=== PATIENT | female | born 1985 | race Two or more races ===

== ENCOUNTER 2021-02-24 15:01 | Outpatient (REF) | payer OTHER, SELFPAY ==
[2021-02-24 16:00] LABS: COVID-19 Test Negative (Negative)
== END 2021-02-24 15:02 | disposition home or self-care (01) ==
LOC: HO.LAB 15:01
PROVIDERS: Visit Provider Internal Medicine
DX: Z20.822 Contact with and (suspected) exposure to COVID-19 (principal)
CPT/HCPCS: 36415; 87635; C9803

== ENCOUNTER → 2022-02-28 11:14 | Outpatient (REF) | payer OTHER, SELFPAY ==
--- NOTE | 2022-02-28 11:20 | ECG_ITS ---
Test Reason : PREOP Blood Pressure : / mmHG Vent. Rate : 059 BPM Atrial Rate : 059 BPM P-R Int : 128 ms QRS Dur : 080 ms QT Int : 396 ms P-R-T Axes : 062 067 025 degrees QTc Int : 392 ms Sinus bradycardia Otherwise normal ECG No previous ECGs available Referred By: Meagan Obrien Electronically Signed By:ASMITA BLISS MD
[2022-02-28 11:43] LABS: MANUAL DIFF FLAG NO
[2022-02-28 12:27] LABS: Basophils Absolute Auto 0.1 X10*3/uL (0.0-0.2); Basophils Percent Auto 1.7 % (0-2); Eosinophils Absolute Auto 0.3 X10*3/uL (0.0-0.4); Hematocrit 39.9 % (37.0-47.0); Hemoglobin 12.8 g/dl (12.0-16.0); Imm Gran Abs Auto 0.01 X10*3/uL (0.00-0.03); Imm Gran Pct Auto 0.2 % (0.0-0.4); Lymphocytes Absolute Auto 1.9 X10*3/uL (1.2-4.9); Lymphocytes Percent Auto 38.8 % (20-40); Mean Corpuscular HGB Conc 32.1 g/dl (31.0-35.0); Mean Corpuscular Hemoglobin 26.4 pg (27.0-33.0); Mean Corpuscular Volume 82.3 fL (80.0-98.0); Mean Platelet Volume 10.7 fL (9.4-12.3); Monocytes Absolute Auto 0.4 X10*3/uL (0.1-1.2); Monocytes Percent Auto 7.9 % (2-11); Neutrophils Absolute Auto 2.2 x10*3/uL (2.0-8.3); Neutrophils Percent Auto 45.4 % (45-73); Platelet Count 260 X10*3/uL (160-400); Red Blood Count 4.85 X10*6/uL (4.20-5.50); White Blood Count 4.8 X10*3/uL (4.8-10.8)
[2022-02-28 12:45] LABS: INTERNATIONAL NORM RATIO 1.1 (0.9-1.1)
[2022-02-28 12:48] LABS: Partial Thromboplastin Time 37.7 SEC (24.1-38.0)
[2022-02-28 12:57] LABS: Alanine Aminotransferase 14 U/L (0-31); Albumin Level 4.5 g/dL (3.5-5.0); Alkaline Phosphatase 78 U/L (39-117); Anion Gap 11 (12-20); Aspartate Amino Transferase 12 U/L (5-31); Bilirubin Total 2.3 mg/dL (0.0-1.0); Blood Urea Nitrogen 8 mg/dL (9-16); Calcium 9.3 mg/dL (8.4-10.2); Carbon Dioxide 25 mmol/L (22-29); Chloride 107 mmol/L (96-108); Cholesterol 122 mg/dL; Estimated Glomerular Filt Rate > 60; Glucose Fasting 85 mg/dL (60-99); HDL Cholesterol 45 mg/dL; LDL Cholesterol Calculated 66 mg/dl; Potassium 4.2 mmol/L (3.3-5.1); Sodium 139 mmol/L (135-145); Total Protein 7.1 g/dL (6.5-8.0); Triglycerides 58 mg/dL
[2022-02-28 13:17] LABS: Appearance Urine CLEAR; Color Urine YELLOW; Glucose Urine UA NEG (NEG); Leukocyte Esterase Urine NEG (NEG); Nitrite Urine POS (NEG); UACC Culture Trigger YES; Urine Blood 3+ (NEG); Urine Ketones NEG (NEG); Urine Protein NEG (NEG-TRACE)
[2022-02-28 13:19] LABS: HCG Quantitative < 2 mIU/mL; Thyroid Stimulating Hormone 1.35 uIU/mL (0.32-4.0)
[2022-02-28 13:21] LABS: Free T4 (Free Thyroxine) 1.01 ng/dL (0.71-1.85); Vitamin D 25-OH Total 20.5 ng/mL (>30)
[2022-02-28 13:24] LABS: Vitamin B12 511 pg/mL (200-900)
[2022-02-28 13:58] LABS: Bacteria Urine 4+ /LPF; Squamous Epithelial Cell Urine 3+ /LPF; WBC Urine 0-2 /HPF (0-4)
== END ==
LOC: HO.CARD 11:14
PROVIDERS: PCP Internal Medicine; Visit Provider Nurse Practitioner Family
DX: Z01.818 Encounter for other preprocedural examination (principal); I10 Essential (primary) hypertension; E78.00 Pure hypercholesterolemia, unspecified; R30.0 Dysuria
CPT/HCPCS: 36415; 80053; 80061; 81001; 82306; 82607; 82746; 84439; 84443; 84702; 85025; 85610; 85730; 87086; 87088; 87186; 93005

== ENCOUNTER 2022-03-01 12:15 | Outpatient (REF) | payer OTHER, SELFPAY ==
[2022-03-01 12:40] LABS: MANUAL DIFF FLAG NO
[2022-03-01 13:12] LABS: Basophils Absolute Auto 0.1 X10*3/uL (0.0-0.2); Basophils Percent Auto 1.7 % (0-2); Eosinophils Absolute Auto 0.3 X10*3/uL (0.0-0.4); Eosinophils Percent Auto 6.4 % (0-4); Imm Gran Abs Auto 0.01 X10*3/uL (0.00-0.03); Imm Gran Pct Auto 0.2 % (0.0-0.4); Lymphocytes Absolute Auto 1.8 X10*3/uL (1.2-4.9); Lymphocytes Percent Auto 33.9 % (20-40); Mean Corpuscular HGB Conc 32.5 g/dl (31.0-35.0); Mean Corpuscular Hemoglobin 26.7 pg (27.0-33.0); Mean Corpuscular Volume 82.1 fL (80.0-98.0); Mean Platelet Volume 10.9 fL (9.4-12.3); Monocytes Absolute Auto 0.4 X10*3/uL (0.1-1.2); Neutrophils Absolute Auto 2.7 x10*3/uL (2.0-8.3); Neutrophils Percent Auto 50.8 % (45-73); Platelet Count 260 X10*3/uL (160-400); Red Blood Count 4.87 X10*6/uL (4.20-5.50); White Blood Count 5.3 X10*3/uL (4.8-10.8)
[2022-03-01 13:41] LABS: Alanine Aminotransferase 11 U/L (0-31); Albumin Level 4.5 g/dL (3.5-5.0); Alkaline Phosphatase 78 U/L (39-117); Anion Gap 11 (12-20); Aspartate Amino Transferase 10 U/L (5-31); Bilirubin Total 1.5 mg/dL (0.0-1.0); Blood Urea Nitrogen 11 mg/dL (9-16); Calcium 9.3 mg/dL (8.4-10.2); Carbon Dioxide 23 mmol/L (22-29); Chloride 107 mmol/L (96-108); Estimated Glomerular Filt Rate > 60; Glucose Random 88 mg/dL (60-115); Potassium 4.2 mmol/L (3.3-5.1); Sodium 137 mmol/L (135-145); Total Protein 7.1 g/dL (6.5-8.0)
[2022-03-01 14:12] LABS: Appearance Urine CLOUDY; Color Urine YELLOW; Glucose Urine UA NEG (NEG); Leukocyte Esterase Urine NEG (NEG); Nitrite Urine POS (NEG); Specific Gravity - Urine >= 1.030 (1.005-1.025); UACC Culture Trigger YES; Urine Blood TRACE (NEG); Urine Ketones NEG (NEG); Urine Protein NEG (NEG-TRACE)
[2022-03-01 14:29] LABS: Bacteria Urine 3+ /LPF; Squamous Epithelial Cell Urine 1+ /LPF
[2022-03-02 08:36] LABS: HIV AB/AG Nonreactive (Nonreactive); HIV Num 1 0.09 S/CO (0.00-0.99)
== END 2022-03-01 12:16 | disposition home or self-care (01) ==
LOC: HO.LAB 12:15
PROVIDERS: Nurse Practitioner Family; PCP Internal Medicine; Visit Provider Internal Medicine
DX: Z11.4 Encounter for screening for human immunodeficiency virus [HIV] (principal); R30.0 Dysuria; N87.1 Moderate cervical dysplasia
CPT/HCPCS: 36415; 80053; 81001; 85025; 87389

== ENCOUNTER 2022-03-19 17:57 | Emergency (ER) | payer OTHER, SELFPAY ==
[2022-03-19] VITALS (8 sets, daily range): BP systolic 113–141; BP diastolic 71–85; PULSE 108–142; RESP 14–18; TEMP 36.8–37.7; O2SAT 98–100; BMI 28.3
--- NOTE | ~2022-03-19 | XR_ITS ---
EXAMINATION: XR chest 1V CLINICAL INFORMATION: Reason for Exam Tachycardia COMPARISON: None TECHNIQUE: XR chest 1V Tubes and lines: None Lungs and pleura: Both lungs are clear. Heart and mediastinum: The mediastinum is within normal limits.. Bones/soft tissue: Skeletal structures included are normal for patient's age. XR/XR chest 1V IMPRESSION: Normal portable chest x-ray.
--- NOTE | ~2022-03-19 | CT_ITS ---
EXAMINATION: CT abdomen pelvis w con CLINICAL INFORMATION: Reason for Exam Postsurgical bleeding COMPARISON: No prior CT available for comparison. TECHNIQUE: Multidetector volumetric imaging was performed from the superior aspect of the liver through the pubic symphysis 85 mL Omnipaque 350 injected Sagittal and coronal reformatted images were obtained on the technologist's workstation. This CT examination was performed using dose optimization techniques as appropriate, variously including the following: *Automated exposure control *Adjustment of mA and/or kV according to patient size (this includes techniques or standardized protocols for targeted exams where dose is matched to indication/reason for exam; i.e. extremities or head) *Use of iterative reconstruction technique DLP: 350 mGy-cm FINDINGS: LOWER THORAX: Included lung bases are clear. HEPATOBILIARY: No focal hepatic lesions. No biliary ductal dilatation. GALLBLADDER: Gallbladder unremarkable. SPLEEN: Spleen is normal in size. PANCREAS: No focal mass or ductal dilatation. STOMACH AND GASTROINTESTINAL TRACT: Stomach is grossly unremarkable. There is no bowel distention or thickening. No CT evidence of appendicitis. ADRENALS: No adrenal nodules. KIDNEYS/URETERS: No hydronephrosis, stones or solid mass lesions. URINARY BLADDER: Partially decompressed. PELVIC VISCERA: There is IUD in the uterus. PERITONEUM: No free air or fluid. LYMPH NODES: No lymphadenopathy. VASCULAR:Abdominal aorta normal in size, no aneurysm found. BONES, ABDOMINAL WALL AND SOFT TISSUES: There is diffuse soft tissue edema, and subcutaneous emphysema, cannot rule out cellulitis and/or gas-forming bacteria. Versus postsurgical. CT/CT abdomen pelvis w con IMPRESSION: Diffuse anterior abdominal wall subcutaneous edema and emphysema, although could be postsurgical, cannot rule out the possibility of cellulitis, gas-forming bacteria. Please correlate with patient's surgical history. No localized fluid collection abscess. No intra-abdominal acute process. No obstruction. No free air or fluid in the abdomen or pelvis. IUD in the uterus.
--- NOTE | 2022-03-19 18:17 | ECG_ITS ---
Test Reason : TACHYCARDIA Blood Pressure : / mmHG Vent. Rate : 140 BPM Atrial Rate : 140 BPM P-R Int : 116 ms QRS Dur : 066 ms QT Int : 298 ms P-R-T Axes : 067 063 022 degrees QTc Int : 454 ms Sinus tachycardia Cannot rule out Anterior infarct , age undetermined Abnormal ECG When compared with ECG of 28-FEB-2022 11:23, Vent. rate has increased BY 81 BPM Referred By: Generic ED Physician Electronically Signed By:ASMITA BLISS MD
--- NOTE | 2022-03-19 18:38 | ED_ITS ---
HPI - General Adult General Chief complaint: Arrhythmia/Palpitations Stated complaint: high BP Time Seen by Provider: 03/19/22 18:30 Source: patient Mode of arrival: ambulatory Limitations: no limitations History of Present Illness HPI narrative: 36-year-old female presents with 4 days of chills, palpitations, tachycardia, hypertension, and weakness. Had a liposuction with Mongolian butt lift in [place] on 03/15/2022. Onset (ago): day(s) (4) Location: abdomen, buttocks, left, right and lower extremity Severity: moderate Quality: aching Pain Consistency: constant Relieving factors: none Exacerbating factors: movement Associated symptoms: fever/chills, headaches, loss of appetite and weakness Treatments prior to arrival: NSAID Related Data Previous Rx's Medication Instructions Recorded citalopram 10 mg tablet (Celexa) 10 mg PO DAILY #30 tab 01/24/22 quetiapine 50 mg tablet (Seroquel) 50 mg PO BEDTIME #30 tab 01/24/22 nitrofurantoin 100 mg PO BID 7 Days #14 cap 03/03/22 monohydrate/macrocrystals 100 mg capsule (Macrobid) Allergies Allergy/AdvReac Type Severity Reaction Status Date / Time nifedipine [Procardia] Allergy Unknown Abdominal Verified 03/19/22 18:13 Pain terbutaline Allergy Unknown Abdominal Verified 03/19/22 18:13 Pain Review of Systems Review of Systems: Constitutional: No Fever, positive Chills ENT/Mouth: No Ear Pain, No Hoarseness, No sore throat Eyes: No Eye Pain, No Swelling, No Redness, No Foreign Body Cardiovascular: Positive palpitations, No Chest Pain, No SOB Respiratory: No Cough, No Dyspnea Gastrointestinal: No Nausea, No Vomiting, No Diarrhea, positive postsurgical abdominal Pain Genitourinary: No Dysuria, No Hematuria Musculoskeletal: No joint pain, No Myalgias, No Joint Swelling Skin: No Skin lacerations, No rash Neuro: Positive Weakness, No Numbness, No Paresthesias, No Loss of Consciousness, No Dizziness, No Headache Psych: No Anxiety/Panic, No Depression Heme/Lymph: no easy bruising, no Lymphadenopathy Endocrine: No Polyuria, No Polydipsia Yes all other systems are reviewed and are negative PMFSH Past Medical History Attestation statement: The following information was validated with the patient. Source: old records reviewed Medical History Allergic rhinitis Cervical high risk HPV (human papillomavirus) test positive FLORENCIO II (cervical intraepithelial neoplasia II) Complex ovarian cyst Constipation Ectopic of left ovary Generalized anxiety disorder GERD (gastroesophageal reflux disease) Hematuria History of hydronephrosis Hyperbilirubinemia Hypertension Obesity (BMI 30-39.9) Vitamin D deficiency Surgical History H/O section History of appendectomy Skin tag, acquired Family History Family History Maternal Grandmother Colon cancer Maternal Grandfather Colon cancer Other Mental health disorder Social History Social History Housing: Apartment Alcohol intake: never Patient Tobacco Use Status: Former Tobacco user Tobacco use type: Cigarette Years Smoked: quit 17 years old e-Cigarette/Vaping Use: Never Used Second Hand Smoke Exposure: No Advance Directives: No Advance Directives Information Provided: No service: No Current occupational status: employed Cognitive needs: No Hearing needs: No Vision needs: No Physical Exam ED Vital Signs: Vital Signs - 24 hr 03/19/22 18:13 03/19/22 21:20 03/19/22 21:56 Temperature 98.3 F 98.6 F 98.7 F Pulse Rate 142 H 110 H 113 H Respiratory Rate 18 14 16 Blood Pressure 141/85 H 123/77 117/76 Pulse Oximetry 98 100 03/19/22 22:11 03/19/22 22:42 03/19/22 23:27 Temperature 99.8 F 99.4 F 99.5 F Pulse Rate 108 H 114 H 134 H Respiratory Rate 14 14 18 Blood Pressure 115/77 113/72 125/71 Pulse Oximetry 100 03/19/22 23:54 03/19/22 23:58 03/20/22 00:03 Temperature 99.7 F 99.6 F 99.6 F Pulse Rate 118 H 118 H 118 H Respiratory Rate 14 14 14 Blood Pressure 124/77 118/77 118/77 Pulse Oximetry 03/20/22 00:18 Temperature 99.5 F Pulse Rate 126 H Respiratory Rate 17 Blood Pressure 124/68 Pulse Oximetry BMI result Body Mass Index 28.3 Appearance: Alert. Oriented X3. Moderate distress. Appears fatigued. Eyes: Pupils equal, round and reactive to light. EOMI. Sclera nonicteric. ENT: Pharynx normal. Dry mucous membranes Neck: Normal inspection. Neck supple. CVS: Tachycardic heart rate and rhythm. Apical pulse good pulses to extremities. Respiratory: No respiratory distress. Breath sounds normal. Abdomen: Soft and diffusely tender. Skin: Significant bluish purple almost black bruising from above the umbilicus to bilateral inner thighs out to the bilateral buttocks. Normal skin turgor. Extremities: No lower extremity edema. awkward but steady gait. Moves all extremities against resistance. Neuro: No motor deficit. No sensory deficit. Cranial nerves 2-12 intact. Course Course Course Narrative: 36-year-old female presents with tachycardia, palpitations, hypertension, weakness, fatigue and intermittent chills over the past 4 days. Had a Mongolian butt lift and liposuction 360 at a clinic in [place] on 03/15/2022. Patient stated that the symptoms started shortly after, she was prescribed Bactrim. Did not take the Bactrim because she felt like it was contributing to her elevated blood pressure. Patient looks fatigued, has significant bruising from mid torso down to thighs circumferential to both legs and buttocks. High suspicion for sepsis at this time. Will order lactic acid, cultures, labs, CT scan of abdomen and pelvis with contrast. Order for Zosyn, saline, morphine and Zofran. 19:46 critical value of hemoglobin of 7. Type and screen ordered at this time. 22:50 CT scan of abdomen and pelvis indicates subcutaneous emphysema and cellulitis which could possibly be postsurgical verses gas-forming bacteria. 2300 p.m. hospitalist not feel comfortable accepting this patient. Discussion with on-call surgery, Dr. Silva does not feel that this patient would receive the services needed for her condition as we do not have [facility]. With the high possibility of necrotizing soft tissue, patient needs a high level of care and this hospital can provide. Call out to [facility]. 23:05 [facility] is not accepting patients at this time. Call out to [facility]. [facility] is not accepting patients. 23:26 discussion with [facility]. 23:47 2nd unit of blood infusing. 00:03 discussion with on-call plastics Dr. Balderas, [facility] affiliation [facility]. Patient will be accepted by Dr. Balbuena as an ED to ED transfer. Consultations Consultation #1: shelli Time: 23:00 Consultation #2: Ricardo Time: 23:00 Medical Decision Making Differential Diagnosis Differential Diagnosis: Sepsis, cellulitis, abscess Medical Records Medical records reviewed: Yes I reviewed the patient's medical records. Lab Data Lab results reviewed: Yes I reviewed the patient's lab results. Result diagrams: 03/19/22 18:50 03/19/22 18:50 Labs: Lab Results 03/19/22 03/19/22 03/19/22 Range/Units 18:50 18:50 18:50 WBC 14.5 H (4.8-10.8) X10*3/uL RBC 2.51 L D (4.20-5.50) X10*6/uL Hgb 7.0 L* D (12.0-16.0) g/dl Hct 21.1 L D (37.0-47.0) % MCV 84.1 (80.0-98.0) fL MCH 27.9 (27.0-33.0) pg MCHC 33.2 (31.0-35.0) g/dl RDW 14.1 (11.0-16.0) % Plt Count 313 (160-400) X10*3/uL MPV 10.2 (9.4-12.3) fL Immature Gran % (Auto) 1.4 H (0.0-0.4) % Neut % (Auto) 69.4 (45-73) % Lymph % (Auto) 19.5 L (20-40) % [place] % (Auto) 7.1 (2-11) % Eos % (Auto) 2.1 (0-4) % Baso % (Auto) 0.5 (0-2) % Lymph # (Auto) 2.8 (1.2-4.9) X10*3/uL [place] # (Auto) 1.0 (0.1-1.2) X10*3/uL Eos # (Auto) 0.3 (0.0-0.4) X10*3/uL Baso # (Auto) 0.1 (0.0-0.2) X10*3/uL Abs Immat Gran (auto) 0.20 H (0.00-0.03) X10*3/uL Absolute Neuts (auto) 10.1 H (2.0-8.3) x10*3/uL Absolute Nucleated RBC 0.060 H (0.0-0.012) X10*3/uL Nucleated RBC % (auto) 0.4 H (0.0-0.2) /100WBC PT (9.9-13.0) SEC INR (0.9-1.1) APTT 33.3 (24.1-38.0) SEC D-Dimer High Sensitivty NG/ML Sodium 138 (135-145) mmol/L Potassium 3.9 (3.3-5.1) mmol/L Chloride 105 (96-108) mmol/L Carbon Dioxide 25 (22-29) mmol/L Anion Gap 12 (12-20) BUN 13 (9-16) mg/dL Creatinine 0.78 (0.5-1.4) mg/dL Estim Creat Clear Calc 98.8 Estimated GFR > 60 Random Glucose 114 (60-115) mg/dL Lactic Acid (0.5-2.0) mmol/L Calcium 9.2 (8.4-10.2) mg/dL Magnesium 2.0 (1.6-2.6) mg/dL Total Bilirubin 1.8 H (0.0-1.0) mg/dL Direct Bilirubin 0.6 H (0.0-0.5) mg/dL AST 27 D (5-31) U/L ALT 30 (0-31) U/L Alkaline Phosphatase 74 (39-117) U/L Troponin I High Sens (<3.5-17.0) ng/L Total Protein 6.2 L (6.5-8.0) g/dL Albumin 3.8 (3.5-5.0) g/dL Lipase 55 (8-78) U/L Urine Color Urine Appearance Urine pH (5.0-8.0) Ur Specific [place] (1.005-1.025) Urine Protein (NEG-TRACE) MG/DL Urine Glucose (UA) (NEG) MG/DL Urine Ketones (NEG) MG/DL Urine Blood (NEG) Urine Nitrite (NEG) Ur Leukocyte Esterase (NEG) Urine Test (NEGATIVE) Influenza Type A (PCR) (Negative) Influenza Type B (PCR) (Negative) RSV RNA Qual (PCR) (Negative) SARS-CoV-2 RNA (RT-PCR) (Negative) Blood Type Antibody Screen Crossmatch 03/19/22 03/19/22 03/19/22 Range/Units 18:50 18:50 18:50 WBC (4.8-10.8) X10*3/uL RBC (4.20-5.50) X10*6/uL Hgb (12.0-16.0) g/dl Hct (37.0-47.0) % MCV (80.0-98.0) fL MCH (27.0-33.0) pg MCHC (31.0-35.0) g/dl RDW (11.0-16.0) % Plt Count (160-400) X10*3/uL MPV (9.4-12.3) fL Immature Gran % (Auto) (0.0-0.4) % Neut % (Auto) (45-73) % Lymph % (Auto) (20-40) % [place] % (Auto) (2-11) % Eos % (Auto) (0-4) % Baso % (Auto) (0-2) % Lymph # (Auto) (1.2-4.9) X10*3/uL [place] # (Auto) (0.1-1.2) X10*3/uL Eos # (Auto) (0.0-0.4) X10*3/uL Baso # (Auto) (0.0-0.2) X10*3/uL Abs Immat Gran (auto) (0.00-0.03) X10*3/uL Absolute Neuts (auto) (2.0-8.3) x10*3/uL Absolute Nucleated RBC (0.0-0.012) X10*3/uL Nucleated RBC % (auto) (0.0-0.2) /100WBC PT 11.1 (9.9-13.0) SEC INR 1.0 (0.9-1.1) APTT (24.1-38.0) SEC D-Dimer High Sensitivty 821 NG/ML Sodium (135-145) mmol/L Potassium (3.3-5.1) mmol/L Chloride (96-108) mmol/L Carbon Dioxide (22-29) mmol/L Anion Gap (12-20) BUN (9-16) mg/dL Creatinine (0.5-1.4) mg/dL Estim Creat Clear Calc Estimated GFR Random Glucose (60-115) mg/dL Lactic Acid 1.8 (0.5-2.0) mmol/L Calcium (8.4-10.2) mg/dL Magnesium (1.6-2.6) mg/dL Total Bilirubin (0.0-1.0) mg/dL Direct Bilirubin (0.0-0.5) mg/dL AST (5-31) U/L ALT (0-31) U/L Alkaline Phosphatase (39-117) U/L Troponin I High Sens 39.5 H (<3.5-17.0) ng/L Total Protein (6.5-8.0) g/dL Albumin (3.5-5.0) g/dL Lipase (8-78) U/L Urine Color Urine Appearance Urine pH (5.0-8.0) Ur Specific [place] (1.005-1.025) Urine Protein (NEG-TRACE) MG/DL Urine Glucose (UA) (NEG) MG/DL Urine Ketones (NEG) MG/DL Urine Blood (NEG) Urine Nitrite (NEG) Ur Leukocyte Esterase (NEG) Urine Test (NEGATIVE) Influenza Type A (PCR) (Negative) Influenza Type B (PCR) (Negative) RSV RNA Qual (PCR) (Negative) SARS-CoV-2 RNA (RT-PCR) (Negative) Blood Type Antibody Screen Crossmatch 03/19/22 03/19/22 03/19/22 Range/Units 18:50 20:06 20:06 WBC (4.8-10.8) X10*3/uL RBC (4.20-5.50) X10*6/uL Hgb (12.0-16.0) g/dl Hct (37.0-47.0) % MCV (80.0-98.0) fL MCH (27.0-33.0) pg MCHC (31.0-35.0) g/dl RDW (11.0-16.0) % Plt Count (160-400) X10*3/uL MPV (9.4-12.3) fL Immature Gran % (Auto) (0.0-0.4) % Neut % (Auto) (45-73) % Lymph % (Auto) (20-40) % [place] % (Auto) (2-11) % Eos % (Auto) (0-4) % Baso % (Auto) (0-2) % Lymph # (Auto) (1.2-4.9) X10*3/uL [place] # (Auto) (0.1-1.2) X10*3/uL Eos # (Auto) (0.0-0.4) X10*3/uL Baso # (Auto) (0.0-0.2) X10*3/uL Abs Immat Gran (auto) (0.00-0.03) X10*3/uL Absolute Neuts (auto) (2.0-8.3) x10*3/uL Absolute Nucleated RBC (0.0-0.012) X10*3/uL Nucleated RBC % (auto) (0.0-0.2) /100WBC PT (9.9-13.0) SEC INR (0.9-1.1) APTT (24.1-38.0) SEC D-Dimer High Sensitivty NG/ML Sodium (135-145) mmol/L Potassium (3.3-5.1) mmol/L Chloride (96-108) mmol/L Carbon Dioxide (22-29) mmol/L Anion Gap (12-20) BUN (9-16) mg/dL Creatinine (0.5-1.4) mg/dL Estim Creat Clear Calc Estimated GFR Random Glucose (60-115) mg/dL Lactic Acid (0.5-2.0) mmol/L Calcium (8.4-10.2) mg/dL Magnesium (1.6-2.6) mg/dL Total Bilirubin (0.0-1.0) mg/dL Direct Bilirubin (0.0-0.5) mg/dL AST (5-31) U/L ALT (0-31) U/L Alkaline Phosphatase (39-117) U/L Troponin I High Sens (<3.5-17.0) ng/L Total Protein (6.5-8.0) g/dL Albumin (3.5-5.0) g/dL Lipase (8-78) U/L Urine Color YELLOW Urine Appearance CLEAR Urine pH 5.5 (5.0-8.0) Ur Specific [place] 1.010 (1.005-1.025) Urine Protein NEG (NEG-TRACE) MG/DL Urine Glucose (UA) NEG (NEG) MG/DL Urine Ketones NEG (NEG) MG/DL Urine Blood NEG (NEG) Urine Nitrite NEG (NEG) Ur Leukocyte Esterase NEG (NEG) Urine Test NEGATIVE (NEGATIVE) Influenza Type A (PCR) NEGATIVE (Negative) Influenza Type B (PCR) NEGATIVE (Negative) RSV RNA Qual (PCR) NEGATIVE (Negative) SARS-CoV-2 RNA (RT-PCR) NEGATIVE (Negative) Blood Type Antibody Screen Crossmatch 03/19/22 Range/Units 20:29 WBC (4.8-10.8) X10*3/uL RBC (4.20-5.50) X10*6/uL Hgb (12.0-16.0) g/dl Hct (37.0-47.0) % MCV (80.0-98.0) fL MCH (27.0-33.0) pg MCHC (31.0-35.0) g/dl RDW (11.0-16.0) % Plt Count (160-400) X10*3/uL MPV (9.4-12.3) fL Immature Gran % (Auto) (0.0-0.4) % Neut % (Auto) (45-73) % Lymph % (Auto) (20-40) % [place] % (Auto) (2-11) % Eos % (Auto) (0-4) % Baso % (Auto) (0-2) % Lymph # (Auto) (1.2-4.9) X10*3/uL [place] # (Auto) (0.1-1.2) X10*3/uL Eos # (Auto) (0.0-0.4) X10*3/uL Baso # (Auto) (0.0-0.2) X10*3/uL Abs Immat Gran (auto) (0.00-0.03) X10*3/uL Absolute Neuts (auto) (2.0-8.3) x10*3/uL Absolute Nucleated RBC (0.0-0.012) X10*3/uL Nucleated RBC % (auto) (0.0-0.2) /100WBC PT (9.9-13.0) SEC INR (0.9-1.1) APTT (24.1-38.0) SEC D-Dimer High Sensitivty NG/ML Sodium (135-145) mmol/L Potassium (3.3-5.1) mmol/L Chloride (96-108) mmol/L Carbon Dioxide (22-29) mmol/L Anion Gap (12-20) BUN (9-16) mg/dL Creatinine (0.5-1.4) mg/dL Estim Creat Clear Calc Estimated GFR Random Glucose (60-115) mg/dL Lactic Acid (0.5-2.0) mmol/L Calcium (8.4-10.2) mg/dL Magnesium (1.6-2.6) mg/dL Total Bilirubin (0.0-1.0) mg/dL Direct Bilirubin (0.0-0.5) mg/dL AST (5-31) U/L ALT (0-31) U/L Alkaline Phosphatase (39-117) U/L Troponin I High Sens (<3.5-17.0) ng/L Total Protein (6.5-8.0) g/dL Albumin (3.5-5.0) g/dL Lipase (8-78) U/L Urine Color Urine Appearance Urine pH (5.0-8.0) Ur Specific [place] (1.005-1.025) Urine Protein (NEG-TRACE) MG/DL Urine Glucose (UA) (NEG) MG/DL Urine Ketones (NEG) MG/DL Urine Blood (NEG) Urine Nitrite (NEG) Ur Leukocyte Esterase (NEG) Urine Test (NEGATIVE) Influenza Type A (PCR) (Negative) Influenza Type B (PCR) (Negative) RSV RNA Qual (PCR) (Negative) SARS-CoV-2 RNA (RT-PCR) (Negative) Blood Type B Positive Antibody Screen NEGATIVE Crossmatch See Detail Imaging Data Chest x-ray: Attestation: I personally reviewed and interpreted this imaging study as follows: Radiologist's impression: EXAMINATION: XR chest 1V CLINICAL INFORMATION: Reason for Exam Tachycardia COMPARISON: None? TECHNIQUE: XR chest 1V Tubes and lines: None Lungs and pleura: Both lungs are clear. Heart and mediastinum: The mediastinum is within normal limits.. Bones/soft tissue: Skeletal structures included are normal for patient's age. XR/XR chest 1V IMPRESSION: Normal portable chest x-ray. CT abdomen pelvis with contrast: Attestation: I personally reviewed and interpreted this imaging study as follows: Radiologist's impression: EXAMINATION: CT abdomen pelvis w con CLINICAL INFORMATION: Reason for Exam Postsurgical bleeding COMPARISON: No prior CT available for comparison. TECHNIQUE: Multidetector volumetric imaging was performed from the superior aspect of the liver through the pubic symphysis 85 mL Omnipaque 350 injected Sagittal and coronal reformatted images were obtained on the technologist's workstation. ? This CT examination was performed using dose optimization techniques as appropriate, variously including the following: *Automated exposure control *Adjustment of mA and/or kV according to patient size (this includes techniques or standardized protocols for targeted exams where dose is matched to indication/reason for exam; i.e. extremities or head) *Use of iterative reconstruction technique DLP: 350 mGy-cm FINDINGS: LOWER THORAX: Included lung bases are clear. HEPATOBILIARY: No focal hepatic lesions. No biliary ductal dilatation. GALLBLADDER: Gallbladder unremarkable. SPLEEN: Spleen is normal in size. PANCREAS: No focal mass or ductal dilatation. STOMACH AND GASTROINTESTINAL TRACT: Stomach is grossly unremarkable. There is no bowel distention or thickening. No CT evidence of appendicitis. ADRENALS: No adrenal nodules. KIDNEYS/URETERS: No hydronephrosis, stones or solid mass lesions. URINARY BLADDER: Partially decompressed. PELVIC VISCERA: There is IUD in the uterus. PERITONEUM: No free air or fluid. LYMPH NODES: No lymphadenopathy. VASCULAR:Abdominal aorta normal in size, no aneurysm found. BONES, ABDOMINAL WALL AND SOFT TISSUES: There is diffuse soft tissue edema, and subcutaneous emphysema, cannot rule out cellulitis and/or gas-forming bacteria. Versus postsurgical. CT/CT abdomen pelvis w con IMPRESSION: Diffuse anterior abdominal wall subcutaneous edema and emphysema, although could be postsurgical, cannot rule out the possibility of cellulitis, gas-forming bacteria. Please correlate with patient's surgical history. No localized fluid collection abscess. ? No intra-abdominal acute process. No obstruction. No free air or fluid in the abdomen or pelvis. ? IUD in the uterus. ECG Data Attestation: I personally reviewed and interpreted this ECG as follows: Prior ECG tracings: available for review Interpretation: Vent. rate 140 BPM WI interval 116 ms QRS duration 66 ms QT/QTc 298/454 ms P-R-T axes 67 63 22 Sinus tachycardia Cannot rule out Anterior infarct , age undetermined Abnormal ECG When compared with ECG of 28-FEB-2022 11:23, Vent. rate has increased BY 81 BPM 19-MAR-2022 18:17:24 Critical Care Time Critical Care Time Critical Care Time: Yes Total Critical Care Time: 45 Attestation: I have personally provided critical care time exclusive of time spent on separately billable procedures. Time includes review of laboratory data, radiology results, discussion with consultants, and monitoring for potential decompensation. Interventions were performed as documented. Discharge Plan Discharge Clinical Impression: Cellulitis, Subcutaneous emphysema, Sepsis Patient Disposition: [facility] Transfer Details: [facility] affiliated [facility] in [facility]. Dr Balbuena Prescriptions: No Action nitrofurantoin monohyd/m-cryst [Macrobid] 100 mg capsule 100 mg PO BID 7 Days Qty: 14 0RF Rx Instructions: must administer with a meal/food citalopram [Celexa] 10 mg tablet 10 mg PO DAILY Qty: 30 3RF quetiapine [Seroquel] 50 mg tablet 50 mg PO BEDTIME Qty: 30 4RF
[2022-03-19] MEDS: 0.9 % Sodium Chloride 1,000 ML 999 ML IVCONT (18:53)
[2022-03-19 19:00] LABS: Basophils Absolute Auto 0.1 X10*3/uL (0.0-0.2); Basophils Percent Auto 0.5 % (0-2); Eosinophils Absolute Auto 0.3 X10*3/uL (0.0-0.4); Eosinophils Percent Auto 2.1 % (0-4); Hematocrit 21.1 % (37.0-47.0); Imm Gran Pct Auto 1.4 % (0.0-0.4); Lymphocytes Absolute Auto 2.8 X10*3/uL (1.2-4.9); Lymphocytes Percent Auto 19.5 % (20-40); MANUAL DIFF FLAG NO; Mean Corpuscular HGB Conc 33.2 g/dl (31.0-35.0); Mean Corpuscular Hemoglobin 27.9 pg (27.0-33.0); Mean Corpuscular Volume 84.1 fL (80.0-98.0); Mean Platelet Volume 10.2 fL (9.4-12.3); Monocytes Percent Auto 7.1 % (2-11); NRBC Pct Auto 0.4 /100WBC (0.0-0.2); Neutrophils Absolute Auto 10.1 x10*3/uL (2.0-8.3); Neutrophils Percent Auto 69.4 % (45-73); Platelet Count 313 X10*3/uL (160-400); Red Blood Count 2.51 X10*6/uL (4.20-5.50); Red Cell Distribution Width 14.1 % (11.0-16.0); White Blood Count 14.5 X10*3/uL (4.8-10.8)
[2022-03-19 19:06] LABS: Prothrombin Time 11.1 SEC (9.9-13.0)
[2022-03-19 19:08] LABS: D Dimer High Sensitivity 821 NG/ML
[2022-03-19 19:09] LABS: Partial Thromboplastin Time 33.3 SEC (24.1-38.0)
[2022-03-19 19:13] LABS: Lactic Acid 1.8 mmol/L (0.5-2.0)
[2022-03-19 19:18] LABS: Alanine Aminotransferase 30 U/L (0-31); Albumin Level 3.8 g/dL (3.5-5.0); Alkaline Phosphatase 74 U/L (39-117); Anion Gap 12 (12-20); Aspartate Amino Transferase 27 U/L (5-31); Bilirubin Direct 0.6 mg/dL (0.0-0.5); Bilirubin Total 1.8 mg/dL (0.0-1.0); Blood Urea Nitrogen 13 mg/dL (9-16); Calcium 9.2 mg/dL (8.4-10.2); Carbon Dioxide 25 mmol/L (22-29); Chloride 105 mmol/L (96-108); Creatinine Clr Calc Pharmacy 98.8; Estimated Glomerular Filt Rate > 60; Glucose Random 114 mg/dL (60-115); Lipase 55 U/L (8-78); Potassium 3.9 mmol/L (3.3-5.1); Sodium 138 mmol/L (135-145); Total Protein 6.2 g/dL (6.5-8.0)
[2022-03-19 19:20] LABS: Troponin-I High Sensitivity 39.5 ng/L (<3.5-17.0)
[2022-03-19] MEDS: ondansetron HCL 4 MG/2 ML VIAL IVPUSH (19:36)
[2022-03-19 19:37] LABS: Influenza A PCR NEGATIVE (Negative); Influenza B PCR NEGATIVE (Negative); Resp Syncy Virus RNA Qual PCR NEGATIVE (Negative); SARS COV2 PCR INHOUSE NEGATIVE (Negative)
[2022-03-19] MEDS: Morphine Sulfate 4 MG/ML CARTRIDGE IVPUSH (19:37)
[2022-03-19] MEDS: Piperacillin Sodium/Tazobactam 3.375 GM in 0.9 % Sodium Chloride 50 ML IV (19:39)
[2022-03-19 20:15] LABS: Appearance Urine CLEAR; Color Urine YELLOW; Glucose Urine UA NEG (NEG); Leukocyte Esterase Urine NEG (NEG); Nitrite Urine NEG (NEG); PH 5.5 (5.0-8.0); Urine Blood NEG (NEG); Urine Ketones NEG (NEG); Urine Protein NEG (NEG-TRACE)
[2022-03-19 20:17] LABS: UPreg QC Valid YES; Urine Pregnancy NEGATIVE (NEGATIVE)
[2022-03-19] MEDS: iohexoL 350 MG/ML 100 ML INFUS..BTL IV (20:54)
[2022-03-19] MEDS: 0.9 % Sodium Chloride 1,000 ML 999 ML IV (21:16)
--- NOTE | 2022-03-19 21:34 | PC.NURSE ---
Chance Sigala returned from [facility] without pt's ordered blood because blood bank said they were having trouble with their computer system. Logan MOJICA will call [facility] to get more information.
--- NOTE | 2022-03-19 21:38 | PC.NURSE ---
Logan MOJICA spoke with blood bank staff and there will be a delay issuing blood until their computer system is back up and operating. [facility] said that they would alert Logan MOJICA when blood is ready to be issued again.
--- NOTE | 2022-03-19 22:17 | PC.NURSE ---
Blood transfusion in process, 15 minute check complete, VSS, no signs of transfusion reaction. Will continue to monitor.
--- NOTE | 2022-03-19 23:28 | PC.NURSE ---
GALINA DAVIS IS AWARE OF PATIENT HIGH HEART RATE ,PATIENT WAS ASSISTED ONTO BED SIDE COMMODE .
--- NOTE | 2022-03-19 23:51 | PC.NURSE ---
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 Called [place] line @[phone] call back. Received call back at [phone] ,accepted pt at [facility] in [place] ED to ED. Called [facility] for an ALS at [phone] to book transfer, awaiting call back from [facility] for available truck for transfer.Provider aware
[2022-03-20 00:03] VITALS: BP 118/77; PULSE 118; RESP 14; TEMP 37.6
[2022-03-20] MEDS: Morphine Sulfate 4 MG/ML CARTRIDGE IVPUSH ×2 (00:14→00:50)
--- NOTE | 2022-03-20 00:17 | PC.NURSE ---
Ursula for [facility] called at [phone] ,ALS truck en route. and rn aware
[2022-03-20 00:18] VITALS: BP 124/68; PULSE 126; RESP 17; TEMP 37.5
[2022-03-20 00:37] VITALS: BP 128/83; PULSE 111; RESP 18; TEMP 37.2
--- NOTE | 2022-03-20 01:00 | PC.NURSE ---
Pt transferred to [facility], ambulance arrived, pt left mid-transfusion with 1 unit RBCs infusing, VSS, paperwork complete. Report was called to [facility] by Logan MOJICA.
== END 2022-03-20 01:25 | disposition short-term general hospital (02) ==
PROVIDERS: Nurse Practitioner Family; Emergency Provider Emergency Medicine; PCP Internal Medicine
DX: L03.311 Cellulitis of abdominal wall (principal); R00.0 Tachycardia, unspecified; R00.2 Palpitations; A41.9 Sepsis, unspecified organism; R51.9 Headache, unspecified; J98.2 Interstitial emphysema; R50.9 Fever, unspecified; Z20.822 Contact with and (suspected) exposure to COVID-19; Z79.899 Other long term (current) drug therapy; Z87.891 Personal history of nicotine dependence
CPT/HCPCS: 0241U; 36415; 36430; 71045; 74177; 80048; 80076; 81003; 81025; 83605; 83690; 83735; 84484; 85025; 85379; 85610; 85730; 86850; 86900; 86901; 86920; 86923; 87040; 93005; 96361; 96374; 96376; 99285; 99291; J2270; J2405; J2543; P9016; Q9967

== ENCOUNTER 2022-05-04 11:25 | Outpatient (REF) | payer OTHER, SELFPAY ==
[2022-05-04 11:44] LABS: MANUAL DIFF FLAG NO
[2022-05-04 12:03] LABS: Basophils Absolute Auto 0.1 X10*3/uL (0.0-0.2); Basophils Percent Auto 0.7 % (0-2); Eosinophils Absolute Auto 0.3 X10*3/uL (0.0-0.4); Eosinophils Percent Auto 3.1 % (0-4); Hematocrit 40.1 % (37.0-47.0); Hemoglobin 12.8 g/dl (12.0-16.0); Imm Gran Abs Auto 0.03 X10*3/uL (0.00-0.03); Imm Gran Pct Auto 0.3 % (0.0-0.4); Lymphocytes Absolute Auto 1.5 X10*3/uL (1.2-4.9); Lymphocytes Percent Auto 16.1 % (20-40); Mean Corpuscular HGB Conc 31.9 g/dl (31.0-35.0); Mean Corpuscular Hemoglobin 27.7 pg (27.0-33.0); Mean Corpuscular Volume 86.8 fL (80.0-98.0); Mean Platelet Volume 10.3 fL (9.4-12.3); Monocytes Absolute Auto 0.6 X10*3/uL (0.1-1.2); Monocytes Percent Auto 5.8 % (2-11); Platelet Count 235 X10*3/uL (160-400); Red Blood Count 4.62 X10*6/uL (4.20-5.50); White Blood Count 9.4 X10*3/uL (4.8-10.8)
[2022-05-04 12:13] LABS: Appearance Urine CLEAR; Color Urine YELLOW; Glucose Urine UA NEG (NEG); Leukocyte Esterase Urine NEG (NEG); Nitrite Urine NEG (NEG); Urine Blood NEG (NEG); Urine Ketones NEG (NEG); Urine Protein TRACE MG/DL (NEG-TRACE)
[2022-05-04 12:26] LABS: Alanine Aminotransferase 11 U/L (0-31); Albumin Level 4.2 g/dL (3.5-5.0); Alkaline Phosphatase 75 U/L (39-117); Anion Gap 10 (12-20); Aspartate Amino Transferase 15 U/L (5-31); Bilirubin Total 1.1 mg/dL (0.0-1.0); Blood Urea Nitrogen 10 mg/dL (9-16); Calcium 8.7 mg/dL (8.4-10.2); Carbon Dioxide 25 mmol/L (22-29); Chloride 107 mmol/L (96-108); Cholesterol 127 mg/dL; Estimated Glomerular Filt Rate > 60; Glucose Random 85 mg/dL (60-115); HDL Cholesterol 54 mg/dL; LDL Cholesterol Calculated 60 mg/dl; Potassium 4.2 mmol/L (3.3-5.1); Sodium 138 mmol/L (135-145); Total Protein 6.7 g/dL (6.5-8.0); Triglycerides 67 mg/dL
[2022-05-04 12:47] LABS: Ferritin 24 ng/mL (10-122)
[2022-05-04 13:22] LABS: Folate 10.7 ng/mL (> or = 4.0); Vitamin B12 661 pg/mL (200-900)
== END 2022-05-04 11:26 | disposition home or self-care (01) ==
LOC: HO.LAB 11:25
PROVIDERS: Nurse Practitioner Family; PCP Internal Medicine; Visit Provider Internal Medicine
DX: Z01.818 Encounter for other preprocedural examination (principal); I10 Essential (primary) hypertension; D64.9 Anemia, unspecified; E78.00 Pure hypercholesterolemia, unspecified
CPT/HCPCS: 36415; 80053; 80061; 81003; 82607; 82728; 82746; 85025

== ENCOUNTER 2022-11-08 15:28 | Outpatient (REF) | payer OTHER, SELFPAY ==
[2022-11-08 15:37] LABS: MANUAL DIFF FLAG NO
[2022-11-08 17:03] LABS: Basophils Absolute Auto 0.1 X10*3/uL (0.0-0.2); Basophils Percent Auto 1.3 % (0-2); Eosinophils Absolute Auto 0.2 X10*3/uL (0.0-0.4); Eosinophils Percent Auto 3.6 % (0-4); Hematocrit 42.4 % (37.0-47.0); Hemoglobin 13.9 g/dl (12.0-16.0); Imm Gran Abs Auto 0.01 X10*3/uL (0.00-0.03); Imm Gran Pct Auto 0.2 % (0.0-0.4); Lymphocytes Absolute Auto 2.6 X10*3/uL (1.2-4.9); Lymphocytes Percent Auto 47.5 % (20-40); Mean Corpuscular HGB Conc 32.8 g/dl (31.0-35.0); Mean Corpuscular Hemoglobin 27.7 pg (27.0-33.0); Mean Corpuscular Volume 84.5 fL (80.0-98.0); Mean Platelet Volume 10.8 fL (9.4-12.3); Monocytes Absolute Auto 0.4 X10*3/uL (0.1-1.2); Monocytes Percent Auto 7.6 % (2-11); Neutrophils Absolute Auto 2.2 x10*3/uL (2.0-8.3); Neutrophils Percent Auto 39.8 % (45-73); Platelet Count 241 X10*3/uL (160-400); Red Blood Count 5.02 X10*6/uL (4.20-5.50); Red Cell Distribution Width 12.2 % (11.0-16.0); White Blood Count 5.5 X10*3/uL (4.8-10.8)
[2022-11-08 17:57] LABS: Alanine Aminotransferase 12 U/L (0-31); Albumin Level 4.5 g/dL (3.5-5.0); Alkaline Phosphatase 78 U/L (39-117); Anion Gap 11 (12-20); Aspartate Amino Transferase 11 U/L (5-31); Bilirubin Total 1.3 mg/dL (0.0-1.0); Blood Urea Nitrogen 11 mg/dL (9-16); Calcium 8.9 mg/dL (8.4-10.2); Carbon Dioxide 28 mmol/L (22-29); Chloride 105 mmol/L (96-108); Estimated Glomerular Filt Rate > 60; Glucose Random 84 mg/dL (60-115); Potassium 4.1 mmol/L (3.3-5.1); Sodium 140 mmol/L (135-145); TSH reflex Free T4 2.45 uIU/mL (0.32-4.0); Total Protein 6.9 g/dL (6.5-8.0)
== END 2022-11-08 15:29 | disposition home or self-care (01) ==
LOC: HO.LAB 15:28
PROVIDERS: PCP Internal Medicine; Visit Provider Nurse Practitioner Family
DX: I10 Essential (primary) hypertension (principal)
CPT/HCPCS: 36415; 80053; 84443; 85025

== ENCOUNTER → 2023-01-05 08:16 | Outpatient (REF) | payer OTHER, SELFPAY ==
--- NOTE | 2023-01-05 08:20 | ECG_ITS ---
Test Reason : PREOP Blood Pressure : / mmHG Vent. Rate : 065 BPM Atrial Rate : 065 BPM P-R Int : 136 ms QRS Dur : 082 ms QT Int : 386 ms P-R-T Axes : 065 059 020 degrees QTc Int : 401 ms Normal sinus rhythm Normal ECG When compared with ECG of 19-MAR-2022 18:17, Vent. rate has decreased BY 75 BPM Referred By: Samantha Toney Electronically Signed By:STEPHEN MOREIRA
[2023-01-05 08:32] LABS: MANUAL DIFF FLAG NO
[2023-01-05 09:21] LABS: Basophils Absolute Auto 0.1 X10*3/uL (0.0-0.2); Eosinophils Absolute Auto 0.3 X10*3/uL (0.0-0.4); Hematocrit 39.5 % (37.0-47.0); Hemoglobin 12.7 g/dl (12.0-16.0); Imm Gran Abs Auto 0.02 X10*3/uL (0.00-0.03); Imm Gran Pct Auto 0.3 % (0.0-0.4); Lymphocytes Absolute Auto 1.9 X10*3/uL (1.2-4.9); Lymphocytes Percent Auto 30.7 % (20-40); Mean Corpuscular HGB Conc 32.2 g/dl (31.0-35.0); Mean Corpuscular Hemoglobin 27.7 pg (27.0-33.0); Mean Corpuscular Volume 86.2 fL (80.0-98.0); Mean Platelet Volume 10.4 fL (9.4-12.3); Monocytes Absolute Auto 0.5 X10*3/uL (0.1-1.2); Monocytes Percent Auto 7.4 % (2-11); Neutrophils Absolute Auto 3.6 x10*3/uL (2.0-8.3); Neutrophils Percent Auto 56.6 % (45-73); Platelet Count 244 X10*3/uL (160-400); Red Blood Count 4.58 X10*6/uL (4.20-5.50); Red Cell Distribution Width 13.1 % (11.0-16.0); White Blood Count 6.3 X10*3/uL (4.8-10.8)
[2023-01-05 09:23] LABS: Prothrombin Time 11.9 SEC (10.0-13.1)
[2023-01-05 09:26] LABS: Partial Thromboplastin Time 34.5 SEC (26.0-36.4)
[2023-01-05 09:55] LABS: Alanine Aminotransferase 11 U/L (0-31); Albumin Level 4.3 g/dL (3.5-5.0); Alkaline Phosphatase 62 U/L (39-117); Anion Gap 12 (12-20); Aspartate Amino Transferase 11 U/L (5-31); Bilirubin Total 1.8 mg/dL (0.0-1.0); Blood Urea Nitrogen 12 mg/dL (9-16); Calcium 8.9 mg/dL (8.4-10.2); Carbon Dioxide 25 mmol/L (22-29); Chloride 107 mmol/L (96-108); Estimated Glomerular Filt Rate > 60; Glucose Random 87 mg/dL (60-115); Potassium 4.1 mmol/L (3.3-5.1); Sodium 140 mmol/L (135-145); Total Protein 6.4 g/dL (6.5-8.0)
== END ==
LOC: HO.CARD 08:16
PROVIDERS: PCP Internal Medicine; Visit Provider Internal Medicine
DX: Z01.818 Encounter for other preprocedural examination (principal); Z98.890 Other specified postprocedural states
CPT/HCPCS: 36415; 80053; 85025; 85610; 85730; 93005

== ENCOUNTER 2023-02-16 18:01 | Emergency (ER) | payer OTHER, SELFPAY ==
--- NOTE | 2023-02-16 18:03 | ED.GENADULT ---
HPI - General Adult General Chief complaint: Headache <RAUDEL Guevara - Last Filed: 02/16/23 18:04> Stated complaint: High BP for 3 days 155/113 around 15 mins ago <RAUDEL Guevara - Last Filed: 02/16/23 18:04> Time Seen by Provider: 02/16/23 19:59 <RAUDEL Guevara - Last Filed: 02/16/23 18:04> Source: patient, RN notes reviewed and old records reviewed <Neville Edouard - Last Filed: 02/16/23 20:54> Mode of arrival: ambulatory <Neville Edouard - Last Filed: 02/16/23 20:54> Limitations: no limitations <Neville Edouard - Last Filed: 02/16/23 20:54> History of Present Illness HPI narrative: 37-year-old female past medical history significant for hypertension, anxiety and depression presents for evaluation of high blood pressure and headache. Patient reports that she has had a headache for the last 3 days. She attributes this headache to having high blood pressure portal of the last 3 days as well. Denies any head trauma, fevers, chills or neck pain. Patient states that 2 weeks ago her primary doctor changed her antihypertensive medication from lisinopril to metoprolol 25 mg daily. Patient states ?he said he changed it in case I get again because I am young. I have 5 kids and I do not walk anymore. ? She states that her headache is posterior, constant. Denies any visual changes, nausea vomiting or lightheadedness Her blood pressure in the ER l was high as 171/92 <Neville Edouard - Last Filed: 02/16/23 20:54> Related Data Home medications: Previous Rx's Medication Instructions Recorded ferrous sulfate 325 mg (65 mg 325 mg PO BID #60 tabs 03/24/22 iron) tablet blood pressure monitor (Blood #1 ea 11/23/22 Pressure Kit) citalopram 10 mg tablet (Celexa) 10 mg PO DAILY #90 tabs 02/01/23 metoprolol succinate 25 mg 25 mg PO DAILY #30 tabs 02/01/23 tablet,extended release 24 hr quetiapine 50 mg tablet (Seroquel) 50 mg PO BEDTIME #90 tabs 02/01/23 metoprolol succinate 50 mg 50 mg PO DAILY #30 tabs 02/16/23 tablet,extended release 24 hr ondansetron 4 mg disintegrating 4 mg PO Q8H PRN nausea and 02/16/23 tablet vomiting #20 tabs <RAUDEL Guevara - Last Filed: 02/16/23 18:04> Allergies/adverse reactions: Allergies Allergy/AdvReac Type Severity Reaction Status Date / Time nifedipine [Procardia] Allergy Unknown Abdominal Verified 02/01/23 11:16 Pain terbutaline Allergy Unknown Abdominal Verified 02/01/23 11:16 Pain <RAUDEL Guevara - Last Filed: 02/16/23 18:04> Review of Systems Constitutional: Constitutional: Reports as per HPI, Denies chills, Denies fatigue, Denies fever(s) and Reports headache(s) <Neville Edouard - Last Filed: 02/16/23 20:54> ENT: Reports headache(s) <Neville Edouard - Last Filed: 02/16/23 20:54> Cardiovascular: Cardiovascular: Denies chest pain and Denies dyspnea <Neville Edouard - Last Filed: 02/16/23 20:54> Respiratory: Respiratory: Denies cough and Denies dyspnea <Neville Edouard - Last Filed: 02/16/23 20:54> Gastrointestinal: Gastrointestinal: Denies abdominal pain, Denies constipation and Denies vomiting <Neville Edouard - Last Filed: 02/16/23 20:54> Genitourinary: Genitourinary: Denies dysuria <Neville Edouard - Last Filed: 02/16/23 20:54> Neurologic: Reports headache(s) and Denies focal weakness <Neville Edouard - Last Filed: 02/16/23 20:54> Endocrine: Endocrine: Denies fatigue <Neville Edouard - Last Filed: 02/16/23 20:54> [facility] Past Medical History Medical History: Medical History (Updated 02/16/23 @ 20:31 by Neville Edouard) Allergic rhinitis Anemia Annual physical exam Cervical high risk HPV (human papillomavirus) test positive FLORENCIO II (cervical intraepithelial neoplasia II) Complex ovarian cyst Constipation COVID-19 virus infection Dysuria Ectopic of left ovary Generalized anxiety disorder GERD (gastroesophageal reflux disease) Hematuria History of hydronephrosis Hyperbilirubinemia Hypertension Insomnia Obesity (BMI 30-39.9) Pre-operative clearance Pre-operative clearance Pre-operative clearance Sepsis Vitamin D deficiency <RAUDEL Guevara - Last Filed: 02/16/23 18:04> Surgical History: Surgical History H/O section History of appendectomy Skin tag, acquired <RAUDEL Guevara - Last Filed: 02/16/23 18:04> Family History Family History: Family History Maternal Grandmother Colon cancer Maternal Grandfather Colon cancer Other Mental health disorder <RAUDEL Guevara - Last Filed: 02/16/23 18:04> Social History Social History: Social History (Updated 02/01/23 @ 11:59 by Samantha Toney MD) Housing: Apartment Alcohol intake: never Patient Tobacco Use Status: Former Tobacco user Tobacco use type: Cigarette Years Smoked: quit 17 years old Smoked in Last 30 Days: No e-Cigarette/Vaping Use: Never Used Second Hand Smoke Exposure: No Use of substances other than those prescribed or required for medical reasons: No Advance Directives: No Advance Directives Information Provided: No service: No Current occupational status: employed Cognitive needs: No Hearing needs: No Vision needs: No <RAUDEL Guevara - Last Filed: 02/16/23 18:04> Physical Exam ED Vital Signs: Vital Signs - 24 hr 02/16/23 18:05 02/16/23 18:08 02/16/23 19:58 Temperature 98.7 F 98.3 F Pulse Rate 81 71 Respiratory Rate 16 20 Blood Pressure 157/108 H 171/91 H 149/112 H Pulse Oximetry 100 99 Oxygen Delivery Method Room Air Room Air BMI result Body Mass Index 27.0 <RAUDEL Guevara - Last Filed: 02/16/23 18:04> Vital Signs - 24 hr 02/16/23 18:05 02/16/23 18:08 02/16/23 19:58 Temperature 98.7 F 98.3 F Pulse Rate 81 71 Respiratory Rate 16 20 Blood Pressure 157/108 H 171/91 H 149/112 H Pulse Oximetry 100 99 Oxygen Delivery Method Room Air Room Air BMI result Body Mass Index 27.0 < Filed: 02/16/23 20:54> Const General: healthy appearing, comfortable, no acute distress, alert and awake <Neville Last Filed: 02/16/23 20:54> Nutritional Appearance: well nourished < Last Filed: 02/16/23 20:54> Orientation/consciousness: patient oriented x3 < Filed: 02/16/23 20:54> HENMT Head: Yes normocephalic and Yes atraumatic < Filed: 02/16/23 20:54> Throat: Yes posterior oropharynx normal < Filed: 02/16/23 20:54> Eyes Eyelids: Yes eyelids normal < Filed: 02/16/23 20:54> Conjunctivae: conjunctivae normal < Filed: 02/16/23 20:54> Sclerae: sclerae normal < Filed: 02/16/23 20:54> Corneas: corneas normal < Filed: 02/16/23 20:54> Pupils: Equal, round and reactive pupils present < Last Filed: 02/16/23 20:54> EOM: EOMs intact bilaterally < Last Filed: 02/16/23 20:54> Neck Neck: Yes full ROM < Filed: 02/16/23 20:54> Resp Effort & Inspection: normal respiratory effort, able to speak in complete sentences, no audible wheezes and not labored < Last Filed: 02/16/23 20:54> Auscultation: clear to auscultation bilaterally < Last Filed: 02/16/23 20:54> Cardio Rate: regular rate < Last Filed: 02/16/23 20:54> Rhythm: regular rhythm <Nevillefazal Nevarez Last Filed: 02/16/23 20:54> GI Inspection: No distended <Nevillefazal Nevarez Last Filed: 02/16/23 20:54> Palpation (GI): Soft to palpation, not firm, nontender, no guarding and not rigid <Neville O' Last Filed: 02/16/23 20:54> Auscultation: normoactive bowel sounds <Nevillefazal Nevarez Last Filed: 02/16/23 20:54> Skin General skin exam: no rashes or lesions noted and elasticity normal <Neville Last Filed: 02/16/23 20:54> Neuro General: patient oriented x3 <Nevillefazal Nevarez Last Filed: 02/16/23 20:54> Cranial nerves: Yes CN's II-XII intact bilaterally, Yes Equal, round and reactive pupils present and Yes Bilaterally intact EOM present <Nevillefazal Nevarez Last Filed: 02/16/23 20:54> Cognition (Neuro): normal cognition <Nevillefazal Nevarez Last Filed: 02/16/23 20:54> Extrem Other: Moving all extremities well without any obvious deformities <Neville OAgnesGriffin Last Filed: 02/16/23 20:54> Course Course Course Narrative: RME performed by Shayy Guillaume PA-C. Patient is a 37 year old assigned female at presenting to the emergency department with concerns of high blood pressure. Labs ordered. Patient placed back in the waiting room pending room availability and results. <RAUDEL Guevara Last Filed: 02/16/23 18:04> Reevaluation(s) Reevaluation #1: Patient did reports nursing staff that she was nauseous prior to her discharge. Given her elevated tibial I did go back and re-evaluate the patient, she has no right upper quadrant tenderness. I did let her know of her elevated T bili, but I do not feel that she is any imaging at this time such as a gallbladder ultrasound given that she has no abdominal pain or tenderness on exam <Neville Edouard Last Filed: 02/16/23 20:54> Time: 20:53 <Neville Edouard - Last Filed: 02/16/23 20:54> Medications Administered Discontinued Medications Generic Name Dose Route Start Last Admin Trade Name Freq PRN Reason Stop Dose Admin Acetaminophen/Butalbital/Caffeine 1 tab 02/16/23 20:10 02/16/23 20:21 Butalb/Acetamin/Caff 50/325/40 Tablet PO 02/16/23 20:11 1 tab ONCE ONE Administration Metoprolol Tartrate 25 mg 02/16/23 20:10 02/16/23 20:21 Metoprolol Tartrate 25 Mg Tablet PO 02/16/23 20:11 25 mg ONCE ONE Administration Protocol <RAUDEL Guevara - Last Filed: 02/16/23 18:04> Medications Administered Discontinued Medications Generic Name Dose Route Start Last Admin Trade Name Freq PRN Reason Stop Dose Admin Acetaminophen/Butalbital/Caffeine 1 tab 02/16/23 20:10 02/16/23 20:21 Butalb/Acetamin/Caff 50/325/40 Tablet PO 02/16/23 20:11 1 tab ONCE ONE Administration Metoprolol Tartrate 25 mg 02/16/23 20:10 02/16/23 20:21 Metoprolol Tartrate 25 Mg Tablet PO 02/16/23 20:11 25 mg ONCE ONE Administration Protocol <Neville Edouard - Last Filed: 02/16/23 20:54> Medical Decision Making Medical Decision Making MDM Narrative: 37-year-old female presents for evaluation headache and high blood pressure. She attributes her headache to her altered blood pressure. Her blood pressure was as high as 179/91. Patient's lisinopril was discontinued a few weeks ago and she was switched to metoprolol. This is likely the cause of her elevated blood pressure. She has no neuro deficits. Labs are without significant findings, her T bili is slightly elevated 1.5, though this is baseline for her and she has no abdominal pain, nausea or vomiting to suggest biliary issues. The patient be given metoprolol tartrate 25 mg and a Fioricet for her headache. We will discharge the patient with increasing her metoprolol to 50 mg daily and she will follow-up with her primary doctor. She reports that she has an appointment next Sunday <Neville Edouard - Last Filed: 02/16/23 20:54> Differential Diagnosis High blood pressure Essential hypertension Medication noncompliance Acute headache Tension headache Cluster headache <Neville Edouard - Last Filed: 02/16/23 20:54> Lab Data MDM Lab Attestation statement: I reviewed the patient's lab results. <Neville Edouard - Last Filed: 02/16/23 20:54> T bili to 1.5 minutes no significant lab abnormalities <Neville Edouard - Last Filed: 02/16/23 20:54> Result Diagrams: 02/16/23 19:23 02/16/23 19:23 <RAUDEL Guevara - Last Filed: 02/16/23 18:04> Labs: Lab Results 02/16/23 02/16/23 02/16/23 Range/Units 19:18 19:23 19:23 WBC 6.0 (4.8-10.8) X10*3/uL RBC 4.75 (4.20-5.50) X10*6/uL Hgb 13.3 (12.0-16.0) g/dl Hct 39.5 (37.0-47.0) % MCV 83.2 (80.0-98.0) fL MCH 28.0 (27.0-33.0) pg MCHC 33.7 (31.0-35.0) g/dl RDW 12.0 (11.0-16.0) % Plt Count 251 (160-400) X10*3/uL MPV 10.0 (9.4-12.3) fL Immature Gran % (Auto) 0.2 (0.0-0.4) % Neut % (Auto) 51.4 (45-73) % Lymph % (Auto) 38.3 (20-40) % Twiggs % (Auto) 6.4 (2-11) % Eos % (Auto) 2.5 (0-4) % Baso % (Auto) 1.2 (0-2) % Lymph # (Auto) 2.3 (1.2-4.9) X10*3/uL Twiggs # (Auto) 0.4 (0.1-1.2) X10*3/uL Eos # (Auto) 0.2 (0.0-0.4) X10*3/uL Baso # (Auto) 0.1 (0.0-0.2) X10*3/uL Abs Immat Gran (auto) 0.01 (0.00-0.03) X10*3/uL Absolute Neuts (auto) 3.1 (2.0-8.3) x10*3/uL Absolute Nucleated RBC 0.000 (0.0-0.012) X10*3/uL Nucleated RBC % (auto) 0.0 (0.0-0.2) /100WBC Sodium 144 (135-145) mmol/L Potassium 4.0 (3.3-5.1) mmol/L Chloride 110 H (96-108) mmol/L Carbon Dioxide 25 (22-29) mmol/L Anion Gap 13 (12-20) BUN 15 (9-16) mg/dL Creatinine 0.77 (0.5-1.4) mg/dL Estim Creat Clear Calc 86.2 Estimated GFR > 60 Random Glucose 90 (60-115) mg/dL Calcium 9.2 (8.4-10.2) mg/dL Magnesium 2.1 (1.6-2.6) mg/dL Total Bilirubin 1.5 H (0.0-1.0) mg/dL AST 11 (5-31) U/L ALT 13 (0-31) U/L Alkaline Phosphatase 63 (39-117) U/L Troponin I High Sens (<3.5-17.0) ng/L B-Natriuretic Peptide (<100) pg/mL Total Protein 6.8 (6.5-8.0) g/dL Albumin 4.4 (3.5-5.0) g/dL COVID-19 ([facility]) Negative (Negative) COVID-19 Clin Com See Note 02/16/23 02/16/23 Range/Units 19:23 19:23 WBC (4.8-10.8) X10*3/uL RBC (4.20-5.50) X10*6/uL Hgb (12.0-16.0) g/dl Hct (37.0-47.0) % MCV (80.0-98.0) fL MCH (27.0-33.0) pg MCHC (31.0-35.0) g/dl RDW (11.0-16.0) % Plt Count (160-400) X10*3/uL MPV (9.4-12.3) fL Immature Gran % (Auto) (0.0-0.4) % Neut % (Auto) (45-73) % Lymph % (Auto) (20-40) % Twiggs % (Auto) (2-11) % Eos % (Auto) (0-4) % Baso % (Auto) (0-2) % Lymph # (Auto) (1.2-4.9) X10*3/uL Twiggs # (Auto) (0.1-1.2) X10*3/uL Eos # (Auto) (0.0-0.4) X10*3/uL Baso # (Auto) (0.0-0.2) X10*3/uL Abs Immat Gran (auto) (0.00-0.03) X10*3/uL Absolute Neuts (auto) (2.0-8.3) x10*3/uL Absolute Nucleated RBC (0.0-0.012) X10*3/uL Nucleated RBC % (auto) (0.0-0.2) /100WBC Sodium (135-145) mmol/L Potassium (3.3-5.1) mmol/L Chloride (96-108) mmol/L Carbon Dioxide (22-29) mmol/L Anion Gap (12-20) BUN (9-16) mg/dL Creatinine (0.5-1.4) mg/dL Estim Creat Clear Calc Estimated GFR Random Glucose (60-115) mg/dL Calcium (8.4-10.2) mg/dL Magnesium (1.6-2.6) mg/dL Total Bilirubin (0.0-1.0) mg/dL AST (5-31) U/L ALT (0-31) U/L Alkaline Phosphatase (39-117) U/L Troponin I High Sens < 2.7 (<3.5-17.0) ng/L B-Natriuretic Peptide < 10 (<100) pg/mL Total Protein (6.5-8.0) g/dL Albumin (3.5-5.0) g/dL COVID-19 ([facility]) (Negative) COVID-19 Clin Com <RAUDEL Guevara - Last Filed: 02/16/23 18:04> Lab Results 02/16/23 02/16/23 02/16/23 Range/Units 19:18 19:23 19:23 WBC 6.0 (4.8-10.8) X10*3/uL RBC 4.75 (4.20-5.50) X10*6/uL Hgb 13.3 (12.0-16.0) g/dl Hct 39.5 (37.0-47.0) % MCV 83.2 (80.0-98.0) fL MCH 28.0 (27.0-33.0) pg MCHC 33.7 (31.0-35.0) g/dl RDW 12.0 (11.0-16.0) % Plt Count 251 (160-400) X10*3/uL MPV 10.0 (9.4-12.3) fL Immature Gran % (Auto) 0.2 (0.0-0.4) % Neut % (Auto) 51.4 (45-73) % Lymph % (Auto) 38.3 (20-40) % Twiggs % (Auto) 6.4 (2-11) % Eos % (Auto) 2.5 (0-4) % Baso % (Auto) 1.2 (0-2) % Lymph # (Auto) 2.3 (1.2-4.9) X10*3/uL Twiggs # (Auto) 0.4 (0.1-1.2) X10*3/uL Eos # (Auto) 0.2 (0.0-0.4) X10*3/uL Baso # (Auto) 0.1 (0.0-0.2) X10*3/uL Abs Immat Gran (auto) 0.01 (0.00-0.03) X10*3/uL Absolute Neuts (auto) 3.1 (2.0-8.3) x10*3/uL Absolute Nucleated RBC 0.000 (0.0-0.012) X10*3/uL Nucleated RBC % (auto) 0.0 (0.0-0.2) /100WBC Sodium 144 (135-145) mmol/L Potassium 4.0 (3.3-5.1) mmol/L Chloride 110 H (96-108) mmol/L Carbon Dioxide 25 (22-29) mmol/L Anion Gap 13 (12-20) BUN 15 (9-16) mg/dL Creatinine 0.77 (0.5-1.4) mg/dL Estim Creat Clear Calc 86.2 Estimated GFR > 60 Random Glucose 90 (60-115) mg/dL Calcium 9.2 (8.4-10.2) mg/dL Magnesium 2.1 (1.6-2.6) mg/dL Total Bilirubin 1.5 H (0.0-1.0) mg/dL AST 11 (5-31) U/L ALT 13 (0-31) U/L Alkaline Phosphatase 63 (39-117) U/L Troponin I High Sens (<3.5-17.0) ng/L B-Natriuretic Peptide (<100) pg/mL Total Protein 6.8 (6.5-8.0) g/dL Albumin 4.4 (3.5-5.0) g/dL COVID-19 ([facility]) Negative (Negative) COVID-19 Clin Com See Note 02/16/23 02/16/23 Range/Units 19:23 19:23 WBC (4.8-10.8) X10*3/uL RBC (4.20-5.50) X10*6/uL Hgb (12.0-16.0) g/dl Hct (37.0-47.0) % MCV (80.0-98.0) fL MCH (27.0-33.0) pg MCHC (31.0-35.0) g/dl RDW (11.0-16.0) % Plt Count (160-400) X10*3/uL MPV (9.4-12.3) fL Immature Gran % (Auto) (0.0-0.4) % Neut % (Auto) (45-73) % Lymph % (Auto) (20-40) % Twiggs % (Auto) (2-11) % Eos % (Auto) (0-4) % Baso % (Auto) (0-2) % Lymph # (Auto) (1.2-4.9) X10*3/uL Twiggs # (Auto) (0.1-1.2) X10*3/uL Eos # (Auto) (0.0-0.4) X10*3/uL Baso # (Auto) (0.0-0.2) X10*3/uL Abs Immat Gran (auto) (0.00-0.03) X10*3/uL Absolute Neuts (auto) (2.0-8.3) x10*3/uL Absolute Nucleated RBC (0.0-0.012) X10*3/uL Nucleated RBC % (auto) (0.0-0.2) /100WBC Sodium (135-145) mmol/L Potassium (3.3-5.1) mmol/L Chloride (96-108) mmol/L Carbon Dioxide (22-29) mmol/L Anion Gap (12-20) BUN (9-16) mg/dL Creatinine (0.5-1.4) mg/dL Estim Creat Clear Calc Estimated GFR Random Glucose (60-115) mg/dL Calcium (8.4-10.2) mg/dL Magnesium (1.6-2.6) mg/dL Total Bilirubin (0.0-1.0) mg/dL AST (5-31) U/L ALT (0-31) U/L Alkaline Phosphatase (39-117) U/L Troponin I High Sens < 2.7 (<3.5-17.0) ng/L B-Natriuretic Peptide < 10 (<100) pg/mL Total Protein (6.5-8.0) g/dL Albumin (3.5-5.0) g/dL COVID-19 ([facility]) (Negative) COVID-19 Clin Com <Neville Edouard - Last Filed: 02/16/23 20:54> Independent Interpretation I performed an independent interpretation of an: EKG (Sinus rhythm without acute changes) <Neville Edouard - Last Filed: 02/16/23 20:54> Discharge Plan Discharge Clinical Impression: Hypertension, Headache <RAUDEL Guevara - Last Filed: 02/16/23 18:04> Patient Disposition: Home, Self-Care <RAUDEL Guevara - Last Filed: 02/16/23 18:04> Instructions: Chronic Hypertension (ED) <RAUDEL Guevara - Last Filed: 02/16/23 18:04> Additional Instructions: You may want to discuss with your primary doctor about switching back to lisinopril if that was controlling your blood pressure better For now, you should take metoprolol 50 mg daily You may use ibuprofen or Tylenol for your discomfort <RAUDEL Guevara - Last Filed: 02/16/23 18:04> Prescriptions: New metoprolol succinate 50 mg tablet extended release 24 hr 50 mg PO DAILY Qty: 30 0RF ondansetron 4 mg tablet,disintegrating 4 mg PO Q8H PRN (Reason: nausea and vomiting) Qty: 20 0RF No Action citalopram [Celexa] 10 mg tablet 10 mg PO DAILY Qty: 90 1RF quetiapine [Seroquel] 50 mg tablet 50 mg PO BEDTIME Qty: 90 1RF metoprolol succinate 25 mg tablet extended release 24 hr 25 mg PO DAILY Qty: 30 3RF ferrous sulfate 325 mg (65 mg iron) tablet 325 mg PO BID Qty: 60 0RF (DME) blood pressure monitor [Blood Pressure Kit] Kit See Rx Instructions .Route Qty: 1 0RF Rx Instructions: As directed <RAUDEL Guevara - Last Filed: 02/16/23 18:04>
--- NOTE | 2023-02-16 18:04 | ECG_ITS ---
Test Reason : HEADACHE Blood Pressure : / mmHG Vent. Rate : 072 BPM Atrial Rate : 072 BPM P-R Int : 120 ms QRS Dur : 068 ms QT Int : 374 ms P-R-T Axes : 049 050 013 degrees QTc Int : 409 ms Normal sinus rhythm Normal ECG When compared with ECG of 05-JAN-2023 09:20, No significant change was found Referred By: Shayy Guillaume Electronically Signed By:Tico Robbins
[2023-02-16 18:05] VITALS: BP 157/108; PULSE 81; RESP 16; TEMP 37.1; O2SAT 100; BMI 27.0
[2023-02-16 18:08] VITALS: BP 171/91
[2023-02-16 19:28] LABS: MANUAL DIFF FLAG NO
[2023-02-16 19:30] LABS: Basophils Absolute Auto 0.1 X10*3/uL (0.0-0.2); Basophils Percent Auto 1.2 % (0-2); Eosinophils Absolute Auto 0.2 X10*3/uL (0.0-0.4); Eosinophils Percent Auto 2.5 % (0-4); Hematocrit 39.5 % (37.0-47.0); Hemoglobin 13.3 g/dl (12.0-16.0); Imm Gran Abs Auto 0.01 X10*3/uL (0.00-0.03); Imm Gran Pct Auto 0.2 % (0.0-0.4); Lymphocytes Absolute Auto 2.3 X10*3/uL (1.2-4.9); Lymphocytes Percent Auto 38.3 % (20-40); Mean Corpuscular HGB Conc 33.7 g/dl (31.0-35.0); Mean Corpuscular Volume 83.2 fL (80.0-98.0); Monocytes Absolute Auto 0.4 X10*3/uL (0.1-1.2); Monocytes Percent Auto 6.4 % (2-11); Neutrophils Absolute Auto 3.1 x10*3/uL (2.0-8.3); Neutrophils Percent Auto 51.4 % (45-73); Platelet Count 251 X10*3/uL (160-400); Red Blood Count 4.75 X10*6/uL (4.20-5.50)
[2023-02-16 19:48] LABS: Alanine Aminotransferase 13 U/L (0-31); Albumin Level 4.4 g/dL (3.5-5.0); Alkaline Phosphatase 63 U/L (39-117); Anion Gap 13 (12-20); Aspartate Amino Transferase 11 U/L (5-31); Bilirubin Total 1.5 mg/dL (0.0-1.0); Blood Urea Nitrogen 15 mg/dL (9-16); Calcium 9.2 mg/dL (8.4-10.2); Carbon Dioxide 25 mmol/L (22-29); Chloride 110 mmol/L (96-108); Creatinine Clr Calc Pharmacy 86.2; Estimated Glomerular Filt Rate > 60; Glucose Random 90 mg/dL (60-115); Magnesium 2.1 mg/dL (1.6-2.6); Sodium 144 mmol/L (135-145); Total Protein 6.8 g/dL (6.5-8.0)
[2023-02-16 19:51] LABS: COVID-19 Test Negative (Negative); IDNOW Serial# BCCEAD1C
[2023-02-16 19:57] LABS: Troponin-I High Sensitivity < 2.7 ng/L (<3.5-17.0)
[2023-02-16 19:58] VITALS: BP 149/112; PULSE 71; RESP 20; TEMP 36.8; O2SAT 99
--- NOTE | 2023-02-16 20:02 | PC.NURSE ---
Patent is alert and orientedx4. She is able to make her needs known. Patient c/o throbbing occipital headache and high BP 149/112. Patient currently taking Metoprolol for BP management. Patient denies chest pain, neuro's intact. Labs drawn at triage. Patient placed on air sampling and monitoring-NSR, pulse 71. Patient oriented to ED room, instructed in use of call stone. Call stone within patient's reach.
[2023-02-16 20:06] LABS: B Type Natriuretic Peptide < 10 pg/mL (<100)
[2023-02-16] MEDS: Metoprolol Tartrate 25 MG TABLET PO (20:21)
[2023-02-16] MEDS: Butalb/Acetamin/Caff 50/325/40 TABLET 1 TAB PO (20:21)
--- NOTE | 2023-02-16 20:21 | PC.NURSE ---
Patient medicated per MAR.
[2023-02-16] MEDS: Ondansetron ODT 4 MG TAB.RAPDIS TRANSLINGU (20:56)
[2023-02-16 20:58] VITALS: BP 130/101; PULSE 72; RESP 16; TEMP 36.8; O2SAT 99
== END 2023-02-16 21:00 | disposition home or self-care (01) ==
PROVIDERS: Physician Assistant Medical; Emergency Provider Emergency Medicine; PCP Internal Medicine
DX: R51.9 Headache, unspecified (principal); R06.02 Shortness of breath; I10 Essential (primary) hypertension; F41.9 Anxiety disorder, unspecified; F33.1 Major depressive disorder, recurrent, moderate; Z20.822 Contact with and (suspected) exposure to COVID-19; Z20.828 Contact with and (suspected) exposure to other viral communicable diseases; Z79.899 Other long term (current) drug therapy; Z87.891 Personal history of nicotine dependence
CPT/HCPCS: 80053; 83735; 83880; 84484; 85025; 87635; 93005; 99283; 99285

== ENCOUNTER 2023-05-28 14:20 | Outpatient (AMB) | payer OTHER, SELFPAY ==
[2023-05-28 14:22] VITALS: BP 122/90; PULSE 81; O2SAT 98; BMI 29.3
--- NOTE | 2023-05-28 14:23 | A.OFFPC_ITS ---
Vital Signs 05/28/23 14:22 05/28/23 14:53 Height 5 ft 1 in Weight 155 lb BMI 29.3 BP 122/90 H 120/80 Blood Pressure Location Lt brachial Lt brachial Position Sitting Sitting Pulse 81 Pulse Source Pulse Oximeter Temp Source Skin Pulse Oximetry (%) 98 Oxygen Delivery Method Room Air Intake Visit Reasons: Hypertension Human Services Manager Required: No Allergies nifedipine [Procardia] Allergy (Unknown, Verified 05/28/23 14:23) Abdominal Pain terbutaline Allergy (Unknown, Verified 05/28/23 14:23) Abdominal Pain Tobacco use date assessed: 05/28/23 HPI Hypertension HPI Details 37-year-old overweight female with hypertension GERD recurrent major depression last seen in March 2023. Hydrochlorothiazide prescription adjusted and is here for follow-up. shinjuan pablo maile March 29, 2023- [facility] Medical History (Updated 03/23/23 @ 16:10 by Samantha Toney MD) Allergic rhinitis Anemia Annual physical exam Cervical high risk HPV (human papillomavirus) test positive FLORENCIO II (cervical intraepithelial neoplasia II) Complex ovarian cyst Constipation COVID-19 virus infection Dysuria Ectopic of left ovary Foul smelling urine Generalized anxiety disorder GERD (gastroesophageal reflux disease) Hematuria History of hydronephrosis Hyperbilirubinemia Hypertension Insomnia Obesity (BMI 30-39.9) Pre-operative clearance Pre-operative clearance Pre-operative clearance Sepsis Vitamin D deficiency Surgical History H/O section History of appendectomy Skin tag, acquired Family History Maternal Grandmother Colon cancer Maternal Grandfather Colon cancer Other Mental health disorder Social History (Updated 02/01/23 @ 11:59 by Samantha Toney MD) Housing: Apartment Alcohol intake: never Patient Tobacco Use Status: Former Tobacco user Tobacco use type: Cigarette Years Smoked: quit 17 years old e-Cigarette/Vaping Use: Never Used Second Hand Smoke Exposure: No service: No Current occupational status: employed Cognitive needs: No Hearing needs: No Vision needs: No Questionnaire Thrive Questionnaire Date Thrive assessed: 02/21/23 AUDIT C Alcohol Use Questionnaire (AUDIT-C) 1. How often do you have a drink containing alcohol?: Monthly or less 2. How many drinks containing alcohol do you have on a typical day when you are drinking?: 1 or 2 3. How often do you have six or more drinks on one occasion?: Never Total Score: 1 Score Reviewed/Action Taken: No MEAGAN-7 AMB Questionnaire MEAGAN-7 Date MEAGAN - 7 assessed: 03/23/23 Source: Developed by Drs. Thierry Murillo, Rocio Diallo, Masood Cooper and colleagues, with an educational deni from [employer]. Physical exam (Primary Care) Vital Signs: Last Vital Signs Pulse 81 05/28/23 14:22 BP 122/90 H 05/28/23 14:22 Pulse Ox 98 05/28/23 14:22 Oxygen Delivery Method Room Air 05/28/23 14:22 Care Plan Goal for BP management: Is wearing a abdominal binder post tummy tuck BMI result Body Mass Index 29.3 Tobacco/Smoking Status: Tobacco use Status Tobacco use date assessed 05/28/23 05/28/23 14:28 Patient Tobacco Use Status Former Tobacco user 05/28/23 14:28 Tobacco use type Cigarette 05/28/23 14:28 e-Cigarette/Vaping Use Never Used 05/28/23 14:28 Thrive Assessment: Date of Thrive Assessment Date Thrive assessed 02/21/23 05/28/23 14:28 Const General: alert; No acute distress Eyes Conjunctivae: conjunctivae normal Resp Auscultation: clear to auscultation bilaterally Cardio Rate: regular rate Rhythm: regular rhythm GI Inspection: Yes normal to inspection Extrem General: Yes normal to inspection and No edema Assessment and Plan Assessment & Plan (1) Overweight (BMI 25.0-29.9): Code(s): E66.3 - Overweight Plan: Diet and exercise (2) Hypertension: Code(s): I10 - Essential (primary) hypertension Plan: Continue with blood pressure medication. Decrease salt intake and exercise patient has been placed on hydrochlorothiazide 25 mg once a day and metoprolol 50 mg once a day (3) Recurrent major depression: Comment: School street Q 3 week (04/2022) Code(s): F33.9 - Major depressive disorder, recurrent, unspecified Plan: Continue with present medication (4) GERD (gastroesophageal reflux disease): Code(s): K21.9 - Gastro-esophageal reflux disease without esophagitis Plan: Avoid the foods that causes that usually spicy foods, tomato products, juices, coffee, soda and foods that your sensitive to. After eating do not lie down, allow 3-4 hours before in lie down. And keep the head of bed above 30 degrees to avoid the acid from going up. Coding Level of Care Code Est Pt Level 4 (02429) Diagnoses Overweight (BMI 25.0-29.9) E66.3 Hypertension I10 Recurrent major depression F33.9 GERD (gastroesophageal reflux disease) K21.9
[2023-05-28 14:53] VITALS: BP 120/80
== END 2023-05-28 14:59 | disposition home or self-care (01) ==
PROVIDERS: Visit Provider Internal Medicine
DX: E66.3 Overweight (principal); I10 Essential (primary) hypertension; F33.9 Major depressive disorder, recurrent, unspecified; K21.9 Gastro-esophageal reflux disease without esophagitis
CPT/HCPCS: 99214

== ENCOUNTER 2023-08-30 15:43 | Outpatient (AMB) | payer OTHER, SELFPAY ==
[2023-08-30 15:45] VITALS: BP 136/82; PULSE 77; O2SAT 99; BMI 30.2
--- NOTE | 2023-08-30 15:48 | A.OFFPC_ITS ---
Vital Signs 3 08/30/23 15:45 Height 5 ft 1 in Weight 160 lb BMI 30.2 BP 136/82 Blood Pressure Location Lt brachial Position Sitting Pulse 77 Pulse Source Pulse Oximeter Pulse Oximetry (%) 99 Oxygen Delivery Method Room Air Intake Visit Reasons: Hypertension Allergies nifedipine [Procardia] Allergy (Unknown, Verified 08/30/23 15:47) Abdominal Pain terbutaline Allergy (Unknown, Verified 08/30/23 15:47) Abdominal Pain Tobacco use date assessed: 05/28/23 HPI Hypertension 2 HPI0 Details 37-year-old obese female with hypertensi on GERD and recurrent major depression last seen in May 2023. Last complete blood work was in February 2020 [facility] Medical History (Updated 08/30/23 @ 16:00 by Samantha Toney MD) Foul smelling urine Anemia Sepsis Pre-operative clearance Pre-operative clearance Pre-operative clearance Dysuria Insomnia Annual physical exam Hematuria Complex ovarian cyst History of hydronephrosis Cervical high risk HPV (human papillomavirus) test positive Ectopic of left ovary GERD (gastroesophageal reflux disease) Obesity (BMI 30-39.9) Generalized anxiety disorder Constipation Hyperbilirubinemia Allergic rhinitis Vitamin D deficiency Hypertension FLORENCIO II (cervical intraepithelial neoplasia II) COVID-19 virus infection Surgical History H/O section Skin tag, acquired History of appendectomy Family History Maternal Grandmother Colon cancer Maternal Grandfather Colon cancer Other Mental health disorder Social History Housing: Apartment Alcohol intake: never Patient Tobacco Use Status: Former Tobacco user Tobacco use type: Cigarette Years Smoked: quit 17 years old e-Cigarette/Vaping Use: Never Used Second Hand Smoke Exposure: No service: No Current occupational status: employed Cognitive needs: No Hearing needs: No Vision needs: No Questionnaire Thrive Questionnaire Date Thrive assessed: 02/21/23 MEAGAN-7 AMB Questionnaire MEAGAN-7 Date MEAGAN - 7 assessed: 03/23/23 Source: Developed by Drs. Thierry Murillo, Rocio Diallo, Masood Cooper and colleagues, with an educational deni from [employer]. Physical exam (Primary Care) Vital Signs: Last Vital Signs Pulse 77 08/30/23 15:45 BP 136/82 08/30/23 15:45 Pulse Ox 99 08/30/23 15:45 Oxygen Delivery Method Room Air 08/30/23 15:45 BMI result Body Mass Index 30.2 Tobacco/Smoking Status: Tobacco use Status Tobacco use date assessed 05/28/23 08/30/23 15:50 Patient Tobacco Use Status Former Tobacco user 08/30/23 15:50 Tobacco use type Cigarette 08/30/23 15:50 e-Cigarette/Vaping Use Never Used 08/30/23 15:50 Thrive Assessment: Date of Thrive Assessment Date Thrive assessed 02/21/23 08/30/23 15:50 Const General: alert; No acute distress Eyes Conjunctivae: conjunctivae normal Resp Auscultation: clear to auscultation bilaterally Cardio Rate: regular rate Rhythm: regular rhythm GI Other: No guard mildly tender on the mid epigastrium but no guarding no rebound Inspection: Yes normal to inspection Abdomen image: 2 1. Palpable mass on mid epi gastrium no guarding no rebound Extrem General: Yes normal to inspection and No edema Office Procedures Flu Questionnaire Does the patient have a severe egg allergy?: No Immunizations flu vacc [id number] 6mos up(PF) 60 mcg(15 mcgx4)/0.5 mL IM syringe Performing Provider: Samantha Toney MD [facility] Documented (not given) by: RENETTA yWnn on 08/30/23 15:52 Reason Not Given: Patient Refused Assessment and Plan Assessment & Plan (1) Obesity (BMI 30.0-34.9): Code(s): E66.9 - Obesity, unspecified Plan: Diet and exercise (2) Hypertension: Code(s): I10 - Essential (primary) hypertension Plan: Continue with blood pressure medication. Decrease salt intake and exercise patient presently on metoprolol 50 mg once a day hydrochlorothiazide 25 mg once a day (3) Recurrent major depression: Comment: School street Q 3 week (04/2022) Code(s): F33.9 - Major depressive disorder, recurrent, unspecified Plan: Continue with counseling and therapy patient on citalopram and quetiapine (4) GERD (gastroesophageal reflux disease): Code(s): K21.9 - Gastro-esophageal reflux disease without esophagitis Plan: Avoid the foods that causes that usually spicy foods, tomato products, juices, coffee, soda and foods that your sensitive to. After eating do not lie down, allow 3-4 hours before in lie down. And keep the head of bed above 30 degrees to avoid the acid from going up. (5) Abdominal bloating: Code(s): R14.0 - Abdominal distension (gaseous) Plan: Ultrasound of the abdomen requested Orders: Orders 2 Influenza [id number] Immunization Today Z23 - Encounter for immunization US abdomen complete Today R14.0 - Abdominal distension (gaseous), R79.89 - Other specified abnormal findings of blood chemistry Coding Level of Care Code Est Pt Level 4 (06078) Diagnoses Obesity (BMI 30.0-34.9) E66.9 Hypertension I10 Recurrent major depression F33.9 GERD (gastroesophageal reflux disease) K21.9 Abdominal bloating R14.0
== END 2023-08-30 16:04 | disposition home or self-care (01) ==
PROVIDERS: PCP Internal Medicine; Visit Provider Internal Medicine
DX: I10 Essential (primary) hypertension (principal); F33.9 Major depressive disorder, recurrent, unspecified; E66.9 Obesity, unspecified; Z68.30 Body mass index [BMI] 30.0-30.9, adult; K21.9 Gastro-esophageal reflux disease without esophagitis; R14.0 Abdominal distension (gaseous)
CPT/HCPCS: 99214

== ENCOUNTER 2023-09-28 08:02 | Outpatient (REF) | payer OTHER, SELFPAY ==
--- NOTE | ~2023-09-28 | US_ITS ---
EXAMINATION: US ABDOMEN COMPLETE CLINICAL INFORMATION: Other specified abnormal findings of blood chemistry. COMPARISON: CT abdomen and pelvis 03/19/2022. Renal ultrasound 03/22/2020. X-ray abdomen KUB 01/05/2014. Ultrasound abdomen 01/21/2013. TECHNIQUE: Real-time imaging of the abdominal viscera. Limited visualization due to bowel gas. FINDINGS: PANCREAS: Limited visualization of pancreatic tail and head. Imaged portion of pancreatic body is unremarkable. ABDOMINAL AORTA: Nonaneurysmal. INFERIOR VENA CAVA: Visualized portions are normal. LIVER: Mildly heterogeneous hepatic echotexture may possibly represent hepatocellular disease. Limited visualization. GALLBLADDER: No gallbladder wall thickening. Cholelithiasis. COMMON BILE DUCT: Normal in caliber measuring 0.3 cm in diameter. RIGHT KIDNEY: No hydronephrosis. No renal calculi. Renal cortical thickness is normal. Limited visualization. The kidney measures 10.8 cm in maximum dimension. LEFT KIDNEY: No hydronephrosis. No renal calculi. Renal cortical thickness is normal. Limited visualization. The kidney measures 10.1 cm in maximum dimension. SPLEEN: Normal. The spleen measures 8.9 cm in maximum dimension. FREE FLUID: None. US/US abdomen complete IMPRESSION: 1. Mildly heterogeneous hepatic echotexture may possibly represent hepatocellular disease. Limited visualization. 2. Cholelithiasis.
== END 2023-09-28 08:03 | disposition home or self-care (01) ==
LOC: HO.US 08:02
PROVIDERS: PCP Internal Medicine; Visit Provider Internal Medicine
DX: R79.89 Other specified abnormal findings of blood chemistry (principal); R14.0 Abdominal distension (gaseous)
CPT/HCPCS: 76700

== ENCOUNTER 2023-10-09 10:33 | Outpatient (AMB) | payer OTHER, SELFPAY ==
--- NOTE | 2023-10-09 10:37 | A.OFFVIS_ITS ---
Intake Vital Signs 10/09/23 10:46 Height 5 ft 1 in Weight 162 lb BMI 30.6 BP 149/106 H Blood Pressure Location Rt brachial Position Sitting Pulse 77 Intake Visit Reasons: Calculus of gallbladder Intake Note: Patient referred by Dr. Toney for calculus of gallbladder. Abd US on 09-28-23. Patient c/o: Pain and swelling on abd. Noticed after tummy tuck 6m ago. Swelling started for 3m. C/o nausea, diarrhea for the past 3d. 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 She had a workup for this which included sonogram demonstrated cholelithiasis. Patient does have fatty food intolerance. She has never been jaundiced before. She otherwise has regular bowel habits. Patient has a past surgical history for abdominoplasty in the past. Chart was reviewed and patient evaluated. Multiple pregnancies in past. [facility] Medical History Foul smelling urine Anemia Sepsis Pre-operative clearance Pre-operative clearance Pre-operative clearance Dysuria Insomnia Annual physical exam Hematuria Complex ovarian cyst History of hydronephrosis Cervical high risk HPV (human papillomavirus) test positive Ectopic of left ovary GERD (gastroesophageal reflux disease) Obesity (BMI 30-39.9) Generalized anxiety disorder Constipation Hyperbilirubinemia Allergic rhinitis Vitamin D deficiency Hypertension FLORENCIO II (cervical intraepithelial neoplasia II) COVID-19 virus infection Surgical History H/O section Skin tag, acquired History of appendectomy Family History Maternal Grandmother Colon cancer Maternal Grandfather Colon cancer Other Mental health disorder Social History (Updated 10/09/23 @ 10:45 by RENETTA Hernández) Housing: Apartment Alcohol intake: current Alcohol intake frequency: holidays/special occasions only Alcohol type: wine Patient Tobacco Use Status: Former Tobacco user Tobacco use type: Cigarette Years Smoked: quit 17 years old e-Cigarette/Vaping Use: Never Used Second Hand Smoke Exposure: No service: No Current occupational status: employed Cognitive needs: No Hearing needs: No Vision needs: No Physical Exam Vital Signs: Last Vital Signs Pulse 77 10/09/23 10:46 BP 149/106 H 10/09/23 10:46 BMI result Body Mass Index 30.6 Chest Other: Chest breath sounds bilaterally, HS 1 in 2 GI Other: Status post abdominal plasty scars well healed. Abdomen soft. Mild right upper quadrant tenderness. No evidence of any guarding, rebound, or rigidity. Assessment & Plan Assessment & Plan (1) Cholelithiasis: Comment: September 2023 Code(s): K80.20 - Calculus of gallbladder without cholecystitis without obstruction (2) Recurrent biliary colic: Code(s): K80.50 - Calculus of bile duct without cholangitis or cholecystitis without obstruction Plan Risks, benefits, alternatives laparoscopic possible open cholecystectomy reviewed the patient and included but not limited to bleeding, infection, recurrence of symptoms, numbness, pain, scarring, bowel or bile duct injury or leak, the patient wishes to proceed. All questions were answered. Arrangements will be made for this. Coding Level of Care Code New Pt Level 5 (13464) Diagnoses Cholelithiasis K80.20 Recurrent biliary colic K80.50
[2023-10-09 10:46] VITALS: BP 149/106; PULSE 77; BMI 30.6
== END 2023-10-09 10:56 | disposition home or self-care (01) ==
PROVIDERS: PCP Internal Medicine; Referring Provider Internal Medicine; Visit Provider Surgery
DX: K80.20 Calculus of gallbladder without cholecystitis without obstruction (principal); K80.50 Calculus of bile duct without cholangitis or cholecystitis without obstruction
CPT/HCPCS: 99204

== ENCOUNTER → 2023-10-09 10:33 | Outpatient (BNVA) | payer OTHER, SELFPAY | PROVIDERS: PCP Internal Medicine; Referring Provider Internal Medicine; Visit Provider Surgery | DX: K80.20 Calculus of gallbladder without cholecystitis without obstruction (principal); K80.50 Calculus of bile duct without cholangitis or cholecystitis without obstruction | CPT/HCPCS: 99202 ==

== ENCOUNTER 2023-10-25 06:59 | Day surgery (SDC) | payer OTHER, SELFPAY ==
[2023-10-23 08:15] VITALS: BMI 30.6
--- NOTE | 2023-10-24 10:04 | P.CONAN_ITS ---
Documented by User: Gaby Toro NP 10/24/23 10:06 HPI - Anesthesia Eval Consult details Narrative: 38yo F for Cholecystectomy Laparoscopic PMFSH Active Problems Active Problems: All Active Problems (Updated 10/01/23 @ 09:17 by Samantha Toney MD) Recurrent biliary colic (Acute) Cholelithiasis (Acute) Fatty liver (Acute) Abdominal bloating (Acute) Obesity (BMI 30.0-34.9) (Acute) Overweight (BMI 25.0-29.9) (Acute) Annual physical exam (Acute) Preop exam for internal medicine (Acute) Hypertension (Acute) History of abdominoplasty (Acute) Recurrent UTI (Acute) Insomnia (Acute) FLORENCIO II (cervical intraepithelial neoplasia II) (Acute) GERD (gastroesophageal reflux disease) (Acute) Breast mass, right (Acute) Recurrent major depression (Acute) Skin tag (Acute) UTI (urinary tract infection) (Acute) Past Medical History Medical History Surgery, elective Foul smelling urine Anemia Sepsis Pre-operative clearance Pre-operative clearance Pre-operative clearance Dysuria Insomnia Annual physical exam Hematuria Complex ovarian cyst History of hydronephrosis Cervical high risk HPV (human papillomavirus) test positive Ectopic of left ovary GERD (gastroesophageal reflux disease) Obesity (BMI 30-39.9) Generalized anxiety disorder Constipation Hyperbilirubinemia Allergic rhinitis Vitamin D deficiency Hypertension FLORENCIO II (cervical intraepithelial neoplasia II) COVID-19 virus infection Family History Family History Maternal Grandmother Colon cancer Maternal Grandfather Colon cancer Other Mental health disorder Surgical History Surgical History H/O section Skin tag, acquired History of appendectomy Social History Social History Housing: Apartment Alcohol intake: current Alcohol intake frequency: holidays/special occasions only Alcohol type: wine Patient Tobacco Use Status: Former Tobacco user Tobacco use type: Cigarette Years Smoked: 2 Smoked in Last 30 Days: No e-Cigarette/Vaping Use: Never Used Second Hand Smoke Exposure: No Use of substances other than those prescribed or required for medical reasons: Yes Substance Use Frequency: Daily Are you DNR?: No Advance Directives: No Advance Directives Information Provided: Yes service: No Current occupational status: employed Cognitive needs: No Hearing needs: No Vision needs: No Meds Allergies Allergy/AdvReac Type Severity Reaction Status Date / Time nifedipine [Procardia] Allergy Severe Abdominal Verified 10/25/23 07:34 Pain terbutaline Allergy Severe Abdominal Verified 10/25/23 07:34 Pain Exam Height,Weight and Vital Signs: Height 5 ft 1 in Weight 73.482 kg Pertinent Lab Results Pertinent Lab Results: Laboratory Tests 02/16/23 19:23 WBC 6.0 Hgb 13.3 Hct 39.5 Plt Count 251 Sodium 144 Potassium 4.0 Chloride 110 H Carbon Dioxide 25 BUN 15 Creatinine 0.77 Narrative Narrative: EKG 02/2023 Vent. Rate : 072 BPM Atrial Rate : 072 BPM P-R Int : 120 ms QRS Dur : 068 ms QT Int : 374 ms P-R-T Axes : 049 050 013 degrees QTc Int : 409 ms Normal sinus rhythm Normal ECG When compared with ECG of 05-JAN-2023 09:20, No significant change was found Assessment and Plan Assessment Anesthesia Assessment: Chart Reviewed Documented by User: Meg Quintero MD 10/25/23 07:52 [facility] Past Medical History Medical History Surgery, elective Foul smelling urine Anemia Sepsis Pre-operative clearance Pre-operative clearance Pre-operative clearance Dysuria Insomnia Annual physical exam Hematuria Complex ovarian cyst History of hydronephrosis Cervical high risk HPV (human papillomavirus) test positive Ectopic of left ovary GERD (gastroesophageal reflux disease) Obesity (BMI 30-39.9) Generalized anxiety disorder Constipation Hyperbilirubinemia Allergic rhinitis Vitamin D deficiency Hypertension FLORENCIO II (cervical intraepithelial neoplasia II) COVID-19 virus infection Family History Family History Maternal Grandmother Colon cancer Maternal Grandfather Colon cancer Other Mental health disorder Family history of problems with anesthesia: No Surgical History Surgical History H/O section Skin tag, acquired History of appendectomy History of Problems with Anesthesia: No Social History Social History Housing: Apartment Alcohol intake: current Alcohol intake frequency: holidays/special occasions only Alcohol type: wine Patient Tobacco Use Status: Former Tobacco user Tobacco use type: Cigarette Years Smoked: 2 Smoked in Last 30 Days: No e-Cigarette/Vaping Use: Never Used Second Hand Smoke Exposure: No Use of substances other than those prescribed or required for medical reasons: Yes Substance Use Frequency: Daily Are you DNR?: No Advance Directives: No Advance Directives Information Provided: Yes service: No Current occupational status: employed Cognitive needs: No Hearing needs: No Vision needs: No Meds Allergies Allergy/AdvReac Type Severity Reaction Status Date / Time nifedipine [Procardia] Allergy Severe Abdominal Verified 10/25/23 07:34 Pain terbutaline Allergy Severe Abdominal Verified 10/25/23 07:34 Pain Exam Airway Mallampati Class: II TM Dist: >3cm Neck ROM: Full Heart: cta/ rrr Lungs: rrr/ cta Assessment and Plan Assessment Anesthesia Assessment: Anesthesia Plan Discussed and Smoking Cess. Discussed (marihuana smoker last 2 days ago) Final Anesthetic Review Family History of Problems with Anesthesia: No History of Problems with Anesthesia: No NPO: Yes ASA Class: III (htn, heavy marihuana smoker, mental health issues) Final Preanesthetic Review: No Changes in Pt Med Stat, Meds/Allgs Chart Reviewed, Consent Obtained/Reviewed and Anes Risks/Benef Reviewed Patient Risk: Intermediate Procedure Risk: Intermediate Anesthetic Plan Anesthetic Plan: GA Disposition: Standard PACU
--- NOTE | 2023-10-24 11:43 | MHC.SHP ---
Pre-Procedural Eval Section A Date of Service: 10/24/23 The patient is an INPATIENT: No Changes since office visit: No Cold of Flu in the past 2 weeks, No New Medical Problems, No Changes in Medication and No Patient answered all questions The History & Physical has been completed within 30 days and I have reviewed it.: Yes Section B Chief Complaint: Calculus of bile duct without cholangitis or mary Allergies: Allergies Allergy/AdvReac Type Severity Reaction Status Date / Time nifedipine [Procardia] Allergy Unknown Abdominal Verified 10/09/23 10:43 Pain terbutaline Allergy Unknown Abdominal Verified 10/09/23 10:43 Pain Plan I have reviewed the history and physical and performed a pertinent physical examination on my patient. No changes have occurred unless specified. Time Spent With Patient Time: Total time managing care of this patient today ____ minutes.
[2023-10-25] VITALS (20 sets, daily range): BP systolic 132–180; BP diastolic 88–115; PULSE 50–79; RESP 14–20; TEMP 36.1–37.3; O2SAT 96–100; BMI 30.2
[2023-10-25 07:32] LABS: UPreg QC Valid YES; Urine Pregnancy NEGATIVE (NEGATIVE)
[2023-10-25] MEDS: Lactated Ringers 1,000 ML 100 ML IVCONT (08:53)
--- NOTE | 2023-10-25 10:47 | W.PM.OPN ---
Operative Note Operative Note Date of Service: 10/25/23 Narrative: Preoperative diagnosis: [] recurrent biliary colic Postop diagnosis: [] same Procedure [] laparoscopic cholecystectomy Surgeon: [] [employer] Transit Coach Operator: [] Lazaro Type of Anesthesia: general [] Indication for surgery: [] recurrent biliary colic. Intraoperative findings demonstrated gallbladder with dense omental adhesions to it. Patient is status post abdominoplasty Findings: [] patient brought to the operating room, placed on operative table supine position, after adequate level of general anesthesia was induced, the patient's abdomen was prepped and draped in usual sterile fashion. Using a supraumbilical incision over the patient's new umbilicus, this carried down through skin, subcutaneous tissue, worse on technique was used to insufflate the abdominal cavity to 15 mm of CO2. Upper midline and right subcostal ports were placed under direct laparoscopic view, and the patient was placed in reverse Trendelenburg and tilted to the left. Gallbladder was grasped using laparoscopic graspers and retracted superiorly and laterally. A dense omental adhesions were swept off the gallbladder were its hilum was approached. Common bile duct was identified and preserved throughout procedure. Cystic artery and cystic duct were each identified, circumferentially skeletonized, each traced directly into the gallbladder, and critical view obtained. Each was clipped proximally x2, distally x1, and transected gallbladder was then cauterized from the gallbladder fossa using Bovie. Specimen was placed in an Endo-Catch bag, a retrieved through the umbilical port. Abdominal cavity was copiously irrigated, and secured hemostasis. All ports were removed under direct laparoscopic view. Wounds were closed in the following manner; umbilical wound had a has fascia reapproximated using interrupted 0 Vicryl sutures. Skin wounds were closed using subcuticular 4-0 Vicryl suture followed by Steri-Strips and sterile dressings. Wounds retreated 0.5% Marcaine at completion. Sponge, needle, and instrument counts reported correct. Patient tolerated the procedure well and emerged anesthesia stable condition. EBL minimal
[2023-10-25] MEDS: fentaNYL citrate/PF 100 MCG/2 ML VIAL 25 MCG IVPUSH ×4 (10:50→13:36)
[2023-10-25] MEDS: oxyCODONE HCl Immed Release 5 MG TABLET PO ×2 (10:51→22:10)
[2023-10-25] MEDS: ondansetron HCL 4 MG/2 ML VIAL IVPUSH ×2 (11:02→17:01)
[2023-10-25] MEDS: HYDROmorphone HCl 0.5 MG/0.5 ML SYRINGE IVPUSH (15:16)
[2023-10-25] MEDS: Morphine Sulfate 4 MG/ML CARTRIDGE 3 MG IVPUSH (16:58)
[2023-10-25] MEDS: 0.9 % Sodium Chloride Flush 3 ML SYRINGE IVFLUSH ×2 (17:03→20:38)
[2023-10-25] MEDS: Acetaminophen 325 MG TABLET 650 MG PO (20:37)
[2023-10-25] MEDS: Docusate Sodium 100 MG CAPSULE PO (20:38)
[2023-10-25] MEDS: QUEtiapine Fumarate 50 MG TABLET PO (20:38)
[2023-10-25] MEDS: Ketorolac Tromethamine 30 MG/ML VIAL IVPUSH (20:41)
[2023-10-26] MEDS: Acetaminophen 325 MG TABLET 650 MG PO ×2 (02:46→08:09)
[2023-10-26] MEDS: oxyCODONE HCl Immed Release 5 MG TABLET PO ×3 (02:47→13:07)
[2023-10-26 02:58] VITALS: BP 134/96; PULSE 77; RESP 16; TEMP 36.4; O2SAT 98
[2023-10-26] MEDS: ondansetron HCL 4 MG/2 ML VIAL IVPUSH (07:11)
[2023-10-26 08:00] VITALS: BP 167/98; PULSE 74; RESP 16; TEMP 36.5; O2SAT 97
[2023-10-26] MEDS: Metoprolol Succinate ER 50 MG TAB.ER.24H PO (08:09)
[2023-10-26] MEDS: Escitalopram Oxalate 5 MG TABLET PO (08:09)
[2023-10-26] MEDS: Docusate Sodium 100 MG CAPSULE PO (08:09)
[2023-10-26] MEDS: hydroCHLOROthiazide 25 MG TABLET PO (08:09)
[2023-10-26] MEDS: 0.9 % Sodium Chloride Flush 3 ML SYRINGE IVFLUSH (08:11)
--- NOTE | 2023-10-26 09:06 | MHC.CM.PN ---
Addendum entered by [place] Venegas RN 10/26/23 13:03: Medically cleared for dc home self care. Original Note: Patient from home with 4 young children and boyfriend. Independent, no services or equipment. PCP: Dr. Toney HCP: CM provided education and offered assistance. Patient declined. DCP: home self care, boyfriend to transport. CM will continue to follow.
--- NOTE | 2023-10-26 09:58 | P.PNGS_ITS ---
Subjective Subjective Date of Service: 10/26/23 Interval history: C/o sharp RUQ incisional pain that is not relieved by PO or IV analgesics. Does not feel like she can go home with this. Also had some nausea with eating this morning. Physical Exam Vital Signs: Vital Signs: Last Vital Signs Temp 97.7 F 10/26/23 08:00 Pulse 74 10/26/23 08:00 Resp 16 10/26/23 08:00 BP 167/98 H 10/26/23 08:00 Pulse Ox 97 10/26/23 08:00 O2 Del Method Room Air 10/26/23 08:00 O2 Flow Rate 2 10/25/23 13:35 BMI result Body Mass Index 30.2 Const: General: comfortable, no acute distress and alert Orientation/consciousness: patient oriented x3 Resp: Effort & Inspection: normal respiratory effort GI: Inspection: No distended and Yes incision (dressings c/d/i) Palpation (GI): Soft to palpation, Tenderness to palpation present (GI) (incision), no guarding and not rigid Skin: General skin exam: no rashes or lesions noted Neuro: General: patient oriented x3 and moves all extremities Objective Data Active Medications Acetaminophen (Acetaminophen 325 Mg Tablet) 650 mg PO Q6H [facility] Last Admin: 10/26/23 08:09 Dose: 650 mg Documented By: BRIELLE Docusate Sodium (Docusate Sodium 100 Mg Capsule) 100 mg PO BID [facility] Last Admin: 10/26/23 08:09 Dose: 100 mg Documented By: BRIELLE Escitalopram Oxalate (Escitalopram Oxalate 5 Mg Tablet) 5 mg PO DAILY [facility] Last Admin: 10/26/23 08:09 Dose: 5 mg Documented By: BRIELLE Hydrochlorothiazide (Hydrochlorothiazide 25 Mg Tablet) 25 mg PO DAILY [facility]; Protocol Last Admin: 10/26/23 08:09 Dose: 25 mg Documented By: BRIELLE Hydromorphone HCl (Hydromorphone Hcl 0.5 Mg/0.5 Ml Syringe) 0.5 mg IVPUSH Q5M PRN; Protocol PRN Reason: Pain, Severe (Pain Scale 7-10) Last Admin: 10/25/23 15:16 Dose: 0.5 mg Documented By: ANDREI Ketorolac Tromethamine (Ketorolac Tromethamine 30 Mg/Ml Vial) 30 mg IVPUSH Q6H PRN PRN Reason: Pain, Mild (Pain Scale 1-3) Stop: 10/30/23 14:38 Last Admin: 10/25/23 20:41 Dose: 30 mg Documented By: CHESTER Metoprolol Succinate (Metoprolol Succinate Er 50 Mg Tab.Er.24h) 50 mg PO DAILY [facility]; Protocol Last Admin: 10/26/23 08:09 Dose: 50 mg Documented By: BRIELLE Morphine Sulfate (Morphine Sulfate 4 Mg/Ml Cartridge) 3 mg IVPUSH Q4H PRN; Protocol PRN Reason: Pain, Severe (Pain Scale 7-10) Last Admin: 10/25/23 16:58 Dose: 3 mg Documented By: BRIELLE Ondansetron HCl (Ondansetron Hcl 4 Mg/2 Ml Vial) 4 mg IVPUSH Q8H PRN PRN Reason: Nausea and Vomiting Last Admin: 10/26/23 07:11 Dose: 4 mg Documented By: BRIELLE Oxycodone HCl (Oxycodone Hcl Immed Release 5 Mg Tablet) 5 mg PO Q4H PRN PRN Reason: Pain, Moderate(Pain Scale 4-6) Last Admin: 10/26/23 07:07 Dose: 5 mg Documented By: BRIELLE Quetiapine Fumarate (Quetiapine Fumarate 50 Mg Tablet) 50 mg PO BEDTIME [facility] Last Admin: 10/25/23 20:38 Dose: 50 mg Documented By: CHESTER Sodium Chloride (0.9 % Sodium Chloride Flush 3 Ml Syringe) 3 ml IVFLUSH QSHIFT [facility] Last Admin: 10/26/23 08:11 Dose: 3 ml Documented By: BRIELLE Procedures Date of Service Date of Service: 10/26/23 Progress Note: A&P Assessment and plan (1) Recurrent biliary colic: Status: Acute (2) S/P laparoscopic cholecystectomy: Status: Acute Plan Admitted following elective lap mary yesterday for post operative pain. Continues to c/o incisional pain. Abdomen is benign with appropriate post op tenderness, clean incisions. Will make motrin and tylenol ATC in addition to PRN analgesics. Will reassess later today for dc to home if pain better controlled, tolerating solid diet. Patient comfortable with plan. Time Spent With Patient Time: Total time managing care of this patient today ____ minutes. Quality Stroke Does the patient have a stroke diagnosis?: No VTE Prior VTE?: No VTE Risk Level:: Surgical - low VTE Device Contraindication: N/A - Device Ordered VTE Drug Contraindication: Treatment Not Indicated
[2023-10-26] MEDS: Ibuprofen 600 MG TABLET PO (10:11)
--- NOTE | 2023-10-26 11:32 | HO.POSTANES ---
Post Anesthesia Evaluation Post Anesthesia Evaluation Date of Service: 10/26/23 Vital Signs: Vital Signs Temp Pulse Resp BP Pulse Ox O2 Del Method 10/26/23 08:00 97.7 F 74 16 167/98 H 97 Room Air 10/26/23 02:58 97.6 F 77 16 134/96 H 98 Room Air Anesthesia: General Endotracheal-GETA Mental Status: Awake Pain Control: Satisfactory Nausea/Vomiting: None Hydration: Adequate Anesthesia-Related Issues: No Anes. Related Issues
--- NOTE | 2023-10-26 13:36 | PC.NURSE ---
Patient with discharge orders home. Continuous pulse oximetry and peripheral IV removed. Pain level is controlled. Discharge orders reviewed with patient, who verbalized understanding. Pharmacy brought up script for vicodin. Pt discharged via wheelchair with staff. accompanying patient and driving her home.
== END 2023-10-26 13:54 | disposition home or self-care (01) ==
LOC: HO.SSS 10:45 → HO.S3 15:46
PROVIDERS: Nurse Practitioner; PCP Internal Medicine; Visit Provider Surgery
PROC: 0FT44ZZ Resection of Gallbladder, Percutaneous Endoscopic Approach (ICD-10-PCS; CPT 47562; principal; 2023-10-25 08:40)
DX: K80.10 Calculus of gallbladder with chronic cholecystitis without obstruction (principal); K82.8 Other specified diseases of gallbladder; K21.9 Gastro-esophageal reflux disease without esophagitis; F41.1 Generalized anxiety disorder; K59.00 Constipation, unspecified; D64.9 Anemia, unspecified; I10 Essential (primary) hypertension; J30.9 Allergic rhinitis, unspecified; E55.9 Vitamin D deficiency, unspecified; E66.9 Obesity, unspecified; Z68.30 Body mass index [BMI] 30.0-30.9, adult; Z88.8 Allergy status to other drugs, medicaments and biological substances; Z98.890 Other specified postprocedural states; Z90.49 Acquired absence of other specified parts of digestive tract; Z87.891 Personal history of nicotine dependence
CPT/HCPCS: 47562; 81025; 88304; 99024; J0131; J0690; J1100; J1170; J1885; J2250; J2270; J2371; J2405; J2550; J2704; J2795; J3010

== ENCOUNTER → 2023-10-25 06:59 | Outpatient (BNV) | payer OTHER, SELFPAY | PROVIDERS: PCP Internal Medicine; Visit Provider Surgery | DX: K80.20 Calculus of gallbladder without cholecystitis without obstruction (principal); K80.50 Calculus of bile duct without cholangitis or cholecystitis without obstruction | CPT/HCPCS: 47562 ==

== ENCOUNTER 2023-10-29 12:20 | Emergency (ER) | payer OTHER, SELFPAY ==
[2023-10-29 12:52] VITALS: BP 166/103; PULSE 97; RESP 20; TEMP 36.6; O2SAT 97; BMI 26.5
--- NOTE | 2023-10-29 12:54 | ED.ABDPAIN ---
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 Related Data Previous Rx's Medication Instructions Recorded blood pressure monitor (Blood #1 ea 11/23/22 Pressure Kit) hydrochlorothiazide 25 mg tablet 25 mg PO DAILY #90 tabs 06/23/23 metoprolol succinate 50 mg 50 mg PO DAILY #90 tabs 09/08/23 tablet,extended release 24 hr quetiapine 50 mg tablet (Seroquel) 50 mg PO BEDTIME #90 tabs 09/10/23 citalopram 10 mg tablet (Celexa) 10 mg PO DAILY #90 tabs 09/14/23 ketorolac 10 mg tablet 10 mg PO TID PRN pain 5 days #15 10/30/23 tabs Allergies Allergy/AdvReac Type Severity Reaction Status Date / Time nifedipine [Procardia] Allergy Severe Abdominal Verified 11/06/23 10:09 Pain terbutaline Allergy Severe Abdominal Verified 11/06/23 10:09 Pain PMFSH Past Medical History Medical History Surgery, elective Foul smelling urine Anemia Sepsis Pre-operative clearance Pre-operative clearance Pre-operative clearance Dysuria Insomnia Annual physical exam Hematuria Complex ovarian cyst History of hydronephrosis Cervical high risk HPV (human papillomavirus) test positive Ectopic of left ovary GERD (gastroesophageal reflux disease) Obesity (BMI 30-39.9) Generalized anxiety disorder Constipation Hyperbilirubinemia Allergic rhinitis Vitamin D deficiency Hypertension FLORENCIO II (cervical intraepithelial neoplasia II) COVID-19 virus infection Surgical History H/O section Skin tag, acquired History of appendectomy Family History Family History Maternal Grandmother Colon cancer Maternal Grandfather Colon cancer Other Mental health disorder Social History Social History Household Members: Children Housing: House Do you presently have visiting nurse or other home services: No Alcohol intake: current Alcohol intake frequency: holidays/special occasions only Alcohol type: wine Patient Tobacco Use Status: Never used Tobacco Tobacco use type: Cigarette Years Smoked: 2 e-Cigarette/Vaping Use: Never Used Second Hand Smoke Exposure: No Substance Use Type: Marijuana service: No Current occupational status: employed Cognitive needs: No Hearing needs: No Vision needs: No Physical Exam ED Vital Signs: Vital Signs - 24 hr 10/29/23 12:52 Temperature 97.9 F Pulse Rate 97 Respiratory Rate 20 Blood Pressure 166/103 H Pulse Oximetry 97 Oxygen Delivery Method Room Air BMI result Body Mass Index 26.5 Course Course Course Narrative: This is an RME: Additional HPI, ROS, PE not included below will be deferred to primary provider. This is a 70-by[age]-female presenting to the ER with a complaint of severe abdominal pain. Patient had a cholecystectomy [address] Malloy and has had severe pain since. plan: labs, UA, CT abdomen with IV contrast Reevaluation(s) Reevaluation #1: pt eloped prior to completing treatment. Medical Decision Making Lab Data 10/29/23 13:01 10/29/23 13:01 Labs: Lab Results 10/29/23 Range/Units 13:01 WBC 6.7 (4.8-10.8) X10*3/uL RBC 5.38 (4.20-5.50) X10*6/uL Hgb 14.3 (12.0-16.0) g/dl Hct 43.1 (37.0-47.0) % MCV 80.1 (80.0-98.0) fL MCH 26.6 L (27.0-33.0) pg MCHC 33.2 (31.0-35.0) g/dl RDW 13.0 (11.0-16.0) % Plt Count 258 (160-400) X10*3/uL MPV 10.3 (9.4-12.3) fL Immature Gran % (Auto) 0.2 (0.0-0.4) % Neut % (Auto) 62.4 (45-73) % Lymph % (Auto) 24.8 (20-40) % [place] % (Auto) 7.2 (2-11) % Eos % (Auto) 4.2 H (0-4) % Baso % (Auto) 1.2 (0-2) % Lymph # (Auto) 1.7 (1.2-4.9) X10*3/uL [place] # (Auto) 0.5 (0.1-1.2) X10*3/uL Eos # (Auto) 0.3 (0.0-0.4) X10*3/uL Baso # (Auto) 0.1 (0.0-0.2) X10*3/uL Abs Immat Gran (auto) 0.01 (0.00-0.03) X10*3/uL Absolute Neuts (auto) 4.2 (2.0-8.3) x10*3/uL Absolute Nucleated RBC 0.000 (0.0-0.012) X10*3/uL Nucleated RBC % (auto) 0.0 (0.0-0.2) /100WBC Sodium 139 (135-145) mmol/L Potassium 3.8 (3.3-5.1) mmol/L Chloride 105 (96-108) mmol/L Carbon Dioxide 23 (22-29) mmol/L Anion Gap 15 (12-20) BUN 15 (9-16) mg/dL Creatinine 0.94 (0.5-1.4) mg/dL Estim Creat Clear Calc 80.8 Estimated GFR > 60 Random Glucose 117 H (60-115) mg/dL Calcium 9.5 (8.4-10.2) mg/dL Magnesium 2.1 (1.6-2.6) mg/dL Total Bilirubin 0.9 (0.0-1.0) mg/dL Direct Bilirubin 0.3 (0.0-0.5) mg/dL AST 28 (5-31) U/L ALT 66 H (0-31) U/L Alkaline Phosphatase 96 (39-117) U/L Total Protein 7.5 (6.5-8.0) g/dL Albumin 4.4 (3.5-5.0) g/dL Lipase 20 (8-78) U/L Discharge Plan Discharge Clinical Impression: Abdominal pain Patient Disposition: Left W/O Completing Treatment Prescriptions: No Action hydrochlorothiazide 25 mg tablet 25 mg PO DAILY Qty: 90 1RF metoprolol succinate 50 mg tablet extended release 24 hr 50 mg PO DAILY Qty: 90 1RF quetiapine [Seroquel] 50 mg tablet 50 mg PO BEDTIME Qty: 90 2RF citalopram [Celexa] 10 mg tablet 10 mg PO DAILY Qty: 90 1RF ketorolac 10 mg tablet 10 mg PO TID PRN (Reason: pain) 5 Days Qty: 15 0RF (DME) blood pressure monitor [Blood Pressure Kit] Kit See Rx Instructions .Route Qty: 1 0RF Rx Instructions: As directed Discharge Date/Time: 10/29/23 20:19
[2023-10-29 13:08] LABS: MANUAL DIFF FLAG NO
[2023-10-29 13:10] LABS: Basophils Absolute Auto 0.1 X10*3/uL (0.0-0.2); Basophils Percent Auto 1.2 % (0-2); Eosinophils Absolute Auto 0.3 X10*3/uL (0.0-0.4); Eosinophils Percent Auto 4.2 % (0-4); Hematocrit 43.1 % (37.0-47.0); Hemoglobin 14.3 g/dl (12.0-16.0); Imm Gran Abs Auto 0.01 X10*3/uL (0.00-0.03); Imm Gran Pct Auto 0.2 % (0.0-0.4); Lymphocytes Absolute Auto 1.7 X10*3/uL (1.2-4.9); Lymphocytes Percent Auto 24.8 % (20-40); Mean Corpuscular HGB Conc 33.2 g/dl (31.0-35.0); Mean Corpuscular Hemoglobin 26.6 pg (27.0-33.0); Mean Corpuscular Volume 80.1 fL (80.0-98.0); Mean Platelet Volume 10.3 fL (9.4-12.3); Monocytes Absolute Auto 0.5 X10*3/uL (0.1-1.2); Monocytes Percent Auto 7.2 % (2-11); Neutrophils Absolute Auto 4.2 x10*3/uL (2.0-8.3); Neutrophils Percent Auto 62.4 % (45-73); Platelet Count 258 X10*3/uL (160-400); Red Blood Count 5.38 X10*6/uL (4.20-5.50); White Blood Count 6.7 X10*3/uL (4.8-10.8)
[2023-10-29 13:31] LABS: Alanine Aminotransferase 66 U/L (0-31); Albumin Level 4.4 g/dL (3.5-5.0); Alkaline Phosphatase 96 U/L (39-117); Anion Gap 15 (12-20); Aspartate Amino Transferase 28 U/L (5-31); Bilirubin Direct 0.3 mg/dL (0.0-0.5); Bilirubin Total 0.9 mg/dL (0.0-1.0); Blood Urea Nitrogen 15 mg/dL (9-16); Calcium 9.5 mg/dL (8.4-10.2); Carbon Dioxide 23 mmol/L (22-29); Chloride 105 mmol/L (96-108); Creatinine Clr Calc Pharmacy 80.8; Estimated Glomerular Filt Rate > 60; Glucose Random 117 mg/dL (60-115); Lipase 20 U/L (8-78); Magnesium 2.1 mg/dL (1.6-2.6); Potassium 3.8 mmol/L (3.3-5.1); Sodium 139 mmol/L (135-145); Total Protein 7.5 g/dL (6.5-8.0)
== END 2023-10-29 20:19 | disposition left against medical advice (07) ==
PROVIDERS: Physician Assistant Medical; Emergency Provider Emergency Medicine; PCP Internal Medicine
DX: R10.9 Unspecified abdominal pain (principal); Z79.899 Other long term (current) drug therapy; Z87.891 Personal history of nicotine dependence
CPT/HCPCS: 36415; 80048; 80076; 83690; 83735; 85025; 99281; 99283

== ENCOUNTER 2023-10-30 04:41 | Emergency (ER) | payer OTHER, SELFPAY ==
--- NOTE | ~2023-10-30 | CT_ITS ---
EXAMINATION: CT ABDOMEN AND PELVIS WITH CONTRAST CLINICAL INFORMATION: Left upper quadrant pain status post surgery COMPARISON: Ultrasound abdomen from 09/28/2023, CT abdomen from 03/19/2022 TECHNIQUE: Multidetector volumetric images were obtained from the superior aspect of the liver through the pubic symphysis following administration 85 mL of Omnipaque 350 intravenous contrast. Sagittal and coronal reformatted images were obtained on the technologist's workstation. Oral contrast: No This CT examination was performed using dose optimization techniques as appropriate, variously including the following: *Automated exposure control *Adjustment of mA and/or kV according to patient size (this includes techniques or standardized protocols for targeted exams where dose is matched to indication/reason for exam; i.e. extremities or head) *Use of iterative reconstruction technique DLP: 477 mGy-cm FINDINGS: LUNG BASES: Bibasilar atelectasis, left greater than right. No pneumothorax. No large pleural effusion. LIVER, GALLBLADDER, AND BILIARY TREE: The liver is normal in size, shape, and attenuation. No focal hepatic lesion or biliary ductal dilatation is present. The gallbladder is surgically absent. Small amount of fluid noted in the gallbladder fossa, query for chronicity of cholecystectomy. PANCREAS: Unremarkable. SPLEEN: Unremarkable. ADRENAL GLANDS: Unremarkable. KIDNEYS AND URETERS: The kidneys are normal in size, shape, and attenuation. No hydronephrosis, hydroureter, or calculi seen. No perinephric stranding. BLADDER: Unremarkable. GASTROINTESTINAL TRACT: The small and large bowel are unremarkable. The appendix is unremarkable. ABDOMINAL WALL: The bilateral rectus abdominis muscles appeared contracted compared to prior imaging, nonspecific. Postsurgical changes along the anterior abdominal wall. Soft tissue edema noted bilaterally. LYMPH NODES: No enlarged lymph nodes per size criteria. VASCULAR: Abdominal aorta is nonaneurysmal. PELVIC VISCERA: Anteverted uterus with T-shaped IUD in situ. Right adnexal/ovarian hypodense focus measuring 4.1 x 3.2 x 4.1 cm. Findings are overwhelmingly likely to represent a benign functional cyst. No follow-up imaging recommended. OSSEOUS STRUCTURES: Unremarkable. CT/CT abdomen pelvis w IV con IMPRESSION: 1. Atelectasis of the bilateral lower lung rea, left greater than right. 2. Status post cholecystectomy. Small amount of fluid noted in the gallbladder fossa, query for chronicity of cholecystectomy. 3. Bilateral rectus abdominis muscles appeared contracted compared to prior imaging, nonspecific may reflect postsurgical changes. Postsurgical changes along the anterior abdominal wall. Soft tissue edema noted bilaterally. 4. Anteverted uterus with T-shaped IUD in situ. 5. Right adnexal/ovarian hypodense focus measuring 4.1 x 3.2 x 4.1 cm. Findings are overwhelmingly likely to represent a benign functional cyst. No follow-up imaging recommended.
[2023-10-30 05:05] VITALS: BP 175/118; PULSE 105; RESP 22; TEMP 36.9; O2SAT 98
[2023-10-30] MEDS: ondansetron HCL 4 MG/2 ML VIAL IVPUSH (05:26)
[2023-10-30] MEDS: 0.9 % Sodium Chloride 1,000 ML 999 ML IV (05:26)
[2023-10-30] MEDS: HYDROmorphone HCl 1 MG/ML SYRINGE IVPUSH (05:26)
[2023-10-30 05:27] LABS: Basophils Absolute Auto 0.1 X10*3/uL (0.0-0.2); Basophils Percent Auto 1.2 % (0-2); Eosinophils Absolute Auto 0.3 X10*3/uL (0.0-0.4); Eosinophils Percent Auto 3.9 % (0-4); Hematocrit 41.8 % (37.0-47.0); Hemoglobin 13.6 g/dl (12.0-16.0); Imm Gran Abs Auto 0.02 X10*3/uL (0.00-0.03); Imm Gran Pct Auto 0.3 % (0.0-0.4); Lymphocytes Percent Auto 25.3 % (20-40); MANUAL DIFF FLAG NO; Mean Corpuscular HGB Conc 32.5 g/dl (31.0-35.0); Mean Corpuscular Hemoglobin 26.4 pg (27.0-33.0); Mean Corpuscular Volume 81.2 fL (80.0-98.0); Mean Platelet Volume 10.6 fL (9.4-12.3); Monocytes Absolute Auto 0.5 X10*3/uL (0.1-1.2); Neutrophils Absolute Auto 4.8 x10*3/uL (2.0-8.3); Neutrophils Percent Auto 62.3 % (45-73); Platelet Count 256 X10*3/uL (160-400); Red Blood Count 5.15 X10*6/uL (4.20-5.50); White Blood Count 7.7 X10*3/uL (4.8-10.8)
[2023-10-30 05:48] LABS: Alanine Aminotransferase 55 U/L (0-31); Albumin Level 4.1 g/dL (3.5-5.0); Alkaline Phosphatase 102 U/L (39-117); Anion Gap 16 (12-20); Aspartate Amino Transferase 25 U/L (5-31); Bilirubin Direct 0.3 mg/dL (0.0-0.5); Blood Urea Nitrogen 15 mg/dL (9-16); Calcium 9.2 mg/dL (8.4-10.2); Carbon Dioxide 24 mmol/L (22-29); Chloride 105 mmol/L (96-108); Creatinine Clr Calc Pharmacy 80.5; Estimated Glomerular Filt Rate > 60; Glucose Random 139 mg/dL (60-115); HCG Quantitative < 2 mIU/mL; Lipase 21 U/L (8-78); Magnesium 1.9 mg/dL (1.6-2.6); Potassium 3.7 mmol/L (3.3-5.1); Sodium 141 mmol/L (135-145); Total Protein 7.3 g/dL (6.5-8.0)
--- NOTE | 2023-10-30 06:49 | ED_ITS ---
HPI - General Adult General Chief complaint: Abdominal Pain Stated complaint: gallbladder pain Time Seen by Provider: 10/30/23 06:37 Source: patient Mode of arrival: ambulatory Limitations: no limitations History of Present Illness HPI narrative: 38-year-old female s/p laparascopic cholecystectomy 5 days ago presents today for RUQ pain. She reports the pain has continued to worsen since having her surgery and that her pain medications are not helping. She has increased pain of the RUQ with inspiration. She reports nausea but no vomiting. Her last BM was yesterday. She denies dysuria. No fevers or chills. She reports palpitations but denies chest pain, cough, SOB, dizziness, and lightheadedness. Related Data Previous Rx's Medication Instructions Recorded blood pressure monitor (Blood #1 ea 11/23/22 Pressure Kit) hydrochlorothiazide 25 mg tablet 25 mg PO DAILY #90 tabs 06/23/23 metoprolol succinate 50 mg 50 mg PO DAILY #90 tabs 09/08/23 tablet,extended release 24 hr quetiapine 50 mg tablet (Seroquel) 50 mg PO BEDTIME #90 tabs 09/10/23 citalopram 10 mg tablet (Celexa) 10 mg PO DAILY #90 tabs 09/14/23 hydrocodone 5 mg-acetaminophen 325 1 tab PO Q4-6H PRN pain #30 tabs 10/25/23 mg tablet ketorolac 10 mg tablet 10 mg PO TID PRN pain 5 days #15 10/30/23 tabs Allergies Allergy/AdvReac Type Severity Reaction Status Date / Time nifedipine [Procardia] Allergy Severe Abdominal Verified 10/25/23 07:34 Pain terbutaline Allergy Severe Abdominal Verified 10/25/23 07:34 Pain Review of Systems 2 Review of Systems: Constitutional : No Weight loss, No Fever, No Chills ENT/Mouth :? No sore throat, No Rhinorrhea Cardiovascular : No Chest Pain, No SOB, No Edema, +palpitations Respiratory : No Cough, No Sputum, No Wheezing Gastrointestinal : + Nausea, No Vomiting, No Diarrhea, +abdominal Pain Genitourinary : No Dysuria, No Urinary Frequency, No Hematuria, No Urgency Musculoskeletal : No joint pain, No Myalgias, No Joint Swelling Skin : No Skin Lesions, No rash Neuro : No Weakness, No Numbness, No Dizziness, No Headache Psych : No Anxiety/Panic, No Depression All other systems reviewed and are negative. Yes all other systems are reviewed and are negative [facility] Past Medical History Attestation statement: The following information was validated with the patient. Source: old records reviewed and nursing notes reviewed Medical History Surgery, elective Foul smelling urine Anemia Sepsis Pre-operative clearance Pre-operative clearance Pre-operative clearance Dysuria Insomnia Annual physical exam Hematuria Complex ovarian cyst History of hydronephrosis Cervical high risk HPV (human papillomavirus) test positive Ectopic of left ovary GERD (gastroesophageal reflux disease) Obesity (BMI 30-39.9) Generalized anxiety disorder Constipation Hyperbilirubinemia Allergic rhinitis Vitamin D deficiency Hypertension FLORENCIO II (cervical intraepithelial neoplasia II) COVID-19 virus infection Surgical History H/O section Skin tag, acquired History of appendectomy Family History Family History Maternal Grandmother Colon cancer Maternal Grandfather Colon cancer Other Mental health disorder Social History Social History Household Members: Children Housing: House Do you presently have visiting nurse or other home services: No Alcohol intake: current Alcohol intake frequency: holidays/special occasions only Alcohol type: wine Patient Tobacco Use Status: Never used Tobacco Tobacco use type: Cigarette Years Smoked: 2 e-Cigarette/Vaping Use: Never Used Second Hand Smoke Exposure: No Substance Use Type: Marijuana Advance Directives: No Advance Directives Information Provided: No service: No Current occupational status: employed Cognitive needs: No Hearing needs: No Vision needs: No Physical Exam ED Vital Signs: Vital Signs - 24 hr 10/30/23 05:05 10/30/23 07:10 Temperature 98.4 F 97.8 F Pulse Rate 105 H 84 Respiratory Rate 22 H 16 Blood Pressure 175/118 H 149/93 H Pulse Oximetry 98 97 Oxygen Delivery Method Room Air Room Air BMI result Body Mass Index 30.0 Hypertension likely secondary to pain and not taking her morning BP meds Tachycardic likely secondary to pain Appearance: Alert.? Oriented X3.? No acute distress.? Head: Normocephalic, atraumatic, no step-offs or deformities Eyes: Pupils equal, round and reactive to light. CVS: Tachycardic heart rate with regular rhythm.? Pulses normal.? Respiratory: No respiratory distress.? Breath sounds normal.? Abdomen: Soft and nondistended. Surgical incisions clean, dry, and intact with overlying glue and steri strips in place. Normoactive bowel sounds. Tenderness to palpation of the right upper quadrant. Negative Mcburney's and Rosving sign. Skin: Skin warm and dry.? Normal skin color.? Normal skin turgor.? Extremities: No lower extremity edema.? No calf ttp. 5/5 strength to bilateral upper and lower extremities Back: No midline tenderness, no C-spine tenderness, full range of motion, no CVA tenderness bilaterally Neuro: Oriented X 3.? No motor deficit.? No sensory deficit. CN 2-12 intact Course Reevaluation(s) Reevaluation #1: CBC within normal limits. Chemistry unremarkable. UA no infection. Patient was still complaining of pain therefore Toradol ordered Time: 07:02 Reevaluation #2: CT results showing atelectasis of bilateral lower lung rea left greater than right no respiratory complaints however saturating well on room air. Showing status post cholecystectomy small amount of fluid noted in the gallbladder fossa. Bilateral rectus abdominus muscles appear contracted compared to prior imaging can reflect postsurgical changes. Anteverted uterus with D shaped IUD and suture Time: 10:40 Reevaluation #3: This case was discussed with general surgery Dr. Malloy, who feels as though patient should follow up outpatient. Nothing to be done acutely. Patient feeling much better after Toradol. Educated patient on diagnosis and treatment plan, answered all question, patient verbalizes understanding. At this time patient will be discharged home, advised to return with new or worsening symptoms. Educated on worrisome signs and symptoms and when to return. At this time I feel comfortable discharge home. Time: 10:40 Medications Administered Discontinued Medications Generic Name Dose Route Start Last Admin Trade Name Freq PRN Reason Stop Dose Admin Hydromorphone HCl 1 mg 10/30/23 05:16 10/30/23 05:26 Hydromorphone Hcl 1 Mg/Ml Syringe IVPUSH 10/30/23 05:17 1 mg ONCE ONE Administration Protocol Sodium Chloride 1,000 mls @ 999 mls/hr 10/30/23 05:30 10/30/23 06:40 Ns IV 10/30/23 06:30 Infused .Q1H1M DUNCAN Infusion Iohexol 100 ml 10/30/23 08:16 10/30/23 08:17 Iohexol 350 Mg/Ml 100 Ml Infus..Btl IV 10/30/23 08:17 85 ml ONCE ONE Administration Ketorolac Tromethamine 30 mg 10/30/23 07:02 10/30/23 07:13 Ketorolac Tromethamine 15 Mg/Ml Vial IVPUSH 10/30/23 07:03 30 mg ONCE ONE Administration Metoprolol Succinate 50 mg 10/30/23 07:01 10/30/23 07:13 Metoprolol Succinate Er 50 Mg Tab.Er.24h PO 10/30/23 07:02 50 mg ONCE ONE Administration Protocol Ondansetron HCl 4 mg 10/30/23 05:16 10/30/23 05:26 Ondansetron Hcl 4 Mg/2 Ml Vial IVPUSH 10/30/23 05:17 4 mg ONCE ONE Administration Medical Decision Making Medical Decision Making MDM Narrative: 38-year-old female s/p laparoscopic cholecystectomy 5 days ago reports with increased RUQ pain. No fevers, chills, changes in bowel habits, or vomiting PE revealed RUQ pain with palpation History and physical exam concerning for choledocolithiasis, seroma, pancreatitis; unlikely, acute abdomen, SBO, LBO, appendicitis, diverticulitis, ischemic bowel disease Plan: Labs, imaging, UA Differential Diagnosis Differential Diagnoses: The differential diagnosis associated with the presentation includes History and physical exam concerning for choledocolithiasis, seroma, pancreatitis; unlikely, acute abdomen, SBO, LBO, appendicitis, diverticulitis, ischemic bowel disease, hepatitis Admission/Observation Consideration of admission/observation: Escalation of care including admission/observation considered Consult Healthcare Provider Management of the patient was 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 10/30/23 05:22 10/30/23 05:22 Labs: Lab Results 10/30/23 10/30/23 Range/Units 05:22 08:27 WBC 7.7 (4.8-10.8) X10*3/uL RBC 5.15 (4.20-5.50) X10*6/uL Hgb 13.6 (12.0-16.0) g/dl Hct 41.8 (37.0-47.0) % MCV 81.2 (80.0-98.0) fL MCH 26.4 L (27.0-33.0) pg MCHC 32.5 (31.0-35.0) g/dl RDW 13.0 (11.0-16.0) % Plt Count 256 (160-400) X10*3/uL MPV 10.6 (9.4-12.3) fL Immature Gran % (Auto) 0.3 (0.0-0.4) % Neut % (Auto) 62.3 (45-73) % Lymph % (Auto) 25.3 (20-40) % Will % (Auto) 7.0 (2-11) % Eos % (Auto) 3.9 (0-4) % Baso % (Auto) 1.2 (0-2) % Lymph # (Auto) 2.0 (1.2-4.9) X10*3/uL Will # (Auto) 0.5 (0.1-1.2) X10*3/uL Eos # (Auto) 0.3 (0.0-0.4) X10*3/uL Baso # (Auto) 0.1 (0.0-0.2) X10*3/uL Abs Immat Gran (auto) 0.02 (0.00-0.03) X10*3/uL Absolute Neuts (auto) 4.8 (2.0-8.3) x10*3/uL Absolute Nucleated RBC 0.000 (0.0-0.012) X10*3/uL Nucleated RBC % (auto) 0.0 (0.0-0.2) /100WBC Sodium 141 (135-145) mmol/L Potassium 3.7 (3.3-5.1) mmol/L Chloride 105 (96-108) mmol/L Carbon Dioxide 24 (22-29) mmol/L Anion Gap 16 (12-20) BUN 15 (9-16) mg/dL Creatinine 0.86 (0.5-1.4) mg/dL Estim Creat Clear Calc 80.5 Estimated GFR > 60 Random Glucose 139 H (60-115) mg/dL Calcium 9.2 (8.4-10.2) mg/dL Magnesium 1.9 (1.6-2.6) mg/dL Total Bilirubin 1.0 (0.0-1.0) mg/dL Direct Bilirubin 0.3 (0.0-0.5) mg/dL AST 25 (5-31) U/L ALT 55 H (0-31) U/L Alkaline Phosphatase 102 (39-117) U/L Total Protein 7.3 (6.5-8.0) g/dL Albumin 4.1 (3.5-5.0) g/dL Lipase 21 (8-78) U/L Beta HCG, Quant < 2 mIU/mL Urine Color Yellow Urine Appearance Clear Urine pH 7.5 (5.0-9.0) Ur Specific [place] >= 1.030 H (1.005-1.025) Urine Protein Negative (Neg-Trace) mg/dL Urine Glucose (UA) Negative (Negative) mg/dL Urine Ketones Negative (Negative) mg/dL Urine Blood Trace H (Negative) Urine Nitrite Negative (Negative) Ur Leukocyte Esterase Negative (Negative) Urine RBC 0-2 (0-2) /HPF Urine WBC 0-5 (0-5) /HPF Ur Squamous Epith Cells 3-5 (0-2) /HPF Urine Bacteria Trace (None Seen) Hyaline Casts 0-2 (0-2) /LPF Urine Opiates Screen POSITIVE H (Not Detect) Urine Fentanyl Screen Not Detected (Not Detect) Ur Barbiturates Screen Not Detected (Not Detect) Ur Phencyclidine Scrn Not Detected (Not Detect) Ur Amphetamines Screen Not Detected (Not Detect) U Benzodiazepines Scrn Not Detected (Not Detect) Urine Cocaine Screen Not Detected (Not Detect) U Marijuana (THC) Screen POSITIVE H (Not Detect) Independent Interpretation I performed an independent interpretation of an: CT Scan (CT/CT abdomen pelvis w IV con IMPRESSION: 1. Atelectasis of the bilateral lower lung rea, left greater than right. 2. Status post cholecystectomy. Small amount of fluid noted in the gallbladder fossa, query for chronicity of cholecystectomy. 3. Bilateral rectus abdominis muscles appeared contr) Radiology Impression Discussion of test interpretation with radiology: I have reviewed the radiologist's reading. Prescription Management I considered prescription management with: Pain Medication Critical Care Time Critical Care Time Critical Care Time: Yes Total Critical Care Time: 35 Attestation: I attest to this time spent taking care of the patient, obtaining history, physical, reviewing labs, imaging, speaking to my attending, speaking to specialist. Discharge Plan Discharge Clinical Impression: Abdominal pain, RUQ Patient Disposition: Home, Self-Care Instructions: Abdominal Pain (ED) Additional Instructions: Take your medications as prescribed. If you were prescribed antibiotics today, it is important that you take your medication to their entirety, do not skip any doses, do not finish them early. Follow-up with your primary care provider this week. Return to the emergency department with new or worsening symptoms. Such as fevers, chills, chest pain, shortness of breath, nausea, vomiting, dizziness, headache, vision changes, lethargy In case of emergency call 911 Please continue taking your pain medicines as prescribed by general surgeon. Please schedule follow-up appointment with surgery as soon as possible Insert toward CT/CT abdomen pelvis w IV con IMPRESSION: 1. Atelectasis of the bilateral lower lung rea, left greater than right. 2. Status post cholecystectomy. Small amount of fluid noted in the gallbladder fossa, query for chronicity of cholecystectomy. 3. Bilateral rectus abdominis muscles appeared contracted compared to prior imaging, nonspecific may reflect postsurgical changes. Postsurgical changes along the anterior abdominal wall. Soft tissue edema noted bilaterally. 4. Anteverted uterus with T-shaped IUD in situ. 5. Right adnexal/ovarian hypodense focus measuring 4.1 x 3.2 x 4.1 cm. Findings are overwhelmingly likely to represent a benign functional cyst. No follow-up imaging recommended. Prescriptions: New ketorolac 10 mg tablet 10 mg PO TID PRN (Reason: pain) 5 Days Qty: 15 0RF No Action hydrochlorothiazide 25 mg tablet 25 mg PO DAILY Qty: 90 1RF metoprolol succinate 50 mg tablet extended release 24 hr 50 mg PO DAILY Qty: 90 1RF quetiapine [Seroquel] 50 mg tablet 50 mg PO BEDTIME Qty: 90 2RF citalopram [Celexa] 10 mg tablet 10 mg PO DAILY Qty: 90 1RF hydrocodone-acetaminophen 5-325 mg tablet 1 tab PO Q4-6H PRN (Reason: pain) Qty: 30 0RF Rx Instructions: Partial Fill upon patient request. (DME) blood pressure monitor [Blood Pressure Kit] Kit See Rx Instructions .Route Qty: 1 0RF Rx Instructions: As directed Referrals: [facility] General Surgeons [Provider Group] - 2 days Po,Samantha Nuñez MD [Primary Care Provider] - 2 days Stand Alone Forms: Work/School Release
[2023-10-30 07:10] VITALS: BP 149/93; PULSE 84; RESP 16; TEMP 36.6; O2SAT 97
[2023-10-30] MEDS: Metoprolol Succinate ER 50 MG TAB.ER.24H PO (07:13)
[2023-10-30] MEDS: Ketorolac Tromethamine 15 MG/ML VIAL 30 MG IVPUSH (07:13)
--- NOTE | 2023-10-30 07:17 | PC.NURSE ---
alert and oriented, respirations even and unlabored. medicated per the MAR, encouraged to give urine sample at this time. offering no other complaints at this time, call stone remains in place.
[2023-10-30] MEDS: iohexoL 350 MG/ML 100 ML INFUS..BTL IV (08:17)
[2023-10-30 08:37] LABS: Appearance Urine Clear; Color Urine Yellow; Glucose Urine UA Negative (Negative); Leukocyte Esterase Urine Negative (Negative); Nitrite Urine Negative (Negative); PH 7.5 (5.0-9.0); Specific Gravity - Urine >= 1.030 (1.005-1.025); UMIC TRIGGER UACC YES; Urine Blood Trace (Negative); Urine Ketones Negative (Negative); Urine Protein Negative (Neg-Trace)
[2023-10-30 08:42] LABS: Bacteria Urine Trace (None Seen); Hyaline Casts Urine 0-2 /LPF (0-2); RBC Urine 0-2 /HPF (0-2); WBC Urine 0-5 /HPF (0-5)
[2023-10-30 08:44] LABS: Amphetamine Screen Urine Not Detected (Not Detect); Barbiturates, Urine Not Detected (Not Detect); Benzodiazepines Screen Urine Not Detected (Not Detect); Cannabinoid Screen Urine POSITIVE (Not Detect); Cocaine Screen Urine Not Detected (Not Detect); Fentanyl, urine Not Detected (Not Detect); Opiate Screen Urine POSITIVE (Not Detect); Phencyclidine Screen Urine Not Detected (Not Detect)
--- NOTE | 2023-10-30 10:03 | PC.NURSE ---
continues to rest quietly in bed, states the pain is better when she is laying still but upon movement it worsens. awaiting dispo.
== END 2023-10-30 10:46 | disposition home or self-care (01) ==
PROVIDERS: Emergency Medicine; Emergency Provider Emergency Medicine; PCP Internal Medicine
DX: R10.11 Right upper quadrant pain (principal); R11.2 Nausea with vomiting, unspecified; F17.210 Nicotine dependence, cigarettes, uncomplicated; Z71.6 Tobacco abuse counseling; Z79.899 Other long term (current) drug therapy
CPT/HCPCS: 36415; 74177; 80048; 80076; 80307; 81001; 83690; 83735; 84702; 85025; 96361; 96374; 96375; 99284; 99285; J1170; J1885; J2405; Q9967

== ENCOUNTER 2023-11-06 10:02 | Outpatient (AMB) | payer OTHER, SELFPAY ==
[2023-11-06 10:08] VITALS: BP 127/88; PULSE 95; BMI 30.6
--- NOTE | 2023-11-06 10:08 | A.OFFVIS_ITS ---
Intake Vital Signs 11/06/23 10:08 Height 5 ft 1 in Weight 162 lb BMI 30.6 BP 127/88 Blood Pressure Location Rt brachial Position Sitting Pulse 95 Intake Visit Reasons: S/P lap mary Intake Note: Patient here s/p lap mary on 10-25-23. Reports incision healing well. No longer taking rx pain meds. Hand Coke Drawer Required: No Accompanied by: Self / Same As Patient Allergies nifedipine [Procardia] Allergy (Severe, Verified 11/06/23 10:09) Abdominal Pain terbutaline Allergy (Severe, Verified 11/06/23 10:09) Abdominal Pain HPI HPI Comments History of Present Illness Details Patient presents for follow-up. She is feeling much better. Abdominal incisional pain improving. Tolerating diet. Having regular bowel habits. Patient was seen in the ER for abdominal pain and workup was negative. [facility] Medical History Surgery, elective Foul smelling urine Anemia Sepsis Pre-operative clearance Pre-operative clearance Pre-operative clearance Dysuria Insomnia Annual physical exam Hematuria Complex ovarian cyst History of hydronephrosis Cervical high risk HPV (human papillomavirus) test positive Ectopic of left ovary GERD (gastroesophageal reflux disease) Obesity (BMI 30-39.9) Generalized anxiety disorder Constipation Hyperbilirubinemia Allergic rhinitis Vitamin D deficiency Hypertension FLORENCIO II (cervical intraepithelial neoplasia II) COVID-19 virus infection Surgical History H/O section Skin tag, acquired History of appendectomy Family History Maternal Grandmother Colon cancer Maternal Grandfather Colon cancer Other Mental health disorder Social History Household Members: Children Housing: House Do you presently have visiting nurse or other home services: No Alcohol intake: current Alcohol intake frequency: holidays/special occasions only Alcohol type: wine Patient Tobacco Use Status: Never used Tobacco Tobacco use type: Cigarette Years Smoked: 2 e-Cigarette/Vaping Use: Never Used Second Hand Smoke Exposure: No Substance Use Type: Marijuana service: No Current occupational status: employed Cognitive needs: No Hearing needs: No Vision needs: No Physical Exam Vital Signs: Last Vital Signs Pulse 95 11/06/23 10:08 BP 127/88 11/06/23 10:08 BMI result Body Mass Index 30.6 Eyes Other: Anicteric GI Other: Abdomen soft, benign. All wounds clean dry and intact Assessment & Plan Assessment & Plan (1) S/P laparoscopic cholecystectomy: Code(s): Z90.49 - Acquired absence of other specified parts of digestive tract Plan Patient has been given local instructions, a no regarding return to work with light duty, and will otherwise follow up p.r.n.. All questions answered. Coding Level of Care Code Global (83374) Diagnoses S/P laparoscopic cholecystectomy Z90.49
== END 2023-11-06 10:14 | disposition home or self-care (01) ==
PROVIDERS: PCP Internal Medicine; Visit Provider Surgery
DX: Z90.49 Acquired absence of other specified parts of digestive tract (principal)
CPT/HCPCS: 99024

== ENCOUNTER → 2023-11-06 10:02 | Outpatient (BNVA) | payer OTHER, SELFPAY | PROVIDERS: PCP Internal Medicine; Visit Provider Surgery | DX: Z90.49 Acquired absence of other specified parts of digestive tract (principal) | CPT/HCPCS: 99212 ==

== ENCOUNTER 2023-11-22 16:09 | Outpatient (AMB) | payer OTHER, SELFPAY ==
[2023-11-22 16:14] VITALS: BP 128/86; PULSE 74; O2SAT 99; BMI 30.2
--- NOTE | 2023-11-22 16:14 | MHC.PC.OV ---
Vital Signs 11/22/23 16:14 Height 5 ft 1 in Weight 160 lb 0.4 oz BMI 30.2 BP 128/86 Blood Pressure Location Lt brachial Position Sitting Pulse 74 Pulse Source Pulse Oximeter Pulse Oximetry (%) 99 Oxygen Delivery Method Room Air Intake Visit Reasons: [facility] Gallbladder Allergies nifedipine [Procardia] Allergy (Severe, Verified 11/06/23 10:09) Abdominal Pain terbutaline Allergy (Severe, Verified 11/06/23 10:09) Abdominal Pain Medication List - Last Reconciled 11/22/23 by Samantha Toney MD blood pressure monitor (Blood Pressure Kit) As directed cholestyramine-aspartame 4 gram (Prevalite) 4 grams PO BID citalopram (Celexa) 10 mg PO DAILY hydrochlorothiazide 25 mg PO DAILY ketorolac 10 mg PO TID PRN 5 days metoprolol succinate ER 50 mg PO DAILY quetiapine (Seroquel) 50 mg PO BEDTIME Tobacco use date assessed: 11/22/23 HPI [facility] Gallbladder HPI Details 38-year-old obese female with a history of hypertension GERD and recurrent major depression coming in for follow-up. August 2023 last seen complaining of abdominal bloating and an ultrasound was requested. Review of the notes had laparoscopic cholecystectomy under Dr. Malloy 10/25/2023. Patient is here for follow-up patient is complaining of diarrhea after a meal and also some tenderness over the abdomen as well as lump/mass noted on the periumbilical area [facility] Medical History Surgery, elective Foul smelling urine Anemia Sepsis Pre-operative clearance Pre-operative clearance Pre-operative clearance Dysuria Insomnia Annual physical exam Hematuria Complex ovarian cyst History of hydronephrosis Cervical high risk HPV (human papillomavirus) test positive Ectopic of left ovary GERD (gastroesophageal reflux disease) Obesity (BMI 30-39.9) Generalized anxiety disorder Constipation Hyperbilirubinemia Allergic rhinitis Vitamin D deficiency Hypertension FLORENCIO II (cervical intraepithelial neoplasia II) COVID-19 virus infection Surgical History H/O section Skin tag, acquired History of appendectomy Family History Maternal Grandmother Colon cancer Maternal Grandfather Colon cancer Other Mental health disorder Social History Household Members: Children Housing: House Do you presently have visiting nurse or other home services: No Alcohol intake: current Alcohol intake frequency: holidays/special occasions only Alcohol type: wine Patient Tobacco Use Status: Never used Tobacco Tobacco use type: Cigarette Years Smoked: 2 e-Cigarette/Vaping Use: Never Used Second Hand Smoke Exposure: No Substance Use Type: Marijuana service: No Current occupational status: employed Cognitive needs: No Hearing needs: No Vision needs: No Questionnaire Thrive Questionnaire Date Thrive assessed: 10/26/23 AUDIT C Alcohol Use Questionnaire (AUDIT-C) 1. How often do you have a drink containing alcohol?: Monthly or less 2. How many drinks containing alcohol do you have on a typical day when you are drinking?: 1 or 2 3. How often do you have six or more drinks on one occasion?: Never Total Score: 1 Score Reviewed/Action Taken: No MEAGAN-7 AMB Questionnaire MEAGAN-7 Date MEAGAN - 7 assessed: 11/22/23 Source: Developed by Drs. Thierry Murillo, Rocio Diallo, Masood Cooper and colleagues, with an educational deni from [employer]. Physical exam (Primary Care) Vital Signs: Last Vital Signs Pulse 74 11/22/23 16:14 BP 128/86 11/22/23 16:14 Pulse Ox 99 11/22/23 16:14 Oxygen Delivery Method Room Air 11/22/23 16:14 BMI result Body Mass Index 30.2 Tobacco/Smoking Status: Tobacco use Status Tobacco use date assessed 11/22/23 11/22/23 16:19 Patient Tobacco Use Status Never used Tobacco 11/22/23 16:19 Tobacco use type Cigarette 11/22/23 16:19 e-Cigarette/Vaping Use Never Used 11/22/23 16:19 Thrive Assessment: Date of Thrive Assessment Date Thrive assessed 10/26/23 11/22/23 16:19 Const General: alert; No acute distress Eyes Conjunctivae: conjunctivae normal Resp Auscultation: clear to auscultation bilaterally Cardio Rate: regular rate Rhythm: regular rhythm GI Other: Noted incisional scars from laparoscopy healed no redness mild tenderness on the epigastric area no rebound soft, tenderness and mass noted on the 01:00 o'clock area of the umbilicus 3 cm mass Extrem General: Yes normal to inspection and No edema Office Procedures Flu Questionnaire Does the patient have a severe egg allergy?: No Does the patient have severe life threatening allergies?: No Does the patient have a fever or illness today?: No Has the patient ever had Guillain-[place] Syndrome?: No Has the patient ever had any past reaction to a flu shot?: No Immunizations flu vacc [id number] 6mos up(PF) 60 mcg(15 mcgx4)/0.5 mL IM syringe Performing Provider: Samantha Toney MD [facility] Administered by: RENETTA Salazar on 11/22/23 16:19 Dose Route Admin Location Dispensed Lot Number Expiration Date NDC Custom Stock Maker 0.5 mL IM Left Deltoid 0.5 mL [id number] 05/11/24 52930-635-81 [employer] VIS Given Date VIS Provided VIS Publication Date 11/22/23 Single Vaccine 21 Eligibility Eligibility Date Funding Source Not [facility] Eligible 11/22/23 Private Assessment and Plan Assessment & Plan (1) S/P laparoscopic cholecystectomy: Comment: October 2023 Dr. Malloy Code(s): Z90.49 - Acquired absence of other specified parts of digestive tract Plan: Low-fat diet (2) Obesity (BMI 30.0-34.9): Code(s): E66.9 - Obesity, unspecified Plan: Continue with diet and exercise (3) Recurrent major depression: Comment: School street Q 3 week (04/2022) Code(s): F33.9 - Major depressive disorder, recurrent, unspecified Plan: Continue with counseling and therapy. Patient on citalopram 10 mg once a day (4) GERD (gastroesophageal reflux disease): Code(s): K21.9 - Gastro-esophageal reflux disease without esophagitis Plan: Avoid the foods that causes that usually spicy foods, tomato products, juices, coffee, soda and foods that your sensitive to. After eating do not lie down, allow 3-4 hours before in lie down. And keep the head of bed above 30 degrees to avoid the acid from going up. (5) Hypertension: Code(s): I10 - Essential (primary) hypertension Plan: Continue with blood pressure medication. Decrease salt intake and exercise patient takes metoprolol 50 mg once a day hydrochlorothiazide 25 mg once a day (6) Bile salt-induced diarrhea: Code(s): K90.89 - Other intestinal malabsorption Plan: Discussed about low fat diet to prevent diarrhea (7) Umbilical hernia: Code(s): K42.9 - Umbilical hernia without obstruction or gangrene Plan: CT scan did not show post surgery. Discussed my concern on umbilical hernia which is not bulging out but only palpable. Will continue to monitor for now Orders: Orders Influenza [id number] Immunization Today Z23 - Encounter for immunization Medications: New cholestyramine-aspartame 4 gram (Prevalite) administer w/meal; avoid other meds within 1hr before or 4-6hr after dose 4 grams PO BID 60 ea 3RF K90.89 - Other intestinal malabsorption Coding Level of Care Code Est Pt Level 4 (01813) Diagnoses S/P laparoscopic cholecystectomy Z90.49 Obesity (BMI 30.0-34.9) E66.9 Recurrent major depression F33.9 GERD (gastroesophageal reflux disease) K21.9 Hypertension I10 Bile salt-induced diarrhea K90.89 Umbilical hernia K42.9
== END 2023-11-22 16:53 | disposition home or self-care (01) ==
PROVIDERS: PCP Internal Medicine; Visit Provider Internal Medicine
DX: K21.9 Gastro-esophageal reflux disease without esophagitis (principal); F33.9 Major depressive disorder, recurrent, unspecified; Z90.49 Acquired absence of other specified parts of digestive tract; Z23 Encounter for immunization; Z68.30 Body mass index [BMI] 30.0-30.9, adult; E66.9 Obesity, unspecified; I10 Essential (primary) hypertension; K90.89 Other intestinal malabsorption; K42.9 Umbilical hernia without obstruction or gangrene
CPT/HCPCS: 90471; 90686; 99214

== ENCOUNTER 2023-12-03 13:27 | Outpatient (AMB) | payer OTHER, SELFPAY ==
--- NOTE | 2023-11-23 14:35 | MHC.OFFVIS ---
Intake Intake Visit Reasons: Umbilical hernia Allergies nifedipine [Procardia] Allergy (Severe, Verified 11/06/23 10:09) Abdominal Pain terbutaline Allergy (Severe, Verified 11/06/23 10:09) Abdominal Pain PFSH Medical History Surgery, elective Foul smelling urine Anemia Sepsis Pre-operative clearance Pre-operative clearance Pre-operative clearance Dysuria Insomnia Annual physical exam Hematuria Complex ovarian cyst History of hydronephrosis Cervical high risk HPV (human papillomavirus) test positive Ectopic of left ovary GERD (gastroesophageal reflux disease) Obesity (BMI 30-39.9) Generalized anxiety disorder Constipation Hyperbilirubinemia Allergic rhinitis Vitamin D deficiency Hypertension FLORENCIO II (cervical intraepithelial neoplasia II) COVID-19 virus infection Surgical History H/O section Skin tag, acquired History of appendectomy Family History Maternal Grandmother Colon cancer Maternal Grandfather Colon cancer Other Mental health disorder Social History Household Members: Children Housing: House Do you presently have visiting nurse or other home services: No Alcohol intake: current Alcohol intake frequency: holidays/special occasions only Alcohol type: wine Patient Tobacco Use Status: Never used Tobacco Tobacco use type: Cigarette Years Smoked: 2 e-Cigarette/Vaping Use: Never Used Second Hand Smoke Exposure: No Substance Use Type: Marijuana service: No Current occupational status: employed Cognitive needs: No Hearing needs: No Vision needs: No Coding
--- NOTE | 2023-12-03 13:35 | MHC.OFFVIS ---
Intake Vital Signs 12/03/23 13:41 Weight 162 lb BP 152/95 H Blood Pressure Location Rt brachial Position Sitting Pulse 74 Intake Visit Reasons: Umbilical hernia Intake Note: Patient referred for umbilical hernia. Healing well since lap mary on 10-25-23. Patient c/o: Mid abd pain. 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 She is otherwise tolerating a diet, having regular bowel habits. This process is increasing in size, becoming more symptomatic. She wished to have this evaluated. Patient is well known to me. Status post lap mary proximally month ago. [facility] Medical History Surgery, elective Foul smelling urine Anemia Sepsis Pre-operative clearance Pre-operative clearance Pre-operative clearance Dysuria Insomnia Annual physical exam Hematuria Complex ovarian cyst History of hydronephrosis Cervical high risk HPV (human papillomavirus) test positive Ectopic of left ovary GERD (gastroesophageal reflux disease) Obesity (BMI 30-39.9) Generalized anxiety disorder Constipation Hyperbilirubinemia Allergic rhinitis Vitamin D deficiency Hypertension FLORENCIO II (cervical intraepithelial neoplasia II) COVID-19 virus infection Surgical History H/O section Skin tag, acquired History of appendectomy Family History Maternal Grandmother Colon cancer Maternal Grandfather Colon cancer Other Mental health disorder Social History Household Members: Children Housing: House Do you presently have visiting nurse or other home services: No Alcohol intake: current Alcohol intake frequency: holidays/special occasions only Alcohol type: wine Patient Tobacco Use Status: Never used Tobacco Tobacco use type: Cigarette Years Smoked: 2 e-Cigarette/Vaping Use: Never Used Second Hand Smoke Exposure: No Substance Use Type: Marijuana service: No Current occupational status: employed Cognitive needs: No Hearing needs: No Vision needs: No Physical Exam Vital Signs: Last Vital Signs Pulse 74 12/03/23 13:41 BP 152/95 H 12/03/23 13:41 Chest Other: Chest breath sounds bilaterally, HS 1 in 2 GI Other: Patient was examined both supine and standing with Valsalva. Umbilical and laparoscopic port sites all clean dry and intact healing uneventfully. No evidence of any hernia. Patient has approximately 4 fingerbreadths above the umbilicus a supraumbilical symptomatic ventral hernia measuring approximately 2 cm in size. Assessment & Plan Assessment & Plan (1) Ventral hernia: Code(s): K43.9 - Ventral hernia without obstruction or gangrene Plan Risks, benefits, alternatives of open superior umbilical ventral hernia repair with mesh were reviewed with the patient and included but not limited to bleeding, infection, recurrence, numbness, pain, scarring the patient wished to proceed. All questions answered. Arrangements were made for this. Coding Level of Care Code Est Pt Level 5 (15492) Diagnoses Ventral hernia K43.9
[2023-12-03 13:41] VITALS: BP 152/95; PULSE 74
== END 2023-12-03 15:09 | disposition home or self-care (01) ==
PROVIDERS: PCP Internal Medicine; Visit Provider Surgery
DX: K43.9 Ventral hernia without obstruction or gangrene (principal)
CPT/HCPCS: 99214

== ENCOUNTER → 2023-12-03 13:27 | Outpatient (BNVA) | payer OTHER, SELFPAY | PROVIDERS: PCP Internal Medicine; Visit Provider Surgery | DX: K43.9 Ventral hernia without obstruction or gangrene (principal) | CPT/HCPCS: 99212 ==

== ENCOUNTER 2023-12-11 15:25 | Outpatient (AMB) | payer OTHER, SELFPAY ==
[2023-12-11 15:31] VITALS: BP 152/98; PULSE 73; O2SAT 100; BMI 30.4
--- NOTE | 2023-12-11 15:31 | MHC.PC.OV ---
Vital Signs 12/11/23 15:31 Height 5 ft 1 in Weight 161 lb BMI 30.4 BP 152/98 H Blood Pressure Location Lt brachial Position Sitting Pulse 73 Pulse Source Pulse Oximeter Pulse Oximetry (%) 100 Oxygen Delivery Method Room Air Intake Visit Reasons: Hypertension Intake Note: Patient is here to follow up on Hypertension Allergies nifedipine [Procardia] Allergy (Severe, Verified 12/11/23 15:31) Abdominal Pain terbutaline Allergy (Severe, Verified 12/11/23 15:31) Abdominal Pain Tobacco use date assessed: 12/11/23 HPI Hypertension HPI Details 38-year-old obese female with GERD hypertension umbilical hernia status post laparoscopic cholecystectomy last seen earlier this month. Patient is here for follow-up. Patient was seen by the surgeon recently for the umbilical hernia diagnosis of ventral hernia and scheduled for surgery in December 2023. BP at home is 140/94 [facility] Medical History (Updated 12/11/23 @ 15:53 by Samantha Toney MD) Overweight (BMI 25.0-29.9) Surgery, elective Foul smelling urine Anemia Sepsis Pre-operative clearance Pre-operative clearance Pre-operative clearance Dysuria Insomnia Annual physical exam Hematuria Complex ovarian cyst History of hydronephrosis Cervical high risk HPV (human papillomavirus) test positive Ectopic of left ovary GERD (gastroesophageal reflux disease) Obesity (BMI 30-39.9) Generalized anxiety disorder Constipation Hyperbilirubinemia Allergic rhinitis Vitamin D deficiency Hypertension FLORENCIO II (cervical intraepithelial neoplasia II) COVID-19 virus infection Surgical History (Updated 12/03/23 @ 13:58 by Nader Malloy MD) H/O section Skin tag, acquired History of appendectomy Family History Maternal Grandmother Colon cancer Maternal Grandfather Colon cancer Other Mental health disorder Social History Household Members: Children Housing: House Do you presently have visiting nurse or other home services: No Alcohol intake: current Alcohol intake frequency: holidays/special occasions only Alcohol type: wine Patient Tobacco Use Status: Never used Tobacco Tobacco use type: Cigarette Years Smoked: 2 e-Cigarette/Vaping Use: Never Used Second Hand Smoke Exposure: No Substance Use Type: Marijuana service: No Current occupational status: employed Cognitive needs: No Hearing needs: No Vision needs: No Questionnaire Thrive Questionnaire Date Thrive assessed: 10/26/23 AUDIT C Alcohol Use Questionnaire (AUDIT-C) 1. How often do you have a drink containing alcohol?: Monthly or less 2. How many drinks containing alcohol do you have on a typical day when you are drinking?: 1 or 2 3. How often do you have six or more drinks on one occasion?: Never Total Score: 1 Score Reviewed/Action Taken: No MEAGAN-7 AMB Questionnaire MEAGAN-7 Date MEAGAN - 7 assessed: 11/22/23 Source: Developed by Drs. Thierry Murillo, Rocio Diallo, Masood Cooper and colleagues, with an educational deni from [employer] Physical exam (Primary Care) Vital Signs: Last Vital Signs Pulse 73 12/11/23 15:31 BP 152/98 H 12/11/23 15:31 Pulse Ox 100 12/11/23 15:31 Oxygen Delivery Method Room Air 12/11/23 15:31 BMI result Body Mass Index 30.4 Tobacco/Smoking Status: Tobacco use Status Tobacco use date assessed 12/11/23 12/11/23 15:32 Patient Tobacco Use Status Never used Tobacco 12/11/23 15:32 Tobacco use type Cigarette 12/11/23 15:32 e-Cigarette/Vaping Use Never Used 12/11/23 15:32 Thrive Assessment: Date of Thrive Assessment Date Thrive assessed 10/26/23 12/11/23 15:32 Const General: alert; No acute distress Eyes Conjunctivae: conjunctivae normal Resp Auscultation: clear to auscultation bilaterally Cardio Rate: regular rate Rhythm: regular rhythm GI Other: above the umbilicus a supraumbilical symptomatic ventral hernia measuring approximately 2 cm in size Extrem General: Yes normal to inspection and No edema Assessment and Plan Assessment & Plan (1) Ventral hernia: Code(s): K43.9 - Ventral hernia without obstruction or gangrene Plan: Patient has an upcoming procedure 12/27/2023 (2) Obesity (BMI 30.0-34.9): Code(s): E66.9 - Obesity, unspecified Plan: Diet and exercise (3) GERD (gastroesophageal reflux disease): Code(s): K21.9 - Gastro-esophageal reflux disease without esophagitis Plan: Avoid the foods that causes that usually spicy foods, tomato products, juices, coffee, soda and foods that your sensitive to. After eating do not lie down, allow 3-4 hours before in lie down. And keep the head of bed above 30 degrees to avoid the acid from going up. (4) Hypertension: Code(s): I10 - Essential (primary) hypertension Plan: Continue with blood pressure medication. Decrease salt intake and exercise presently on hydrochlorothiazide 25 mg once a day and metoprolol 50 mg once a day. will increase metoprolol to 100 mg QD (5) Fatty liver: Comment: September 2023 Code(s): K76.0 - Fatty (change of) liver, not elsewhere classified Plan: Low-fat diet and exercise Medications: Changed From metoprolol succinate ER 50 mg PO DAILY 90 tabs 1RF I10 - Essential (primary) hypertension To metoprolol succinate ER 100 mg PO DAILY 30 days 30 tabs 3RF I10 - Essential (primary) hypertension Coding Level of Care Code Est Pt Level 4 (30734) Diagnoses Ventral hernia K43.9 Obesity (BMI 30.0-34.9) E66.9 GERD (gastroesophageal reflux disease) K21.9 Hypertension I10 Fatty liver K76.0
== END 2023-12-11 16:05 | disposition home or self-care (01) ==
PROVIDERS: PCP Internal Medicine; Visit Provider Internal Medicine
DX: K43.9 Ventral hernia without obstruction or gangrene (principal); E66.9 Obesity, unspecified; K21.9 Gastro-esophageal reflux disease without esophagitis; Z68.30 Body mass index [BMI] 30.0-30.9, adult; I10 Essential (primary) hypertension; K76.0 Fatty (change of) liver, not elsewhere classified
CPT/HCPCS: 99214

== ENCOUNTER 2023-12-27 07:57 | Day surgery (SDC) | payer OTHER, SELFPAY ==
--- NOTE | 2023-12-26 09:21 | HO.ANESPROP2 ---
Documented by User: Gaby Toro NP 12/26/23 09:23 HPI - Anesthesia Eval Consult details Narrative: 38yo F for Open Irreducible/Incarcerated Supra-Umbilical Ventral Hernia w/mesh s/p lap mary 10/2023 with GA-ETT 7 PMFSH Active Problems Active Problems: All Active Problems (Updated 12/25/23 @ 07:35 by Nel Harrell RN) Ventral hernia (Acute) Umbilical hernia (Acute) Bile salt-induced diarrhea (Acute) S/P laparoscopic cholecystectomy (Acute) Recurrent biliary colic (Acute) Cholelithiasis (Acute) Fatty liver (Acute) Abdominal bloating (Acute) Obesity (BMI 30.0-34.9) (Acute) Preop exam for internal medicine (Acute) Hypertension (Acute) History of abdominoplasty (Acute) Recurrent UTI (Acute) Insomnia (Acute) UTI (urinary tract infection) (Acute) Skin tag (Acute) Recurrent major depression (Acute) Breast mass, right (Acute) Annual physical exam (Acute) FLORENCIO II (cervical intraepithelial neoplasia II) (Acute) GERD (gastroesophageal reflux disease) (Acute) Past Medical History Medical History (Updated 12/27/23 @ 09:38 by Cassidy Carmichael MD) Surgery, elective Overweight (BMI 25.0-29.9) Foul smelling urine Anemia Sepsis Pre-operative clearance Dysuria Insomnia Annual physical exam Hematuria Complex ovarian cyst History of hydronephrosis Cervical high risk HPV (human papillomavirus) test positive Ectopic of left ovary GERD (gastroesophageal reflux disease) Obesity (BMI 30-39.9) Generalized anxiety disorder Constipation Hyperbilirubinemia Allergic rhinitis Vitamin D deficiency Hypertension FLORENCIO II (cervical intraepithelial neoplasia II) COVID-19 virus infection Family History Family History Maternal Grandmother Colon cancer Maternal Grandfather Colon cancer Other Mental health disorder Family history of problems with anesthesia: No Surgical History Surgical History Hx of cholecystectomy Hx of abdominoplasty H/O section Skin tag, acquired History of appendectomy History of Problems with Anesthesia: No Social History Social History Household Members: Children Housing: House Do you presently have visiting nurse or other home services: No Alcohol intake: current Alcohol intake frequency: holidays/special occasions only Alcohol type: wine Patient Tobacco Use Status: Never used Tobacco Tobacco use type: Cigarette Years Smoked: 2 e-Cigarette/Vaping Use: Never Used Second Hand Smoke Exposure: No Use of substances other than those prescribed or required for medical reasons: Yes Substance Use Type: Marijuana Are you DNR?: No Advance Directives: No Advance Directives Information Provided: Yes service: No Current occupational status: employed Cognitive needs: No Hearing needs: No Vision needs: No Meds Allergies Allergy/AdvReac Type Severity Reaction Status Date / Time nifedipine [Procardia] Allergy Severe Abdominal Verified 12/27/23 08:47 Pain terbutaline Allergy Severe Abdominal Verified 12/27/23 08:47 Pain Exam Height,Weight and Vital Signs: Weight 73.482 kg Pertinent Lab Results Pertinent Lab Results: Laboratory Tests 10/30/23 05:22 WBC 7.7 Hgb 13.6 Hct 41.8 Plt Count 256 Sodium 141 Potassium 3.7 Chloride 105 Carbon Dioxide 24 BUN 15 Creatinine 0.86 Narrative Narrative: EKG 02/2023 Vent. Rate : 072 BPM Atrial Rate : 072 BPM P-R Int : 120 ms QRS Dur : 068 ms QT Int : 374 ms P-R-T Axes : 049 050 013 degrees QTc Int : 409 ms Normal sinus rhythm Normal ECG When compared with ECG of 05-JAN-2023 09:20, No significant change was found Assessment and Plan Assessment Anesthesia Assessment: Chart Reviewed Final Anesthetic Review Family History of Problems with Anesthesia: No History of Problems with Anesthesia: No Documented by User: Cassidy Carmichael MD 12/27/23 09:38 PMFSH Active Problems Active Problems: All Active Problems (Updated 12/27/23 @ 09:06 by Cassidy Carmichael MD) Ventral hernia (Acute) Umbilical hernia (Acute) S/P laparoscopic cholecystectomy Fatty liver (Acute) Abdominal bloating (Acute) Obesity (BMI 30.0-34.9) (Acute) Preop exam for internal medicine (Acute) Hypertension (Acute) History of abdominoplasty (Acute) Insomnia (Acute) Recurrent major depression (Acute) Breast mass, right (Acute) Annual physical exam (Acute) FLORENCIO II (cervical intraepithelial neoplasia II) (Acute) GERD (gastroesophageal reflux disease) (Acute) Past Medical History Medical History (Updated 12/27/23 @ 09:38 by Cassidy Carmichael MD) Surgery, elective Overweight (BMI 25.0-29.9) Foul smelling urine Anemia Sepsis Pre-operative clearance Dysuria Insomnia Annual physical exam Hematuria Complex ovarian cyst History of hydronephrosis Cervical high risk HPV (human papillomavirus) test positive Ectopic of left ovary GERD (gastroesophageal reflux disease) Obesity (BMI 30-39.9) Generalized anxiety disorder Constipation Hyperbilirubinemia Allergic rhinitis Vitamin D deficiency Hypertension FLORENCIO II (cervical intraepithelial neoplasia II) COVID-19 virus infection Family History Family History Maternal Grandmother Colon cancer Maternal Grandfather Colon cancer Other Mental health disorder Family history of problems with anesthesia: No Surgical History Surgical History Hx of cholecystectomy Hx of abdominoplasty H/O section Skin tag, acquired History of appendectomy History of Problems with Anesthesia: No Social History Social History Household Members: Children Housing: House Do you presently have visiting nurse or other home services: No Alcohol intake: current Alcohol intake frequency: holidays/special occasions only Alcohol type: wine Patient Tobacco Use Status: Never used Tobacco Tobacco use type: Cigarette Years Smoked: 2 e-Cigarette/Vaping Use: Never Used Second Hand Smoke Exposure: No Use of substances other than those prescribed or required for medical reasons: Yes Substance Use Type: Marijuana Are you DNR?: No Advance Directives: No Advance Directives Information Provided: Yes service: No Current occupational status: employed Cognitive needs: No Hearing needs: No Vision needs: No Meds Allergies Allergy/AdvReac Type Severity Reaction Status Date / Time nifedipine [Procardia] Allergy Severe Abdominal Verified 12/27/23 08:47 Pain terbutaline Allergy Severe Abdominal Verified 12/27/23 08:47 Pain Exam Height,Weight and Vital Signs: Height 5 ft 1 in Weight 73.028 kg Vital Signs Temp Pulse Resp BP Pulse Ox O2 Del Method 12/27/23 08:39 98.7 F 69 16 151/101 H 97 Room Air Pertinent Lab Results Pertinent Lab Results: Laboratory Tests 10/30/23 05:22 WBC 7.7 Hgb 13.6 Hct 41.8 Plt Count 256 Sodium 141 Potassium 3.7 Chloride 105 Carbon Dioxide 24 BUN 15 Creatinine 0.86 Lab Results 12/27/23 Range/Units 08:25 Urine Test NEGATIVE (NEGATIVE) Airway Mallampati Class: II TM Dist: >3cm Neck ROM: Full Loose/Missing/Broken Teeth: Yes (1 missing back left. Denies loose or broken teeth) Heart: RRR Lungs: CTAB Assessment and Plan Assessment Anesthesia Assessment: Anesthesia Plan Discussed and Chart Reviewed Final Anesthetic Review Family History of Problems with Anesthesia: No History of Problems with Anesthesia: No NPO: Yes ASA Class: II Final Preanesthetic Review: No Changes in Pt Med Stat, Meds/Allgs Chart Reviewed, Consent Obtained/Reviewed and Anes Risks/Benef Reviewed Patient Risk: Low Procedure Risk: Low Assessment/Block/Sedation in SS: Assess/Block/Sedation-SS Anesthetic Plan Anesthetic Plan: GA and TIVA Disposition: Standard PACU
--- NOTE | 2023-12-26 09:27 | MHC.SHP ---
Pre-Procedural Eval Section A - 24 Hr Update-Section A only Date of Service: 12/26/23 The patient is an INPATIENT: No Changes since office visit: No Cold of Flu in the past 2 weeks, No New Medical Problems, No Changes in Medication and No Patient answered all questions The patient has been examined within 24 hours of the surgical procedure. The History & Physical has been completed within 30 days and I have reviewed it.: Yes Section B - Complete if H&P > 30 days Chief Complaint: Ventral hernia without obstruction or gangrene Allergies: Allergies Allergy/AdvReac Type Severity Reaction Status Date / Time nifedipine [Procardia] Allergy Severe Abdominal Verified 12/11/23 15:31 Pain terbutaline Allergy Severe Abdominal Verified 12/11/23 15:31 Pain Plan I have reviewed the history and physical and performed a pertinent physical examination on my patient. No changes have occurred unless specified. Time Spent With Patient Time: Total time managing care of this patient today ____ minutes.
[2023-12-27] VITALS (7 sets, daily range): BP systolic 124–158; BP diastolic 84–111; PULSE 52–76; RESP 16–18; TEMP 36.2–37.1; O2SAT 97–100; BMI 30.4
[2023-12-27 08:37] LABS: UPreg QC Valid YES
[2023-12-27 08:38] LABS: Urine Pregnancy NEGATIVE (NEGATIVE)
[2023-12-27] MEDS: Lactated Ringers 1,000 ML 100 ML IVCONT (09:06)
--- NOTE | 2023-12-27 10:25 | P.OP_ITS ---
Operative Note Operative Note Date of Service: 12/27/23 Narrative: Preoperative diagnosis: [] Supraumbilical ventral hernia Postop diagnosis: [] Supraumbilical ventral diastasis Procedure [] repair rectus diastasis with Bard mesh Surgeon: [] Gama Wire Bound Box Machine Helper: [] Lazaro Type of Anesthesia: [] MAC Indication for surgery: [] Patient is status post abdominal plasty. She had clinically what appeared to be a supraumbilical ventral hernia. Intraoperative findings demonstrated rectus diastasis. Findings: [] Patient brought to the operating room, placed on operative table in supine position, after an adequate level of MAC anesthesia was induced, the patient's abdomen was prepped and draped in usual sterile fashion. A transverse incision was made over the area in question carried down through skin, subcutaneous tissue, and dissection down to fascia demonstrated no hernia but instead rectus diastasis most likely related to the patient's prior abdominal plasty. Area was circumferentially cleared, and a Bard mesh placed over this defect and circumferentially sutured to the surrounding fascia using interrupted 0 Ethibond suture. At completion the procedure, mesh was in good position with no tension or gaps. Wound was irrigated, secured hemostasis, and closed in the following manner; subcutaneous tissue was reapproximated using interrupted 3-0 Vicryl sutures. Skin was closed using interrupted inverted dermal 3-0 Vicryl sutures followed by Steri-Strips and sterile dressings. Wound was infiltrated 0.5% Marcaine/1% lidocaine at completion. Sponge, needle, and instrument counts were reported correct. Patient tolerated the procedure well and emerged anesthesia stable condition. EBL minimal
== END 2023-12-27 14:19 | disposition home or self-care (01) ==
PROVIDERS: Nurse Practitioner; PCP Internal Medicine; Visit Provider Surgery
PROC: (CPT 22999; principal; 2023-12-27 10:00)
DX: M62.08 Separation of muscle (nontraumatic), other site (principal); R10.9 Unspecified abdominal pain; Z98.890 Other specified postprocedural states; I10 Essential (primary) hypertension; D64.9 Anemia, unspecified; K21.9 Gastro-esophageal reflux disease without esophagitis; E55.9 Vitamin D deficiency, unspecified; E80.6 Other disorders of bilirubin metabolism; F41.1 Generalized anxiety disorder; J30.9 Allergic rhinitis, unspecified; N87.1 Moderate cervical dysplasia; R30.0 Dysuria; Z79.899 Other long term (current) drug therapy; Z88.8 Allergy status to other drugs, medicaments and biological substances; Z90.49 Acquired absence of other specified parts of digestive tract; Z86.16 Personal history of COVID-19; F12.90 Cannabis use, unspecified, uncomplicated
CPT/HCPCS: 22999; 81025; C1781; J0665; J0690; J2250; J2704; J3010

== ENCOUNTER → 2023-12-27 07:57 | Outpatient (BNV) | payer OTHER, SELFPAY | PROVIDERS: PCP Internal Medicine; Visit Provider Surgery | DX: K80.50 Calculus of bile duct without cholangitis or cholecystitis without obstruction (principal); K43.9 Ventral hernia without obstruction or gangrene | CPT/HCPCS: 47562 ==

== ENCOUNTER 2024-01-07 11:14 | Outpatient (AMB) | payer OTHER, SELFPAY ==
[2024-01-07 11:18] VITALS: BP 133/69; PULSE 76
--- NOTE | 2024-01-07 11:18 | A.OFFVIS_ITS ---
Intake Vital Signs 01/07/24 11:18 Weight 162 lb BP 133/69 Blood Pressure Location Rt brachial Position Sitting Pulse 76 Intake Visit Reasons: S/P supra-umbilical ventral hernia repair w/mesh Intake Note: Patient here s/p supra-umbilical ventral hernia repair w/mesh on 12-27-23. Patient c/o: pain, abd swelling. Still taking rx pain meds as needed. 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 Aside from incisional discomfort which is improving she has has no other GI issues or complaints [facility] Medical History Surgery, elective Overweight (BMI 25.0-29.9) Foul smelling urine Anemia Sepsis Pre-operative clearance Dysuria Insomnia Annual physical exam Hematuria Complex ovarian cyst History of hydronephrosis Cervical high risk HPV (human papillomavirus) test positive Ectopic of left ovary GERD (gastroesophageal reflux disease) Obesity (BMI 30-39.9) Generalized anxiety disorder Constipation Hyperbilirubinemia Allergic rhinitis Vitamin D deficiency Hypertension FLORENCIO II (cervical intraepithelial neoplasia II) COVID-19 virus infection Surgical History Ventral hernia (12/27/23) Hx of cholecystectomy Hx of abdominoplasty H/O section Skin tag, acquired History of appendectomy Family History Maternal Grandmother Colon cancer Maternal Grandfather Colon cancer Other Mental health disorder Social History Household Members: Children Housing: House Do you presently have visiting nurse or other home services: No Alcohol intake: current Alcohol intake frequency: holidays/special occasions only Alcohol type: wine Comment: counts correct Patient Tobacco Use Status: Never used Tobacco Tobacco use type: Cigarette Years Smoked: 2 e-Cigarette/Vaping Use: Never Used Second Hand Smoke Exposure: No Substance Use Type: Marijuana service: No Current occupational status: employed Cognitive needs: No Hearing needs: No Vision needs: No Physical Exam Vital Signs: Last Vital Signs Pulse 76 01/07/24 11:18 BP 133/69 01/07/24 11:18 GI Other: Abdomen is soft. Wound clean dry and intact healing uneventfully. Small seroma which is treated conservatively. Assessment & Plan Assessment & Plan (1) Status post repair of ventral hernia: Code(s): Z98.890 - Other specified postprocedural states; Z87.19 - Personal history of other diseases of the digestive system Plan Patient has significant other have been given local instructions, and they will see me as directed or p.r.n.. All questions answered. Coding Level of Care Code Global (72981) Diagnoses Status post repair of ventral hernia Z98.890; Z87.19
== END 2024-01-07 11:26 | disposition home or self-care (01) ==
PROVIDERS: PCP Internal Medicine; Visit Provider Surgery
DX: Z98.890 Other specified postprocedural states (principal); Z87.19 Personal history of other diseases of the digestive system
CPT/HCPCS: 99024

== ENCOUNTER → 2024-01-07 11:14 | Outpatient (BNVA) | payer OTHER, SELFPAY | PROVIDERS: PCP Internal Medicine; Visit Provider Surgery | DX: Z09 Encounter for follow-up examination after completed treatment for conditions other than malignant neoplasm (principal); Z98.890 Other specified postprocedural states; Z87.19 Personal history of other diseases of the digestive system | CPT/HCPCS: 99212 ==

== ENCOUNTER 2024-02-04 09:37 | Outpatient (AMB) | payer OTHER, SELFPAY ==
[2024-02-04 09:42] VITALS: BP 161/103; PULSE 80
--- NOTE | 2024-02-04 09:42 | A.OFFVIS_ITS ---
Intake Vital Signs 02/04/24 09:42 Weight 161 lb BP 161/103 H Blood Pressure Location Rt brachial Position Sitting Pulse 80 Intake Visit Reasons: S/P supra-umbilical ventral hernia repair w/mesh Intake Note: Patient here for 1m f/u s/p supra-umbilical ventral hernia repair w/mesh. Reports incisions healing well. Patient c/o: large painful lump on abd. Thinks its a seroma. SX: 12-27-23. Logistics Analyst Required: No Information Interpreted: non-clinical only Accompanied by: Self / Same As Patient Allergies nifedipine [Procardia] Allergy (Severe, Verified 02/04/24 09:44) Abdominal Pain terbutaline Allergy (Severe, Verified 02/04/24 09:44) Abdominal Pain HPI HPI Comments History of Present Illness Details Patient presents for evaluation of her incision. She is complaining of firmness over this. COUNT INCLUDES [facility] Medical History Surgery, elective Overweight (BMI 25.0-29.9) Foul smelling urine Anemia Sepsis Pre-operative clearance Dysuria Insomnia Annual physical exam Hematuria Complex ovarian cyst History of hydronephrosis Cervical high risk HPV (human papillomavirus) test positive Ectopic of left ovary GERD (gastroesophageal reflux disease) Obesity (BMI 30-39.9) Generalized anxiety disorder Constipation Hyperbilirubinemia Allergic rhinitis Vitamin D deficiency Hypertension FLORENCIO II (cervical intraepithelial neoplasia II) COVID-19 virus infection Surgical History Ventral hernia (12/27/23) Hx of cholecystectomy Hx of abdominoplasty H/O section Skin tag, acquired History of appendectomy Family History Maternal Grandmother Colon cancer Maternal Grandfather Colon cancer Other Mental health disorder Social History Household Members: Children Housing: House Do you presently have visiting nurse or other home services: No Alcohol intake: current Alcohol intake frequency: holidays/special occasions only Alcohol type: wine Comment: counts correct Patient Tobacco Use Status: Never used Tobacco Tobacco use type: Cigarette Years Smoked: 2 e-Cigarette/Vaping Use: Never Used Second Hand Smoke Exposure: No Substance Use Type: Marijuana service: No Current occupational status: employed Cognitive needs: No Hearing needs: No Vision needs: No Physical Exam Vital Signs: Last Vital Signs Pulse 80 02/04/24 09:42 BP 161/103 H 02/04/24 09:42 GI Other: On exam abdomen is soft. Incision clean dry and intact. No evidence of any infection. Patient was reassured that these are her sutures, 2 L worth which taken other 6-8 weeks to dissolve and should then be resolved. Assessment & Plan Assessment & Plan (1) Status post repair of ventral hernia: Code(s): Z98.890 - Other specified postprocedural states; Z87.19 - Personal history of other diseases of the digestive system Plan Patient is considering abdominal wall liposuction. I recommended she wait several more weeks for her hernia surgery to completely heal before attempting any such endeavor. In the meantime, she should avoid strenuous activities and do all the walking she wants for next few weeks time and then can gently recommenced working out the gym. All questions answered. Patient otherwise follow-up p.r.n.. Coding Level of Care Code Global (96261) Diagnoses Status post repair of ventral hernia Z98.890; Z87.19
== END 2024-02-04 09:57 | disposition home or self-care (01) ==
PROVIDERS: PCP Internal Medicine; Visit Provider Surgery
DX: Z98.890 Other specified postprocedural states (principal); Z87.19 Personal history of other diseases of the digestive system
CPT/HCPCS: 99024

== ENCOUNTER → 2024-02-04 09:37 | Outpatient (BNVA) | payer OTHER, SELFPAY | PROVIDERS: PCP Internal Medicine; Visit Provider Surgery | DX: Z98.890 Other specified postprocedural states (principal); Z87.19 Personal history of other diseases of the digestive system | CPT/HCPCS: 99212 ==

== ENCOUNTER 2024-02-04 12:29 | Outpatient (AMB) | payer OTHER, SELFPAY ==
--- NOTE | 2024-02-04 12:31 | MHC.PC.OV ---
Vital Signs 02/04/24 12:32 Height 5 ft 1 in Weight 162 lb 0.4 oz BMI 30.6 BP 138/98 H Blood Pressure Location Lt brachial Position Sitting Pulse 81 Pulse Source Pulse Oximeter Pulse Oximetry (%) 98 Oxygen Delivery Method Room Air Intake Visit Reasons: PE Intake Note: Patient is here today for a physical. 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 Allergies nifedipine [Procardia] Allergy (Severe, Verified 02/04/24 12:32) Abdominal Pain terbutaline Allergy (Severe, Verified 02/04/24 12:32) Abdominal Pain Medication List - Last Reconciled 02/04/24 by Samantha Toney MD blood pressure monitor (Blood Pressure Kit) As directed cholestyramine-aspartame 4 gram (Prevalite) 4 grams PO BID citalopram (Celexa) 10 mg PO DAILY hydrochlorothiazide 25 mg PO DAILY metoprolol succinate ER 100 mg PO DAILY 30 days quetiapine (Seroquel) 50 mg PO BEDTIME Tobacco use date assessed: 02/04/24 Dental Screening Dental Screen Date: 02/04/24 Did you have a dental visit in the last 12 months?: Yes Did you have a dental problem in the last 6 months where you did not have access to dental care?: No Was dental information given to patient?: Patient has dentist HPI PE HPI Details 38-year-old female with a history of hypertension GERD, recurrent major depression fatty liver coming in for physical exam. Had a ventral hernia which was repaired by the surgeon. December. clogged ear- cannt hear [facility] Medical History (Updated 02/04/24 @ 12:59 by Samantha Toney MD) Surgery, elective Overweight (BMI 25.0-29.9) Foul smelling urine Anemia Sepsis Pre-operative clearance Dysuria Insomnia Annual physical exam Hematuria Complex ovarian cyst History of hydronephrosis Cervical high risk HPV (human papillomavirus) test positive Ectopic of left ovary GERD (gastroesophageal reflux disease) Obesity (BMI 30-39.9) Generalized anxiety disorder Constipation Hyperbilirubinemia Allergic rhinitis Vitamin D deficiency Hypertension FLORENCIO II (cervical intraepithelial neoplasia II) COVID-19 virus infection Surgical History (Updated 02/04/24 @ 12:38 by Samantha Toney MD) Ventral hernia (12/27/23) Hx of cholecystectomy Hx of abdominoplasty H/O section Skin tag, acquired History of appendectomy Family History Maternal Grandmother Colon cancer Maternal Grandfather Colon cancer Other Mental health disorder Social History (Updated 02/04/24 @ 12:44 by Samantha Toney MD) Household Members: Children Housing: House Do you presently have visiting nurse or other home services: No Alcohol intake: current Alcohol intake frequency: holidays/special occasions only Alcohol type: wine Comment: once a month 3 glasses Patient Tobacco Use Status: Never used Tobacco Tobacco use type: Cigarette Years Smoked: 2 e-Cigarette/Vaping Use: Never Used Second Hand Smoke Exposure: No Substance Use Type: Marijuana service: No Current occupational status: employed Cognitive needs: No Hearing needs: No Vision needs: No Questionnaire PHQ-9 Over the last 2 weeks, how often have you been bothered by any of the following problems? 1. Little interest or pleasure in doing things: not at all 2. Feeling down, depressed, or hopeless: not at all 3. Trouble falling or staying asleep, or sleeping too much: not at all 4. Feeling tired or having little energy: not at all 5. Poor appetite or overeating: not at all 6. Feeling bad about yourself - or that you are a failure or have let yourself or your family down: not at all 7. Trouble concentrating on things, such as reading the newspaper or watching television: not at all 8. Moving or speaking so slowly that other people could have noticed. Or the opposite - being so fidgety or restless that you have been moving around a lot more than usual: not at all 9. Thoughts that you would be better off or of hurting yourself in some way: not at all Total score: 0 Depression Screening Interpretation: Negative Depression Screening Done: Yes Source: Developed by Drs. Thierry Murillo, Rocio Diallo, Masood Cooper and colleagues, with an educational deni from [employer]. Thrive Questionnaire Date Thrive assessed: 10/26/23 AUDIT C Alcohol Use Questionnaire (AUDIT-C) 1. How often do you have a drink containing alcohol?: Monthly or less 2. How many drinks containing alcohol do you have on a typical day when you are drinking?: 1 or 2 3. How often do you have six or more drinks on one occasion?: Never Total Score: 1 Score Reviewed/Action Taken: No MEAGAN-7 AMB Questionnaire MEAGAN-7 Date MEAGAN - 7 assessed: 11/22/23 Feeling nervous, anxious, or on edge: 0 = Not at all Not being able to stop or control worryin = Not at all Worrying too much about different things: 0 = Not at all Trouble relaxin = Not at all Being so restless that it is hard to sit still: 0 = Not at all Becoming easily annoyed or irritable: 0 = Not at all Feeling afraid as if something awful might happen: 0 = Not at all Total MEAGAN-7 score (0-4 normal; 5-9 mild; 10-14 moderate; 15-21 severe): 0 Source: Developed by Drs. Thierry Murillo, Rocio Diallo, Masood Cooper and colleagues, with an educational deni from [employer]. Review of Systems Const Denies poor appetite and Denies weakness Eyes Denies no additional complaints ENT Reports Normal hearing present, Denies dizziness, Denies nasal congestion, Denies tinnitus and Denies sore throat Card Denies chest pain, Denies syncope, Denies rapid heart rate and Denies dyspnea Resp Denies cough and Denies dyspnea GI Denies change in stool character, Reports constipation, Denies diarrhea, Denies nausea and Denies vomiting Denies urinary frequency, Denies difficulty voiding and Denies dysuria Neuro Reports Normal hearing present, Denies confusion, Denies dizziness, Denies syncope and Denies weakness Psych Denies confusion Physical exam (Primary Care) Vital Signs: Last Vital Signs Pulse 81 02/04/24 12:32 BP 138/98 H 02/04/24 12:32 Pulse Ox 98 02/04/24 12:32 Oxygen Delivery Method Room Air 02/04/24 12:32 BMI result Body Mass Index 30.6 Tobacco/Smoking Status: Tobacco use Status Tobacco use date assessed 02/04/24 02/04/24 12:35 Patient Tobacco Use Status Never used Tobacco 02/04/24 12:44 Tobacco use type Cigarette 02/04/24 12:44 e-Cigarette/Vaping Use Never Used 02/04/24 12:44 PHQ-9: PHQ-9 Score PHQ-9: Total score 0 02/04/24 12:38 Depression Screening Interpretation: Negative Thrive Assessment: Date of Thrive Assessment Date Thrive assessed 10/26/23 02/04/24 12:35 Const General: No confusion Orientation/consciousness: No confusion HENMT Head: Yes normocephalic Ears: external ears normal and TM's normal bilaterally Face and sinus: Yes normal facial exam Mouth: moist mucous membranes Throat: Yes tonsils normal Eyes Conjunctivae: conjunctivae normal Pupils: Equal, round and reactive pupils present and Pupil accommodation reflex normal Direct Ophthalmoscopy: normal light reflex Neck Neck: No lymphadenopathy Thyroid: Thyroid normal Chest Chest palpation & inspection: normal inspection of the chest Chest/axillae images: 1. breast pain 10 oclock area no definite mass noted Resp Effort & Inspection: normal respiratory effort and no audible wheezes Auscultation: clear to auscultation bilaterally, no crackles, no wheezes and lung sounds not diminished Cardio Rate: regular rate Rhythm: regular rhythm Peripheral pulses: radial pulses present and dorsalis pedis present GI Palpation (GI): no masses Auscultation: normal bowel sounds and normoactive bowel sounds Rectal Exam - Female: deferred Skin General skin exam: no rashes or lesions noted Rashes: no rashes Neuro General: No confusion Cranial nerves: Yes Equal, round and reactive pupils present and Yes Normal hearing present Cognition (Neuro): normal cognition Gait exam (Neuro): Normal gait present Motor exam (neuro): 5/5 motor strength present throughout Deep tendon reflexes (DTR's): Right brachioradialis reflex intensity grade: 2+, Left brachioradialis reflex intensity grade: 2+, Right patellar reflex intensity grade: 2+ and Left patellar reflex intensity grade: 2+ Extrem General: No edema Results AMB Urinalysis, Automated UA Leukoctes 0 Adeel/uL Last Edit by RENETTA Salazar on 02/04/24 12:45 UA Nitrite Negative Last Edit by RENETTA Salazar on 02/04/24 12:45 UA Urobilinogen 0.2 mg/dL Last Edit by RENETTA Salazar on 02/04/24 12:45 UA Protein 0 mg/dL Last Edit by RENETTA Salazar on 02/04/24 12:45 UA pH 6.5 Last Edit by RENETTA Salazar on 02/04/24 12:45 UA Blood 10 Perry/uL Last Edit by Mirtha Villegas JARODJeremy on 02/04/24 12:45 UA Specific Pender 1.020 Last Edit by Mirtha Villegas RENETTA on 02/04/24 12:45 UA Ketone Negative Last Edit by Mirtha Villegas JARODA on 02/04/24 12:45 UA Bilirubin 0 mg/dL Last Edit by Mirtha Villegas JARODA on 02/04/24 12:45 UA Glucose 0 mg/dL Last Edit by Mirtha Gonzalezhardy JARODA on 02/04/24 12:45 Results Reviewed Results Reviewed: Laboratory Last Values Urine pH (Auto) 6.5 02/04/24 12:36 Specific Pender (Auto) 1.020 02/04/24 12:36 Urine Protein (Auto) 0 mg/dL 02/04/24 12:36 Glucose (UA)(Auto) 0 mg/dL 02/04/24 12:36 Urine Ketones (Auto) Negative 02/04/24 12:36 Urine Blood (Auto) 10 Perry/uL 02/04/24 12:36 Urine Nitrite (Auto) Negative 02/04/24 12:36 Urine Bilirubin (Auto) 0 mg/dL 02/04/24 12:36 Urine Urobilinogen (Auto) 0.2 mg/dL 02/04/24 12:36 Leukocyte Esterase (Auto) 0 Adeel/uL 02/04/24 12:36 Assessment and Plan Assessment & Plan (1) Annual physical exam: Code(s): Z00.00 - Encounter for general adult medical examination without abnormal findings (2) Status post repair of ventral hernia: Comment: December 2023 Dr. Malloy Code(s): Z98.890 - Other specified postprocedural states; Z87.19 - Personal history of other diseases of the digestive system Plan: Continue to follow-up with the surgeon (3) Fatty liver: Comment: September 2023 Code(s): K76.0 - Fatty (change of) liver, not elsewhere classified Plan: Low-fat diet and exercise (4) Hypertension: Code(s): I10 - Essential (primary) hypertension Plan: Continue with blood pressure medication. Decrease salt intake and exercise patient takes hydrochlorothiazide 25 mg once a day metoprolol 100 mg once a day (5) Recurrent major depression: Comment: School street Q 3 week (04/2022) Code(s): F33.9 - Major depressive disorder, recurrent, unspecified Plan: Continue with counseling and therapy (6) GERD (gastroesophageal reflux disease): Code(s): K21.9 - Gastro-esophageal reflux disease without esophagitis Plan: Avoid the foods that causes that usually spicy foods, tomato products, juices, coffee, soda and foods that your sensitive to. After eating do not lie down, allow 3-4 hours before in lie down. And keep the head of bed above 30 degrees to avoid the acid from going up. (7) Breast pain, right: Comment: 10 0clock area Code(s): N64.4 - Mastodynia (8) Hematuria: Comment: Cytology negative January 2020 Code(s): R31.9 - Hematuria, unspecified Orders: Orders AMB Urinalysis Automated Today R30.0 - Dysuria MM tomosynthesis diagnostic BI Today N64.4 - Mastodynia US breast RT limited Today N64.4 - Mastodynia Medications: Refilled cholestyramine-aspartame 4 gram (Prevalite) administer w/meal; avoid other meds within 1hr before or 4-6hr after dose 4 grams PO BID 60 ea 3RF K90.89 - Other intestinal malabsorption Coding Level of Care Code Est Pt Prev Care [id number]([id number]) Diagnoses Annual physical exam Z00.00 Status post repair of ventral hernia Z98.890; Z87.19 Fatty liver K76.0 Hypertension I10 Recurrent major depression F33.9 GERD (gastroesophageal reflux disease) K21.9 Breast pain, right N64.4 Hematuria R31.9
[2024-02-04 12:32] VITALS: BP 138/98; PULSE 81; O2SAT 98; BMI 30.6
== END 2024-02-04 13:04 | disposition home or self-care (01) ==
PROVIDERS: PCP Internal Medicine; Visit Provider Internal Medicine
DX: Z00.00 Encounter for general adult medical examination without abnormal findings (principal); F33.9 Major depressive disorder, recurrent, unspecified; Z98.890 Other specified postprocedural states; R30.0 Dysuria; Z87.19 Personal history of other diseases of the digestive system; K76.0 Fatty (change of) liver, not elsewhere classified; I10 Essential (primary) hypertension; K21.9 Gastro-esophageal reflux disease without esophagitis; N64.4 Mastodynia; R31.9 Hematuria, unspecified
CPT/HCPCS: 81003; 99395

== ENCOUNTER 2024-02-06 13:15 | Outpatient (REF) | payer OTHER, SELFPAY ==
--- NOTE | ~2024-02-06 | MM_ITS ---
EXAMINATION: MM DIAGNOSTIC DIGITAL BREAST TOMOSYNTHESIS, BILATERAL US BREAST LIMITED, RIGHT MAMMOGRAPHY: CLINICAL INFORMATION: Baseline mammogram, 38-year-old female complaining of movable palpable lump right breast 10:00 axis of which the patient states has been there for over 12 years . Mildly tender to palpation. Bilateral screening. COMPARISON: Mammography: None. Baseline exam. TECHNIQUE: Digital breast tomosynthesis is performed in both the craniocaudal and mediolateral oblique views along with computer-aided detection (CAD). Synthesized 2D images are generated from the tomosynthesis. In addition, full-field right 3-D ML view was obtained, as well as a full-field 3-D right exaggerated cc view. FINDINGS: The breasts are heterogeneously dense, which may obscure small masses (ACR BI-RADS breast composition Category c). Markers have been placed in the region of pain and palpable abnormality in the 10:00 right breast, far lateral aspect by the technologist. There is no underlying mammographic mass, or region of architectural distortion. There are 2 normal-appearing right low axillary lymph nodes present. There are no suspicious masses, suspicious grouped calcifications, or areas of architectural distortion in either breast that can be distinguished from the heterogeneously dense parenchymal pattern. ULTRASOUND: CLINICAL INFORMATION: As above. COMPARISON: None TECHNIQUE: Targeted sonographic evaluation was performed using a high frequency linear transducer. Attention was given to the right low axillary and high axillary tail regions in the region of palpable concern and pain. Selected archived documentation. FINDINGS: RIGHT BREAST: There is a mixture of fatty and fibroglandular tissue. No suspicious mass is seen. There is no pathologic acoustic shadowing. No cystic abnormalities. There are approximately 3 normal-appearing axillary tail and low axillary lymph nodes, none with abnormal architecture or thickened cortex. These likely are parts sales representative of the palpable foci, and are benign. MM/MM tomosynthesis diagnostic BI IMPRESSION: There are no findings in either breast suspicious for malignancy. Palpable focus in the right 10:00 axillary tail likely relates to underlying normal-appearing low axillary lymph nodes. There is no other sonographic or mammographic explanation. Recommend clinical management. Otherwise, recommend the patient resume annual screening at age 40. OVERALL ASSESSMENT: Mammography: BI-RADS 2 - Benign Findings Ultrasound: BI-RADS 2 - Benign Findings RECOMMENDATION: Mammo at 40 or earlier if clinically needed This patient's information was entered into a reminder system with a target due date for their next mammogram.
== END 2024-02-06 13:16 | disposition home or self-care (01) ==
LOC: HO.MAMMO 13:15
PROVIDERS: PCP Internal Medicine; Visit Provider Internal Medicine
DX: N64.4 Mastodynia (principal)
CPT/HCPCS: 76642; 77062; 77066

== ENCOUNTER → 2024-02-06 13:30 | Outpatient (BNV) | payer OTHER, SELFPAY | PROVIDERS: PCP Internal Medicine; Visit Provider Radiology Diagnostic Radiology | DX: R92.333 Mammographic heterogeneous density, bilateral breasts (principal) | CPT/HCPCS: 76642; 77066; G0279 ==

== ENCOUNTER 2024-04-22 08:09 | Emergency (ER) | payer OTHER, SELFPAY ==
[2024-04-22] VITALS (9 sets, daily range): BP systolic 144–169; BP diastolic 85–111; PULSE 54–81; RESP 16–18; TEMP 36.6–36.9; O2SAT 97–100
--- NOTE | ~2024-04-22 | CT_ITS ---
EXAMINATION: CT ABDOMEN AND PELVIS WITH CONTRAST CLINICAL INFORMATION: Left-sided abdominal pain with history of multiple surgeries COMPARISON: CT abdomen pelvis 10/30/2023 TECHNIQUE: Multidetector volumetric images were obtained from the superior aspect of the liver through the pubic symphysis following administration 85 mL of Omnipaque 350 intravenous contrast. Sagittal and coronal reformatted images were obtained on the technologist's workstation. Oral contrast: No This CT examination was performed using dose optimization techniques as appropriate, variously including the following: *Automated exposure control *Adjustment of mA and/or kV according to patient size (this includes techniques or standardized protocols for targeted exams where dose is matched to indication/reason for exam; i.e. extremities or head) *Use of iterative reconstruction technique DLP: 520 mGy-cm FINDINGS: LUNG BASES: The visualized lung bases are unremarkable. LIVER, GALLBLADDER, AND BILIARY TREE: The liver is mildly enlarged at 17.9 cm with normal attenuation and shape. No focal hepatic lesion or biliary ductal dilatation is present. Status post cholecystectomy. PANCREAS: Unremarkable. SPLEEN: Unremarkable. ADRENAL GLANDS: Unremarkable. KIDNEYS AND URETERS: The kidneys are normal in size, shape, and attenuation. No hydronephrosis, hydroureter, or calculi seen. No perinephric stranding. BLADDER: Only partially distended with a mild symmetrically thickened wall GASTROINTESTINAL TRACT: The small and large bowel are unremarkable. The appendix is not seen but there is no evidence of appendicitis evidence of appendicitis. ABDOMINAL WALL: No significant hernia is appreciated. LYMPH NODES: Normal. VASCULAR: Unremarkable. PELVIC VISCERA: The uterus and adnexa are unremarkable. And IUD is present in the uterus. There is a crenated cyst in the left ovary with enhancing flores. No free fluid. OSSEOUS STRUCTURES: Unremarkable. CT/CT abdomen pelvis w IV con IMPRESSION: 1. A cause for the patient's abdominal pain has not been found. 2. Incidental note made of mild hepatomegaly, cholecystectomy and crenated left ovarian cyst. Fleischner guidelines were followed.
[2024-04-22 08:44] LABS: MANUAL DIFF FLAG NO
[2024-04-22 08:49] LABS: Basophils Absolute Auto 0.1 X10*3/uL (0.0-0.2); Basophils Percent Auto 1.6 % (0-2); Eosinophils Absolute Auto 0.2 X10*3/uL (0.0-0.4); Eosinophils Percent Auto 3.8 % (0-4); Hematocrit 40.7 % (37.0-47.0); Hemoglobin 13.7 g/dl (12.0-16.0); Imm Gran Abs Auto 0.02 X10*3/uL (0.00-0.03); Imm Gran Pct Auto 0.3 % (0.0-0.4); Lymphocytes Absolute Auto 1.8 X10*3/uL (1.2-4.9); Lymphocytes Percent Auto 31.2 % (20-40); Mean Corpuscular HGB Conc 33.7 g/dl (31.0-35.0); Mean Corpuscular Hemoglobin 27.8 pg (27.0-33.0); Mean Corpuscular Volume 82.6 fL (80.0-98.0); Mean Platelet Volume 10.3 fL (9.4-12.3); Monocytes Absolute Auto 0.5 X10*3/uL (0.1-1.2); Neutrophils Absolute Auto 3.1 x10*3/uL (2.0-8.3); Neutrophils Percent Auto 54.1 % (45-73); Platelet Count 241 X10*3/uL (160-400); Red Blood Count 4.93 X10*6/uL (4.20-5.50); Red Cell Distribution Width 13.2 % (11.0-16.0); White Blood Count 5.8 X10*3/uL (4.8-10.8)
[2024-04-22 09:00] LABS: Alanine Aminotransferase 16 U/L (0-31); Albumin Level 4.1 g/dL (3.5-5.0); Alkaline Phosphatase 81 U/L (39-117); Anion Gap 10 (12-20); Aspartate Amino Transferase 14 U/L (5-31); Bilirubin Direct 0.3 mg/dL (0.0-0.5); Blood Urea Nitrogen 10 mg/dL (9-16); Calcium 8.9 mg/dL (8.4-10.2); Carbon Dioxide 27 mmol/L (22-29); Chloride 107 mmol/L (96-108); Creatinine Clr Calc Pharmacy 81.4; Estimated Glomerular Filt Rate > 60; Glucose Random 104 mg/dL (60-115); Lipase 22 U/L (8-78); Potassium 3.8 mmol/L (3.3-5.1); Sodium 140 mmol/L (135-145); Total Protein 6.7 g/dL (6.5-8.0)
--- NOTE | 2024-04-22 09:04 | PC.NURSE ---
Pt presents to ED with complaints of left sided ABD pain X 2 days along with swelling in that area X1 week. Pt describes pain as sharp and aching, 8/10, worsens with movement and breathing. Denies any N/V/D, fevers, CP, SOB, trouble using bathroom. Reports recent hernia surgery here in Dec. Alert and oriented, breathing even and unlabored, skin warm and dry.
[2024-04-22 09:06] LABS: Appearance Urine Clear; Color Urine Yellow; Glucose Urine UA Negative (Negative); Leukocyte Esterase Urine Trace (Negative); Nitrite Urine Positive (Negative); PH 6.5 (5.0-9.0); Specific Gravity - Urine 1.015 (1.005-1.025); UMIC TRIGGER UACC YES; Urine Blood Negative (Negative); Urine Ketones Negative (Negative); Urine Protein Negative (Neg-Trace)
[2024-04-22 09:18] LABS: Bacteria Urine 4+ (None Seen); Hyaline Casts Urine 0-2 /LPF (0-2); RBC Urine 0-2 /HPF (0-2); UACC Culture Trigger YES
--- NOTE | 2024-04-22 10:05 | ED_ITS ---
HPI - Abdominal Pain General Chief Complaint: Abdominal Pain Stated Complaint: L side pain and swelling Time Seen by Provider: 04/22/24 09:56 Source: patient, RN notes reviewed and old records reviewed Mode of arrival: ambulatory Limitations: no limitations History of Present Illness ED Provider: Adamaris Koenig HPI narrative: 38-year-old female with history of hypertension, depression, anxiety, status- post ventral hernia repair in 01/05 who presents to the ED for evaluation of 1week abdominal bloating with LUQ pain x2 days. She started noticing her abdomen swelling about a week ago and began having pain in her LUQ 2 days ago. Pain is constant and aching. Denies nausea, vomiting, diarrhea. Denies constipation, last bowel movement was yesterday. Endorses urinary frequency, denies other urinary symptoms. Denies seeing blood in her stool. Denies fevers, chills, sweats. Denies recent travel or sick contacts. Has history of multiple abdominal surgeries including ventral hernia repair in 01/05, cholecystectomy in 11/03, tummy tuck 1 yr ago, liposuction 2 years ago, and appendectomy when she was 15years old. MD elicited complaint: abdominal pain Onset (ago): day(s) (2) Pain Consistency: constant Location: LUQ (left mid-abdomen) Quality: aching Exacerbating factors: nothing Relieving factors: medication Associated symptoms: other (urinary frequency) Related Data Previous Rx's ?Medication ?Instructions ?Recorded blood pressure monitor (Blood #1 ea 11/23/22 Pressure Kit) quetiapine 50 mg tablet (Seroquel) 50 mg PO BEDTIME #90 tabs 09/10/23 citalopram 10 mg tablet (Celexa) 10 mg PO DAILY #90 tabs 09/14/23 hydrochlorothiazide 25 mg tablet 25 mg PO DAILY #90 tabs 12/27/23 cholestyramine-aspartame 4 gram 4 g PO BID #60 ea 02/04/24 oral powder for susp in a packet (Prevalite) metoprolol succinate 100 mg 100 mg PO DAILY #90 tabs 03/09/24 tablet,extended release 24 hr cefuroxime axetil 250 mg tablet 250 mg PO BID 7 days #12 tabs 04/22/24 Allergies Allergy/AdvReac Type Severity Reaction Status Date / Time nifedipine [Procardia] Allergy Severe Abdominal Verified 04/22/24 08:27 Pain terbutaline Allergy Severe Abdominal Verified 04/22/24 08:27 Pain Review of Systems Review of Systems Yes all other systems are reviewed and are negative [facility] Past Medical History Medical History (Updated 04/23/24 @ 00:02 by Elle Beavers) Surgery, elective Overweight (BMI 25.0-29.9) Foul smelling urine Anemia Sepsis Pre-operative clearance Dysuria Insomnia Annual physical exam Hematuria Complex ovarian cyst History of hydronephrosis Cervical high risk HPV (human papillomavirus) test positive Ectopic of left ovary GERD (gastroesophageal reflux disease) Obesity (BMI 30-39.9) Generalized anxiety disorder Constipation Hyperbilirubinemia Allergic rhinitis Vitamin D deficiency Hypertension FLORENCIO II (cervical intraepithelial neoplasia II) COVID-19 virus infection Surgical History (Updated 02/04/24 @ 12:38 by Samantha Toney MD) Ventral hernia (12/27/23) Hx of cholecystectomy Hx of abdominoplasty H/O section Skin tag, acquired History of appendectomy Family History Family History Maternal Grandmother Colon cancer Maternal Grandfather Colon cancer Other Mental health disorder Social History Social History (Updated 02/04/24 @ 12:44 by Samantha Toney MD) Household Members: Children Housing: House Do you presently have visiting nurse or other home services: No Alcohol intake: current Alcohol intake frequency: holidays/special occasions only Alcohol type: wine Comment: once a month 3 glasses Patient Tobacco Use Status: Never used Tobacco Tobacco use type: Cigarette Years Smoked: 2 Smoked in Last 30 Days: No e-Cigarette/Vaping Use: Never Used Second Hand Smoke Exposure: No Use of substances other than those prescribed or required for medical reasons: Yes Substance Use Type: Marijuana Advance Directives: No service: No Current occupational status: employed Cognitive needs: No Hearing needs: No Vision needs: No Physical Exam ED Vital Signs: Vital Signs - 24 hr 04/22/24 08:23 04/22/24 08:55 04/22/24 10:31 Temperature 97.9 F Pulse Rate 81 68 69 Respiratory Rate 18 18 Blood Pressure 152/106 H 169/111 H 156/98 H Pulse Oximetry 99 97 Oxygen Delivery Method Room Air Room Air 04/22/24 10:56 04/22/24 14:47 04/22/24 15:03 Temperature 98.4 F 98.1 F Pulse Rate 54 59 Respiratory Rate 16 16 16 Blood Pressure 146/85 H 144/91 H Pulse Oximetry 100 99 Oxygen Delivery Method Room Air Room Air 04/22/24 19:14 Temperature 98.4 F Pulse Rate 63 Respiratory Rate 17 Blood Pressure 147/96 H Pulse Oximetry 98 Oxygen Delivery Method Room Air BMI result Body Mass Index 30.0 Appearance: Alert. Oriented X3. Appears uncomfortable. Head: normocephalic, atraumatic. Neck: Normal inspection. Neck supple. CVS: Normal heart rate and rhythm. Pulses normal. Respiratory: No respiratory distress. Breath sounds normal. Abdomen: multiple well healed surgical scar. distended on the left. normal active +BS x4. abd is soft, tenderness to palpation in the left mid-abdomen without rebound or guarding. no CVA tenderness on the left. no palpable HSM. Skin: Skin warm and dry. Normal skin color. Normal skin turgor. No rashes. Extremities: No lower extremity edema. No joint swelling. Neuro/psych: Oriented X 3. No motor deficit. No sensory deficit. CN II-XII intact. Normal speech and cognition. Course Reevaluation(s) Reevaluation #1: CT/CT abdomen pelvis w IV con IMPRESSION: 1. A cause for the patient's abdominal pain has not been found. 2. Incidental note made of mild hepatomegaly, cholecystectomy and crenated left ovarian cyst. Patient is tolerating oral intake, abdomen is soft, without rigidity or guarding, nondistended. Treatment for urinary tract infection, antibiotics sent to pharmacy. Advised outpatient follow-up with PCP/gutter mouth cutter, strict return precautions were discussed. All questions answered. Stable for discharge Time: 21:49 Medical Decision Making Medical Decision Making MDM Narrative: 38-year-old female with history of hypertension, depression, anxiety, status- post ventral hernia repair in 01/05 who presents to the ED for evaluation of 1week abdominal bloating with LUQ pain x2 days. She started noticing her abdomen swelling about a week ago and began having pain in her LUQ 2 days ago. On arrival to the ER patient's blood pressure was elevated. She did not take her blood pressure medication this morning. This was given to her, 100 mg of Toprol-XL. She was also given IV Toradol, IV fluids. Lab workup was reviewed showing normal renal function, normal CBC, normal LFTs. Urinalysis was concerning for infection, negative for . She does endorse urinary frequency. Given her tenderness and extensive surgical history as CT scan of her abdomen was performed. Delayed read due to technical issues with Radiology Department. Patient was re-evaluated after IV Toradol, pain initially improved but was starting to come back. She was given dose of IV morphine with improvement in her pain. Blood pressure improved with pain control and her antihypertensives. While awaiting CT scan read, 1 dose of IV Rocephin was administered for UTI. Pyelonephritis is less likely given no CVA tenderness, no leukocytosis, no fevers. Signed out to Kamilla Batista [employer] who will follow-up her CT scan read and determine dispo plan. Differential Diagnosis Differential Diagnoses: The differential diagnosis associated with the presentation includes UTI, pyelonephritis, kidney stones, obstruction less likely with normoactive bowel sounds, having normal bowel movements, diverticulitis, constipation, colitis Admission/Observation Consideration of admission/observation: Escalation of care including admission/observation considered Required 2 doses of IV pain medication, considered observation/admission Lab Data MDM Lab Attestation statement: I reviewed the patient's lab results. Reassuring blood work with no leukocytosis, normal renal function, UA is concerning for infection 04/22/24 08:36 04/22/24 08:36 Labs: Lab Results 04/22/24 04/22/24 Range/Units 08:36 09:01 WBC 5.8 (4.8-10.8) X10*3/uL RBC 4.93 (4.20-5.50) X10*6/uL Hgb 13.7 (12.0-16.0) g/dl Hct 40.7 (37.0-47.0) % MCV 82.6 (80.0-98.0) fL MCH 27.8 (27.0-33.0) pg MCHC 33.7 (31.0-35.0) g/dl RDW 13.2 (11.0-16.0) % Plt Count 241 (160-400) X10*3/uL MPV 10.3 (9.4-12.3) fL Immature Gran % (Auto) 0.3 (0.0-0.4) % Neut % (Auto) 54.1 (45-73) % Lymph % (Auto) 31.2 (20-40) % Millard % (Auto) 9.0 (2-11) % Eos % (Auto) 3.8 (0-4) % Baso % (Auto) 1.6 (0-2) % Lymph # (Auto) 1.8 (1.2-4.9) X10*3/uL Mill[place] # (Auto) 0.5 (0.1-1.2) X10*3/uL Eos # (Auto) 0.2 (0.0-0.4) X10*3/uL Baso # (Auto) 0.1 (0.0-0.2) X10*3/uL Abs Immat Gran (auto) 0.02 (0.00-0.03) X10*3/uL Absolute Neuts (auto) 3.1 (2.0-8.3) x10*3/uL Absolute Nucleated RBC 0.000 (0.0-0.012) X10*3/uL Nucleated RBC % (auto) 0.0 (0.0-0.2) /100WBC Sodium 140 (135-145) mmol/L Potassium 3.8 (3.3-5.1) mmol/L Chloride 107 (96-108) mmol/L Carbon Dioxide 27 (22-29) mmol/L Anion Gap 10 L (12-20) BUN 10 (9-16) mg/dL Creatinine 0.85 (0.5-1.4) mg/dL Estim Creat Clear Calc 81.4 Estimated GFR > 60 Random Glucose 104 (60-115) mg/dL Calcium 8.9 (8.4-10.2) mg/dL Total Bilirubin 1.0 (0.0-1.0) mg/dL Direct Bilirubin 0.3 (0.0-0.5) mg/dL AST 14 (5-31) U/L ALT 16 (0-31) U/L Alkaline Phosphatase 81 (39-117) U/L Total Protein 6.7 (6.5-8.0) g/dL Albumin 4.1 (3.5-5.0) g/dL Lipase 22 (8-78) U/L Urine Color Yellow Urine Appearance Clear Urine pH 6.5 (5.0-9.0) Ur Specific [place] 1.015 (1.005-1.025) Urine Protein Negative (Neg-Trace) mg/dL Urine Glucose (UA) Negative (Negative) mg/dL Urine Ketones Negative (Negative) mg/dL Urine Blood Negative (Negative) Urine Nitrite Positive H (Negative) Ur Leukocyte Esterase Trace H (Negative) Urine RBC 0-2 (0-2) /HPF Urine WBC 6-10 H (0-5) /HPF Ur Squamous Epith Cells 6-10 (0-2) /HPF Urine Bacteria 4+ (None Seen) Hyaline Casts 0-2 (0-2) /LPF Urine Test NEGATIVE (NEGATIVE) Independent Interpretation I performed an independent interpretation of an: CT Scan Interpretation: no dilated loops of bowel, no colonic wall thickening or abscess appreciated, agree w/ radiology read Radiology Impression Discussion of test interpretation with radiology: I have reviewed the radiologist's reading. Radiologist Impression: EXAMINATION: CT ABDOMEN AND PELVIS WITH CONTRAST CLINICAL INFORMATION: Left-sided abdominal pain with history of multiple surgeries COMPARISON: CT abdomen pelvis 10/30/2023 TECHNIQUE: Multidetector volumetric images were obtained from the superior aspect of the liver through the pubic symphysis following administration 85 mL of Omnipaque 350 intravenous contrast. Sagittal and coronal reformatted images were obtained on the technologist's workstation. Oral contrast: No This CT examination was performed using dose optimization techniques as appropriate, variously including the following: *Automated exposure control *Adjustment of mA and/or kV according to patient size (this includes techniques or standardized protocols for targeted exams where dose is matched to indication/reason for exam; i.e. extremities or head) *Use of iterative reconstruction technique DLP: 520 mGy-cm FINDINGS: LUNG BASES: The visualized lung bases are unremarkable. LIVER, GALLBLADDER, AND BILIARY TREE: The liver is mildly enlarged at 17.9 cm with normal attenuation and shape. No focal hepatic lesion or biliary ductal dilatation is present. Status post cholecystectomy. PANCREAS: Unremarkable. SPLEEN: Unremarkable. ADRENAL GLANDS: Unremarkable. KIDNEYS AND URETERS: The kidneys are normal in size, shape, and attenuation. No hydronephrosis, hydroureter, or calculi seen. No perinephric stranding. BLADDER: Only partially distended with a mild symmetrically thickened wall GASTROINTESTINAL TRACT: The small and large bowel are unremarkable. The appendix is not seen but there is no evidence of appendicitis evidence of appendicitis. ABDOMINAL WALL: No significant hernia is appreciated. LYMPH NODES: Normal. VASCULAR: Unremarkable. PELVIC VISCERA: The uterus and adnexa are unremarkable. And IUD is present in the uterus. There is a crenated cyst in the left ovary with enhancing flores. No free fluid. OSSEOUS STRUCTURES: Unremarkable. CT/CT abdomen pelvis w IV con IMPRESSION: 1. A cause for the patient's abdominal pain has not been found. 2. Incidental note made of mild hepatomegaly, cholecystectomy and crenated left ovarian cyst. External Record Review External record reviewed: Outpatient record, Prior outpatient labs and Prior outpatient radiology Prescription Management I considered prescription management with: Pain Medication and Antibiotic Chronic Conditions Patient?s care impacted by: Other (Multiple abdominal surgeries in the past) Medications Administered Discontinued Medications Generic Name Dose Route Start Last Admin Trade Name Freq PRN Reason Stop Dose Admin Ceftriaxone Sodium 1 gm/ 50 mls @ 100 mls/hr 04/22/24 16:08 04/22/24 17:49 Sodium Chloride IV 04/22/24 16:37 Infused ONCE ONE Infusion Iohexol 100 ml 04/22/24 12:39 04/22/24 12:39 Iohexol 350 Mg/Ml 100 Ml Infus..Btl IV 04/22/24 12:40 85 ml ONCE ONE Administration Ketorolac Tromethamine 30 mg 04/22/24 10:08 04/22/24 10:29 Ketorolac Tromethamine 30 Mg/Ml Vial IVPUSH 04/22/24 10:09 30 mg ONCE ONE Administration Metoprolol Succinate 100 mg 04/22/24 10:10 04/22/24 10:31 Metoprolol Succinate Er 100 Mg Tab.Er.24h PO 04/22/24 10:11 100 mg ONCE ONE Administration Protocol Morphine Sulfate 4 mg 04/22/24 14:53 04/22/24 15:03 Morphine Sulfate 4 Mg/Ml Cartridge IVPUSH 04/22/24 14:54 4 mg ONCE ONE Administration Protocol Morphine Sulfate 4 mg 04/22/24 18:49 04/22/24 19:10 Morphine Sulfate 4 Mg/Ml Cartridge IVPUSH 04/22/24 18:50 4 mg ONCE ONE Administration Protocol Ondansetron HCl 4 mg 04/22/24 21:26 04/22/24 21:30 Ondansetron Hcl 4 Mg/2 Ml Vial IVPUSH 04/22/24 21:27 4 mg ONCE ONE Administration Discharge Plan Discharge Clinical Impression: Acute UTI Patient Disposition: Home, Self-Care Instructions: Urinary Tract Infection in Women (DC) Additional Instructions: Your lab workup today was normal. Your urine test was positive for infection. You were given 1 dose of IV antibiotics in the ER. Take the prescribed antibiotic as directed, complete the entire course. You are due to start this tomorrow morning. If you develop new or worsening symptoms call 911 or come back to the ER for further evaluation. Prescriptions: New cefuroxime axetil 250 mg tablet 250 mg PO BID 7 Days Qty: 12 0RF No Action quetiapine [Seroquel] 50 mg tablet 50 mg PO BEDTIME Qty: 90 2RF citalopram [Celexa] 10 mg tablet 10 mg PO DAILY Qty: 90 1RF hydrochlorothiazide 25 mg tablet 25 mg PO DAILY Qty: 90 1RF metoprolol succinate 100 mg tablet extended release 24 hr 100 mg PO DAILY Qty: 90 1RF cholestyramine-aspartame [Prevalite] 4 gram powder in packet 4 g PO BID Qty: 60 3RF Rx Instructions: administer w/meal; avoid other meds within 1hr before or 4-6hr after dose (DME) blood pressure monitor [Blood Pressure Kit] Kit See Rx Instructions .Route Qty: 1 0RF Rx Instructions: As directed Stand Alone Forms: Work/School Release Interventions: ED Discharge Assessment Last Done: 04/22/24 21:56 Discharge Date/Time: 04/22/24 22:20 Print Language: Amharic
[2024-04-22] MEDS: Ketorolac Tromethamine 30 MG/ML VIAL IVPUSH (10:29)
[2024-04-22] MEDS: Metoprolol Succinate ER 100 MG TAB.ER.24H PO (10:31)
[2024-04-22 11:25] LABS: UPreg QC Valid YES; Urine Pregnancy NEGATIVE (NEGATIVE)
[2024-04-22] MEDS: iohexoL 350 MG/ML 100 ML INFUS..BTL IV (12:39)
[2024-04-22] MEDS: Morphine Sulfate 4 MG/ML CARTRIDGE IVPUSH ×2 (15:03→19:10)
[2024-04-22] MEDS: cefTRIAXone sodium 1 GM in 0.9 % Sodium Chloride 50 ML IV (16:31)
[2024-04-22] MEDS: ondansetron HCL 4 MG/2 ML VIAL IVPUSH (21:30)
== END 2024-04-22 22:20 | disposition home or self-care (01) ==
PROVIDERS: Physician Assistant; Emergency Provider Emergency Medicine; PCP Internal Medicine
DX: N39.0 Urinary tract infection, site not specified (principal); R10.30 Lower abdominal pain, unspecified; R10.2 Pelvic and perineal pain; Z79.899 Other long term (current) drug therapy
CPT/HCPCS: 36415; 74177; 80053; 81001; 81025; 82248; 83690; 85025; 87086; 87088; 87186; 96365; 96375; 96376; 99284; 99285; J0696; J1885; J2270; J2405; Q9967

== ENCOUNTER 2024-05-07 14:21 | Outpatient (AMB) | payer OTHER, SELFPAY ==
[2024-05-07 14:31] VITALS: BP 138/96; PULSE 75; O2SAT 99; BMI 29.9
--- NOTE | 2024-05-07 14:31 | A.OFFPC_ITS ---
Vital Signs 05/07/24 14:31 Height 5 ft 1 in Weight 158 lb 0.4 oz BMI 29.9 BP 138/96 H Blood Pressure Location Lt brachial Position Sitting Pulse 75 Pulse Source Pulse Oximeter Pulse Oximetry (%) 99 Oxygen Delivery Method Room Air Intake Visit Reasons: ed follow [facility] [place] 04/22/24 abdomen pain Intake Note: Patient is here to follow-up after a visit the emergency department at [facility] on 04/22/2024. Antisqueak Filler Required: No Allergies nifedipine [Procardia] Allergy (Severe, Verified 05/07/24 14:34) Abdominal Pain terbutaline Allergy (Severe, Verified 05/07/24 14:34) Abdominal Pain Medication List - Last Reconciled 05/07/24 by Mary Solo PA-C blood pressure monitor (Blood Pressure Kit) As directed cholestyramine-aspartame 4 gram (Prevalite) 4 grams PO BID citalopram (Celexa) 10 mg PO DAILY hydrochlorothiazide 25 mg PO DAILY metoprolol succinate ER 100 mg PO DAILY quetiapine (Seroquel) 50 mg PO BEDTIME Tobacco use date assessed: 02/04/24 Dental Screening Dental Screen Date: 02/04/24 HPI ed follow up [facility] [place] 04/22/24 abdomen pain HPI Details 38-year-old female with a history of hyp ertension GERD, recurrent major depression, fatty liver coming in for physical exam.? Had a ventral hernia which was repaired by the surgeon?December 27, 2023. Last visit with was seen for breast pain and had Mammo and US completed which revealed BIRADS-2 and follow up with repeat mammo at 40 years old. Patient was seen in the ED April 2024 for abdominal bloating and LUQ pain. Labs were WNL and urinalysis showed evidence of UTI. CT abdomen and pelvis completed which showed? 1.? A cause for the patient's abdominal pain has not been found. 2.? Incidental note made of mild hepatom egaly, cholecystectomy and crenated left ovarian cyst. Patient was given IV Toradol and fluids and treated for urinary tract infection with one dose of IV Rocephin and given Cefuroxime to continue taking at home. Today she tells us the breast pain improved, still intermittent. UTI has resolved. Abdominal pain and swelling is consistently every day and may be related to activity. Epigastric and LUQ pain and swelling without nausea, vomiting or diarrhea. No identifiable exacerbating factors and no relieving factors. Denies heavy lifting after her hernia surgery. Has followed up with surgeon January 2024 with concerns of lump in epigastric region and was told this was part of the normal healing process. [facility] Medical History Surgery, elective Overweight (BMI 25.0-29.9) Foul smelling urine Anemia Sepsis Pre-operative clearance Dysuria Insomnia Annual physical exam Hematuria Complex ovarian cyst History of hydronephrosis Cervical high risk HPV (human papillomavirus) test positive Ectopic of left ovary GERD (gastroesophageal reflux disease) Obesity (BMI 30-39.9) Generalized anxiety disorder Constipation Hyperbilirubinemia Allergic rhinitis Vitamin D deficiency Hypertension FLORENCIO II (cervical intraepithelial neoplasia II) COVID-19 virus infection Surgical History Ventral hernia (12/27/23) Hx of cholecystectomy Hx of abdominoplasty H/O section Skin tag, acquired History of appendectomy Family History Maternal Grandmother Colon cancer Maternal Grandfather Colon cancer Other Mental health disorder Social History Household Members: Children Housing: House Do you presently have visiting nurse or other home services: No Alcohol intake: current Alcohol intake frequency: holidays/special occasions only Alcohol type: wine Comment: once a month 3 glasses Patient Tobacco Use Status: Never used Tobacco Tobacco use type: Cigarette Years Smoked: 2 e-Cigarette/Vaping Use: Never Used Second Hand Smoke Exposure: No Substance Use Type: Marijuana service: No Current occupational status: employed Cognitive needs: No Hearing needs: No Vision needs: No Questionnaire PHQ-9 Over the last 2 weeks, how often have you been bothered by any of the following problems? Depression Screening Interpretation: Negative Depression Screening Done: Yes Source: Developed by Drs. Thierry Murillo, Rocio Diallo, Masood Cooper and colleagues, with an educational deni from [email or web address]. Thrive Questionnaire Date Thrive assessed: 10/26/23 AUDIT C Alcohol Use Questionnaire (AUDIT-C) 1. How often do you have a drink containing alcohol?: Monthly or less 2. How many drinks containing alcohol do you have on a typical day when you are drinking?: 1 or 2 3. How often do you have six or more drinks on one occasion?: Never Total Score: 1 Score Reviewed/Action Taken: No MEAGAN-7 AMB Questionnaire MEAGAN-7 Date MEAGAN - 7 assessed: 11/22/23 Source: Developed by Drs. Thierry Murillo, Rocio Diallo, Masood Cooper and colleagues, with an educational deni from [email or web address]. Review of Systems Const Reports no additional complaints, Denies poor appetite and Denies weakness Eyes Reports no additional complaints ENT Reports no additional complaints, Reports Normal hearing present, Denies dizziness, Denies nasal congestion, Denies tinnitus and Denies sore throat Card Denies chest pain, Denies syncope, Denies rapid heart rate, Denies edema and Denies dyspnea Resp Denies cough and Denies dyspnea GI Details: LUQ and epigastric abdominal pain and swelling Reports abdominal pain, Reports bloating, Denies change in stool character, Denies constipation, Denies diarrhea, Denies nausea and Denies vomiting Denies urinary frequency, Denies difficulty voiding and Denies dysuria Musc Reports no additional complaints Skin/Breast Reports system reviewed and no additional complaints, except as documented Neuro Reports Normal hearing present, Reports Abnormal speech present, Denies confusion, Denies dizziness, Denies syncope and Denies weakness Psych Reports no additional complaints and Denies confusion Physical exam (Primary Care) Vital Signs: Last Vital Signs Pulse 75 05/07/24 14:31 BP 138/96 H 05/07/24 14:31 Pulse Ox 99 05/07/24 14:31 Oxygen Delivery Method Room Air 05/07/24 14:31 BMI result Body Mass Index 29.9 Tobacco/Smoking Status: Tobacco use Status Tobacco use date assessed 02/04/24 05/07/24 14:31 Patient Tobacco Use Status Never used Tobacco 05/07/24 14:31 Tobacco use type Cigarette 05/07/24 14:31 e-Cigarette/Vaping Use Never Used 05/07/24 14:31 Depression Screening Interpretation: Negative Thrive Assessment: Date of Thrive Assessment Date Thrive assessed 10/26/23 05/07/24 14:31 Const General: No confusion Orientation/consciousness: No confusion HENMT Head: Yes normal to inspection and Yes normocephalic Ears: external ears normal General nose exam: Normal external nose present Face and sinus: Yes normal facial exam Mouth: moist mucous membranes Eyes General: appearance normal, both eyes and all related structures Conjunctivae: conjunctivae normal Neck Neck: Yes normal visual inspection and No lymphadenopathy Thyroid: Thyroid normal Chest Chest palpation & inspection: normal inspection of the chest Resp Effort & Inspection: normal respiratory effort and no audible wheezes Auscultation: clear to auscultation bilaterally, no crackles, no wheezes and lung sounds not diminished Cardio Rate: regular rate Rhythm: regular rhythm Peripheral pulses: radial pulses present GI Other: bloating and tenderness in epigastric and LUQ region Palpation (GI): Firmness to palpation present (GI), Tenderness to palpation present (GI) and no masses Auscultation: normal bowel sounds and normoactive bowel sounds Rectal Exam - Female: deferred Skin General skin exam: no rashes or lesions noted Rashes: no rashes Neuro General: No confusion Cranial nerves: Yes Normal hearing present Speech: Abnormal speech present Gait exam (Neuro): Normal gait present Extrem General: No edema Assessment and Plan Assessment & Plan (1) Breast pain, right: Comment: 10 0clock area Code(s): N64.4 - Mastodynia Plan: Breast pain is still intermittent, mammo and US are negative for any suspicious findings. Will keep log of times when she has this pain and follow up with Dr. Toney May 2024. (2) Status post repair of ventral hernia: Comment: December 2023 Dr. Malloy Code(s): Z98.890 - Other specified postprocedural states; Z87.19 - Personal history of other diseases of the digestive system Plan: Tenderness and bloating over surgical area. Wound is clean dry and intact. Will follow up with Dr. Malloy as needed. (3) Abdominal bloating: Code(s): R14.0 - Abdominal distension (gaseous) Plan: Tenderness and bloating over epigastric area and LUQ and incision with no evidence of infection. CT of abdomen and pelvis were negative for any abnormalities. Labs are within normal limits. Will order US of the abdomen to lo ok for hematoma or other cause of bloating and pain. Will call with results of US and follow up if needed. Orders: Orders US abdomen limited Today R14.0 - Abdominal distension (gaseous) Coding Level of Care Code Est Pt Level 4 (26155) Diagnoses Breast pain, right N64.4 Status post repair of ventral hernia Z98.890; Z87.19 Abdominal bloating R14.0
== END 2024-05-07 15:46 | disposition home or self-care (01) ==
PROVIDERS: PCP Internal Medicine
DX: N64.4 Mastodynia (principal); Z98.890 Other specified postprocedural states; Z87.19 Personal history of other diseases of the digestive system; R14.0 Abdominal distension (gaseous)
CPT/HCPCS: 99214

== ENCOUNTER 2024-05-12 15:02 | Emergency (ER) | payer OTHER, SELFPAY ==
--- NOTE | ~2024-05-12 | XR_ITS ---
EXAMINATION: XR CHEST CLINICAL INFORMATION: Chest pain COMPARISON: Chest 03/19/2022 TECHNIQUE: 2 views of the chest were obtained. FINDINGS: The lungs are well expanded. Question of subtle patchy opacity at the right lung base suggestive of pneumonia and/or atelectasis. No significant abnormality is noted involving the heart, mediastinum, bony thorax or soft tissues. Surgical clips in the right upper quadrant consistent with prior cholecystectomy. XR/XR chest 2V IMPRESSION: Right lower lobe pneumonia and/or atelectasis.
[2024-05-12 15:06] VITALS: BP 175/115; PULSE 77; RESP 18; TEMP 36.3; O2SAT 100; BMI 29.7
--- NOTE | 2024-05-12 15:09 | ECG_ITS ---
Test Reason : CP Blood Pressure : / mmHG Vent. Rate : 068 BPM Atrial Rate : 068 BPM P-R Int : 106 ms QRS Dur : 074 ms QT Int : 406 ms P-R-T Axes : 018 018 005 degrees QTc Int : 431 ms Sinus rhythm with short [place] Otherwise normal ECG No significant changes when compared with the previous EKG of 16 february 2023 Referred By: Generic ED Physician Electronically Signed By:STEPHEN MOREIRA
--- NOTE | 2024-05-12 15:16 | ED_ITS ---
HPI - General Adult General Chief complaint: General Medical Stated complaint: high blood pressure Source: patient Mode of arrival: ambulatory Limitations: no limitations History of Present Illness ED Provider: Shayy Guillaume PA-C HPI narrative: Patient is a 38 year old assigned female at with a history of HTN, GERD, FLORENCIO II, and cholecystectomy presenting to the emergency department today with a headache, chest pain, and high blood pressure. Patient states that she has a history of high blood pressure and is prescribed metoprolol but didn't take it this morning because she was running late to work. Patient states that she has had 3 days of a headache and today she began to have non-radiating chest pain. Patient denies any dizziness, lightheadedness, abdominal pain, nausea, vomiting, fever, chills, blurry vision, double vision, loss of vision, difficulty breathing, shortness of breath, back pain, night sweats, pain with urination, increased urinary frequency, increased urinary urgency, blood in her urine or stool, syncope or a near syncopal episode, recent trauma or falls, bowel incontinence, bladder incontinence, or any other complaints at this time. Onset (ago): day(s) (3 of headache) Location: head and chest Severity: mild Severity scale (1-10): 4 Quality: aching Pain Consistency: constant Relieving factors: none Exacerbating factors: none Associated symptoms: denies other symptoms Treatments prior to arrival: none Related Data Previous Rx's ?Medication ?Instructions ?Recorded blood pressure monitor (Blood #1 ea 11/23/22 Pressure Kit) quetiapine 50 mg tablet (Seroquel) 50 mg PO BEDTIME #90 tabs 09/10/23 citalopram 10 mg tablet (Celexa) 10 mg PO DAILY #90 tabs 09/14/23 hydrochlorothiazide 25 mg tablet 25 mg PO DAILY #90 tabs 12/27/23 metoprolol succinate 100 mg 100 mg PO DAILY #90 tabs 03/09/24 tablet,extended release 24 hr cholestyramine-aspartame 4 gram 4 g PO BID #60 ea 05/04/24 oral powder for susp in a packet (Prevalite) Allergies Allergy/AdvReac Type Severity Reaction Status Date / Time nifedipine [Procardia] Allergy Severe Abdominal Verified 05/12/24 15:07 Pain terbutaline Allergy Severe Abdominal Verified 07/01/24 15:07 Pain Review of Systems 2 Constitutional: Constitutional: Reports no additional constitutional complaints, Denies chills, Denies fever(s), Reports headache(s) and Denies night sweats Eyes: Eyes: Reports no additional eye complaints, Denies blurry vision, Denies change in vision, Denies diplopia, Denies eye discharge, Denies loss of vision and Denies eye pain ENT: Denies dizziness and Reports headache(s) Cardiovascular: Cardiovascular: Reports no additional cardiovascular complaints, Reports chest pain, Denies lightheadedness, Denies Loss of Consciousness and Denies dyspnea Respiratory: Respiratory: Reports no additional respiratory complaints and Denies dyspnea Gastrointestinal: Gastrointestinal: Reports no additional gastrointestinal complaints, Denies abdominal pain, Denies melena, Denies hematochezia, Denies change in bowel habits and Denies change in stool character Genitourinary: Genitourinary: Denies hematuria, Denies urinary frequency, Denies dysuria, Denies urinary incontinence, Denies urinary hesitancy and Denies urinary urgency Musculoskeletal: Musculoskeletal: Reports no additional musculoskeletal complaints, Denies numbness and Denies tingling Neurologic: Denies dizziness, Reports headache(s), Denies loss of vision, Denies numbness and Denies tingling Psychiatric: Psychiatric: Reports no additional psychiatric complaints Endocrine: Endocrine: Reports no additional endocrine complaints Hematologic/Lymphatic: Hematologic/Lymphatic: Reports no additional hematologic/lymphatic complaints Allergic/Immunologic: Allergic/Immunologic: Reports no additional allergic/immunologic complaints [facility] Past Medical History Attestation statement: The following information was validated with the patient. Source: old records reviewed and nursing notes reviewed Medical History Surgery, elective Overweight (BMI 25.0-29.9) Foul smelling urine Anemia Sepsis Pre-operative clearance Dysuria Insomnia Annual physical exam Hematuria Complex ovarian cyst History of hydronephrosis Cervical high risk HPV (human papillomavirus) test positive Ectopic of left ovary GERD (gastroesophageal reflux disease) Obesity (BMI 30-39.9) Generalized anxiety disorder Constipation Hyperbilirubinemia Allergic rhinitis Vitamin D deficiency Hypertension FLORENCIO II (cervical intraepithelial neoplasia II) COVID-19 virus infection Surgical History Ventral hernia (12/27/23) Hx of cholecystectomy Hx of abdominoplasty H/O section Skin tag, acquired History of appendectomy Family History Family History Maternal Grandmother Colon cancer Maternal Grandfather Colon cancer Other Mental health disorder Social History Social History Household Members: Children Housing: House Do you presently have visiting nurse or other home services: No Alcohol intake: current Alcohol intake frequency: holidays/special occasions only Alcohol type: wine Comment: once a month 3 glasses Patient Tobacco Use Status: Never used Tobacco Tobacco use type: Cigarette Years Smoked: 2 e-Cigarette/Vaping Use: Never Used Second Hand Smoke Exposure: No Substance Use Type: Marijuana service: No Current occupational status: employed Cognitive needs: No Hearing needs: No Vision needs: No Physical Exam ED Vital Signs: Vital Signs - 24 hr 05/12/24 15:06 Temperature 97.3 F Pulse Rate 77 Respiratory Rate 18 Blood Pressure 175/115 H Pulse Oximetry 100 Oxygen Delivery Method Room Air BMI result Body Mass Index 29.7 Const General: cooperative, no acute distress, alert and awake Nutritional Appearance: well nourished Orientation/consciousness: patient oriented x3 Limitations: no limitations HENMT Head: Yes normal to inspection and Yes atraumatic Ears: hearing grossly normal bilaterally and external ears normal General nose exam: Normal external nose present, no nasal discharge noted and no epistaxis Face and sinus: Yes normal facial exam, No abrasion and No laceration Mouth: Normal oral and palatal mucosa present, no drooling and no muffled voice Eyes General: appearance normal, both eyes and all related structures Periorbital: periorbital findings normal Eyelids: Yes eyelids normal Conjunctivae: conjunctivae normal Pupils: Equal, round and reactive pupils present EOM: EOMs intact bilaterally Neck Neck: Yes normal visual inspection, Yes full ROM and Yes no lymphadenopathy Chest Chest palpation & inspection: normal inspection of the chest Resp Effort & Inspection: normal respiratory effort and able to speak in complete sentences GI Inspection: Yes normal to inspection Neuro General: patient oriented x3 and moves all extremities Cranial nerves: Yes Equal, round and reactive pupils present Cognition (Neuro): normal cognition Extrem General: Yes normal to inspection, Yes full ROM and Yes capillary refill normal Psych Appearance: grossly normal Mental Status: mental status grossly normal Affect: normal affect Attitude: cooperative Thought process: Normal thought process present Thought content: Normal thought content present Insight: Good insight present (Psych) Course Course Course Narrative: RME performed by Shayy Guillaume PA-C. Patient is a 38 year old assigned female at presenting to the emergency department with high blood pressure. Patient states she is normally on blood pressure medication but she skipped it today because she was going to be late for work. Detailed physical exam and review of systems are deferred to the primary care coordinator. EKG, labs, imaging, and swabs ordered. Patient placed back in the waiting room pending room availability and results. Medical Decision Making Medical Decision Making MDM Narrative: Patient is a 38 year old assigned female at with a history of HTN, GERD, FLORENCIO II, and cholecystectomy presenting to the emergency department today with a headache, chest pain, and concerns about blood pressure. Patient's limited physical exam performed in triage was unremarkable. Patient's blood work was unremarkable. Patient's EKG was unremarkable. Patient's chest x-ray showed a possible right lower lobe pneumonia vs. atelectasis. Given patient's current clinical presentaiton, it is less likely to be pneumonia and more likely to be atelectasis. Patient left the department without completing treatment. Patient left the department before myself or any of the other emergency department clinicians could explain to or review with the patient; physical exam findings, test results, need or lack there of for additional testing, need or lack there of for a procedure to be performed, need or lack there of for hospital admission / transfer, need or lack there of for prescription medication, treatment options, or a treatment plan. Differential Diagnosis Differential Diagnoses: The differential diagnosis associated with the presentation includes Hypertension Headache Viral illness Chest pain NSTEMI STEMI Admission/Observation Consideration of admission/observation: Escalation of care including admission/observation considered Patient would have been admitted to the hospital had she completed her work up and it had any findings where hospital admission was appropriate, her clinical presentation warranted hospital admission, had myself or any other emergency supervisor cutting department had the ability to discuss need or lack there of for hospital admission, and the patient hadn't left the department without completing treatment. Lab Data [facility] Lab Attestation statement: I reviewed the patient's lab results. My interpretation of these results are in the [facility] Rationale portion of this note. 05/12/24 15:52 05/12/24 15:52 Labs: Lab Results 05/12/24 Range/Units 15:52 WBC 6.8 (4.8-10.8) X10*3/uL RBC 4.92 (4.20-5.50) X10*6/uL Hgb 13.7 (12.0-16.0) g/dl Hct 40.6 (37.0-47.0) % MCV 82.5 (80.0-98.0) fL MCH 27.8 (27.0-33.0) pg MCHC 33.7 (31.0-35.0) g/dl RDW 13.2 (11.0-16.0) % Plt Count 275 (160-400) X10*3/uL MPV 10.3 (9.4-12.3) fL Immature Gran % (Auto) 0.3 (0.0-0.4) % Neut % (Auto) 58.9 (45-73) % Lymph % (Auto) 29.0 (20-40) % Greer % (Auto) 7.8 (2-11) % Eos % (Auto) 3.0 (0-4) % Baso % (Auto) 1.0 (0-2) % Lymph # (Auto) 2.0 (1.2-4.9) X10*3/uL Greer # (Auto) 0.5 (0.1-1.2) X10*3/uL Eos # (Auto) 0.2 (0.0-0.4) X10*3/uL Baso # (Auto) 0.1 (0.0-0.2) X10*3/uL Abs Immat Gran (auto) 0.02 (0.00-0.03) X10*3/uL Absolute Neuts (auto) 4.0 (2.0-8.3) x10*3/uL Absolute Nucleated RBC 0.000 (0.0-0.012) X10*3/uL Nucleated RBC % (auto) 0.0 (0.0-0.2) /100WBC Sodium 140 (135-145) mmol/L Potassium 3.5 (3.3-5.1) mmol/L Chloride 108 (96-108) mmol/L Carbon Dioxide 23 (22-29) mmol/L Anion Gap 13 (12-20) BUN 9 (9-16) mg/dL Creatinine 0.89 (0.5-1.4) mg/dL Estim Creat Clear Calc 77.3 Estimated GFR > 60 Random Glucose 101 (60-115) mg/dL Calcium 9.2 (8.4-10.2) mg/dL Total Bilirubin 1.2 H (0.0-1.0) mg/dL AST 14 (5-31) U/L ALT 16 (0-31) U/L Alkaline Phosphatase 82 (39-117) U/L Troponin I High Sens < 2.7 (<3.5-17.0) ng/L Total Protein 7.2 (6.5-8.0) g/dL Albumin 4.3 (3.5-5.0) g/dL Independent Interpretation I performed an independent interpretation of an: EKG and Plain X-Ray Interpretation: My interpretation is in agreement with the radiologist's impression of this imaging study. - EXAMINATION: XR CHEST CLINICAL INFORMATION: Chest pain COMPARISON: Chest 03/19/2022 TECHNIQUE: 2 views of the chest were obtained. FINDINGS: The lungs are well expanded. Question of subtle patchy opacity at the right lung base suggestive of pneumonia and/or atelectasis. No significant abnormality is noted involving the heart, mediastinum, bony thorax or soft tissues. Surgical clips in the right upper quadrant consistent with prior cholecystectomy. XR/XR chest 2V IMPRESSION: Right lower lobe pneumonia and/or atelectasis. Dictated By: Astrid Alex MD Signed By: Electronically signed by Astrid Alex MD 05/12/24 1632 - Vent. Rate: 068 BPM Atrial Rate: 068 BPM P-R Int: 106 ms QRS Dur: 074 ms QT Int: 406 ms P-R-T Axes: 018 018 005 degrees QTc Int: 431 ms Sinus rhythm with short [place] Otherwise normal ECG No significant changes when compared with the previous EKG of 16 february 2023 Electronically Signed By:DARIEL MOREIRA Dictated By: Dariel Moreira MD Signed By: Electronically signed by Darile Moreira MD 05/12/242010 Radiology Impression Discussion of test interpretation with radiology: I have reviewed the radiologist's reading. Discharge Plan Discharge Clinical Impression: Elevated blood pressure reading, Headache, Chest pain Patient Disposition: Left W/O Completing Treatment Prescriptions: No Action quetiapine [Seroquel] 50 mg tablet 50 mg PO BEDTIME Qty: 90 2RF citalopram [Celexa] 10 mg tablet 10 mg PO DAILY Qty: 90 1RF hydrochlorothiazide 25 mg tablet 25 mg PO DAILY Qty: 90 1RF metoprolol succinate 100 mg tablet extended release 24 hr 100 mg PO DAILY Qty: 90 1RF cholestyramine-aspartame [Prevalite] 4 gram powder in packet 4 g PO BID Qty: 60 1RF Rx Instructions: administer w/meal; avoid other meds within 1hr before or 4-6hr after dose (DME) blood pressure monitor [Blood Pressure Kit] Kit See Rx Instructions .Route Qty: 1 0RF Rx Instructions: As directed Discharge Date/Time: 05/12/24 18:08
[2024-05-12 15:57] LABS: MANUAL DIFF FLAG NO
[2024-05-12 15:58] LABS: Basophils Absolute Auto 0.1 X10*3/uL (0.0-0.2); Eosinophils Absolute Auto 0.2 X10*3/uL (0.0-0.4); Hematocrit 40.6 % (37.0-47.0); Hemoglobin 13.7 g/dl (12.0-16.0); Imm Gran Abs Auto 0.02 X10*3/uL (0.00-0.03); Imm Gran Pct Auto 0.3 % (0.0-0.4); Mean Corpuscular HGB Conc 33.7 g/dl (31.0-35.0); Mean Corpuscular Hemoglobin 27.8 pg (27.0-33.0); Mean Corpuscular Volume 82.5 fL (80.0-98.0); Mean Platelet Volume 10.3 fL (9.4-12.3); Monocytes Absolute Auto 0.5 X10*3/uL (0.1-1.2); Monocytes Percent Auto 7.8 % (2-11); Neutrophils Percent Auto 58.9 % (45-73); Platelet Count 275 X10*3/uL (160-400); Red Blood Count 4.92 X10*6/uL (4.20-5.50); Red Cell Distribution Width 13.2 % (11.0-16.0); White Blood Count 6.8 X10*3/uL (4.8-10.8)
[2024-05-12 16:13] LABS: Alanine Aminotransferase 16 U/L (0-31); Albumin Level 4.3 g/dL (3.5-5.0); Alkaline Phosphatase 82 U/L (39-117); Anion Gap 13 (12-20); Aspartate Amino Transferase 14 U/L (5-31); Bilirubin Total 1.2 mg/dL (0.0-1.0); Blood Urea Nitrogen 9 mg/dL (9-16); Calcium 9.2 mg/dL (8.4-10.2); Carbon Dioxide 23 mmol/L (22-29); Chloride 108 mmol/L (96-108); Creatinine Clr Calc Pharmacy 77.3; Estimated Glomerular Filt Rate > 60; Glucose Random 101 mg/dL (60-115); Potassium 3.5 mmol/L (3.3-5.1); Sodium 140 mmol/L (135-145); Total Protein 7.2 g/dL (6.5-8.0)
[2024-05-12 16:22] LABS: Troponin-I High Sensitivity < 2.7 ng/L (<3.5-17.0)
== END 2024-05-12 18:08 | disposition left against medical advice (07) ==
PROVIDERS: Emergency Provider Emergency Medicine; PCP Internal Medicine
DX: R07.89 Other chest pain (principal); R51.9 Headache, unspecified; I10 Essential (primary) hypertension; Z79.899 Other long term (current) drug therapy
CPT/HCPCS: 36415; 71046; 80053; 84484; 85025; 93005; 99283

== ENCOUNTER → 2024-05-12 15:09 | Outpatient (BNV) | payer OTHER, SELFPAY | PROVIDERS: Emergency Provider Emergency Medicine; PCP Internal Medicine; Visit Provider Internal Medicine | DX: R07.9 Chest pain, unspecified (principal) | CPT/HCPCS: 93010 ==

== ENCOUNTER 2024-05-14 07:59 | Outpatient (REF) | payer OTHER, SELFPAY ==
--- NOTE | ~2024-05-14 | US_ITS ---
EXAMINATION: US ABDOMEN LIMITED CLINICAL INFORMATION: Gaseous abdominal distention. COMPARISON: CT abdomen and pelvis 04/22/2024. Ultrasound abdomen complete 09/28/2023. Renal ultrasound 03/22/2020. TECHNIQUE: Real-time imaging of the right upper quadrant abdominal viscera. Limited visualization due to bowel gas. FINDINGS: PANCREAS: Limited visualization of pancreatic tail and head. Imaged portion of pancreatic body is unremarkable. LIVER: 3.1 x 2.8 x 3.0 cm right lower hepatic echogenic mass. Borderline hepatomegaly, 15.8 cm Hepatic parenchymal echogenicity is normal. Limited visualization. GALLBLADDER: Surgically absent. COMMON BILE DUCT: Normal in caliber measuring 0.23 cm in diameter. RIGHT KIDNEY: No hydronephrosis. No renal calculi. Limited visualization. The kidney measures 10.0 cm in maximum dimension. FREE FLUID: None. US/US abdomen limited IMPRESSION: 1. A 3.1 cm right lower hepatic echogenic mass was not appreciated on CT abdomen and pelvis of 04/22/2024. MRI with intravenous contrast recommended for further characterization. 2. Gallbladder surgically absent. This study was presented to [facility] for interpretation. PSA staff will provide results to referring provider at this time.
== END 2024-05-14 08:00 | disposition home or self-care (01) ==
LOC: HO.US 07:59
PROVIDERS: PCP Internal Medicine; Visit Provider Internal Medicine
DX: R14.0 Abdominal distension (gaseous) (principal)
CPT/HCPCS: 76705

== ENCOUNTER 2024-06-05 15:21 | Outpatient (AMB) | payer OTHER, SELFPAY ==
--- NOTE | 2024-06-05 15:33 | A.OFFPC_ITS ---
Vital Signs 06/05/24 15:34 Height 5 ft 1 in Weight 158 lb 0.1 oz BMI 29.9 BP 152/98 H Blood Pressure Location Lt brachial Position Sitting Pulse 78 Pulse Source Pulse Oximeter Pulse Oximetry (%) 98 Oxygen Delivery Method Room Air Intake Visit Reasons: R breast pain, HTN Nurse Assessor Required: No Allergies nifedipine [Procardia] Allergy (Severe, Verified 06/05/24 15:34) Abdominal Pain terbutaline Allergy (Severe, Verified 06/05/24 15:34) Abdominal Pain Medication List - Last Reconciled 06/05/24 by Samantha Toney MD alprazolam 0.25 mg PO DAILY PRN blood pressure monitor (Blood Pressure Kit) As directed cholestyramine-aspartame 4 gram (Prevalite) 4 grams PO BID citalopram (Celexa) 10 mg PO DAILY hydrochlorothiazide 25 mg PO DAILY metoprolol succinate ER 100 mg PO DAILY quetiapine (Seroquel) 50 mg PO BEDTIME Tobacco use date assessed: 02/04/24 Dental Screening Dental Screen Date: 02/04/24 HPI R breast pain, HTN HPI Details 38-year-old overweight female with a his tory of fatty liver hypertension depression GERD status post repair of ventral hernia last seen in 01/30/2024. 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 No treatment done and patient had followed up. Patient had right breast pain but this has improved. and advised workup. Patient had vague abdominal pain feeling bloating and an ultrasound of the abdomen done. Noted a 3.1 cm right lower hepatic echogenic mass which was not appreciated in the CT scan of the abdomen in 05/01/2024. May 12 ER visit for blood pressure elevation having headaches with nonradiating chest pain. Chest x-ray done showing patchy infiltrate on the right lung base suggestive of pneumonia. No antibiotics given.. Patient had a UTI treatment also in April 22 treated with cefuroxime settle 20 150 mg twice a day. Patient had an ultrasound as well as a mammogram done 01/30/2024.here are no findings in either breast suspicious for malignancy. Palpable focus in the right 10:00 axillary tail likely relates to underlying normal-appearing low axillary lymph nodes. There is no other sonographic or mammographic explanation. MRI has been requested and the patient is very anxious right now. Blood pressure is high [facility] Medical History Surgery, elective Overweight (BMI 25.0-29.9) Foul smelling urine Anemia Sepsis Pre-operative clearance Dysuria Insomnia Annual physical exam Hematuria Complex ovarian cyst History of hydronephrosis Cervical high risk HPV (human papillomavirus) test positive Ectopic of left ovary GERD (gastroesophageal reflux disease) Obesity (BMI 30-39.9) Generalized anxiety disorder Constipation Hyperbilirubinemia Allergic rhinitis Vitamin D deficiency Hypertension FLORENCIO II (cervical intraepithelial neoplasia II) COVID-19 virus infection Surgical History Ventral hernia (12/27/23) Hx of cholecystectomy Hx of abdominoplasty H/O section Skin tag, acquired History of appendectomy Family History Maternal Grandmother Colon cancer Maternal Grandfather Colon cancer Other Mental health disorder Social History Household Members: Children Housing: House Do you presently have visiting nurse or other home services: No Alcohol intake: current Alcohol intake frequency: holidays/special occasions only Alcohol type: wine Comment: once a month 3 glasses Patient Tobacco Use Status: Never used Tobacco Tobacco use type: Cigarette Years Smoked: 2 e-Cigarette/Vaping Use: Never Used Second Hand Smoke Exposure: No Substance Use Type: Marijuana service: No Current occupational status: employed Cognitive needs: No Hearing needs: No Vision needs: No Questionnaire Thrive Questionnaire Date Thrive assessed: 10/26/23 AUDIT C Alcohol Use Questionnaire (AUDIT-C) 1. How often do you have a drink containing alcohol?: Monthly or less 2. How many drinks containing alcohol do you have on a typical day when you are drinking?: 1 or 2 3. How often do you have six or more drinks on one occasion?: Never Total Score: 1 Score Reviewed/Action Taken: No MEAGAN-7 AMB Questionnaire MEAGAN-7 Date MEAGAN - 7 assessed: 11/22/23 Source: Developed by Drs. Thierry Murillo, Rocio Diallo, Masood Cooper and colleagues, with an educational deni from [address]. Physical exam (Primary Care) Vital Signs: Last Vital Signs Pulse 78 06/05/24 15:34 BP 152/98 H 06/05/24 15:34 Pulse Ox 98 06/05/24 15:34 Oxygen Delivery Method Room Air 06/05/24 15:34 BMI result Body Mass Index 29.9 Tobacco/Smoking Status: Tobacco use Status Tobacco use date assessed 02/04/24 06/05/24 15:35 Patient Tobacco Use Status Never used Tobacco 06/05/24 15:35 Tobacco use type Cigarette 06/05/24 15:35 e-Cigarette/Vaping Use Never Used 06/05/24 15:35 Thrive Assessment: Date of Thrive Assessment Date Thrive assessed 10/26/23 06/05/24 15:35 Const General: alert; No acute distress Eyes Conjunctivae: conjunctivae normal Resp Auscultation: clear to auscultation bilaterally Cardio Rate: regular rate Rhythm: regular rhythm GI Inspection: Yes normal to inspection Extrem General: Yes normal to inspection and No edema Assessment and Plan Assessment & Plan (1) Liver mass: Comment: Ultrasound done May 2024. A 3.1 cm right lower hepatic echogenic mass was not appreciated on CT abdomen and pelvis of 04/22/2024. MRI with intravenous contrast recommended for further characterization. 2. Gallbladder surgically absent. Code(s): R16.0 - Hepatomegaly, not elsewhere classified Plan: MRI requested (2) Hypertension: Code(s): I10 - Essential (primary) hypertension Plan: Patient on hydrochlorothiazide 25 mg metoprolol 100 mg once a day. Aware blood pressure is elevated but very anxious right now. Continue with blood pressure medication. Decrease salt intake and exercise (3) Recurrent major depression: Comment: School street Q 3 week (04/2022) Code(s): F33.9 - Major depressive disorder, recurrent, unspecified Plan: Continue with counseling and therapy (4) Pneumonia: Comment: chest xray R lower infiltrate 05/2024 Code(s): J18.9 - Pneumonia, unspecified organism Plan: Patient is asymptomatic. Will follow-up x-ray (5) Obesity (BMI 30.0-34.9): Code(s): E66.9 - Obesity, unspecified Plan: Diet and exercise (6) Generalized anxiety disorder: Code(s): F41.1 - Generalized anxiety disorder Plan: Patient is given a benzodiazepine to help calm down. Discussed about side effec ts of drowsiness so can not drive with this. Take as needed only Orders: Orders XR chest 2V Today J18.9 - Pneumonia, unspecified organism Medications: New alprazolam 0.25 mg PO DAILY PRN 20 tabs 0RF anxiety F41.1 - Generalized anxiety disorder Coding Level of Care Code Est Pt Level 4 (47632) Diagnoses Liver mass R16.0 Hypertension I10 Recurrent major depression F33.9 Pneumonia J18.9 Obesity (BMI 30.0-34.9) E66.9 Generalized anxiety disorder F41.1
[2024-06-05 15:34] VITALS: BP 152/98; PULSE 78; O2SAT 98; BMI 29.9
== END 2024-06-05 16:29 | disposition home or self-care (01) ==
PROVIDERS: PCP Internal Medicine; Visit Provider Internal Medicine
DX: R16.0 Hepatomegaly, not elsewhere classified (principal); I10 Essential (primary) hypertension; F33.9 Major depressive disorder, recurrent, unspecified; J18.9 Pneumonia, unspecified organism; F41.1 Generalized anxiety disorder
CPT/HCPCS: 99214

== ENCOUNTER 2024-06-06 12:28 | Outpatient (REF) | payer OTHER, SELFPAY ==
--- NOTE | ~2024-06-06 | XR_ITS ---
EXAMINATION: XR CHEST CLINICAL INFORMATION: Pneumonia unspecified organism, patient states doctor see something along COMPARISON: May 12, 2024, March 19, 2022 TECHNIQUE: 2 views of the chest were obtained. FINDINGS: There is no gross pneumothorax. Heart size is normal. Redemonstration of previously questioned subtle opacity in the right lung base felt to be suggestive of pneumonia or atelectasis. No significant pleural effusion. Degenerative changes in the thoracic spine. Surgical clips in the upper abdomen. XR/XR chest 2V IMPRESSION: Similar appearance of previously questioned subtle opacity in the right lung base felt to be suggestive of pneumonia or atelectasis. This study was presented today June 18, 2024 for interpretation. Stat results provided at this time as requested by referring provider.
== END 2024-06-06 12:29 | disposition home or self-care (01) ==
LOC: HO.XRAY 12:28
PROVIDERS: PCP Internal Medicine; Visit Provider Internal Medicine
DX: J18.9 Pneumonia, unspecified organism (principal)
CPT/HCPCS: 71046

== ENCOUNTER 2024-06-13 08:02 | Emergency (ER) | payer OTHER, SELFPAY ==
--- NOTE | ~2024-06-13 | CT_ITS ---
EXAMINATION: CT ABDOMEN AND PELVIS WITH CONTRAST CLINICAL INFORMATION: Abdominal pain. COMPARISON: 04/22/2024 TECHNIQUE: Multidetector volumetric images were obtained from the superior aspect of the liver through the pubic symphysis following administration 85 mL of Omnipaque 350 intravenous contrast. Sagittal and coronal reformatted images were obtained on the technologist's workstation. Oral contrast: No This CT examination was performed using dose optimization techniques as appropriate, variously including the following: *Automated exposure control *Adjustment of mA and/or kV according to patient size (this includes techniques or standardized protocols for targeted exams where dose is matched to indication/reason for exam; i.e. extremities or head) *Use of iterative reconstruction technique DLP: 452 mGy-cm FINDINGS: LUNG BASES: No pleural or pericardial effusion. LIVER, GALLBLADDER, AND BILIARY TREE: The liver is normal in size and contour. Indeterminate 3.4 x 3.4 cm posterior right hepatic lesion. No biliary ductal dilatation is present. The gallbladder is surgically absent. PANCREAS: Unremarkable. SPLEEN: Unremarkable. ADRENAL GLANDS: Unremarkable. KIDNEYS AND URETERS: The kidneys are normal in size, shape, and attenuation. No hydronephrosis, hydroureter, or calculi seen. No perinephric stranding. BLADDER: Unremarkable. GASTROINTESTINAL TRACT: Small and large bowel loops are of normal caliber. No small bowel obstruction. ABDOMINAL WALL: Postsurgical changes in the supraumbilical region abdominal wall with possible scarring. There is slight asymmetric enlargement of the right rectus abdominis muscle. LYMPH NODES: No bulky lymphadenopathy. VASCULAR: Normal caliber abdominal aorta. PELVIC VISCERA: Intrauterine device in place. Involuting corpus luteum in the right ovary. Trace free fluid in the pelvis. Partial imaging of 5 mm low-attenuation focus in the left labia, unchanged. OSSEOUS STRUCTURES: No destructive bone lesion. CT/CT abdomen pelvis w IV con IMPRESSION: Indeterminate 3.4 x 3.4 cm posterior right hepatic lesion. MRI abdomen is recommended for further characterization. Postsurgical changes in the supraumbilical region abdominal wall with possible scarring. Slight asymmetric enlargement at the right rectus abdominis muscle. The appearance is unchanged relative to 04/22/2024
[2024-06-13 08:08] VITALS: BP 146/98; PULSE 60; RESP 16; TEMP 36.5; O2SAT 99; BMI 29.7
--- NOTE | 2024-06-13 09:00 | ED.ABDPAIN ---
HPI - Abdominal Pain General Chief Complaint: Abdominal Pain Stated Complaint: swelling of abd Time Seen by Provider: 06/13/24 08:57 History of Present Illness HPI narrative: 38-year-old female past medical history significant for hypertension depression anxiety status post cholecystectomy 11/03 ventral hernia repair01/05 wale gr was 1 year ago liposuction 2 years ago and appendectomy most of the surgeries were done in the last year other than the appendectomy that was done when she was 15. Patient did have an ultrasound that was read on the but may have been done on the 14 of May unsure about the timeline but patient was found have a 3.1 cm mass is echogenic on ultrasound in the liver versus lung. This was not seen on CT that was done in April. Patient states she has abdominal pain she was seen in April and May for similar pain which she describes as bloating Related Data Previous Rx's ?Medication ?Instructions ?Recorded blood pressure monitor (Blood #1 ea 11/23/22 Pressure Kit) citalopram 10 mg tablet (Celexa) 10 mg PO DAILY #90 tabs 09/14/23 hydrochlorothiazide 25 mg tablet 25 mg PO DAILY #90 tabs 12/27/23 metoprolol succinate 100 mg 100 mg PO DAILY #90 tabs 03/09/24 tablet,extended release 24 hr cholestyramine-aspartame 4 gram 4 g PO BID #60 ea 05/04/24 oral powder for susp in a packet (Prevalite) quetiapine 50 mg tablet (Seroquel) 50 mg PO BEDTIME #90 tabs 06/04/24 alprazolam 0.25 mg tablet 0.25 mg PO DAILY PRN anxiety #20 06/05/24 tabs Allergies Allergy/AdvReac Type Severity Reaction Status Date / Time nifedipine [Procardia] Allergy Severe Abdominal Verified 06/13/24 08:14 Pain terbutaline Allergy Severe Abdominal Verified 06/13/24 08:14 Pain Review of Systems Review of Systems Review of systems: General: Patient denies any fever chills recent illness or falls Musculoskeletal: Denies back pain or body aches or other injuries HEENT: denies headache, runny nose, ear pain Respiratory: denies shortness of breath, cough Cardiovascular: no chest pain or palpitations : denies dysuria, frequency Abdomen: no nausea vomiting denies abdominal pain Extremities: no swelling, no pain Skin: no diaphoresis Yes all other systems are reviewed and are negative PMFSH Past Medical History Medical History (Updated 06/13/24 @ 11:42 by Morgan Jaime DO) Generalized anxiety disorder Surgery, elective Overweight (BMI 25.0-29.9) Foul smelling urine Anemia Sepsis Pre-operative clearance Dysuria Insomnia Annual physical exam Hematuria Complex ovarian cyst History of hydronephrosis Cervical high risk HPV (human papillomavirus) test positive Ectopic of left ovary GERD (gastroesophageal reflux disease) Obesity (BMI 30-39.9) Constipation Hyperbilirubinemia Allergic rhinitis Vitamin D deficiency Hypertension FLORENCIO II (cervical intraepithelial neoplasia II) COVID-19 virus infection Surgical History Ventral hernia (12/27/23) Hx of cholecystectomy Hx of abdominoplasty H/O section Skin tag, acquired History of appendectomy Family History Family History Maternal Grandmother Colon cancer Maternal Grandfather Colon cancer Other Mental health disorder Social History Social History Household Members: Children Housing: House Do you presently have visiting nurse or other home services: No Alcohol intake: current Alcohol intake frequency: holidays/special occasions only Alcohol type: wine Comment: once a month 3 glasses Patient Tobacco Use Status: Never used Tobacco Tobacco use type: Cigarette Years Smoked: 2 e-Cigarette/Vaping Use: Never Used Second Hand Smoke Exposure: No Substance Use Type: Marijuana Advance Directives: No Advance Directives Information Provided: No service: No Current occupational status: employed Cognitive needs: No Hearing needs: No Vision needs: No Physical Exam ED Vital Signs: Vital Signs - 24 hr 06/13/24 08:08 06/13/24 10:10 Temperature 97.7 F 98.0 F Pulse Rate 60 51 Respiratory Rate 16 14 Blood Pressure 146/98 H 161/100 H Pulse Oximetry 99 99 Oxygen Delivery Method Room Air Room Air BMI result Body Mass Index 29.7 General: Well-appearing well-nourished in no signs of distress HEENT: Normocephalic atraumatic Neck: No signs of JVD, no masses no tenderness or lymphadenopathy Cardiovascular: Regular rate and rhythm Respiratory: Clear to auscultation bilaterally Abdomen: Soft nontender no masses Extremities: Normal pedal pulses no signs of edema Skin: Dry warm no rashes Back: No tenderness full ROM Course Course Course Narrative: [address] performed on the patient patient remained stable normal vitals still has tenderness all over abdomen think there is any reason to admit this patient she had been able to ambulate without any issue here in the ER. Medical Decision Making Medical Decision Making [facility] Narrative: I will get a CT scan give patient labs pain medications and reassess patient does smoke marijuana daily she does have intermittent bouts of pain and nausea she states she only thing that helps her with her pain is from marijuana use. She does take showers to help her with her chronic nausea. I do think this has a cannabis hyperemesis component to it as well as multiple abdominal surgeries. I did explain to the patient that there is concerns for the marijuana has any issues she did not want to hear this states she is smoking her life she does not have nausea every day I did try to explain to her that nobody wants to hear that this is related to her cannabis use either way I will try some capsaicin which will abstain substance P similar to when she takes her showers to help with her pain we will continue with the rest of the workup. Differential Diagnosis Differential Diagnoses: The differential diagnosis associated with the presentation includes Common bile duct stone cholangitis liver mass lung mass dehydration electrolyte abnormality weakness acute on chronic pain cannabis hyperemesis Lab Data 06/13/24 09:46 06/13/24 09:46 Labs: Lab Results 06/13/24 06/13/24 Range/Units 09:46 10:07 WBC 6.7 (4.8-10.8) X10*3/uL RBC 4.90 (4.20-5.50) X10*6/uL Hgb 13.7 (12.0-16.0) g/dl Hct 40.8 (37.0-47.0) % MCV 83.3 (80.0-98.0) fL MCH 28.0 (27.0-33.0) pg MCHC 33.6 (31.0-35.0) g/dl RDW 13.3 (11.0-16.0) % Plt Count 262 (160-400) X10*3/uL MPV 10.2 (9.4-12.3) fL Immature Gran % (Auto) 0.6 H (0.0-0.4) % Neut % (Auto) 54.5 (45-73) % Lymph % (Auto) 32.3 (20-40) % [place] % (Auto) 8.7 (2-11) % Eos % (Auto) 2.4 (0-4) % Baso % (Auto) 1.5 (0-2) % Lymph # (Auto) 2.2 (1.2-4.9) X10*3/uL [place] # (Auto) 0.6 (0.1-1.2) X10*3/uL Eos # (Auto) 0.2 (0.0-0.4) X10*3/uL Baso # (Auto) 0.1 (0.0-0.2) X10*3/uL Abs Immat Gran (auto) 0.04 H (0.00-0.03) X10*3/uL Absolute Neuts (auto) 3.7 (2.0-8.3) x10*3/uL Absolute Nucleated RBC 0.000 (0.0-0.012) X10*3/uL Nucleated RBC % (auto) 0.0 (0.0-0.2) /100WBC Sodium 139 (135-145) mmol/L Potassium 4.0 (3.3-5.1) mmol/L Chloride 107 (96-108) mmol/L Carbon Dioxide 24 (22-29) mmol/L Anion Gap 12 (12-20) BUN 12 (9-16) mg/dL Creatinine 0.83 (0.5-1.4) mg/dL Estim Creat Clear Calc 82.9 Estimated GFR > 60 Random Glucose 92 (60-115) mg/dL Calcium 9.4 (8.4-10.2) mg/dL Total Bilirubin 1.4 H (0.0-1.0) mg/dL Direct Bilirubin 0.3 (0.0-0.5) mg/dL AST 14 (5-31) U/L ALT 17 (0-31) U/L Alkaline Phosphatase 83 (39-117) U/L Total Protein 7.1 (6.5-8.0) g/dL Albumin 4.3 (3.5-5.0) g/dL Lipase 23 (8-78) U/L Urine Color Yellow Urine Appearance Clear Urine pH 7.5 (5.0-9.0) Ur Specific Nichols 1.015 (1.005-1.025) Urine Protein Negative (Neg-Trace) mg/dL Urine Glucose (UA) Negative (Negative) mg/dL Urine Ketones Negative (Negative) mg/dL Urine Blood Negative (Negative) Urine Nitrite Negative (Negative) Ur Leukocyte Esterase Trace H (Negative) Urine RBC 0-2 (0-2) /HPF Urine WBC 0-5 (0-5) /HPF Ur Squamous Epith Cells 11-20 (0-2) /HPF Urine Bacteria 2+ (None Seen) Hyaline Casts 0-2 (0-2) /LPF Independent Interpretation I performed an independent interpretation of an: EKG, Plain X-Ray and CT Scan Interpretation: Rate 50 normal sinus rhythm other than bradycardia normal intervals no signs of ischemia no change from previous interpreted by me Medications Administered Discontinued Medications Generic Name Dose Route Start Last Admin Trade Name Freq PRN Reason Stop Dose Admin Capsaicin 1 appl 06/13/24 09:22 06/13/24 09:58 Capsaicin 0.025% Cream 60 Gm Tube TOPICAL 06/13/24 09:23 1 appl ONCE ONE Administration Protocol Droperidol 1.25 mg 06/13/24 09:04 06/13/24 09:57 Droperidol 5 Mg/2 Ml Vial IM 06/13/24 09:05 1.25 mg ONCE ONE Administration Sodium Chloride 1,000 mls @ 999 mls/hr 06/13/24 09:15 06/13/24 09:57 Ns IV 06/13/24 10:15 999 mls/hr .Q1H1M DUNCAN Administration Iohexol 100 ml 06/13/24 10:38 06/13/24 10:39 Iohexol 350 Mg/Ml 100 Ml Infus..Btl IV 06/13/24 10:39 85 ml ONCE ONE Administration Morphine Sulfate 4 mg 06/13/24 09:04 06/13/24 09:57 Morphine Sulfate 4 Mg/Ml Cartridge IVPUSH 06/13/24 09:05 4 mg ONCE ONE Administration Protocol Discharge Plan Discharge Clinical Impression: Liver mass, Abdominal pain Patient Disposition: Home, Self-Care Instructions: Abdominal Pain (ED) Additional Instructions: You were seen today for abdominal pain as well as nausea and vomiting. You had CT and labs done. I do think this could be related to cannabis use. I do understand that everyone smokes marijuana does not appear that it could be related to the marijuana use. We do see this frequently where patients have recurrent nausea and vomiting which can be very disabling. It is usually multifactorial as he had previous surgeries as well I do understand this the only thing the feel helps with her pain but there is no medical benefit that has been proven in any medical literature to support that marijuana use we will help you. This can cause this disabling cannabis hyperemesis I do recommend that you stop using marijuana. Cannabis or marijuana does deposit in your fat tissues takes 90 days for to get completely out of your system. Please call follow up for your liver mass to get your MRI. If you have any other concerns please return to the emergency department. Prescriptions: No Action citalopram [Celexa] 10 mg tablet 10 mg PO DAILY Qty: 90 1RF hydrochlorothiazide 25 mg tablet 25 mg PO DAILY Qty: 90 1RF metoprolol succinate 100 mg tablet extended release 24 hr 100 mg PO DAILY Qty: 90 1RF cholestyramine-aspartame [Prevalite] 4 gram powder in packet 4 g PO BID Qty: 60 1RF Rx Instructions: administer w/meal; avoid other meds within 1hr before or 4-6hr after dose quetiapine [Seroquel] 50 mg tablet 50 mg PO BEDTIME Qty: 90 2RF (DME) blood pressure monitor [Blood Pressure Kit] Kit See Rx Instructions .Route Qty: 1 0RF Rx Instructions: As directed alprazolam 0.25 mg tablet 0.25 mg PO DAILY PRN (Reason: anxiety) Qty: 20 0RF Stand Alone Forms: Work/School Release Print Language: Citizen Of [place]
--- NOTE | 2024-06-13 09:05 | ECG_ITS ---
Test Reason : abdominal pain Blood Pressure : / mmHG Vent. Rate : 050 BPM Atrial Rate : 050 BPM P-R Int : 136 ms QRS Dur : 082 ms QT Int : 438 ms P-R-T Axes : 033 020 -02 degrees QTc Int : 399 ms Sinus bradycardia Otherwise normal ECG When compared with ECG of 12-MAY-2024 15:32, No significant change was found Referred By: Morgan Jaime Electronically Signed By:Tico Robbins
[2024-06-13 09:54] LABS: MANUAL DIFF FLAG NO
[2024-06-13] MEDS: droPERidol 5 MG/2 ML VIAL 1.25 MG IM (09:57)
[2024-06-13] MEDS: 0.9 % Sodium Chloride 1,000 ML 999 ML IV (09:57)
[2024-06-13] MEDS: Morphine Sulfate 4 MG/ML CARTRIDGE IVPUSH (09:57)
[2024-06-13] MEDS: Capsaicin 0.025% Cream 60 GM TUBE 1 APPL TOPICAL (09:58)
[2024-06-13 10:00] LABS: Basophils Absolute Auto 0.1 X10*3/uL (0.0-0.2); Basophils Percent Auto 1.5 % (0-2); Eosinophils Absolute Auto 0.2 X10*3/uL (0.0-0.4); Eosinophils Percent Auto 2.4 % (0-4); Hematocrit 40.8 % (37.0-47.0); Hemoglobin 13.7 g/dl (12.0-16.0); Imm Gran Abs Auto 0.04 X10*3/uL (0.00-0.03); Imm Gran Pct Auto 0.6 % (0.0-0.4); Lymphocytes Absolute Auto 2.2 X10*3/uL (1.2-4.9); Lymphocytes Percent Auto 32.3 % (20-40); Mean Corpuscular HGB Conc 33.6 g/dl (31.0-35.0); Mean Corpuscular Volume 83.3 fL (80.0-98.0); Mean Platelet Volume 10.2 fL (9.4-12.3); Monocytes Absolute Auto 0.6 X10*3/uL (0.1-1.2); Monocytes Percent Auto 8.7 % (2-11); Neutrophils Absolute Auto 3.7 x10*3/uL (2.0-8.3); Neutrophils Percent Auto 54.5 % (45-73); Platelet Count 262 X10*3/uL (160-400); Red Cell Distribution Width 13.3 % (11.0-16.0); White Blood Count 6.7 X10*3/uL (4.8-10.8)
[2024-06-13 10:10] VITALS: BP 161/100; PULSE 51; RESP 14; TEMP 36.7; O2SAT 99
[2024-06-13 10:14] LABS: Appearance Urine Clear; Color Urine Yellow; Glucose Urine UA Negative (Negative); Leukocyte Esterase Urine Trace (Negative); Nitrite Urine Negative (Negative); PH 7.5 (5.0-9.0); Specific Gravity - Urine 1.015 (1.005-1.025); UMIC TRIGGER UACC YES; Urine Blood Negative (Negative); Urine Ketones Negative (Negative); Urine Protein Negative (Neg-Trace)
[2024-06-13 10:22] LABS: Alanine Aminotransferase 17 U/L (0-31); Albumin Level 4.3 g/dL (3.5-5.0); Alkaline Phosphatase 83 U/L (39-117); Anion Gap 12 (12-20); Aspartate Amino Transferase 14 U/L (5-31); Bilirubin Direct 0.3 mg/dL (0.0-0.5); Bilirubin Total 1.4 mg/dL (0.0-1.0); Blood Urea Nitrogen 12 mg/dL (9-16); Calcium 9.4 mg/dL (8.4-10.2); Carbon Dioxide 24 mmol/L (22-29); Chloride 107 mmol/L (96-108); Creatinine Clr Calc Pharmacy 82.9; Estimated Glomerular Filt Rate > 60; Glucose Random 92 mg/dL (60-115); Lipase 23 U/L (8-78); Sodium 139 mmol/L (135-145); Total Protein 7.1 g/dL (6.5-8.0)
[2024-06-13 10:34] LABS: Bacteria Urine 2+ (None Seen); Hyaline Casts Urine 0-2 /LPF (0-2); RBC Urine 0-2 /HPF (0-2); WBC Urine 0-5 /HPF (0-5)
[2024-06-13] MEDS: iohexoL 350 MG/ML 100 ML INFUS..BTL IV (10:39)
[2024-06-13 12:18] VITALS: BP 00/00; PULSE 0; RESP 0; TEMP -17.7; TEMP 0; O2SAT 0
== END 2024-06-13 12:19 | disposition home or self-care (01) ==
PROVIDERS: Emergency Provider Student in an Organized Health Care Education/Training Program; PCP Internal Medicine
DX: R10.9 Unspecified abdominal pain (principal); R16.0 Hepatomegaly, not elsewhere classified; R11.2 Nausea with vomiting, unspecified; F12.90 Cannabis use, unspecified, uncomplicated; I10 Essential (primary) hypertension; Z79.899 Other long term (current) drug therapy; Z90.49 Acquired absence of other specified parts of digestive tract
CPT/HCPCS: 36415; 74177; 80048; 80076; 81001; 83690; 85025; 93005; 96372; 96374; 99284; J1790; J2270; Q9967

== ENCOUNTER → 2024-06-13 09:05 | Outpatient (BNV) | payer OTHER, SELFPAY | PROVIDERS: Emergency Provider Student in an Organized Health Care Education/Training Program; PCP Internal Medicine; Visit Provider Internal Medicine Cardiovascular Disease | DX: R10.9 Unspecified abdominal pain (principal) | CPT/HCPCS: 93010 ==

== ENCOUNTER 2024-07-08 07:53 | Outpatient (REF) | payer OTHER, SELFPAY ==
--- NOTE | ~2024-07-08 | MR_ITS ---
EXAMINATION: MR ABDOMEN WITHOUT AND WITH CONTRAST CLINICAL INFORMATION: Hepatomegaly, posterior right hepatic lobe lesion COMPARISON: CT scan of abdomen and pelvis on 06/13/2024 TECHNIQUE: Examination was performed in a high field strength MRI scanner. Multiplanar multiphasic imaging of the abdomen was performed without IV contrast enhancement. Multiphasic Axial T1 weighted fat suppressed images of the upper abdomen were obtained after IV injection of 7 mL Gadavist. Coronal T1 weighted fat-suppressed images of the abdomen were obtained following the dynamic axial series. FINDINGS: LIVER: The liver shows mild enlargement of the right hepatic lobe measuring 17.0 cm in vertical height. A lobulated T2 hyperintense, markedly hyperenhancing observation is seen in posterior subcapsular right hepatic lobe segment 7, measuring 3.3 cm in AP diameter, 3.1 cm in width, 2.4 cm in vertical height, with arterial phase hypoenhancing rim. The central portion of the lesion remains T1 hyperintense, with most of the remaining portion becoming isointense with liver parenchyma at 3 and 5 minutes postinjection. There is no restriction in diffusion within the lesion. The calculated hepatic fat percentage is 3.8%, compatible with normal. HEPATOBILIARY: Gallbladder is surgically absent. Common bile duct is not dilated. PANCREAS: No focal pancreatic lesion with abnormal signal can be seen. SPLEEN: Spleen is normal in size without focal lesion. ADRENAL: Bilateral adrenal glands are normal in shape and size. KIDNEYS: Bilateral kidneys are normal in size without focal lesion. Moderate L5-S1 disc desiccation is seen. MR/MR abdomen wo/w con IMPRESSION: 1. Mild hepatomegaly. 2. A lobulated T2 hyperintense, markedly hyperenhancing observation in posterior subcapsular right hepatic lobe segment 7 is found. Findings can represent hepatic adenoma or focal nodular hyperplasia. Follow-up pre and post Eovist MRI of abdomen in 3-6 months is recommended. 3. Status post cholecystectomy. Electronically signed by: Rhianna Robertson MD 07/09/2024 01:30 PM EDT
[2024-07-08] MEDS: gadobutroL 7.5 ML VIAL IVPUSH (09:02)
== END 2024-07-08 07:54 | disposition home or self-care (01) ==
LOC: HO.MRI 07:53
PROVIDERS: PCP Internal Medicine
DX: R16.0 Hepatomegaly, not elsewhere classified (principal)
CPT/HCPCS: 74183; A9585

== ENCOUNTER 2024-09-10 10:09 | Emergency (ER) | payer OTHER, SELFPAY ==
[2024-09-10] VITALS (8 sets, daily range): BP systolic 145–176; BP diastolic 85–111; PULSE 60–73; RESP 16–18; TEMP 36.7–36.8; O2SAT 96–99; BMI 28.0
--- NOTE | ~2024-09-10 | CT_ITS ---
EXAMINATION: CTA head and neck with and without contrast CLINICAL INFORMATION: Headache COMPARISON: None available. TECHNIQUE: Test bolus sequences followed by intravenous administration of 70 mL of Omnipaque 350 contrast. Helical imaging was performed in the axial plane from the skull vertex to the thoracic inlet. Delayed postcontrast imaging of the head was also performed. The data was processed at the cytometry technologist workstation for generation of MIP sequences. Angled MIPs and volume rendered reformatted images were also generated at an offline 3D workstation. Stenoses are assessed in accordance with NASCET criteria unless otherwise indicated. This CT examination was performed using dose optimization techniques as appropriate, variously including the following: *Automated exposure control *Adjustment of mA and/or kV according to patient size (this includes techniques or standardized protocols for targeted exams where dose is matched to indication/reason for exam; i.e. extremities or head) *Use of iterative reconstruction technique DLP: 2004 mGy-cm FINDINGS: BRAIN: No acute intracranial hemorrhage or infarct. The dickey-white matter differentiation is preserved. No midline shift or hydrocephalus. No acute extra-axial fluid collections. The osseous structures are unremarkable. No orbital pathology. Mild mucosal thickening of the right maxillary sinus. Partial opacification of the left mastoid air cells. CTA NECK: Three-vessel aortic arch. The innominate and bilateral subclavian arteries are patent. The origins and cervical segments of the common carotid arteries as well as the common carotid artery bifurcations are patent bilaterally. The cervical segments of the internal carotid arteries are also patent bilaterally. The origins and cervical segments of the vertebral arteries are patent bilaterally. No hemodynamically significant stenosis, dissection, or aneurysm. The visualized branches of the external carotid arteries are unremarkable. CTA HEAD: Anterior circulation: The petrous, cavernous, and supraclinoid segments of the internal carotid arteries are patent bilaterally. The major branches of the anterior and middle cerebral arteries as well as anterior communicating artery complex are patent. There is a 5 x 4 mm saccular aneurysm arising from the distal left M1 segment and directed anteriorly and superiorly. No large vessel occlusion. Posterior circulation: The intracranial vertebral arteries are patent bilaterally. The basilar artery is normal in course and caliber. The posterior cerebral and superior cerebellar arteries arise normally from the basilar summit. Right posterior cerebral artery. No aneurysm. On delayed imaging, the venous structures demonstrate normal contrast opacification. No filling defect. No abnormal intracranial enhancement. Soft tissues: No suspicious neck mass or cervical adenopathy. Lungs: Clear. Bones: No acute osseous abnormality. No lytic or blastic osseous lesions. CT/CT angio head neck IMPRESSION: CT head demonstrates no acute intracranial hemorrhage or infarct. CTA head demonstrates a 5 mm saccular aneurysm arising from the distal left M1 and directed anteriorly and superiorly. No large vessel occlusion. CTA neck demonstrates no hemodynamically significant stenosis, dissection, or aneurysm. Electronically signed by: Hermelindo Cuellar MD 09/10/2024 02:43 PM EDT RP
[2024-09-10] MEDS: Ondansetron ODT 4 MG TAB.RAPDIS TRANSLINGU (10:44)
[2024-09-10 11:20] LABS: MANUAL DIFF FLAG NO
[2024-09-10 11:21] LABS: Basophils Absolute Auto 0.1 X10*3/uL (0.0-0.2); Basophils Percent Auto 1.2 % (0-2); Eosinophils Absolute Auto 0.1 X10*3/uL (0.0-0.4); Hematocrit 44.3 % (37.0-47.0); Hemoglobin 14.7 g/dl (12.0-16.0); Imm Gran Abs Auto 0.02 X10*3/uL (0.00-0.03); Imm Gran Pct Auto 0.3 % (0.0-0.4); Lymphocytes Absolute Auto 1.7 X10*3/uL (1.2-4.9); Lymphocytes Percent Auto 25.1 % (20-40); Mean Corpuscular HGB Conc 33.2 g/dl (31.0-35.0); Mean Corpuscular Hemoglobin 28.1 pg (27.0-33.0); Mean Corpuscular Volume 84.7 fL (80.0-98.0); Mean Platelet Volume 10.7 fL (9.4-12.3); Monocytes Absolute Auto 0.6 X10*3/uL (0.1-1.2); Neutrophils Absolute Auto 4.4 x10*3/uL (2.0-8.3); Neutrophils Percent Auto 64.4 % (45-73); Platelet Count 146 X10*3/uL (160-400); Red Blood Count 5.23 X10*6/uL (4.20-5.50); White Blood Count 6.9 X10*3/uL (4.8-10.8)
[2024-09-10 11:28] LABS: Appearance Urine Clear; Color Urine Yellow; Glucose Urine UA Negative (Negative); Leukocyte Esterase Urine Negative (Negative); Nitrite Urine Negative (Negative); Specific Gravity - Urine 1.015 (1.005-1.025); UMIC TRIGGER UACC YES; Urine Blood Trace (Negative); Urine Ketones Negative (Negative); Urine Protein Negative (Neg-Trace)
[2024-09-10 11:29] LABS: UPreg QC Valid YES; Urine Pregnancy NEGATIVE (NEGATIVE)
[2024-09-10 11:35] LABS: Anion Gap 12 (12-20); Bacteria Urine 4+ (None Seen); Blood Urea Nitrogen 11 mg/dL (9-16); Calcium 9.5 mg/dL (8.4-10.2); Carbon Dioxide 24 mmol/L (22-29); Chloride 106 mmol/L (96-108); Creatinine Clr Calc Pharmacy 72.8; Estimated Glomerular Filt Rate > 60; Glucose Random 90 mg/dL (60-115); Hyaline Casts Urine 0-2 /LPF (0-2); Potassium 3.7 mmol/L (3.3-5.1); Sodium 138 mmol/L (135-145); WBC Urine 0-5 /HPF (0-5)
--- NOTE | 2024-09-10 13:17 | ED.HA ---
HPI - Headache General Chief Complaint: Headache Stated Complaint: high bp Time Seen by Provider: 09/10/24 12:12 History of Present Illness HPI Narrative: Patient is a 39-year-old female with a history of headaches to the back of the head worse on the left side. Denies any photophobia. No sudden deaths in the family. Positive history of hypertension currently on metoprolol 100 mg. Patient claims compliance with her medication. No fever no chills no neck pain. No diaphoresis no photophobia it is made worse with noise. Patient stated that her headache got much worse this morning. She is from home. There is no focal weakness. Came in for further evaluation MD elicited complaint: headache Related Data Previous Rx's ?Medication ?Instructions ?Recorded blood pressure monitor (Blood #1 ea 11/23/22 Pressure Kit) citalopram 10 mg tablet (Celexa) 10 mg PO DAILY #90 tabs 09/14/23 cholestyramine-aspartame 4 gram 4 g PO BID #60 ea 05/04/24 oral powder for susp in a packet (Prevalite) quetiapine 50 mg tablet (Seroquel) 50 mg PO BEDTIME #90 tabs 06/04/24 alprazolam 0.25 mg tablet 0.25 mg PO DAILY PRN anxiety #20 06/05/24 tabs hydrochlorothiazide 25 mg tablet 25 mg PO DAILY #90 tabs 07/20/24 metoprolol succinate 100 mg 100 mg PO DAILY #90 tabs 08/30/24 tablet,extended release 24 hr Allergies Allergy/AdvReac Type Severity Reaction Status Date / Time nifedipine [Procardia] Allergy Severe Abdominal Verified 09/10/24 10:43 Pain terbutaline Allergy Severe Abdominal Verified 09/10/24 10:43 Pain Review of Systems Review of Systems: Positive headache PMFSH Past Medical History Attestation statement: The following information was validated with the patient. Medical History Generalized anxiety disorder Surgery, elective Overweight (BMI 25.0-29.9) Foul smelling urine Anemia Sepsis Pre-operative clearance Dysuria Insomnia Annual physical exam Hematuria Complex ovarian cyst History of hydronephrosis Cervical high risk HPV (human papillomavirus) test positive Ectopic of left ovary GERD (gastroesophageal reflux disease) Obesity (BMI 30-39.9) Constipation Hyperbilirubinemia Allergic rhinitis Vitamin D deficiency Hypertension FLORENCIO II (cervical intraepithelial neoplasia II) COVID-19 virus infection Surgical History Ventral hernia (12/27/23) Hx of cholecystectomy Hx of abdominoplasty H/O section Skin tag, acquired History of appendectomy Family History Family History Maternal Grandmother Colon cancer Maternal Grandfather Colon cancer Other Mental health disorder Social History Social History Household Members: Children Housing: House Do you presently have visiting nurse or other home services: No Alcohol intake: current Alcohol intake frequency: holidays/special occasions only Alcohol type: wine Comment: once a month 3 glasses Patient Tobacco Use Status: Never used Tobacco Tobacco use type: Cigarette Years Smoked: 2 e-Cigarette/Vaping Use: Never Used Second Hand Smoke Exposure: No Substance Use Type: Marijuana service: No Current occupational status: employed Cognitive needs: No Hearing needs: No Vision needs: No Physical Exam Vital Signs: Vital Signs: Last Vital Signs Temp 98.1 F 09/10/24 10:38 Pulse 60 09/10/24 15:27 Resp 18 09/10/24 15:27 BP 172/100 H 09/10/24 15:27 Pulse Ox 99 09/10/24 15:27 O2 Del Method Room Air 09/10/24 15:27 BMI result Body Mass Index 28.0 Appearance: Alert. Oriented X3. No acute distress. Eyes: Pupils equal, round and reactive to light. ENT: Pharynx normal. Neck: Normal inspection. Neck supple. No lymph nodes noted. No crepitus CVS: Normal heart rate and rhythm. Pulses normal. Normal S1 and S2 Respiratory: No respiratory distress. Breath sounds normal. No Wheezing. No rales Abdomen: Soft and nontender. No rigidity. No distention. good BS x4 Skin: Skin warm and dry. Normal skin color. Normal skin turgor. Extremities: No lower extremity edema. Neurovascular intact to all extremities. No Lacerations. No Rash Neuro: Oriented X 3. No motor deficit. No sensory deficit. Moving all extermities. No slurred speech Medications Administered Discontinued Medications Generic Name Dose Route Start Last Admin Trade Name Freq PRN Reason Stop Dose Admin Diphenhydramine HCl 50 mg 09/10/24 13:17 09/10/24 13:48 Diphenhydramine Hcl 50 Mg/Ml Vial IVPUSH 09/10/24 13:18 50 mg ONCE ONE Administration Levetiracetam 1,000 mg in 100 mls @ 400 mls/hr 09/10/24 15:32 09/10/24 15:39 Keppra IV 09/10/24 15:46 400 mls/hr ONCE ONE Administration Iohexol 70 ml 09/10/24 14:03 09/10/24 14:03 Iohexol 350 Mg/Ml 100 Ml Infus..Btl IV 09/10/24 14:04 70 ml ONCE ONE Administration Ketorolac Tromethamine 30 mg 09/10/24 13:17 09/10/24 13:47 Ketorolac Tromethamine 30 Mg/Ml Vial IVPUSH 09/10/24 13:18 30 mg ONCE ONE Administration Metoclopramide HCl 10 mg 09/10/24 13:17 09/10/24 13:48 Metoclopramide Hcl 10 Mg/2 Ml Vial IVPUSH 09/10/24 13:18 10 mg ONCE ONE Administration Ondansetron HCl 4 mg 09/10/24 10:43 09/10/24 10:44 Ondansetron Odt 4 Mg Tab.Rapdis TRANSLINGU 09/10/24 10:44 4 mg ONCE ONE Administration Medical Decision Making Medical Decision Making MDM Narrative: Patient's headache got much worse this morning at 08:00 it started yesterday. No history of similar headaches in the past. Will get a CT scan of the head to rule out the possibility of bleeding along with a CTA to look for possibility of aneurysms. No family history. Will give migraine treatment neurologically patient is intact. No fever no chills symptoms not consistent with meningitis. Patient's CT scan of the head was grossly negative for any acute evidence of bleeding. 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 Patient is finding discussed with neurosurgery at [facility]. Also discussed with leather lacer at [facility]. Can not exclude the possibility of a sentinel bleed in the setting of patient having a bad headache and also having an aneurysm. Patient to be transferred there. Given the elevated blood pressure she was started on nicardipine drip for spasm and also for blood pressure control. A dose of Keppra was also started. Patient to be admitted to the intensive care unit. Currently in stable condition. Risk and benefit of transfer explained to patient. Patient states understanding. A copy of patient's imaging is being done. Differential Diagnosis Differential Diagnoses: The differential diagnosis associated with the presentation includes Meningitis, tension headache, migraine, intracranial bleed Admission/Observation Consideration of admission/observation: Escalation of care including admission/observation considered Lab Data 09/10/24 11:14 09/10/24 11:14 Labs: Lab Results 09/10/24 Range/Units 11:14 WBC 6.9 (4.8-10.8) X10*3/uL RBC 5.23 (4.20-5.50) X10*6/uL Hgb 14.7 (12.0-16.0) g/dl Hct 44.3 (37.0-47.0) % MCV 84.7 (80.0-98.0) fL MCH 28.1 (27.0-33.0) pg MCHC 33.2 (31.0-35.0) g/dl RDW 13.0 (11.0-16.0) % Plt Count 146 L D (160-400) X10*3/uL MPV 10.7 (9.4-12.3) fL Immature Gran % (Auto) 0.3 (0.0-0.4) % Neut % (Auto) 64.4 (45-73) % Lymph % (Auto) 25.1 (20-40) % [place] % (Auto) 8.0 (2-11) % Eos % (Auto) 1.0 (0-4) % Baso % (Auto) 1.2 (0-2) % Lymph # (Auto) 1.7 (1.2-4.9) X10*3/uL [place] # (Auto) 0.6 (0.1-1.2) X10*3/uL Eos # (Auto) 0.1 (0.0-0.4) X10*3/uL Baso # (Auto) 0.1 (0.0-0.2) X10*3/uL Abs Immat Gran (auto) 0.02 (0.00-0.03) X10*3/uL Absolute Neuts (auto) 4.4 (2.0-8.3) x10*3/uL Absolute Nucleated RBC 0.000 (0.0-0.012) X10*3/uL Nucleated RBC % (auto) 0.0 (0.0-0.2) /100WBC Sodium 138 (135-145) mmol/L Potassium 3.7 (3.3-5.1) mmol/L Chloride 106 (96-108) mmol/L Carbon Dioxide 24 (22-29) mmol/L Anion Gap 12 (12-20) BUN 11 (9-16) mg/dL Creatinine 0.91 (0.5-1.4) mg/dL Estim Creat Clear Calc 72.8 Estimated GFR > 60 Random Glucose 90 (60-115) mg/dL Calcium 9.5 (8.4-10.2) mg/dL Urine Color Yellow Urine Appearance Clear Urine pH 7.0 (5.0-9.0) Ur Specific [place] 1.015 (1.005-1.025) Urine Protein Negative (Neg-Trace) mg/dL Urine Glucose (UA) Negative (Negative) mg/dL Urine Ketones Negative (Negative) mg/dL Urine Blood Trace H (Negative) Urine Nitrite Negative (Negative) Ur Leukocyte Esterase Negative (Negative) Urine RBC 3-5 H (0-2) /HPF Urine WBC 0-5 (0-5) /HPF Ur Squamous Epith Cells 3-5 (0-2) /HPF Urine Bacteria 4+ (None Seen) Hyaline Casts 0-2 (0-2) /LPF Urine Test NEGATIVE (NEGATIVE) Critical Care Time Critical Care Time Critical Care Time: Yes Total Critical Care Time: 40 Attestation: I have personally provided 40 minutes of critical care time exclusive of time spent on separately billable procedures. ?Time includes review of lab data, radiology results, discussion with consultants, and monitoring for potential decompensation. ?Interventions were performed as documented above Discharge Plan Discharge Clinical Impression: Aneurysm Patient Disposition: Xfer [facility] Transfer Details: Going to [facility] Intensive Care unit Prescriptions: No Action citalopram [Celexa] 10 mg tablet 10 mg PO DAILY Qty: 90 1RF cholestyramine-aspartame [Prevalite] 4 gram powder in packet 4 g PO BID Qty: 60 1RF Rx Instructions: administer w/meal; avoid other meds within 1hr before or 4-6hr after dose quetiapine [Seroquel] 50 mg tablet 50 mg PO BEDTIME Qty: 90 2RF hydrochlorothiazide 25 mg tablet 25 mg PO DAILY Qty: 90 1RF metoprolol succinate 100 mg tablet extended release 24 hr 100 mg PO DAILY Qty: 90 1RF (DME) blood pressure monitor [Blood Pressure Kit] Kit See Rx Instructions .Route Qty: 1 0RF Rx Instructions: As directed alprazolam 0.25 mg tablet 0.25 mg PO DAILY PRN (Reason: anxiety) Qty: 20 0RF Print Language: Hungarian
[2024-09-10] MEDS: Ketorolac Tromethamine 30 MG/ML VIAL IVPUSH (13:47)
[2024-09-10] MEDS: Metoclopramide HCl 10 MG/2 ML VIAL IVPUSH (13:48)
[2024-09-10] MEDS: diphenhydrAMINE HCL 50 MG/ML VIAL IVPUSH (13:48)
[2024-09-10] MEDS: iohexoL 350 MG/ML 100 ML INFUS..BTL 70 ML IV (14:03)
--- NOTE | 2024-09-10 14:40 | PC.NURSE ---
Addendum entered by Xin Beyer 09/10/24 16:05: Per pt, headache started yesterday earlier in the day. 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 Pt reported significantly relief from pain after medications. Original Note: Pt presents to ED from home, reports headache in back of head and hypertension. Has hx and has been med compliant. Denies N/V/D, fevers, recent illnesses or trauma. Alert and oriented, breathing even and unlabored
[2024-09-10] MEDS: levETIRAcetam in NaCl (iso-os) 1,000 MG/100 ML PIGGYBACK 400 MG IV (15:39)
[2024-09-10] MEDS: niCARdipine HCL 25 MG in 0.9 % Sodium Chloride 240 ML 50 MG IVCONT (15:56)
--- NOTE | 2024-09-10 16:01 | PC.NURSE ---
Started nicardipine drip per MD order even though systolic lower than protocol. Per MD Slater, target for us is systolic >140. Will continue to monitor BPs, started at protocol, 5mg/hr
[2024-09-10 16:03] LABS: COVID-19 Test Negative (Negative); IDNOW Serial# 152EDE1D
--- NOTE | 2024-09-10 16:18 | PC.NURSE ---
Report given to Lora MOJICA at [facility] for transfer
== END 2024-09-10 17:19 | disposition short-term general hospital (02) ==
PROVIDERS: Emergency Provider Emergency Medicine Emergency Medical Services; PCP Internal Medicine
DX: I67.1 Cerebral aneurysm, nonruptured (principal); I10 Essential (primary) hypertension; R51.9 Headache, unspecified; Z79.899 Other long term (current) drug therapy; Z11.52 Encounter for screening for COVID-19
CPT/HCPCS: 36415; 70496; 70498; 80048; 81001; 81025; 85025; 87635; 96365; 96375; 99285; J1200; J1885; J1953; J2404; J2765; Q9967

== ENCOUNTER 2024-10-03 13:33 | Outpatient (AMB) | payer OTHER, SELFPAY ==
[2024-10-03 13:37] VITALS: BP 132/80; PULSE 83; O2SAT 98; BMI 28.2
--- NOTE | 2024-10-03 13:37 | A.OFFPC_ITS ---
Vital Signs 10/03/24 13:37 Height 5 ft 1 in Weight 149 lb BMI 28.2 BP 132/80 Blood Pressure Location Lt brachial Position Sitting Pulse 83 Pulse Source Pulse Oximeter Pulse Oximetry (%) 98 Oxygen Delivery Method Room Air Intake Visit Reasons: [facility] [place] Allergies nifedipine [Procardia] Allergy (Severe, Verified 10/03/24 13:37) Abdominal Pain terbutaline Allergy (Severe, Verified 10/03/24 13:37) Abdominal Pain Medication List - Last Reconciled 10/03/24 by Samantha Toney MD alprazolam 0.25 mg PO DAILY PRN amitriptyline 10 mg PO BEDTIME aspirin (Adult Aspirin Regimen) 81 mg PO DAILY blood pressure monitor (Blood Pressure Kit) As directed citalopram (Celexa) 10 mg PO DAILY clopidogrel (Plavix) 75 mg PO DAILY famotidine 20 mg PO BID hydroxyzine HCl 25 mg PO QID PRN metoprolol succinate ER 50 mg PO BID oxycodone 5 mg PO QID PRN Tobacco use date assessed: 02/04/24 Dental Screening Dental Screen Date: 02/04/24 HPI [facility] [place] HPI Details 39 year old with a history of hypertensi on recurrent major depression generalized anxiety disorder coming in for follow-up. Last seen in May 2024 there was concern about liver mass. Review of the notes received a test results for transcranial Doppler in September for showing no vasospasm based on the vasospasm criteria. Patient had an ER visit in September 10 for headaches review of the notes in 09/10/[address] angio head demonstrates no acute intracranial hemorrhage or infarct, there is a question of 5 mm saccular aneurysm arising from the distal left M1 and directed anteriorly and superiorly. No large vessel occlusion neck demonstrates no hemodynamically sig ? stend nificant stenosis.. Patient also had an MRI of the abdomen due to hepatomegaly showing mild hepatomegaly,, markedly hyper enhancing observation the posterior subcapsular right hepatic lobe segment 7 representing question of hepatic adenoma or focal nodular hyperplasia. Patient was advised follow-up in 3-6 months status post cholecystectomy. Patient states had a procedure done going throught he groin and ? L sided weakness. stent placed ?? and now on plavixat they recommend this in in in the notes the Gastroenterology for the liver is other to have a schedule 10/2025 [facility] Medical History Generalized anxiety disorder Surgery, elective Overweight (BMI 25.0-29.9) Foul smelling urine Anemia Sepsis Pre-operative clearance Dysuria Insomnia Annual physical exam Hematuria Complex ovarian cyst History of hydronephrosis Cervical high risk HPV (human papillomavirus) test positive Ectopic of left ovary GERD (gastroesophageal reflux disease) Obesity (BMI 30-39.9) Constipation Hyperbilirubinemia Allergic rhinitis Vitamin D deficiency Hypertension FLORENCIO II (cervical intraepithelial neoplasia II) COVID-19 virus infection Surgical History Ventral hernia (12/27/23) Hx of cholecystectomy Hx of abdominoplasty H/O section Skin tag, acquired History of appendectomy Family History Maternal Grandmother Colon cancer Maternal Grandfather Colon cancer Other Mental health disorder Social History Household Members: Children Housing: House Do you presently have visiting nurse or other home services: No Alcohol intake: current Alcohol intake frequency: holidays/special occasions only Alcohol type: wine Comment: once a month 3 glasses Patient Tobacco Use Status: Never used Tobacco Tobacco use type: Cigarette Years Smoked: 2 e-Cigarette/Vaping Use: Never Used Second Hand Smoke Exposure: No Substance Use Type: Marijuana service: No Current occupational status: employed Cognitive needs: No Hearing needs: No Vision needs: No Questionnaire PHQ-9 Over the last 2 weeks, how often have you been bothered by any of the following problems? Depression Screening Interpretation: Negative Depression Screening Done: Yes Source: Developed by Drs. Thierry Murillo, Rocio Diallo, Masood Cooper and colleagues, with an educational deni from [employer]. Thrive Questionnaire Date Thrive assessed: 10/26/23 MEAGAN-7 AMB Questionnaire MEAGAN-7 Date MEAGAN - 7 assessed: 11/22/23 Source: Developed by Drs. Thierry Murillo, Rocio Diallo, Masood Cooper and colleagues, with an educational deni from [employer]. Physical exam (Primary Care) Vital Signs: Last Vital Signs Pulse 83 10/03/24 13:37 BP 132/80 10/03/24 13:37 Pulse Ox 98 10/03/24 13:37 Oxygen Delivery Method Room Air 10/03/24 13:37 BMI result Body Mass Index 28.2 Tobacco/Smoking Status: Tobacco use Status Tobacco use date assessed 02/04/24 10/03/24 13:51 Patient Tobacco Use Status Never used Tobacco 10/03/24 13:51 Tobacco use type Cigarette 10/03/24 13:51 e-Cigarette/Vaping Use Never Used 10/03/24 13:51 Depression Screening Interpretation: Negative Thrive Assessment: Date of Thrive Assessment Date Thrive assessed 10/26/23 10/03/24 13:51 Const General: alert; No acute distress Eyes Conjunctivae: conjunctivae normal Resp Auscultation: clear to auscultation bilaterally Cardio Rate: regular rate Rhythm: regular rhythm GI Inspection: Yes normal to inspection Extrem General: Yes normal to inspection and No edema Coding Level of Care Code Est Pt Level 4 (73078) Diagnoses Liver mass R16.0 Brain aneurysm I67.1 Primary hypertension I10 Hypertension type: primary hypertension Moderate episode of recurrent major depressive disorder F33.1 Active/Remission status: currently active Major depression episode severity: moderate Assessment & Plan Assessment & Plan (1) Liver mass: Comment: Ultrasound done May 2024. A 3.1 cm right lower hepatic echogenic mass was not appreciated on CT abdomen and pelvis of 04/22/2024. MRI with intravenous contrast recommended for further characterization. 2. Gallbladder surgically absent. Code(s): R16.0 - Hepatomegaly, not elsewhere classified Category: Medical Plan: patient will be seeing the collating machine operator in October 13 (2) Brain aneurysm: Comment: AugustT head demonstrates no acute intracranial hemorrhage or infarct. CTA head demonstrates a 5 mm saccular aneurysm arising from the distal left M1 and directed anteriorly and superiorly. No large vessel occlusion. CTA neck demonstrates no hemodynamically significant stenosis, dissection, or aneurysm. Code(s): I67.1 - Cerebral aneurysm, nonruptured Category: Medical Plan: Patient was seen in the ER and was transferred to [facility]. Status post procedure and notes are being acquired. Patient sent home on Plavix question of a stent placement. (3) Hypertension: Code(s): I10 - Essential (primary) hypertension Category: Medical Qualifiers: Hypertension type: primary hypertension Qualified Code(s): I10 - Essential (primary) hypertension Plan: Patient is on metoprolol 50 mg twice a day presently the blood pressure remains to be elevated and so will increase metoprolol to 75 mg twice a day. Patient has not been sleeping well, will increase amitriptyline to 25 mg at bedtime. Discontinued Seroquel (4) Recurrent major depression: Comment: School street Q 3 week (04/2022) Code(s): F33.9 - Major depressive disorder, recurrent, unspecified Category: Medical Qualifiers: Active/Remission status: currently active Major depression episode severity: moderate Qualified Code(s): F33.1 - Major depressive disorder, recurrent, moderate Plan: Continue with counseling and therapy Medications: New metoprolol tartrate 75 mg PO BID 60 tabs 2RF I10 - Essential (primary) hypertension amitriptyline 25 mg PO BEDTIME 30 tabs 0RF F41.1 - Generalized anxiety disorder
== END 2024-10-03 14:17 | disposition home or self-care (01) ==
PROVIDERS: PCP Internal Medicine; Visit Provider Internal Medicine
DX: R16.0 Hepatomegaly, not elsewhere classified (principal); I67.1 Cerebral aneurysm, nonruptured; I10 Essential (primary) hypertension; F33.1 Major depressive disorder, recurrent, moderate

== ENCOUNTER → 2024-10-03 13:33 | Outpatient (BNVA) | payer OTHER, SELFPAY | PROVIDERS: PCP Internal Medicine; Visit Provider Internal Medicine | DX: R16.0 Hepatomegaly, not elsewhere classified (principal); I67.1 Cerebral aneurysm, nonruptured; I10 Essential (primary) hypertension; F33.1 Major depressive disorder, recurrent, moderate | CPT/HCPCS: 99212 ==

== ENCOUNTER 2024-10-13 09:33 | Outpatient (AMB) | payer OTHER, SELFPAY ==
--- NOTE | 2024-10-13 09:38 | A.OFFVIS_ITS ---
Vital Signs 10/13/24 09:41 Height 5 ft 1 in Weight 149 lb 14.629 oz BMI 28.3 BP 135/87 Blood Pressure Location Lt brachial Position Sitting Pulse 84 Intake Visit Reasons: Acute Adbnomial pain/liver mass Intake Note: Angelica presents in the office as a new patient for acute abdominal pains and a liver mass. CC: She states that she was diagnosed with a liver mass - pains in the stomach all the time. Epigastric region is where the pain is and she states it is swollen. No irregular bowel movements. Lead Informatic[employer] Developer Required: No Allergies nifedipine [Procardia] Allergy (Severe, Verified 10/03/24 13:37) Abdominal Pain terbutaline Allergy (Severe, Verified 10/03/24 13:37) Abdominal Pain HPI HPI Acute Adbnomial pain/liver mass: Details: HPI 39 yr old f w/ hx of cholecystectomy 2022 being seen for liver lesion She had imaging done for abdominal distention and bloating revealing 3 cm lesion in the liver she eventuall yhad an MRI which confirmed a possible hepatic adenoma vs FNH, 3 cm she has issues with bloating for 8 months mostly on the left side she has occasional constipation, but most of the time it is soft no blood in the stool she goes daily for the stool she has never had colonoscopy she has reflux symptom, takes pepcid prn she has right arm weakness for long time ROS: Constitutional : No Weight loss, No Fever, No Chills ENT/Mouth : No sore throat, No Rhinorrhea Eyes: No Swelling, No Redness Cardiovascular : No Chest Pain, No SOB, No Edema Respiratory : No Cough, No Sputum, No Wheezing Gastrointestinal : see HPI Genitourinary : NO Dysuria, No Urinary Frequency, No Hematuria, No Urgency Musculoskeletal : No joint pain, No Myalgias, No Joint Swelling Skin : No Skin Lesions, No rash Neuro : + Weakness, No Numbness, No Dizziness, No Headache Psych : No Anxiety/Panic, No Depression Heme/Lymph: No Bruising, No Lymphadenopathy Endocrine : No Polyuria, No Polydipsia All other systems reviewed and are negative. Medical History HTN FLORENCIO depression and anxiety Surgical History cholecystectomy brain anuerysm surgery hernia repair c section liposuction Family History both maternal grandparents had colon cancer Social History she smokes THC, occ social alcohol no tobacco EXAM: GENERAL: The patient is well developed and nontoxic. VITAL SIGNS:see workflow HEENT: Nonicteric sclerae, PERRLA, EOMI. Oropharynx clear. Moist mucous membranes. Conjunctivae appear well perfused. No thyroid mass. CHEST: Chest wall is nontender. HEART: Regular rate and rhythm without murmurs. LUNGS: Clear to auscultation bilaterally. ABDOMEN: Soft, positive bowel sounds, tender epigastrium and left side abdo, no organomegaly.no flank tenderness--scars noted on abdomen SKIN: No rash, no excessive bruising, petechiae, or purpura. NEUROLOGIC: Cranial nerves II-XII intact without motor/sensory deficit. Psych: normal affect A/P: 1/ Liver lesion with hx of brain aneurysm to my read looks more like FNA but adenoma is on differential -not on OCP 2/ Bloating and abdominal pain, possible due to SIBO and prior procedures PLAN; 1/ repeat MRI with eovist--if adenoma then options are to cont to monitor if still <5 cm or refer for surgical eval if >5 cm 2/ trial of rifaximin 3/ h pylori breath test 4/ EGD and colonoscopy for assessment of sx and due to fh of CRC in grandparents--suprep 5/ check GC and other labs, urine PFSH Medical History Generalized anxiety disorder Surgery, elective Overweight (BMI 25.0-29.9) Foul smelling urine Anemia Sepsis Pre-operative clearance Dysuria Insomnia Annual physical exam Hematuria Complex ovarian cyst History of hydronephrosis Cervical high risk HPV (human papillomavirus) test positive Ectopic of left ovary GERD (gastroesophageal reflux disease) Obesity (BMI 30-39.9) Constipation Hyperbilirubinemia Allergic rhinitis Vitamin D deficiency Hypertension FLORENCIO II (cervical intraepithelial neoplasia II) COVID-19 virus infection Surgical History Ventral hernia (12/27/23) Hx of cholecystectomy Hx of abdominoplasty H/O section Skin tag, acquired History of appendectomy Family History Maternal Grandmother Colon cancer Maternal Grandfather Colon cancer Other Mental health disorder Social History Household Members: Children Housing: House Do you presently have visiting nurse or other home services: No Alcohol intake: current Alcohol intake frequency: holidays/special occasions only Alcohol type: wine Comment: once a month 3 glasses Patient Tobacco Use Status: Never used Tobacco Tobacco use type: Cigarette Years Smoked: 2 e-Cigarette/Vaping Use: Never Used Second Hand Smoke Exposure: No Substance Use Type: Marijuana service: No Current occupational status: employed Cognitive needs: No Hearing needs: No Vision needs: No Physical Exam Vital Signs: Last Vital Signs Pulse 84 10/13/24 09:41 BP 135/87 10/13/24 09:41 BMI result Body Mass Index 28.3 Assessment & Plan Assessment & Plan (1) Liver lesion, right lobe: Code(s): K76.9 - Liver disease, unspecified Category: Medical Plan: see above (2) Abdominal pain: Code(s): R10.9 - Unspecified abdominal pain Category: Medical Plan: see above Orders: Orders MR abdomen wo/w con Today K76.9 - Liver disease, unspecified CT NG by PCR Today K76.9 - Liver disease, unspecified, R10.9 - Unspecified abdominal pain C Reactive Protein Today K76.9 - Liver disease, unspecified, R10.9 - Unspecified abdominal pain Complete Blood Count Auto Diff Today K76.9 - Liver disease, unspecified, R10.9 - Unspecified abdominal pain Transglutaminase Ab IgG Today G89.29 - Other chronic pain, K76.9 - Liver disease, unspecified, R10.33 - Periumbilical pain, R10.9 - Unspecified abdominal pain H Pylori Breath Test Today K76.9 - Liver disease, unspecified, R10.9 - Unspecified abdominal pain TSH reflex Free T4 Today K76.9 - Liver disease, unspecified, R10.9 - Unspecified abdominal pain Comprehensive Met. Panel Today K75.81 - Nonalcoholic steatohepatitis (BRADEN), K76.9 - Liver disease, unspecified, R10.9 - Unspecified abdominal pain Medications: New rifaximin 550 mg PO TID 2 weeks 42 tabs 0RF Coding Level of Care Code New Pt Level 4 (90277) Diagnoses Liver lesion, right lobe K76.9 Abdominal pain R10.9
[2024-10-13 09:41] VITALS: BP 135/87; PULSE 84; BMI 28.3
== END 2024-10-13 10:42 | disposition home or self-care (01) ==
PROVIDERS: PCP Internal Medicine; Visit Provider Internal Medicine Gastroenterology
DX: K76.9 Liver disease, unspecified (principal); R10.9 Unspecified abdominal pain
CPT/HCPCS: 99204

== ENCOUNTER 2024-10-13 09:33 | Outpatient (REF) | payer OTHER, SELFPAY ==
[2024-10-14 15:01] LABS: H Pylori Breath Test Positive (Negative)
== END 2024-10-13 09:34 | disposition home or self-care (01) ==
LOC: HO.LAB 09:33
PROVIDERS: PCP Internal Medicine; Visit Provider Internal Medicine Gastroenterology
DX: K76.9 Liver disease, unspecified (principal); R10.9 Unspecified abdominal pain; G89.29 Other chronic pain; K75.81 Nonalcoholic steatohepatitis (NASH)
CPT/HCPCS: 83013; 99202

== ENCOUNTER 2024-12-04 09:09 | Outpatient (REF) | payer OTHER, SELFPAY ==
--- NOTE | ~2024-12-04 | MR_ITS ---
CLINICAL HISTORY: K76.9 - Liver disease, unspecified MR abdomen with and without gadolinium Comparison: MR/KS/SR - MR ABDOMEN WO/W CON - 07/08/24 08:[address]/KS - CT ABDOMEN PELVIS W IV CON - 06/13/24 10:27 EDT Findings: There is a 3.4 x 3.4 x 3.3 cm nodule within segment 7 of the liver, unchanged in size by my measurements. Lesion is T2 hyperintense, portions are T1 hypointense and portions are T1 isointense, demonstrates diffuse enhancement with areas of delayed enhancement noted, unchanged since the prior study. No fat component. The T1 hypointense portion of the lesion demonstrates persistent enhancement on delayed images and may represent a scar. A tiny cyst is also incidentally noted within the anterior segment of the liver. Normal liver size. No fatty infiltration. Unremarkable spleen, pancreas, adrenal glands and kidneys. Prior cholecystectomy. No biliary dilatation. No free fluid or lymphadenopathy. Unremarkable visualized bowel. No ascites. No suspicious bone lesion. IMPRESSION: 3.4 cm nodule within segment 7 of the liver, without change. A benign lesion is favored. This may represent focal nodular hyperplasia or an adenoma as previously reported. Neoplasm is not completely excluded, however this is felt to be much less likely. This document has been electronically signed by: Latonia Meade MD on 12/05/2024 14:35:07
[2024-12-04] MEDS: gadobutroL 7.5 ML VIAL IVPUSH (10:15)
== END 2024-12-04 09:10 | disposition home or self-care (01) ==
LOC: HO.MRI 09:09
PROVIDERS: PCP Internal Medicine; Visit Provider Internal Medicine Gastroenterology
DX: K76.9 Liver disease, unspecified (principal)
CPT/HCPCS: 74183; A9585

== ENCOUNTER 2025-01-08 07:10 | Day surgery (SDC) | payer OTHER, SELFPAY ==
--- OUTSIDE RECORDS SUMMARY | 2025-01-01 14:34 | XMS_ITS | Clinical Summary ---
Author Organization [facility] Address [address] [place] [address] Care Team Providers Care Supervisor Shipping Room Name Role Phone Monica Brice [facility] Primary Care Provider [phone] Allergies Active Allergy Reactions Criticality Noted Date Comments Nifedipine Unknown/Patient and Family Unable to Define Medium 03/20/2022 Terbutaline Unknown/Patient and Family Unable to Define Medium 03/20/2022 Medications Medication Sig Dispensed Refills Start Date End Date Status cephalexin (KEFLEX) 500 MG capsuleIndications:P ostoperative pain Take 1 capsule (500 mg total) by mouth 4 (four) times a day. 16 capsule 03/21/2022 Active traMADol (ULTRAM) 50 MG tabletIndications:Po stoperative pain Take 1 tablet (50 mg total) by mouth 3 times daily (every 8 hours) as needed for moderate pain or severe pain. 9 tablet 03/21/2022 Active ferrous sulfate 325 (65 FE) MG tabletIndications:An emia due to acute blood loss Take 1 tablet (325 mg total) by mouth 2 (two) times a day. Take 2 hours before or 4 hours after acid reducers. 60 tablet 03/21/2022 Active senna-docusate (SENNA-S) 8.6-50 MGIndications:Anemia due to acute blood loss Take 1 tablet by mouth daily. 30 tablet 03/21/2022 Active Active Problems Problem Noted Date Diagnosed Date Anemia 03/20/2022 Family History Medical History Relation Name Comments Diabetes Mother Hypertension Mother Relation Name Status Comments Mother Social History Tobacco Use Types Packs/Day Years Used Date Smoking Tobacco: Former Cigarettes Smokeless Tobacco: Never Alcohol Use Standard Drinks/Week Comments Yes 0 (1 standard drink = 0.6 oz pur e alcohol) social Sex and Gender Information Value Date Recorded Sex Assigned at Not on file Gender Identity Not on file Sexual Orientation Not on file Last Filed Vital Signs Vital Sign Reading Time Taken Comments Blood Pressure 123/81 03/21/2022 7:00 AM EDT Pulse 101 03/21/2022 7:00 AM EDT Temperature 37.4 ??C (99.3 ??F) 03/21/2022 7:00 AM ED T Respiratory Rate 19 03/21/2022 7:00 AM EDT Oxygen Saturation 96% 03/21/2022 7:00 AM EDT Inhaled Oxygen Concentration - - Weight 69.4 kg (153 lb) 03/20/2022 7:00 AM EDT Height 154.9 cm (5' 1 ) 03/20/2022 7:00 AM EDT Body Mass Index 28.91 03/20/2022 7:00 AM EDT Plan of Treatment Health Maintenance Due Date Last Done Comments Hepatitis C Virus Screening 1985 HIV Screening 1998 DTaP/Tdap/Td Vaccines (1 - Tdap) 2004 Hepatitis B Vaccines (1 of 3 - 19+ 3-dose series) 2004 Pap Smear (Ages 21-65) 2006 Influenza Vaccine 06/12/2024 COVID-19 Vaccine ( - 2023-2 5 season) 2024 HPV Vaccines Aged Out No longer eligi ble based on patient's age to complete this topic Pneumococcal Vaccine: Pediat sofia (0-5 Years) and At-Risk Patients (6 to 49 Years) Aged Out No longer eligible b ased on patient's age to complete this topic Advance Directives * Full Code (Latest Code Status on File) Date Activated Date Inactivated Comments 03/20/2022 5:19 AM Care Teams Supervisor Shipping Room Relationship Specialty Start Date End Date Monica Brice FNP [address] [place] [id number] PCP - General Family Medicine 03/20/22
--- NOTE | 2025-01-07 09:53 | P.CONAN_ITS ---
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 Last neuroendo visit 11/2024, stable with continue plavix/asa for 6 months. PMFSH Active Problems Active Problems: All Active Problems Liver lesion, right lobe (Acute) Brain aneurysm (Acute) Generalized anxiety disorder (Acute) Pneumonia (Acute) Liver mass (Acute) Hematuria (Acute) Breast pain, right (Acute) Status post repair of ventral hernia (Acute) Ventral hernia (Acute 12/27/23) Umbilical hernia (Acute) Bile salt-induced diarrhea (Acute) S/P laparoscopic cholecystectomy (Acute) Recurrent biliary colic (Acute) Cholelithiasis (Acute) Fatty liver (Acute) Abdominal bloating (Acute) Obesity (BMI 30.0-34.9) (Acute) Preop exam for internal medicine (Acute) Hypertension (Acute) History of abdominoplasty (Acute) Recurrent UTI (Acute) Insomnia (Acute) UTI (urinary tract infection) (Acute) Skin tag (Acute) Recurrent major depression (Acute) Breast mass, right (Acute) Annual physical exam (Acute) FLORENCIO II (cervical intraepithelial neoplasia II) (Acute) GERD (gastroesophageal reflux disease) (Acute) Past Medical History Medical History (Updated 01/08/25 @ 07:38 by Hortensia Mederos RN) Brain aneurysm Surgery, elective Overweight (BMI 25.0-29.9) Foul smelling urine Anemia Sepsis Pre-operative clearance Dysuria Insomnia Annual physical exam Hematuria Complex ovarian cyst History of hydronephrosis Cervical high risk HPV (human papillomavirus) test positive Ectopic of left ovary GERD (gastroesophageal reflux disease) Obesity (BMI 30-39.9) Generalized anxiety disorder Constipation Hyperbilirubinemia Allergic rhinitis Vitamin D deficiency Hypertension FLORENCIO II (cervical intraepithelial neoplasia II) COVID-19 virus infection Family History Family History Maternal Grandmother Colon cancer Maternal Grandfather Colon cancer Other Mental health disorder Family history of problems with anesthesia: No Surgical History Surgical History (Updated 01/08/25 @ 07:38 by Hortensia Mederos RN) Hx of brain surgery Hx of cholecystectomy Hx of abdominoplasty Ventral hernia (12/27/23) H/O section Skin tag, acquired History of appendectomy History of Problems with Anesthesia: No Social History Social History Household Members: Children Housing: House Are you a primary long term acute care registered nurse to a significant other at home: No Do you presently have visiting nurse or other home services: No Alcohol intake: current Alcohol intake frequency: holidays/special occasions only Alcohol type: wine Comment: once a month 3 glasses Patient Tobacco Use Status: Former Tobacco user Tobacco use type: Cigarette Years Smoked: 2 e-Cigarette/Vaping Use: Never Used Second Hand Smoke Exposure: No Substance Use Type: Marijuana service: No Current occupational status: employed Cognitive needs: No Hearing needs: No Vision needs: No Meds Allergies Allergy/AdvReac Type Severity Reaction Status Date / Time nifedipine [Procardia] Allergy Severe Abdominal Verified 01/08/25 07:38 Pain terbutaline Allergy Severe Abdominal Verified 01/08/25 07:38 Pain Home Medications ?Medication ?Instructions ?Recorded ?Confirmed ?Last Taken ?Type aspirin 81 mg tablet,delayed 81 mg PO DAILY 10/03/24 01/08/25 01/02/25 History release (Adult Aspirin Regimen) clopidogrel 75 mg tablet (Plavix) 75 mg PO DAILY 10/03/24 01/08/25 01/02/25 History famotidine 20 mg tablet 20 mg PO BID 10/03/24 01/08/25 Unknown History hydroxyzine HCl 25 mg tablet 25 mg PO QID PRN Anxiety 10/03/24 01/08/25 Unknown History Exam Pertinent Lab Results Pertinent Lab Results: Laboratory Tests 09/10/24 11:14 WBC 6.9 Hgb 14.7 Hct 44.3 Plt Count 146 L D Sodium 138 Potassium 3.7 Chloride 106 Carbon Dioxide 24 BUN 11 Creatinine 0.91 Assessment and Plan Assessment Anesthesia Assessment: Chart Reviewed Final Anesthetic Review Family History of Problems with Anesthesia: No History of Problems with Anesthesia: No Documented by User: Osiel Aguilar MD 01/08/25 09:15 PMFSH Active Problems Active Problems: uAll Active Problems Liver lesion, right lobe (Acute) Brain aneurysm (Acute) Generalized anxiety disorder (Acute) Pneumonia (Acute) Liver mass (Acute) Hematuria (Acute) Breast pain, right (Acute) Status post repair of ventral hernia (Acute) Ventral hernia (Acute 12/27/23) Umbilical hernia (Acute) Bile salt-induced diarrhea (Acute) S/P laparoscopic cholecystectomy (Acute) Recurrent biliary colic (Acute) Cholelithiasis (Acute) Fatty liver (Acute) Abdominal bloating (Acute) Obesity (BMI 30.0-34.9) (Acute) Preop exam for internal medicine (Acute) Hypertension (Acute) History of abdominoplasty (Acute) Recurrent UTI (Acute) Insomnia (Acute) UTI (urinary tract infection) (Acute) Skin tag (Acute) Recurrent major depression (Acute) Breast mass, right (Acute) Annual physical exam (Acute) FLORENCIO II (cervical intraepithelial neoplasia II) (Acute) GERD (gastroesophageal reflux disease) (Acute) Past Medical History Medical History (Updated 01/08/25 @ 07:38 by Hortensia Mederos RN) Brain aneurysm Surgery, elective Overweight (BMI 25.0-29.9) Foul smelling urine Anemia Sepsis Pre-operative clearance Dysuria Insomnia Annual physical exam Hematuria Complex ovarian cyst History of hydronephrosis Cervical high risk HPV (human papillomavirus) test positive Ectopic of left ovary GERD (gastroesophageal reflux disease) Obesity (BMI 30-39.9) Generalized anxiety disorder Constipation Hyperbilirubinemia Allergic rhinitis Vitamin D deficiency Hypertension FLORENCIO II (cervical intraepithelial neoplasia II) COVID-19 virus infection Patient : No Family History Family History Maternal Grandmother Colon cancer Maternal Grandfather Colon cancer Other Mental health disorder Surgical History Surgical History (Updated 01/08/25 @ 07:38 by Hortensia Mederos RN) Hx of brain surgery Hx of cholecystectomy Hx of abdominoplasty Ventral hernia (12/27/23) H/O section Skin tag, acquired History of appendectomy Social History Social History Household Members: Children Housing: House Are you a primary long term acute care registered nurse to a significant other at home: No Do you presently have visiting nurse or other home services: No Alcohol intake: current Alcohol intake frequency: holidays/special occasions only Alcohol type: wine Comment: once a month 3 glasses Patient Tobacco Use Status: Former Tobacco user Tobacco use type: Cigarette Years Smoked: 2 e-Cigarette/Vaping Use: Never Used Second Hand Smoke Exposure: No Substance Use Type: Marijuana service: No Current occupational status: employed Cognitive needs: No Hearing needs: No Vision needs: No Meds Allergies Allergy/AdvReac Type Severity Reaction Status Date / Time nifedipine [Procardia] Allergy Severe Abdominal Verified 01/08/25 07:38 Pain terbutaline Allergy Severe Abdominal Verified 01/08/25 07:38 Pain Home Medications ?Medication ?Instructions ?Recorded ?Confirmed ?Last Taken ?Type aspirin 81 mg tablet,delayed 81 mg PO DAILY 10/03/24 01/08/25 01/02/25 History release (Adult Aspirin Regimen) clopidogrel 75 mg tablet (Plavix) 75 mg PO DAILY 10/03/24 01/08/25 01/02/25 History famotidine 20 mg tablet 20 mg PO BID 10/03/24 01/08/25 Unknown History hydroxyzine HCl 25 mg tablet 25 mg PO QID PRN Anxiety 10/03/24 01/08/25 Unknown History Assessment and Plan Final Anesthetic Review NPO: Yes ASA Class: III Final Preanesthetic Review: No Changes in Pt Med Stat, Meds/Allgs Chart Reviewed, Consent Obtained/Reviewed and Anes Risks/Benef Reviewed Patient Risk: Intermediate Procedure Risk: Intermediate Anesthetic Plan Anesthetic Plan: Agree w/ Assess. and Plan and TIVA Disposition: Standard PACU
[2025-01-08 07:14] VITALS: BMI 28.0
[2025-01-08 07:31] LABS: UPreg QC Valid YES; Urine Pregnancy NEGATIVE (NEGATIVE)
[2025-01-08] MEDS: Lactated Ringers 1,000 ML 100 ML IVCONT (07:31)
[2025-01-08 07:37] VITALS: BP 140/100; PULSE 74; RESP 18; TEMP 36.7; O2SAT 97
[2025-01-08 07:59] VITALS: BP 138/85
--- NOTE | 2025-01-08 08:29 | P.HPSUR_ITS ---
Pre-Procedural Eval Section A - 24 Hr Update-Section A only Date of Service: 01/08/25 Section B - Complete if H&P > 30 days Chief Complaint: Abdominal distension (gaseous) Relevant Family History (Specify if Yes): No Relevant Social History: None Present Medications: see Short Stay Collaborative assessment Medical History: Significant History (Generalized anxiety disorder Surgery, elective Overweight (BMI 25.0-29.9) Foul smelling urine Anemia Sepsis Pre- operative clearance Dysuria Insomnia Annual physical exam Hematuria Complex ovarian cyst History of hydronephrosis Cervical high risk HPV (human pa pillomavirus) test positive Ectopic pregn) History of Previous Operations: Relevant previous surgery/procedure and date(s) (Ventral hernia (12/27/23) Hx of cholecystectomy Hx of abdominoplasty H/O section Skin tag, acquired History of appendectomy) Allergies: Allergies Allergy/AdvReac Type Severity Reaction Status Date / Time nifedipine [Procardia] Allergy Severe Abdominal Verified 01/08/25 07:38 Pain terbutaline Allergy Severe Abdominal Verified 01/08/25 07:38 Pain Review of Systems Sugical H&P ROS: Negative: Constitution, Cardiovascular, Respiratory, Neurological, Psychiatric, Hem-Onc, Allergic/Immunologic, Gastrointestinal, Genitourinary, Musculoskeletal, Integumentary, Endocrine and Eyes/Ears/Nose/Throat Exam Surgical H&P Exam: Normal: HEENT, Normal: Heart, Normal: Lungs, Normal: Extremities, Normal: Abdomen, Normal: Skin and Normal: Neurological Plan Diagnosis/Plan: Unchanged I have reviewed the history and physical and performed a pertinent physical examination on my patient. No changes have occurred unless specified. Time Spent With Patient Time: Total time managing care of this patient today ____ minutes.
--- NOTE | 2025-01-08 09:06 | P.OPN-COLO_ITS ---
Colonoscopy Operative Note Operative Note Date of Service: 01/08/25 Narrative: Operative Information Procedure Description: EGD, Colonoscopy Indication: abdominal discomfort Anesthesia: MAC FLEXIBLE TRANSORAL UPPER GASTROINTESTINAL ENDOSCOPY AND COLONOSCOPY PROCEDURE NOTE UPPER ENDOSCOPY Consent: Indications for the procedure and potential complications of bleeding, perforation, reaction to medications and missed diagnosis were discussed with the patient and informed consent was obtained. Instrument: Olympus GIF H 190 J mid size upper endoscope Monitoring: Vital signs and clinical assessment, continuous EKG monitoring, Pulse oximetry, Carbon Dioxide monitoring and blood pressure monitoring were done throughout the procedure. Procedure: The patient was placed in the left lateral decubitis position and pre-procedure medications were administered and a bite block was placed. The endoscope was inserted into the mouth and advanced under direct vision to the third part of duodenum. A careful inspection was made as the upper endoscope was withdrawn including a retroflexed examination of the proximal stomach; Findings and interventions are described below. Findings: Larynx:normal Esophagus: GE junction at 37 cm, diaphragm hiatus at 37 cm, mild esophagitis, distal esophagus bx taken Stomach: Patchy erythema and edema. Biopsies were obtained. Grade 2 flap valve on retroflexed examination of the cardia. Duodenum: Normal bulb and descending duodenum, bx taken Intervention: Biopsies as noted above, COLONOSCOPY Instrument: Olympus variable stiffness pediatric scope 190L Colonoscopy Monitoring: Vital signs and clinical assessment, continuous EKG monitoring, Pulse oximetry, Carbon Dioxide monitoring and blood pressure monitoring were done throughout the procedure. Colon withdrawal time was 7 minutes. Procedure: The patient was placed in the left lateral decubitis position and pre-procedure medications were administered. After a digital rectal examination of the ano-rectum, the video colonoscope was inserted into the rectum and advanced through the colon to the cecum/TI. The colonoscope was slowly withdrawn in a retrograde panoramic fashion and the colon mucosa was carefully examined including a retroflexed view of the rectum. Findings and interventions are described below. Procedure Difficulty: easy Findings: Terminal Ileum-normal, random bx taken random colon bx taken from right and left colon Cecum:normal Ascending Colon: normal Transverse Colon -normal Descending Colon:normal Sigmoid Colon: normal Rectum: Retroflexion with small internal hemorrhoids, grade I Anorectum - normal Colon preparation: [place] Bowel Preparation Scale Right colon; 2 Transverse colon: 2 Left colon; 2 (0 = Unprepared colon segment with mucosa not seen due to solid stool that cannot be cleared. 1 = Portion of mucosa of the colon segment seen, but other areas of the colon segment not well seen due to staining, residual stool and/or opaque liquid. 2 = Minor amount of residual staining, small fragments of stool and/or opaque liquid, but mucosa of colon segment seen well. 3 = Entire mucosa of colon segment seen well with no residual staining, small fragments of stool or opaque liquid) Impression and Post Procedure Diagnosis: Endoscopy Findings: mild esophagitis gastritis Colonoscopy Findings: internal hemorrhoids Plan: Await Pathology results Repeat Colonoscopy aged 45 or earlier if clinically indicated High fiber diet leaflet avoid straining at stool, epsom salts and sitz bath, anusol supps or cream if H pylori pos then re treat Above findings were reviewed with the patient and relevant handouts were provided if indicated.
[2025-01-08 09:13] VITALS: BP 101/62; PULSE 65; RESP 16; TEMP 36.4; O2SAT 97
[2025-01-08 09:28] VITALS: BP 135/87; PULSE 59; RESP 20; TEMP 36.4; O2SAT 100
[2025-01-19 02:24] LABS: Lactase 5.1 (15.0-45.5); Maltase 143.9 (100.0-224.4); Palatinase 12.8 (5.0-26.3); Sucrase 37.8 (25.0-69.9)
== END 2025-01-08 09:55 | disposition home or self-care (01) ==
PROVIDERS: Nurse Practitioner; PCP Internal Medicine; Visit Provider Internal Medicine Gastroenterology
PROC: (CPT 45380; principal; 2025-01-08 08:20)
DX: K64.0 First degree hemorrhoids (principal); R19.4 Change in bowel habit; K21.00 Gastro-esophageal reflux disease with esophagitis, without bleeding; K29.60 Other gastritis without bleeding; B96.81 Helicobacter pylori [H. pylori] as the cause of diseases classified elsewhere; R10.84 Generalized abdominal pain; K76.9 Liver disease, unspecified; K75.81 Nonalcoholic steatohepatitis (NASH); I10 Essential (primary) hypertension; I67.1 Cerebral aneurysm, nonruptured; F12.90 Cannabis use, unspecified, uncomplicated; Z90.49 Acquired absence of other specified parts of digestive tract; Z87.891 Personal history of nicotine dependence; Z79.82 Long term (current) use of aspirin; Z79.899 Other long term (current) drug therapy
CPT/HCPCS: 45380; 43239; 36415; 81025; 82657; 88305; 88313; 88342; J2003; J2704; J3010

== ENCOUNTER → 2025-01-08 07:10 | Outpatient (BNV) | payer OTHER, SELFPAY | PROVIDERS: PCP Internal Medicine; Visit Provider Internal Medicine Gastroenterology | DX: R10.84 Generalized abdominal pain (principal); K20.90 Esophagitis, unspecified without bleeding; K29.70 Gastritis, unspecified, without bleeding; K64.0 First degree hemorrhoids | CPT/HCPCS: 43239; 45380 ==

== ENCOUNTER 2025-01-17 15:20 | Emergency (ER) | payer OTHER, SELFPAY ==
--- NOTE | ~2025-01-17 | CT_ITS ---
CLINICAL HISTORY: Stroke Protocol - L facial numbness hx aneurysm CT head without contrast Comparison: CT/SR - CT ANGIO HEAD NECK - 09/10/24 13:[address] - CT ANGIO HEAD NECK - 09/10/24 13:26 EDT Findings: No acute hemorrhage. No extra-axial fluid collection. No hydrocephalus, mass-effect or herniation. Henry-white differentiation is maintained. White matter is within normal limits for age. Left MCA aneurysm repair, new since the prior study. No acute orbital pathology. No acute soft tissue abnormality. No fracture. The visualized paranasal sinuses are predominantly clear. The mastoid air cells are clear. Impression: No acute findings. This document has been electronically signed by: Lora Weiss MD on 01/17/2025 15:57:29
--- NOTE | ~2025-01-17 | CT_ITS ---
CLINICAL HISTORY: Stroke Protocol - L facial numbness hx aneurysm CTA of the head and neck with 3-D postprocessing Comparison: CT - CT HEAD FOR STROKE - 01/17/25 15:37 EST MR - MR ABDOMEN WO/W CON - 12/04/24 09:[address]/SR - CT ANGIO HEAD NECK - 09/10/24 13:[address] - CT ANGIO HEAD NECK - 09/10/24 13:26 EDT Findings: No significant carotid artery stenosis. Intact vertebral arteries. The vertebral basilar system is patent. The cerebellar and posterior cerebral arteries are intact. The intracranial internal carotid arteries are patent. The middle/anterior cerebral arteries are intact. Interval repair of the previously seen saccular aneurysm at the distal M1 segment of the left middle cerebral artery. There is also postsurgical change at the left ICA terminus/proximal M1 segment. No aneurysm, abrupt cutoffs or significant stenosis. No mass, midline shift, hydrocephalus, acute hemorrhage or abnormal contrast enhancement. The lung apices are clear. The soft tissues of the head and neck are unremarkable. Impression: No aneurysm, abrupt cutoffs or significant stenosis. Interval repair of the previously seen left MCA aneurysm. This document has been electronically signed by: Lora Weiss MD on 01/17/2025 16:46:06
[2025-01-17 15:22] VITALS: BP 172/105; PULSE 86; RESP 18; TEMP 36.9; O2SAT 98; BMI 23.7
--- NOTE | 2025-01-17 15:27 | ED.GENADULT ---
HPI - General Adult General Chief complaint: Neuro Symptoms/Deficit Stated complaint: stroke symptoms/left side of face feels numb Time Seen by Provider: 01/17/25 16:08 Source: patient and family (Sister) Mode of arrival: ambulatory Limitations: no limitations History of Present Illness ED Provider: Dr. 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 The patient states that yesterday at around 12 noon, she developed sudden onset midsternal chest pain. She describes the pain as a constant, squeezing/pressure-like pain which is 7/10 at its worst. The pain did radiate to her right shoulder. She states she did feel short of breath and was diaphoresis with the pain. She states the pain has been constant and wasstill present at the time that I evaluated her in the emergency department. She states that the pain is now a tightness which is 7/10, no change with breathing. She complained of mild shortness of breath but no dyspnea on exertion. Patient did not take any medications for this pain. She states that this morning at 07:30 hours she felt numbness and mild pain in the left side of her face. She also developed a posterior headache which she describes as a throbbing sensation which is 6/10 at its worst. Patient states she was had similar headaches in the past when she was had high blood pressure , therefore she took her metoprolol and states that the pain did not resolve. The patient's sister was concerned that the patient had facial numbness which she had with her previous aneurysm. therefore the sister incurs the patient to come to the emergency department for evaluation. Patient states she gets similar headaches often but has never had a headache with associated numbness. She denied change in her vision. She denied nausea, vomiting, numbness or weakness of her extremities. The patient states she has been under significant stress secondary to her 19-year-old daughter's behavior. When the patient tried to describe these behaviors , the patient became very tearful and was not able to tell me specific details except that her daughter has been mean to her and has been disrespectful. Related Data Home Medications ?Medication ?Instructions ?Recorded ?Confirmed aspirin 81 mg tablet,delayed 81 mg PO DAILY 10/03/24 01/08/25 release (Adult Aspirin Regimen) clopidogrel 75 mg tablet (Plavix) 75 mg PO DAILY 10/03/24 01/08/25 famotidine 20 mg tablet 20 mg PO BID 10/03/24 01/08/25 hydroxyzine HCl 25 mg tablet 25 mg PO QID PRN Anxiety 10/03/24 01/08/25 Previous Rx's ?Medication ?Instructions ?Recorded blood pressure monitor (Blood #1 ea 11/23/22 Pressure Kit) citalopram 10 mg tablet (Celexa) 10 mg PO DAILY #90 tabs 09/14/23 alprazolam 0.25 mg tablet 0.25 mg PO DAILY PRN anxiety #20 06/05/24 tabs amitriptyline 25 mg tablet 25 mg PO BEDTIME #30 tabs 10/03/24 rifaximin 550 mg tablet 550 mg PO TID 2 weeks #42 tabs 10/13/24 bismuth subsalicylate 262 mg 2 tab PO QID 14 days #112 tabs 11/06/24 chewable tablet metronidazole 500 mg tablet 500 mg PO TID 14 days #42 tabs 11/06/24 pantoprazole 20 mg tablet,delayed 20 mg PO BID 2 weeks #28 tabs 11/06/24 release metoprolol tartrate 75 mg tablet 75 mg PO BID #180 tabs 01/01/25 siprpta-jwititdtovznu-rudcfyrp 250 2 tab PO Q6H PRN headache #20 tabs 01/17/25 mg-250 mg-65 mg tablet (Excedrin Extra Strength) diphenhydramine HCl 25 mg capsule 50 mg (2 x 25 mg) PO Q6H PRN 01/17/25 headache, nausea, vomiting #20 caps erythromycin 5 mg/gram (0.5 %) eye 0.5 inch ophthalmic (eye) TID 7 01/17/25 ointment days #3.5 grams metoclopramide HCl 10 mg tablet 10 mg PO Q6H PRN nausea and 01/17/25 (Reglan) vomiting #14 tabs Allergies Allergy/AdvReac Type Severity Reaction Status Date / Time nifedipine [Procardia] Allergy Severe Abdominal Verified 01/17/25 15:28 Pain terbutaline Allergy Severe Abdominal Verified 01/17/25 15:28 Pain Review of Systems Review of Systems: Yes all other systems are reviewed and are negative [facility] Past Medical History [facility] Narrative: Social history: She denies tobacco use. She drinks alcohol once a week, this includes 1 or 2 beers and a shot of liquor. She does smoke marijuana daily. Medical History (Updated 01/18/25 @ 00:00 by Elle Datigist) Brain aneurysm Surgery, elective Overweight (BMI 25.0-29.9) Foul smelling urine Anemia Sepsis Pre-operative clearance Dysuria Insomnia Annual physical exam Hematuria Complex ovarian cyst History of hydronephrosis Cervical high risk HPV (human papillomavirus) test positive Ectopic of left ovary GERD (gastroesophageal reflux disease) Obesity (BMI 30-39.9) Generalized anxiety disorder Constipation Hyperbilirubinemia Allergic rhinitis Vitamin D deficiency Hypertension FLORENCIO II (cervical intraepithelial neoplasia II) COVID-19 virus infection Surgical History (Updated 01/08/25 @ 07:38 by Hortensia Mederos RN) Hx of brain surgery Hx of cholecystectomy Hx of abdominoplasty Ventral hernia (12/27/23) H/O section Skin tag, acquired History of appendectomy Family History Family History Maternal Grandmother Colon cancer Maternal Grandfather Colon cancer Other Mental health disorder Social History Social History Household Members: Children Housing: House Are you a primary health care technician to a significant other at home: No Do you presently have visiting nurse or other home services: No Alcohol intake: current Alcohol intake frequency: holidays/special occasions only Alcohol type: wine Comment: once a month 3 glasses Patient Tobacco Use Status: Former Tobacco user Tobacco use type: Cigarette Years Smoked: 2 Smoked in Last 30 Days: No e-Cigarette/Vaping Use: Never Used Second Hand Smoke Exposure: No Use of substances other than those prescribed or required for medical reasons: Yes Substance Use Type: Marijuana Advance Directives: No Advance Directives Information Provided: No service: No Current occupational status: employed Cognitive needs: No Hearing needs: No Vision needs: No Physical Exam ED Vital Signs: Vital Signs - 24 hr 01/17/25 15:22 01/17/25 18:24 01/17/25 19:02 Temperature 98.4 F 99 F 99 F Pulse Rate 86 73 73 Respiratory Rate 18 16 16 Blood Pressure 172/105 H 143/94 H 143/94 H Pulse Oximetry 98 100 100 Oxygen Delivery Method Room Air Room Air Room Air BMI result Body Mass Index 23.7 Vital signs revealed an elevated blood pressure of 172/105 otherwise unremarkable. The patient had a normal heart rate of 86 and O2 saturation of 98% on room air. Exam: General: Awake, alert in no distress Head: Normocephalic, atraumatic EENT: PERRL, Lids normal, sclera normal, conjunctiva normal, nose normal , ears normal, throat without erythema or exudates Neck: Supple, no adenopathy Lung: breath sounds symmetric, no wheezing, rales or rhonchi Chest: symmetric movement, patient was tenderness palpation of her costochondral joints bilaterally and her sternum, this does reproduce her pain. Heart: regular rate and rhythm, normal S1, S2 no murmurs or rubs Abdomen: soft, non-tender, nondistended, normal bowel sounds Back: no vertebral tenderness, no CVAT Extremities: no deformities, moves all extremities symmetrically Neuro: Awake, alert, oriented, normal speech, cranial nerves intact, moves all extremities symmetrically with 5/5 symmetric strength in both upper and lower extremities. Patient had diminished light touch to the left side of her face compared to the right. Psych: Pleasant, cooperative NIH stroke scale of 1 NIH Stroke Scale Internal: Initial- Upon Arrival Time: 15:27 Level of Consciousness: Alert Level of Consciousness Questions: Answers both questions correctly Level of Consciousness Commands: Performs both tasks correctly Best Gaze: Normal Visual: No visual loss Facial Palsy: Normal Motor Arm (Right): No drift Motor Arm (Left): No drift Motor Leg (Right): No drift Motor Leg (Left): No drift Limb Ataxia: Absent Sensory: Mild to moderate sensory loss Best Language: No aphasia Dysarthia: Normal Extinction and Inattention: No abnormality Score: 1 Course Course Course Narrative: This is a Rapid Medical Examination (RME) performed by Ryanne Love PA-C in triage. Full HPI, ROS, assessment and treatment plan per primary provider in the Main ED. 39 yo female hx of saccular aneurysm with stent placement (08/2024), hypertension here for eval of left facial numbness which she noticed on waking at 7:30 a.m. today. LNW last night. She did not take her BP meds or Plavix today. Denies headache, vision changes, nausea, vomiting, diarrhea. Also endorses stabbing chest pain radiating to right arm yesterday. reports chest tightness at present. NIH 1 on arrival. director inbound sales aware. Patient brought back to the ED 21 at 1527 - radiology aware Plan: stroke protocol Medications Administered Discontinued Medications Generic Name Dose Route Start Last Admin Trade Name Urban PRN Reason Stop Dose Admin Diphenhydramine HCl 50 mg 01/17/25 16:48 01/17/25 17:02 Diphenhydramine Hcl 50 Mg/Ml Vial IVPUSH 01/17/25 16:49 50 mg ONCE STA Administration Erythromycin 1 cm 01/17/25 18:35 01/17/25 19:01 Erythromycin Base 0.5% Oph Oin 1 Gm Tube EYE-LEFT 01/17/25 18:36 1 cm ONCE ONE Administration Sodium Chloride 1,000 mls @ 999 mls/hr 01/17/25 16:48 01/17/25 18:13 Ns IV 01/17/25 17:48 Infused .Q1H1M STA Infusion Iohexol 100 ml 01/17/25 16:08 01/17/25 16:09 Iohexol 350 Mg/Ml 100 Ml Infus..Btl IV 01/17/25 16:09 70 ml ONCE ONE Administration Ketorolac Tromethamine 15 mg 01/17/25 16:48 01/17/25 17:02 Ketorolac Tromethamine 15 Mg/Ml Vial IVPUSH 01/17/25 16:49 15 mg ONCE STA Administration Metoclopramide HCl 10 mg 01/17/25 16:48 01/17/25 17:02 Metoclopramide Hcl 10 Mg/2 Ml Vial IVPUSH 01/17/25 16:49 10 mg ONCE STA Administration Medical Decision Making Medical Decision Making MDM Narrative: 39-year-old female with a history of hypertension, GERD, 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 Patient was chest pain has been a constant, squeezing/tightness, 05/21 that came on suddenly yesterday at around noon time and was present at the time of the emergency department evaluation. The chest pain was associated with right shoulder pain, mild shortness of breath diaphoresis but no dyspnea on exertion, nausea or vomiting. Patient developed posterior, throbbing, constant headache at 07:30 hours this morning, 7/10 at its worse associated with left-sided facial numbness with no weakness or visual changes. Patient states she was had similar headaches in the past when her blood pressure was high and she took a metoprolol without any improvement of her headache. She states she was never had left-sided facial numbness associated with the headache but did have this symptom when she had her bleeding aneurysm 08/31/2024. Vital signs did reveal an elevated blood pressure otherwise unremarkable. Exam did reveal diminished left light touch the left side of her face. Patient also had tenderness palpation patient of her sternum and costochondral joints bilaterally. NIH stroke scale was 1. Differential diagnosis: ?Includes but is not limited to: Chest pain: Myocardial infarction, myocardial ischemia, chest wall pain, costochondritis, anxiety, electrolyte abnormalities, anemia Headache: Stroke, intracranial bleed, migraine syndrome, giant cell arteritis, anxiety, anemia, electrolyte abnormalities Course: 17:06 The patient was made a stroke alert by the triage provider and a stroke workup was ordered from triage. My interpretation patient's laboratory evaluation is as follows: CBC was normal. CMP was normal. High sensitive troponin I was below detectable limits-the patient was had constant chest pain since yesterday at noon time and this negative value is reassuring suggesting that the patient's chest pain is not caused by myocardial infarction/myocardial injury. CT scan of the head did not reveal any acute findings. CT angiogram of the head and neck revealed no acute findings, the radiologist noted aneurysm repair in the left MCA with no other aneurysms noted. This is also reassuring suggesting that she was not have intracranial hemorrhage/aneurysmal bleed as the cause of her headache. The patient was been under increased stress at home and I suspect that her headache is most likely a migraine-like syndrome . Given her physical exam findings, her chest pain may be caused by costochondritis. Patient was ordered to get normal saline IV x1 L, Benadryl 50 mg IV, Reglan 10 mg IV and Toradol 15 mg IV to treat her chest pain and her migraine-like headache. 18:36 The patient's CRP and ESR were normal which makes giant cell arteritis unlikely . The patient's headache pain did get significantly better after the above treatment. Patient also developed redness of her left eye and it is possible that she may have early conjunctivitis therefore she was given erythromycin optic ointment to her left eye. She was prescribed erythromycin optic ointment 3 times a day for1 week. Patient most likely had a migraine syndrome. Patient was prescribed Reglan 10 mg, Benadryl 50 mg and Excedrin migraine 2 tablets every 6 hours as needed for headache. She was given printed and verbal instructions and discharged home Admission/Observation Consideration of admission/observation: Escalation of care including admission/observation considered (Yes) Lab Data [facility] Lab Attestation statement: I reviewed the patient's lab results. 01/17/25 15:37 01/17/25 15:37 Labs: Lab Results 01/17/25 01/17/25 Range/Units 15:36 15:37 WBC 6.9 (4.8-10.8) X10*3/uL RBC 5.24 (4.20-5.50) X10*6/uL Hgb 15.0 (12.0-16.0) g/dl Hct 43.1 (37.0-47.0) % MCV 82.3 (80.0-98.0) fL MCH 28.6 (27.0-33.0) pg MCHC 34.8 (31.0-35.0) g/dl RDW 12.8 (11.0-16.0) % Plt Count 228 D (160-400) X10*3/uL MPV 10.6 (9.4-12.3) fL Immature Gran % (Auto) 0.3 (0.0-0.4) % Neut % (Auto) 69.0 (45-73) % Lymph % (Auto) 20.7 (20-40) % Schuyler % (Auto) 7.7 (2-11) % Eos % (Auto) 0.9 (0-4) % Baso % (Auto) 1.4 (0-2) % Lymph # (Auto) 1.4 (1.2-4.9) X10*3/uL Schuyler # (Auto) 0.5 (0.1-1.2) X10*3/uL Eos # (Auto) 0.1 (0.0-0.4) X10*3/uL Baso # (Auto) 0.1 (0.0-0.2) X10*3/uL Abs Immat Gran (auto) 0.02 (0.00-0.03) X10*3/uL Absolute Neuts (auto) 4.8 (2.0-8.3) x10*3/uL Absolute Nucleated RBC 0.000 (0.0-0.012) X10*3/uL Nucleated RBC % (auto) 0.0 (0.0-0.2) /100WBC ESR 5 (0-20) MM/HR PT 12.1 (10.9-12.4) SEC INR 1.0 (0.9-1.1) APTT 33.0 (26.0-36.8) SEC Sodium 142 (135-145) mmol/L Potassium 4.1 (3.3-5.1) mmol/L Chloride 111 H (96-108) mmol/L Carbon Dioxide 24 (22-29) mmol/L Anion Gap 11 L (12-20) BUN 10 (9-16) mg/dL Creatinine 0.87 (0.5-1.4) mg/dL Estim Creat Clear Calc 81.3 Estimated GFR > 60 POC Glucose 98 (60-115) mg/dL Random Glucose 100 (60-115) mg/dL Calcium 9.4 (8.4-10.2) mg/dL Troponin I High Sens < 2.7 (<3.5-17.0) ng/L C-Reactive Protein 0.55 H (< or = 0.50) mg/dL Triglycerides 69 (<150) mg/dL Cholesterol 112 (<200) mg/dL LDL Cholesterol, Calc 46 (<100) mg/dL HDL Cholesterol 53 (>40) mg/dL Independent Interpretation I performed an independent interpretation of an: EKG Interpretation: Interpretation patient's 12 EKG done on 01/17/2025 at 16:01 hours is as follows: Normal sinus rhythm with a rate of 79, normal SD interval, QRS duration and QTC interval, inverted T-wave in lead 3 and V1, no ST segment elevation, no ST segment depression, no PACs, no PVCs compared to EKG dated 06/13/2024 at 09:15 hours there is no significant change, T-wave inversions in 3 and V1 were present on the previous EKG. Radiology Impression Discussion of test interpretation with radiology: I have reviewed the radiologist's reading. Radiologist Impression: CLINICAL HISTORY: Stroke Protocol - L facial numbness hx aneurysm CT head without contrast Comparison: CT/SR - CT ANGIO HEAD NECK - 09/10/24 13:[address] - CT ANGIO HEAD NECK - 09/10/24 13:26 EDT Findings: No acute hemorrhage. No extra-axial fluid collection. No hydrocephalus, mass-effect or herniation. Henry-white differentiation is maintained. White matter is within normal limits for age. Left MCA aneurysm repair, new since the prior study. No acute orbital pathology. No acute soft tissue abnormality. No fracture. The visualized paranasal sinuses are predominantly clear. The mastoid air cells are clear. Impression: No acute findings. This document has been electronically signed by: Lora Weiss MD on 01/17/2025 15:57:29 CLINICAL HISTORY: Stroke Protocol - L facial numbness hx aneurysm CT head without contrast Comparison: CT/SR - CT ANGIO HEAD NECK - 09/10/24 13:[address] - CT ANGIO HEAD NECK - 09/10/24 13:26 EDT Findings: No acute hemorrhage. No extra-axial fluid collection. No hydrocephalus, mass-effect or herniation. Henry-white differentiation is maintained. White matter is within normal limits for age. Left MCA aneurysm repair, new since the prior study. No acute orbital pathology. No acute soft tissue abnormality. No fracture. The visualized paranasal sinuses are predominantly clear. The mastoid air cells are clear. Impression: No acute findings. This document has been electronically signed by: Lora Weiss MD on 01/17/2025 15:57:29 Independent Historian Clinical information obtained from an independent historian. History obtained from or confirmed by: Other (Sister) Prescription Management I considered prescription management with: Pain Medication (Excedrin migraine) and Other (Antiemetic/migraine headache: Reglan) Chronic Conditions Patient?s care impacted by: Hypertension Critical Care Time Critical Care Time Critical Care Time: Yes Total Critical Care Time: 35 Attestation: Critical Care: The patient was critically ill with a high probability of imminent or life threatening deterioration. I spent greater than 30 minutes of discontinuous time evaluating the patient,delivering critical care at the bedside, discussing and evaluating pertinent data with consultants. Critical care time does not include time spent performing separately billable procedures or teaching. Total time spent performing critical care was 35 minutes. Discharge Plan Discharge Clinical Impression: Headache, migraine, Chest pain, Facial numbness, Conjunctivitis of left eye Patient Disposition: Home, Self-Care Instructions: Chest Pain (ED) Additional Instructions: Your CT scan of the head without IV contrast was normal. The CT angiogram of your head and neck was normal. There was no aneurysm seen on this study. You had an old aneurysm which was repaired and there was no bleeding noted which is reassuring. Your headache in your symptoms are caused by a migraine-like headache. These are severe headaches that can have other symptoms such as numbness, weakness, nausea, vomiting. Your EKG and other lab values were normal. At this time I do not think that your chest pain is due to a heart attack he was probably due to inflammation of the muscles and joints of your chest. I am sending 3 prescriptions to your pharmacy for medicines that treat migraines. You can take these medications together every 6 hours as needed for headache. These medicines will make you sleepy. Reglan (metoclopramide) in 10 mg, 1 pill Benadry (diphenhydramine) l 25 mg, 2 pills Excedrin migraine (acetaminophen, aspirin, caffeine), 2 pills. After you take these medications, lie down in a dark quiet room and try to fall asleep. ?These medications will make you sleepy, do not drive or work after taking these medications. You also had redness of your left eye in you may be developing conjunctivitis (pinkeye) use the erythromycin ointment to your left eye 3 times a for 1 week. Follow-up with your doctor in 2 days. Please return to the emergency department if your symptoms get worse or if you develop any symptoms that are concerning to you. Prescriptions: New diphenhydramine HCl 25 mg capsule 50 mg PO Q6H PRN (Reason: headache, nausea, vomiting) Qty: 20 0RF Excedrin Extra Strength 250-250-65 mg tablet 2 tab PO Q6H PRN (Reason: headache) Qty: 20 0RF metoclopramide HCl [Reglan] 10 mg tablet 10 mg PO Q6H PRN (Reason: nausea and vomiting) Qty: 14 0RF erythromycin 5 mg/gram (0.5 %) ointment 0.5 inch ophthalmic (eye) TID 7 Days Qty: 3.5 0RF No Action citalopram [Celexa] 10 mg tablet 10 mg PO DAILY Qty: 90 1RF metronidazole 500 mg tablet 500 mg PO TID 14 Days Qty: 42 0RF bismuth subsalicylate 262 mg tablet,chewable 2 tab PO QID 14 Days Qty: 112 0RF pantoprazole 20 mg tablet,delayed release (DR/EC) 20 mg PO BID 14 Days Qty: 28 0RF metoprolol tartrate 75 mg tablet 75 mg PO BID Qty: 180 0RF (DME) blood pressure monitor [Blood Pressure Kit] Kit See Rx Instructions .Route Qty: 1 0RF Rx Instructions: As directed alprazolam 0.25 mg tablet 0.25 mg PO DAILY PRN (Reason: anxiety) Qty: 20 0RF rifaximin 550 mg tablet 550 mg PO TID 14 Days Qty: 42 0RF aspirin [Adult Aspirin Regimen] 81 mg tablet,delayed release (DR/EC) 81 mg PO DAILY clopidogrel [Plavix] 75 mg tablet 75 mg PO DAILY famotidine 20 mg tablet 20 mg PO BID hydroxyzine HCl 25 mg tablet 25 mg PO QID PRN (Reason: Anxiety) amitriptyline 25 mg tablet 25 mg PO BEDTIME Qty: 30 0RF Interventions: ED Discharge Assessment Last Done: 01/17/25 19:02 Discharge Date/Time: 01/17/25 19:03 Print Language: Spanish
--- NOTE | 2025-01-17 15:32 | ECG_ITS ---
Test Reason : HYPERTENSIVE Blood Pressure : */* mmHG Vent. Rate : 79 BPM Atrial Rate : 79 BPM P-R Int : 120 ms QRS Dur : 74 ms QT Int : 376 ms P-R-T Axes : 51 29 4 degrees QTcB Int : 431 ms Normal sinus rhythm Normal ECG When compared with ECG of 13-Jun-2024 09:15, Vent. rate has increased by 29 bpm Referred By: Anyi Love Electronically Signed By: ASMITA BLISS MD
[2025-01-17 15:44] LABS: Basophils Absolute Auto 0.1 X10*3/uL (0.0-0.2); Basophils Percent Auto 1.4 % (0-2); Eosinophils Absolute Auto 0.1 X10*3/uL (0.0-0.4); Eosinophils Percent Auto 0.9 % (0-4); Hematocrit 43.1 % (37.0-47.0); Imm Gran Abs Auto 0.02 X10*3/uL (0.00-0.03); Imm Gran Pct Auto 0.3 % (0.0-0.4); Lymphocytes Absolute Auto 1.4 X10*3/uL (1.2-4.9); Lymphocytes Percent Auto 20.7 % (20-40); MANUAL DIFF FLAG NO; Mean Corpuscular HGB Conc 34.8 g/dl (31.0-35.0); Mean Corpuscular Hemoglobin 28.6 pg (27.0-33.0); Mean Corpuscular Volume 82.3 fL (80.0-98.0); Mean Platelet Volume 10.6 fL (9.4-12.3); Monocytes Absolute Auto 0.5 X10*3/uL (0.1-1.2); Monocytes Percent Auto 7.7 % (2-11); Neutrophils Absolute Auto 4.8 x10*3/uL (2.0-8.3); Platelet Count 228 X10*3/uL (160-400); Red Blood Count 5.24 X10*6/uL (4.20-5.50); Red Cell Distribution Width 12.8 % (11.0-16.0); White Blood Count 6.9 X10*3/uL (4.8-10.8)
[2025-01-17 15:54] LABS: Glucose, Whole Blood 98 mg/dL (60-115)
[2025-01-17 15:57] LABS: Prothrombin Time 12.1 SEC (10.9-12.4)
[2025-01-17 16:02] LABS: Anion Gap 11 (12-20); Blood Urea Nitrogen 10 mg/dL (9-16); Calcium 9.4 mg/dL (8.4-10.2); Carbon Dioxide 24 mmol/L (22-29); Chloride 111 mmol/L (96-108); Cholesterol 112 mg/dL (<200); Creatinine Clr Calc Pharmacy 81.3; Estimated Glomerular Filt Rate > 60; Glucose Random 100 mg/dL (60-115); HDL Cholesterol 53 mg/dL (>40); LDL Cholesterol Calculated 46 mg/dL (<100); Potassium 4.1 mmol/L (3.3-5.1); Sodium 142 mmol/L (135-145); Triglycerides 69 mg/dL (<150)
[2025-01-17 16:09] LABS: Troponin-I High Sensitivity < 2.7 ng/L (<3.5-17.0)
[2025-01-17] MEDS: iohexoL 350 MG/ML 100 ML INFUS..BTL IV (16:09)
[2025-01-17] MEDS: 0.9 % Sodium Chloride 1,000 ML 999 ML IV (17:02)
[2025-01-17] MEDS: Ketorolac Tromethamine 15 MG/ML VIAL IVPUSH (17:02)
[2025-01-17] MEDS: Metoclopramide HCl 10 MG/2 ML VIAL IVPUSH (17:02)
[2025-01-17] MEDS: diphenhydrAMINE HCL 50 MG/ML VIAL IVPUSH (17:02)
[2025-01-17 17:28] LABS: Stroke Lab Use COMPLETE
[2025-01-17 17:47] LABS: C Reactive Protein 0.55 mg/dL (< or = 0.50)
[2025-01-17 18:24] VITALS: BP 143/94; PULSE 73; RESP 16; TEMP 37.2; O2SAT 100
[2025-01-17 18:24] LABS: Erythrocyte Sedimentation Rate 5 MM/HR (0-20)
[2025-01-17] MEDS: Erythromycin Base 0.5% Oph Oin 1 GM TUBE 1 CM EYE-LEFT (19:01)
[2025-01-17 19:02] VITALS: BP 143/94; PULSE 73; RESP 16; TEMP 37.2; O2SAT 100
[2025-01-19 11:24] LABS: INR Whole Blood 1.2 (0.9-1.1); Prothrombin Time Whole Blood 14.4 sec (11.1-13.5)
== END 2025-01-17 19:03 | disposition home or self-care (01) ==
PROVIDERS: Physician Assistant Medical; Emergency Provider Emergency Medicine Emergency Medical Services; PCP Internal Medicine
DX: G43.909 Migraine, unspecified, not intractable, without status migrainosus (principal); R07.9 Chest pain, unspecified; R20.0 Anesthesia of skin; R29.810 Facial weakness; H10.9 Unspecified conjunctivitis; R29.700 NIHSS score 0; I10 Essential (primary) hypertension; Z79.899 Other long term (current) drug therapy
CPT/HCPCS: 36415; 70450; 70496; 70498; 80048; 80061; 82947; 84484; 85025; 85610; 85652; 85730; 86140; 93005; 96361; 96374; 96375; 99285; J1200; J1885; J2765; Q9967

== ENCOUNTER → 2025-01-17 15:32 | Outpatient (BNV) | payer OTHER, SELFPAY | PROVIDERS: Emergency Provider Emergency Medicine Emergency Medical Services; PCP Internal Medicine; Visit Provider Internal Medicine Cardiovascular Disease | DX: I10 Essential (primary) hypertension (principal) | CPT/HCPCS: 93010 ==

== ENCOUNTER → 2025-01-17 15:32 | Outpatient (BNV) | payer OTHER, SELFPAY | PROVIDERS: PCP Internal Medicine; Visit Provider Radiology Diagnostic Radiology | DX: I67.1 Cerebral aneurysm, nonruptured (principal); R29.810 Facial weakness | CPT/HCPCS: 70450; 70496; 70498 ==

== ENCOUNTER 2025-02-05 10:40 | Outpatient (AMB) | payer OTHER, SELFPAY ==
--- NOTE | 2025-02-05 10:43 | A.OFFPC_ITS ---
Vital Signs 02/05/25 10:44 Height 5 ft 6 in Weight 148 lb 2 oz BMI 23.9 BP 130/62 Blood Pressure Location Rt brachial Position Sitting Temp 97.5 F Temp Source Temporal Artery Scan Intake Visit Reasons: Annual Exam Intake Note: Patient is here today for a physical. Wiring Technician Required: No Kitchen Mechanic: Not Required per policy Accompanied by: Self / Same As Patient Allergies nifedipine [Procardia] Allergy (Severe, Verified 02/05/25 11:06) Abdominal Pain terbutaline Allergy (Severe, Verified 02/05/25 11:06) Abdominal Pain Medication List - Last Reconciled 02/05/25 by Mary Solo PA-C alprazolam 0.25 mg PO DAILY PRN amitriptyline 25 mg PO BEDTIME aspirin (Adult Aspirin Regimen) 81 mg PO DAILY tpbdaho-qekzaqjpaivby-cghcgewu 250-250-65 mg (Excedrin Extra Strength) 2 tabs PO Q6H PRN bismuth subsalicylate 2 tabs PO QID 14 days blood pressure monitor (Blood Pressure Kit) As directed citalopram (Celexa) 10 mg PO DAILY clopidogrel (Plavix) 75 mg PO DAILY diphenhydramine HCl 50 mg (2 x 25 mg) PO Q6H PRN erythromycin 0.5 inches ophthalmic (eye) TID 7 days famotidine 20 mg PO BID hydroxyzine HCl 25 mg PO QID PRN metoclopramide HCl (Reglan) 10 mg PO Q6H PRN metoprolol tartrate 75 mg PO BID metronidazole 500 mg PO TID 14 days pantoprazole 20 mg PO BID 2 weeks rifaximin 550 mg PO TID 2 weeks tetracycline 500 mg PO Q6H 14 days Tobacco use date assessed: 02/05/25 Dental Screening Dental Screen Date: 02/05/25 Did you have a dental visit in the last 12 months?: Yes Did you have a dental problem in the last 6 months where you did not have access to dental care?: No Was dental information given to patient?: Patient has dentist HPI Annual Exam HPI Details 39-year-old female with past medical his tory of left MCA aneurysm status post repair 08/2024, hypertension, recurrent major depression, GERD, generalized anxiety disorder in the liver lesion last seen 09/2024 coming in for annual exam.? In review of the notes, patient was seen in [facility] 01/18/2025 for chest pain and facial weakness.? CT of the head and CT angiogram without acute findings, blood work negative diagnosed and treated for migraine and costochondritis.? Patient had EGD with colonoscopy 12/2024 plan to repeat colonoscopy at 45 years old and advised on high-fiber diet.? MRI of the abdomen obtained 11/2024 revealing:? IMPRESSION: 3.4 cm nodule within segment 7 of the li edilson, without change. A benign? lesion is favored. This may represent focal nodular hyperplasia or an? adenoma as previously reported. Neoplasm is not completely excluded,? however this is felt to be much less likely. A hepatic mass has been detected via MRI, contributing to a significant impact on her abdominal region and discomfort. The patient has been struggling with persistent bloating and abdominal discomfort, already having undergone failed antibiotic interventions. Yeast infections following antibiotic treatment have been recurrent. An Helicobacter pylori infection was detected however she did not complete abx course due to causing tolerability issues and unintended weight reduction. The patient's anxiety history has been aggravated by the aforementioned health concerns, with panic attacks following the aneurysm episode, constituting her first such experiences. The patient suffers from daily abdominal pain, associated with her digestive and hepatic diagnoses. pap smear: has appt scheduled for routine pap vaccines: [facility] Medical History Brain aneurysm Surgery, elective Overweight (BMI 25.0-29.9) Foul smelling urine Anemia Sepsis Pre-operative clearance Dysuria Insomnia Annual physical exam Hematuria Complex ovarian cyst History of hydronephrosis Cervical high risk HPV (human papillomavirus) test positive Ectopic of left ovary GERD (gastroesophageal reflux disease) Obesity (BMI 30-39.9) Generalized anxiety disorder Constipation Hyperbilirubinemia Allergic rhinitis Vitamin D deficiency Hypertension FLORENCIO II (cervical intraepithelial neoplasia II) COVID-19 virus infection Surgical History S/P laparoscopic cholecystectomy Status post repair of ventral hernia Hx of brain surgery Hx of cholecystectomy Hx of abdominoplasty Ventral hernia (12/27/23) H/O section Skin tag, acquired History of appendectomy Family History Maternal Grandmother Colon cancer Maternal Grandfather Colon cancer Other Mental health disorder Social History Household Members: Children Housing: House Are you a primary patient centered care specialist to a significant other at home: No Do you presently have visiting nurse or other home services: No Alcohol intake: current Alcohol intake frequency: holidays/special occasions only Alcohol type: wine Comment: once a month 3 glasses Patient Tobacco Use Status: Former Tobacco user Tobacco use type: Cigarette Years Smoked: 2 e-Cigarette/Vaping Use: Never Used Second Hand Smoke Exposure: Yes Substance Use Type: Marijuana service: No Current occupational status: employed Cognitive needs: No Hearing needs: No Vision needs: No Questionnaire PHQ-9 Over the last 2 weeks, how often have you been bothered by any of the following problems? 1. Little interest or pleasure in doing things: not at all 2. Feeling down, depressed, or hopeless: not at all 3. Trouble falling or staying asleep, or sleeping too much: not at all 4. Feeling tired or having little energy: not at all 5. Poor appetite or overeating: not at all 6. Feeling bad about yourself - or that you are a failure or have let yourself or your family down: not at all 7. Trouble concentrating on things, such as reading the newspaper or watching television: not at all 8. Moving or speaking so slowly that other people could have noticed. Or the opposite - being so fidgety or restless that you have been moving around a lot more than usual: not at all 9. Thoughts that you would be better off or of hurting yourself in some way: not at all Total score: 0 Depression Screening Interpretation: Negative Depression Screening Done: Yes Source: Developed by Drs. Thierry Murillo, Rocio Diallo, Masood Cooper and colleagues, with an educational deni from [employer]. Thrive Questionnaire Date Thrive assessed: 02/04/25 I am a: Patient What is your living situation today?: I have a steady place to live Within the past 12 months, did the food you bought not last and you didn't have the money to get more?: I choose not to answer this question Within the past 12 months, did you worry whether your food would run out before you got money to buy more?: I choose not to answer this question Do you have trouble paying for medicines?: No Do you have trouble getting transportation to medical appointments?: No Do you have trouble paying your heating and electricity bill?: No Do you have trouble taking care of your child, family member or friend?: No Do you have trouble with day-to-day activities such as bathing, preparing meals, shopping, managing finances, etc.?: No Are you currently unemployed and looking for a job?: I choose not to answer this question Are you interested in more education?: I choose not to answer this question Please select the resources that you would like help with: None Currently or been in a relationship where the following occur: No concerns reported THRIVE Score: 0 AUDIT C Alcohol Use Questionnaire (AUDIT-C) 2. How many drinks containing alcohol do you have on a typical day when you are drinking?: 1 or 2 3. How often do you have six or more drinks on one occasion?: Never Total Score: 0 MEAGAN-7 AMB Questionnaire MEAGAN-7 Date MEAGAN - 7 assessed: 02/05/25 Feeling nervous, anxious, or on edge: 0 = Not at all Worrying too much about different things: 2 = More than half the days Trouble relaxin = More than half the days Being so restless that it is hard to sit still: 1 = Several days Becoming easily annoyed or irritable: 1 = Several days Source: Developed by Drs. Thierry Murillo, Rocio Diallo, Masood Cooper and colleagues, with an educational deni from [employer]. MEAGAN-7 Assessment Billing MEAGAN-7 Assessment Tool: MEAGAN-7 Assessment 59223 Review of Systems Const Denies body aches, Denies chills, Denies fever(s), Denies headache(s) and Denies poor appetite Eyes Reports no additional complaints ENT Denies dysphagia, Denies dizziness, Denies headache(s) and Denies odynophagia Card Denies chest pain, Denies syncope, Denies edema, Denies irregular heart rhythm, Denies lightheadedness and Denies dyspnea Resp Denies cough and Denies dyspnea GI Reports abdominal pain, Reports belching, Reports bloating, Denies constipation, Denies dysphagia, Reports heartburn, Denies diarrhea, Reports nausea, Denies odynophagia and Denies vomiting Reports no additional complaints Musc Reports no additional complaints and Denies abnormal gait Skin/Breast Reports system reviewed and no additional complaints, except as documented Neuro Denies abnormal gait, Denies dizziness, Denies syncope and Denies headache(s) Psych Reports no additional complaints Physical exam (Primary Care) Vital Signs: Last Vital Signs Temp 97.5 F 02/05/25 10:44 BP 130/62 02/05/25 10:44 BMI result Body Mass Index 23.9 Tobacco/Smoking Status: Tobacco use Status Tobacco use date assessed 02/05/25 02/05/25 10:50 Patient Tobacco Use Status Former Tobacco user 02/05/25 10:43 Tobacco use type Cigarette 02/05/25 10:43 e-Cigarette/Vaping Use Never Used 02/05/25 10:43 PHQ-9: PHQ-9 Score PHQ-9: Total score 0 02/05/25 11:07 Depression Screening Interpretation: Negative Thrive Assessment: Date of Thrive Assessment Date Thrive assessed 02/04/25 02/05/25 10:43 Currently or been in a relationship where the following occur: No concerns reported Const General: cooperative, healthy appearing, comfortable and no acute distress Orientation/consciousness: patient oriented x3 HENMT Head: Yes normocephalic Ears: hearing grossly normal bilaterally General nose exam: Normal external nose present Eyes General: appearance normal, both eyes and all related structures Conjunctivae: conjunctivae normal Neck Neck: Yes full ROM and Yes no lymphadenopathy Resp Effort & Inspection: normal respiratory effort Auscultation: clear to auscultation bilaterally, no crackles, no rales, no rhonchi and no wheezes Cardio Rate: regular rate Rhythm: regular rhythm Skin General skin exam: no rashes or lesions noted Neuro General: patient oriented x3 Gait exam (Neuro): Normal gait present Extrem General: Yes normal to inspection, Yes full ROM and No edema Psych Affect: normal affect Attitude: cooperative Insight: Good insight present (Psych) Judgement: Good judgement present (Psych) Coding Level of Care Code Est Pt Prev Care 18-39y(88209) Diagnoses Liver lesion, right lobe K76.9 Brain aneurysm I67.1 Bile salt-induced diarrhea K90.89 Fatty liver K76.0 Obesity (BMI 30.0-34.9) E66.9 Primary hypertension I10 Hypertension type: primary hypertension Insomnia G47.00 GERD (gastroesophageal reflux disease) K21.9 FLORENCIO II (cervical intraepithelial neoplasia II) N87.1 Annual physical exam Z00.00 Moderate episode of recurrent major depressive disorder F33.1 Active/Remission status: currently active Major depression episode severity: moderate H. pylori infection A04.8 Vaginal discharge N89.8 Additional Codes MEAGAN-7 Assessment Billing - MEAGAN-7 Assessment Tool: MEAGAN-7 Assessment 43248 ([id number]) Assessment & Plan Assessment & Plan (1) Liver lesion, right lobe: Code(s): K76.9 - Liver disease, unspecified Category: Medical Plan: Continue to follow GI currently undergoing workup. Most recent MRI liver lesion was stable indicating likely benign mouth continue to monitor. (2) Brain aneurysm: Comment: AugustT head demonstrates no acute intracranial hemorrhage or infarct. CTA head demonstrates a 5 mm saccular aneurysm arising from the distal left M1 and directed anteriorly and superiorly. No large vessel occlusion. CTA neck demonstrates no hemodynamically significant stenosis, dissection, or aneurysm. Code(s): I67.1 - Cerebral aneurysm, nonruptured Category: Medical Plan: Continue to follow with Neurology. (3) Bile salt-induced diarrhea: Code(s): K90.89 - Other intestinal malabsorption Category: Medical Plan: Denies diarrhea at this time. (4) Fatty liver: Comment: September 2023 Code(s): K76.0 - Fatty (change of) liver, not elsewhere classified Category: Medical Plan: Continue to monitor liver function. Healthy diet and regular exercise is encouraged. (5) Obesity (BMI 30.0-34.9): Code(s): E66.9 - Obesity, unspecified Category: Medical Plan: Healthy diet and regular exercise is encouraged. (6) Hypertension: Code(s): I10 - Essential (primary) hypertension Category: Medical Qualifiers: Hypertension type: primary hypertension Qualified Code(s): I10 - Essential (primary) hypertension Plan: Continue on current blood pressure medication. Avoid salt intake and encourage healthy diet and regular exercise. (7) Insomnia: Code(s): G47.00 - Insomnia, unspecified Category: Medical Plan: Continue to use hydroxyzine as needed for sleep and anxiety. (8) GERD (gastroesophageal reflux disease): Code(s): K21.9 - Gastro-esophageal reflux disease without esophagitis Category: Medical Plan: Avoid trigger foods such as citrus, tomato products, soda, caffeine, spicy foods and other foods that may be irritating to your stomach. Avoid laying flat 3-4 hours after eating and elevate the head of the bed 30 degrees to prevent acid from moving into the esophagus. Continue on pantoprazole (9) FLORENCIO II (cervical intraepithelial neoplasia II): Code(s): N87.1 - Moderate cervical dysplasia Category: Medical Plan: Continue to follow as gynecology for routine Pap smears. Has a appointment for next visit. (10) Annual physical exam: Code(s): Z00.00 - Encounter for general adult medical examination without abnormal findings Category: Medical Plan: We addressed the significance of maintaining regular screening tests, such as Pap smears and upcoming mammograms. Additionally, I noted the beneficial blood results previously obtained, illustrating favorable cholesterol statistics. Comprehensively discussing her history of post-aneurysm incidents, we reported potential outcomes linked to her past care provisions. (11) Recurrent major depression: Comment: School street Q 3 week (04/2022) Code(s): F33.9 - Major depressive disorder, recurrent, unspecified Category: Medical Qualifiers: Active/Remission status: currently active Major depression episode severity: moderate Qualified Code(s): F33.1 - Major depressive disorder, recurrent, moderate Plan: Patient has been without her Celexa for several weeks plan to restart after the use of fluconazole to treat yeast infection. (12) H. pylori infection: Code(s): A04.8 - Other specified bacterial intestinal infections Category: Medical Plan: Patient following with GI currently being treated for H pylori infection however states she did not complete the antibiotic regimen. I strongly advised her to reach out to her mailroom messenger as her H pylori infection may be contributing to her bloating and abdominal pain. Patient has a appointment coming up with Gastroenterology in February and likely will have a test of care at that time. In the meantime advised to reach out to GI for management of H pylori. (13) Vaginal discharge: Code(s): N89.8 - Other specified noninflammatory disorders of vagina Category: Medical Plan: Patient has vaginal discharge following antibiotic use. She states she is prone to yeast infections as requesting fluconazole this time. Advised patient for the fluconazole she may use it however needs to discontinue hydroxyzine and Celexa while in use. Plan This note was constructed using voice recognition software. While every effort has been made to ensure accuracy and weights and measures sealer, still areas may have been included sometimes these areas may affect the content or meeting of the given symptoms. Total time spent caring for the patient today was 30 minutes. This includes time spent before the visit reviewing the chart, time spent during the visit, and time spent after the visit and documentation. Patient was informed and verbally consented to the use of an ambient scribe for clinic note documentation during this visit. Orders: Orders MM tomosynthesis screening BI 9 Months Z12.31 - Encounter for screening mammogram for malignant neoplasm of breast Medications: New clopidogrel (Plavix) 75 mg PO DAILY 90 tabs 0RF aspirin (Adult Aspirin Regimen) 81 mg PO DAILY 90 tabs 0RF fluconazole 150 mg PO Q3D 2 tabs 0RF 2 doses Changed From hydroxyzine HCl 25 mg PO QID PRN Anxiety To hydroxyzine HCl 25 mg PO BEDTIME PRN 30 tabs 1RF Anxiety Refilled citalopram (Celexa) 10 mg PO DAILY 90 tabs 1RF F33.9 - Major depressive disorder, recurrent, unspecified Discontinued metoclopramide HCl (Reglan) Discontinued Reason: Patient no longer taking 10 mg PO Q6H PRN 14 tabs 0RF nausea and vomiting erythromycin Discontinued Reason: Patient no longer taking 0.5 inches ophthalmic (eye) TID 7 days 3.5 grams 0RF diphenhydramine HCl Discontinued Reason: Patient no longer taking 50 mg (2 x 25 mg) PO Q6H PRN 20 caps 0RF headache, nausea, vomiting alprazolam Discontinued Reason: Patient no longer taking 0.25 mg PO DAILY PRN 20 tabs 0RF anxiety F41.1 - Generalized anxiety disorder
[2025-02-05 10:44] VITALS: BP 130/62; TEMP 36.4; BMI 23.9
== END 2025-02-05 11:35 | disposition home or self-care (01) ==
LOC: HO.HMCH 10:40
PROVIDERS: PCP Internal Medicine
DX: Z00.00 Encounter for general adult medical examination without abnormal findings (principal); K76.9 Liver disease, unspecified; F33.1 Major depressive disorder, recurrent, moderate; I67.1 Cerebral aneurysm, nonruptured; K90.89 Other intestinal malabsorption; K76.0 Fatty (change of) liver, not elsewhere classified; E66.9 Obesity, unspecified; Z68.23 Body mass index [BMI] 23.0-23.9, adult; I10 Essential (primary) hypertension; G47.00 Insomnia, unspecified; K21.9 Gastro-esophageal reflux disease without esophagitis; N87.1 Moderate cervical dysplasia; A04.8 Other specified bacterial intestinal infections

== ENCOUNTER → 2025-02-05 10:40 | Outpatient (BNVA) | payer OTHER, SELFPAY | PROVIDERS: PCP Internal Medicine | DX: Z00.00 Encounter for general adult medical examination without abnormal findings (principal); K76.9 Liver disease, unspecified; I67.1 Cerebral aneurysm, nonruptured; K90.89 Other intestinal malabsorption; K76.0 Fatty (change of) liver, not elsewhere classified; E66.9 Obesity, unspecified; I10 Essential (primary) hypertension; G47.00 Insomnia, unspecified; K21.9 Gastro-esophageal reflux disease without esophagitis; N87.1 Moderate cervical dysplasia; F33.1 Major depressive disorder, recurrent, moderate; N89.8 Other specified noninflammatory disorders of vagina; A04.8 Other specified bacterial intestinal infections | CPT/HCPCS: 96127 ==

== ENCOUNTER 2025-03-16 08:58 | Day surgery (SDC) | payer OTHER, SELFPAY ==
--- OUTSIDE RECORDS SUMMARY | 2025-03-11 11:28 | XMS_ITS | Clinical Summary ---
Author Organization Formerly [facility] Address [address] [place] [address] Care Team Providers Care Resolution Manager Name Role Phone Monica Brice [facility] Primary Care Provider [phone] Allergies Active Allergy Reactions Criticality Noted Date Comments Nifedipine Unknown/Patient and Family Unable to Define Medium 03/20/2022 Terbutaline Unknown/Patient and Family Unable to Define Medium 03/20/2022 Medications cephalexin (KEFLEX) 500 MG capsuleIndicati ons:Postoperati ve pain Take 1 capsule (500 mg total) by mouth 4 (four) times a day. 16 capsule 03/21/2022 Active traMADol (ULTRAM) 50 MG tabletIndicatio ns:Postoperativ e pain Take 1 tablet (50 mg total) by mouth 3 times daily (every 8 hours) as needed for moderate pain or severe pain. 9 tablet 03/21/2022 Active ferrous sulfate 325 (65 FE) MG tabletIndicatio ns:Anemia due to acute blood loss Take 1 tablet (325 mg total) by mouth 2 (two) times a day. Take 2 hours before or 4 hours after acid reducers. 60 tablet 03/21/2022 Active senna-docusate (SENNA-S) 8.6-50 MGIndications:A nemia due to acute blood loss Take 1 [...] = 0.6 oz pur e alcohol) social Comments Unknown Sex and Gender Information Value Date Recorded Sex Assigned at Not on file Legal Sex Female 6:22 PM EST Gender Identity Not on file Sexual Orientation [...] 21-65) 2006 Influenza Vaccine 06/12/2024 COVID-19 Vaccine (1 - 2023-2 5 season) 2024 HPV Vaccines Aged Out No longer eligi ble based on patient's age to complete this topic Pneumococcal Vaccine: Pediat sofia (0-5 Years) and At-Risk Patients (6 to 49 Years) Aged Out No longer eligible b ased on patient's age to complete this topic Insurance [facility]IC[facility] OUT OF NETWORK Advance Directives * Full Code (Latest Code Status on File) Date Activated Date Inactivated Comments 03/20/2022 5:19 AM Care Teams Resolution Manager Relationship Specialty Start Date End Date Monica Brice FNP [address] [place] [id number] PCP - General Family Medicine 03/20/22
[2025-03-16] VITALS (18 sets, daily range): BP systolic 140–176; BP diastolic 89–122; PULSE 60–83; RESP 12–24; TEMP 36.1–36.7; O2SAT 96–100; BMI 27.5
--- NOTE | ~2025-03-16 | XR_ITS ---
EXAMINATION: XR CHEST CLINICAL INFORMATION: pain COMPARISON: None available. TECHNIQUE: Frontal view of the chest was obtained. FINDINGS: The lungs are well-expanded and clear acute process. The heart size and pulmonary vascularity is normal. There is no pleural effusion, pneumothorax or fracture. The soft tissues are normal. No bony abnormality seen. XR/XR chest 1V IMPRESSION: Unremarkable chest examination.. Electronically signed by: Chidi Choi MD 03/16/2025 01:00 PM EDT RP
--- NOTE | ~2025-03-16 | CT_ITS ---
PROCEDURE: CT GUIDED BIOPSY, ABDOMINAL MASS CLINICAL INFORMATION: 3.47 nodule segment 7 right lobe liver on MRI kidneys 12/04/2024 COMPARISON: MRI abdomen 12/04/[address] abdomen 06/13/2024. TECHNIQUE: Following explaining CT-guided right hepatic lobe lesion biopsy procedure, benefits and risk, a written consent was obtained. Patient was placed supine on fluoroscopy table and pulmonary CT imaging was performed. An optimal site was selected and marked on the skin along the right anterolateral abdomen. The marked site was cleaned and draped in usual sterile manner. 1% lidocaine was injected puncture site. Through a small skin incision a 20-gauge guide long needle was advanced through the intracostal approach into the right hepatic lobe posterior segment. Coaxially a 20-gauge biopsy gun was advanced and 2 passes biopsy was performed. Adequate tissue was obtained and sent to lab in CytoLyt solution postprocedure the guide needle was removed and complete hemostasis achieved at puncture site. Pressure dressing was applied post procedure. Patient tolerated procedure extremely well. Conscious sedation was administered during the exam and patient monitored for 21 minutes by IR nurse and the radiologist. Initially ultrasound of liver biopsy was scheduled however was changed to CT due to posterior location of the right hepatic lobe lesion and surrounding lung parenchyma and the risk of having a pneumothorax. This CT examination was performed using dose optimization techniques as appropriate, variously including the following: *Automated exposure control *Adjustment of mA and/or kV according to patient size (this includes techniques or standardized protocols for targeted exams where dose is matched to indication/reason for exam; i.e. extremities or head) *Use of iterative reconstruction technique FINDINGS: On preliminary CT imaging there is a hypodense lesion in the right hepatic lobe posterior segment segment 7 not well seen on noncontrast CT exam. Successful CT fluoroscopy guided to pass right hepatic lobe posterior segment lesion biopsy performed without immediate complications. Patient targeted procedure extremely well. CT/CT biopsy abdomen percutaneous IMPRESSION: Successful CT fluoroscopy guided right hepatic lobe segment 7 nodule two pass biopsy performed. Electronically signed by: Chidi Choi MD 03/16/2025 02:59 PM EDT
[2025-03-16 09:36] LABS: UPreg QC Valid YES; Urine Pregnancy NEGATIVE (NEGATIVE)
[2025-03-16 09:42] LABS: MANUAL DIFF FLAG NO
[2025-03-16 09:44] LABS: Basophils Absolute Auto 0.1 X10*3/uL (0.0-0.2); Basophils Percent Auto 0.9 % (0-2); Eosinophils Absolute Auto 0.1 X10*3/uL (0.0-0.4); Eosinophils Percent Auto 1.7 % (0-4); Hematocrit 43.7 % (37.0-47.0); Hemoglobin 14.9 g/dl (12.0-16.0); Imm Gran Abs Auto 0.04 X10*3/uL (0.00-0.03); Imm Gran Pct Auto 0.5 % (0.0-0.4); Lymphocytes Percent Auto 26.4 % (20-40); Mean Corpuscular HGB Conc 34.1 g/dl (31.0-35.0); Mean Corpuscular Hemoglobin 28.2 pg (27.0-33.0); Mean Corpuscular Volume 82.8 fL (80.0-98.0); Mean Platelet Volume 10.2 fL (9.4-12.3); Monocytes Absolute Auto 0.6 X10*3/uL (0.1-1.2); Neutrophils Absolute Auto 4.7 x10*3/uL (2.0-8.3); Neutrophils Percent Auto 62.5 % (45-73); Platelet Count 190 X10*3/uL (160-400); Red Blood Count 5.28 X10*6/uL (4.20-5.50); Red Cell Distribution Width 13.2 % (11.0-16.0); White Blood Count 7.5 X10*3/uL (4.8-10.8)
[2025-03-16 09:55] LABS: Anion Gap 13 (12-20); Blood Urea Nitrogen 11 mg/dL (9-16); Carbon Dioxide 25 mmol/L (22-29); Chloride 104 mmol/L (96-108); Creatinine Clr Calc Pharmacy 80.1; Estimated Glomerular Filt Rate > 60; Glucose Random 90 mg/dL (60-115); Potassium 3.1 mmol/L (3.3-5.1); Prothrombin Time 12.1 SEC (10.9-12.4); Sodium 139 mmol/L (135-145)
[2025-03-16 09:58] LABS: Partial Thromboplastin Time 34.3 SEC (26.0-36.8)
[2025-03-16] MEDS: Midazolam HCl 2 MG/2 ML VIAL 0.5 MG IVPUSH (11:04)
[2025-03-16] MEDS: fentaNYL citrate/PF 100 MCG/2 ML VIAL 25 MCG IVPUSH (11:04)
[2025-03-16] MEDS: oxyCODONE HCl Immed Release 5 MG TABLET PO (11:59)
[2025-03-16] MEDS: Acetaminophen 325 MG TABLET 650 MG PO (11:59)
[2025-03-16] MEDS: ondansetron HCL 4 MG/2 ML VIAL IVPUSH (12:02)
[2025-03-16] MEDS: Ketorolac Tromethamine 15 MG/ML VIAL IVPUSH (13:03)
== END 2025-03-16 14:03 | disposition home or self-care (01) ==
PROVIDERS: Radiology Diagnostic Radiology; PCP Internal Medicine; Visit Provider Internal Medicine Gastroenterology
DX: K76.9 Liver disease, unspecified (principal)
CPT/HCPCS: 36415; 49180; 71045; 77012; 80048; 81025; 85025; 85610; 85730; 88307; 88313; 88341; 88342; 99152; J1885; J2003; J2250; J2310; J2405; J3010

== ENCOUNTER → 2025-03-16 12:31 | Outpatient (BNV) | payer OTHER, SELFPAY | PROVIDERS: PCP Internal Medicine; Visit Provider Radiology Diagnostic Radiology | DX: R19.00 Intra-abdominal and pelvic swelling, mass and lump, unspecified site (principal); R07.9 Chest pain, unspecified | CPT/HCPCS: 47000; 71045; 77012 ==

== ENCOUNTER 2025-04-15 08:59 | Outpatient (AMB) | payer OTHER, SELFPAY ==
--- NOTE | 2025-04-15 09:04 | A.OFFVIS_ITS ---
VS Expanded 04/15/25 09:15 BP 163/104 H Blood Pressure Location Rt brachial Blood Pressure Position Sitting Pulse 67 Pulse Source Pulse Oximeter Temp 97.1 F Temperature Source Temporal Artery Scan Pulse Oximetry 99 Oxygen Delivery Method Room Air Height 5 ft 1 in Weight 146 lb 6.4 oz BMI 27.7 Body Fat % 35.2 Body Fat Mass 51.6 Fat Free Mass 94.8 Visceral Fat Rating 6.0 Body Water % 46.2 Body Water Mass 67.6 Muscle Mass/Score 90.0 Basal Metabolic Rate/Score 1,315 Intake Visit Reasons: OV Diaphragmatic Hernia - Dr. Anand Ref. Intake Note: PTS BLOOD PRESSURE WAS ELEVATED. 163/104 SHE STATED SHE DID NOT TAKE HER MEDS BECAUSE SHE WAS IN A REA. Allergies nifedipine [Procardia] Allergy (Severe, Verified 04/15/25 09:09) Abdominal Pain terbutaline Allergy (Severe, Verified 04/15/25 09:09) Abdominal Pain Medication List - Last Reconciled 04/15/25 by Azar Rivas MD aspirin (Adult Aspirin Regimen) 81 mg PO DAILY bismuth subsalicylate 2 tabs PO QID 14 days blood pressure monitor (Blood Pressure Kit) As directed citalopram (Celexa) 10 mg PO DAILY clopidogrel (Plavix) 75 mg PO DAILY hydroxyzine HCl 25 mg PO BEDTIME metoprolol tartrate 75 mg PO BID pantoprazole 20 mg PO BID 2 weeks HPI Comments Details: The patient is a 39-year-old female presenting with abdominal bulge and pain following previous abdominal surgery. The patient details a consistent history of a painful abdominal swelling posthernia repair conducted by Dr. Malloy, where mesh placement did not resolve the symptoms. Her symptoms began 2 years ago after a tummy tuck procedure. Despite a subsequent hernia repair last year, she reports no change in the bulging or the pain. She mentions the bulge exacerbates with some physical activities but is not constant during all activities. Imaging studies, including a previous CT scan, confirmed the absence of a hernia, instead revealing weakness of the abdominal wall. Prior to these symptoms, the patient underwent a tummy tuck and cholecystectomy. The patient expresses substantial emotional distress attributed to the physical discomfort and aesthetic concerns related to the abdominal bulge and chronic pain. - Tests: Previous CT scan from 04/2023 showed no hernia but revealed abdominal wall weakness prior to the hernia repair -Also reviewed 2 CTs after the hernia repair that demonstrate the presence of a mesh and no hernia. Recent liver biopsy was benign [facility] Medical History Brain aneurysm Surgery, elective Overweight (BMI 25.0-29.9) Foul smelling urine Anemia Sepsis Pre-operative clearance Dysuria Insomnia Annual physical exam Hematuria Complex ovarian cyst History of hydronephrosis Cervical high risk HPV (human papillomavirus) test positive Ectopic of left ovary GERD (gastroesophageal reflux disease) Obesity (BMI 30-39.9) Generalized anxiety disorder Constipation Hyperbilirubinemia Allergic rhinitis Vitamin D deficiency Hypertension FLORENCIO II (cervical intraepithelial neoplasia II) COVID-19 virus infection Surgical History S/P laparoscopic cholecystectomy Status post repair of ventral hernia Hx of brain surgery Hx of cholecystectomy Hx of abdominoplasty Ventral hernia (12/27/23) H/O section Skin tag, acquired History of appendectomy Family History Maternal Grandmother Colon cancer Maternal Grandfather Colon cancer Other Mental health disorder Social History (Updated 04/15/25 @ 09:10 by Joy Swan CMA) Household Members: Children Housing: House Are you a primary child care supervisor to a significant other at home: No Do you presently have visiting nurse or other home services: No Alcohol intake: current Alcohol intake frequency: holidays/special occasions only Alcohol type: wine Comment: tolerable Patient Tobacco Use Status: Former Tobacco user Tobacco use type: Cigarette Years Smoked: 2 e-Cigarette/Vaping Use: Never Used Second Hand Smoke Exposure: Yes Substance Use Type: Marijuana service: No Current occupational status: employed Cognitive needs: No Hearing needs: No Vision needs: No Physical Exam Vital Signs: Last Vital Signs Temp 97.1 F 04/15/25 09:15 Pulse 67 04/15/25 09:15 BP 163/104 H 04/15/25 09:15 Pulse Ox 99 04/15/25 09:15 Oxygen Delivery Method Room Air 04/15/25 09:15 BMI result Body Mass Index 27.7 GI Palpation (GI): Soft to palpation and Tenderness to palpation present (GI) (over the area of the epigastric incision, no palpable hernia) Assessment & Plan Assessment & Plan (1) Incisional pain: Code(s): L76.82 - Other postprocedural complications of skin and subcutaneous tissue Category: Medical Plan: I discussed with the patient that, based on the CT scan findings, there is no hernia present, and previous repairs may not have addressed the true issue of abdominal wall weakness. I recommended non-surgical options such as targeted exercises to strengthen the abdominal muscles and weight loss to decrease intra- abdominal pressure. We discussed the possibility that the panniculectomy may have exacerbated the appearance of the abdominal bulge. I advised against immediate surgical intervention to remove the mesh, suggesting instead a trial period of weight management and physical therapy to assess improvement in symptoms and reduction in pain. I highlighted the risks of surgical remediation, such as further scar tissue and recurrence of pain, and emphasized the importance of patience in observing conservative measures. Further discussions were centered around addressing her depression and considering mental health support options. - Continue a healthy diet and initiate weight loss, aiming to lose approximately 15-20 pounds. - Engage in specific abdominal exercises with a customer trainer to strengthen the abdominal muscles. - Monitor for improvement or worsening of symptoms, and return for follow-up as necessary. - Seek mental health support for depression and emotional distress. - Inform if there is significant pain or new symptoms that arise, warranting further evaluation. - Will also get the records from the previous panniculectomy in [place]
[2025-04-15 09:15] VITALS: BP 163/104; PULSE 67; TEMP 36.2; O2SAT 99; BMI 27.7
--- OUTSIDE RECORDS SUMMARY | 2025-04-15 09:24 | XMS_ITS | Clinical Summary ---
Author Organization [facility] Address [address] [place] [address] Care Team Providers Care Videogame Tester Name Role Phone Monica Brice [facility] Primary Care Provider [phone]- [phone] Allergies Active Allergy Reactions Criticality Noted Date [...] series) 2004 Pap Smear (Ages 21-65) 2006 COVID-19 Vaccine ( - 2023-2 5 season) 2024 Influenza Vaccine 06/12/2025 HPV Vaccines Aged Out No longer eligi ble based on patient's age to complete this topic Pneumococcal Vaccine: Pediat sofia (0-5 Years) and At-Risk Patients (6 to 49 Years) Aged Out No longer eligible b ased on patient's age to complete this topic Insurance [facility] MEDICARE OUT OF NETWORK Advance Directives * Full Code (Latest Code Status on File) Date Activated Date Inactivated Comments 03/20/2022 5:19 AM Care Teams Videogame Tester Relationship Specialty Start Date End Date Monica Brice FNP [address] [place] [id number] PCP - General Family Medicine 03/20/22
== END 2025-04-15 10:15 | disposition home or self-care (01) ==
LOC: HO.HBS 09:00
PROVIDERS: PCP Internal Medicine; Visit Provider Surgery
DX: L76.82 Other postprocedural complications of skin and subcutaneous tissue (principal)
CPT/HCPCS: 99204

== ENCOUNTER → 2025-04-15 08:59 | Outpatient (BNVA) | payer OTHER, SELFPAY | PROVIDERS: PCP Internal Medicine; Visit Provider Surgery | DX: L76.82 Other postprocedural complications of skin and subcutaneous tissue (principal) | CPT/HCPCS: 99202 ==

== ENCOUNTER 2025-06-24 10:11 | Outpatient (REF) | payer OTHER, SELFPAY ==
[2025-06-24 12:08] LABS: MANUAL DIFF FLAG NO
[2025-06-24 12:33] LABS: Hematocrit 42.8 % (37.0-47.0); Hemoglobin 14.4 g/dl (12.0-16.0); Imm Gran Abs Auto 0.02 X10*3/uL (0.00-0.03); Imm Gran Pct Auto 0.3 % (0.0-0.4); Lymphocytes Absolute Auto 1.9 X10*3/uL (1.2-4.9); Mean Corpuscular HGB Conc 33.6 g/dl (31.0-35.0); Mean Corpuscular Hemoglobin 28.5 pg (27.0-33.0); Mean Corpuscular Volume 84.6 fL (80.0-98.0); NRBC Abs Auto 0.000 X10*3/uL (0.0-0.012); NRBC Pct Auto 0.0 /100WBC (0.0-0.2); Platelet Count 197 X10*3/uL (160-400); Red Blood Count 5.06 X10*6/uL (4.20-5.50); White Blood Count 6.5 X10*3/uL (4.8-10.8)
== END 2025-06-24 10:12 | disposition home or self-care (01) ==
LOC: HO.LAB 10:11
PROVIDERS: PCP Internal Medicine
DX: K76.9 Liver disease, unspecified (principal); I67.1 Cerebral aneurysm, nonruptured; E66.9 Obesity, unspecified; Z68.28 Body mass index [BMI] 28.0-28.9, adult; I10 Essential (primary) hypertension; A04.8 Other specified bacterial intestinal infections; N93.9 Abnormal uterine and vaginal bleeding, unspecified; R10.2 Pelvic and perineal pain; R31.9 Hematuria, unspecified; Z71.3 Dietary counseling and surveillance
CPT/HCPCS: 36415; 81002; 84702; 85025; 87086; 87088; 87186; 88112; 96127; 99212

== ENCOUNTER 2025-06-24 10:11 | Outpatient (AMB) | payer OTHER, SELFPAY ==
--- NOTE | 2025-06-24 10:19 | MHC.PC.OV ---
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 Required: No Accompanied by: Self / Same As Patient Allergies nifedipine (Procardia) Allergy (Severe, Verified 06/24/25 10:30) Abdominal Pain terbutaline Allergy (Severe, Verified 06/24/25 10:30) Abdominal Pain Medication List - Last Reconciled 06/24/25 by Mary Solo PA-C aspirin (Adult Aspirin Regimen) 81 mg PO DAILY bismuth subsalicylate 2 tabs PO QID 14 days blood pressure monitor (Blood Pressure Kit) As directed citalopram (Celexa) 10 mg PO DAILY clopidogrel (Plavix) 75 mg PO DAILY hydroxyzine HCl 25 mg PO BEDTIME metoprolol tartrate 75 mg PO BID pantoprazole 20 mg PO BID 2 weeks Tobacco use date assessed: 06/24/25 Dental Screening Dental Screen Date: 06/24/25 Did you have a dental visit in the last 12 months?: Yes Did you have a dental problem in the last 6 months where you did not have access to dental care?: No Was dental information given to patient?: Patient has dentist HPI 3 Mnth f/u bloating HPI Details 39-year-old female with past medical history of 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 Presenting with hematuria and pelvic pain. Hematuria has been ongoing for two months, with pinkish vaginal bleeding noted. The patient does not have regular menstrual periods and has an IUD in place. Pelvic pain has persisted, with difficulties in securing timely appointments for further evaluation. Hypertension was noted with a blood pressure reading of 142/98 mmHg, and the patient experiences headaches and vomiting when blood pressure is significantly elevated. Post-cholecystectomy, the patient experiences chronic diarrhea, managed with cholestyramine. [facility] Medical History Brain aneurysm Surgery, elective Overweight (BMI 25.0-29.9) Foul smelling urine Anemia Sepsis Pre-operative clearance Dysuria Insomnia Annual physical exam Hematuria Complex ovarian cyst History of hydronephrosis Cervical high risk HPV (human papillomavirus) test positive Ectopic of left ovary GERD (gastroesophageal reflux disease) Obesity (BMI 30-39.9) Generalized anxiety disorder Constipation Hyperbilirubinemia Allergic rhinitis Vitamin D deficiency Hypertension FLORENCIO II (cervical intraepithelial neoplasia II) COVID-19 virus infection Surgical History S/P laparoscopic cholecystectomy Status post repair of ventral hernia Hx of brain surgery Hx of cholecystectomy Hx of abdominoplasty Ventral hernia (12/27/23) H/O section Skin tag, acquired History of appendectomy Family History Maternal Grandmother Colon cancer Maternal Grandfather Colon cancer Other Mental health disorder Social History Household Members: Children Housing: House Are you a primary residential child care counselor to a significant other at home: No Do you presently have visiting nurse or other home services: No Alcohol intake: current Alcohol intake frequency: holidays/special occasions only Alcohol type: wine Comment: tolerable Patient Tobacco Use Status: Former Tobacco user Tobacco use type: Cigarette Years Smoked: 2 e-Cigarette/Vaping Use: Never Used Second Hand Smoke Exposure: Yes Substance Use Type: Marijuana service: No Current occupational status: employed Cognitive needs: No Hearing needs: No Vision needs: No Questionnaire PHQ-9 Over the last 2 weeks, how often have you been bothered by any of the following problems? 1. Little interest or pleasure in doing things: several days 2. Feeling down, depressed, or hopeless: several days 3. Trouble falling or staying asleep, or sleeping too much: several days 4. Feeling tired or having little energy: several days 5. Poor appetite or overeating: several days 6. Feeling bad about yourself - or that you are a failure or have let yourself or your family down: not at all 7. Trouble concentrating on things, such as reading the newspaper or watching television: several days 8. Moving or speaking so slowly that other people could have noticed. Or the opposite - being so fidgety or restless that you have been moving around a lot more than usual: not at all 9. Thoughts that you would be better off or of hurting yourself in some way: not at all Total score: 6 39828 - PHQ-9 Billing: Yes Source: Developed by Drs. Thierry Murillo, Rocio Diallo, Masood Cooper and colleagues, with an educational deni from [employer]. Thrive Questionnaire Date Thrive assessed: 06/24/25 Within the past 12 months, did the food you bought not last and you didn't have the money to get more?: I choose not to answer this question Within the past 12 months, did you worry whether your food would run out before you got money to buy more?: I choose not to answer this question Do you have trouble paying for medicines?: No Do you have trouble getting transportation to medical appointments?: No Do you have trouble paying your heating and electricity bill?: No Do you have trouble taking care of your child, family member or friend?: No Do you have trouble with day-to-day activities such as bathing, preparing meals, shopping, managing finances, etc.?: No Are you currently unemployed and looking for a job?: I choose not to answer this question Are you interested in more education?: I choose not to answer this question Please select the resources that you would like help with: None Currently or been in a relationship where the following occur: No concerns reported THRIVE Score: 0 AUDIT C Alcohol Use Questionnaire (AUDIT-C) 1. How often do you have a drink containing alcohol?: Monthly or less Total Score: 1 MEAGAN-7 AMB Questionnaire MEAGAN-7 Date MEAGAN - 7 assessed: 06/24/25 Not being able to stop or control worryin = Not at all Feeling afraid as if something awful might happen: 0 = Not at all Source: Developed by Drs. Thierry Murillo, Rocio Diallo, Masood Cooper and colleagues, with an educational deni from [employer]. MEAGAN-7 Assessment Billing MEAGAN-7 Assessment Tool: MEAGAN-7 Assessment 17530 Review of Systems Const Denies body aches, Denies chills, Denies fever(s), Denies headache(s) and Denies poor appetite Eyes Reports no additional complaints ENT Denies dizziness and Denies headache(s) Card Denies chest pain, Denies edema, Denies lightheadedness and Denies dyspnea Resp Denies cough and Denies dyspnea GI Reports abdominal pain, Reports bloating, Denies constipation, Denies diarrhea, Denies nausea and Denies vomiting Details: blood in the urine and abnormal vaginal bleeding Reports no additional complaints Musc Reports no additional complaints and Denies abnormal gait Skin/Breast Reports system reviewed and no additional complaints, except as documented Neuro Denies abnormal gait, Denies dizziness and Denies headache(s) Psych Reports no additional complaints Physical exam (Primary Care) Vital Signs: Last Vital Signs Pulse 72 06/24/25 10:22 BP 142/98 H 06/24/25 11:05 Pulse Ox 100 06/24/25 10:22 Oxygen Delivery Method Room Air 06/24/25 10:22 BMI result Body Mass Index 28.6 Tobacco/Smoking Status: Tobacco use Status Tobacco use date assessed 06/24/25 06/24/25 10:26 Patient Tobacco Use Status Former Tobacco user 06/24/25 10:26 Tobacco use type Cigarette 06/24/25 10:26 e-Cigarette/Vaping Use Never Used 06/24/25 10:26 PHQ-9: PHQ-9 Score PHQ-9: Total score 6 06/24/25 11:53 Thrive Assessment: Date of Thrive Assessment Date Thrive assessed 06/24/25 06/24/25 10:26 Currently or been in a relationship where the following occur: No concerns reported Const General: cooperative, healthy appearing, comfortable and no acute distress Orientation/consciousness: patient oriented x3 HENMT Head: Yes normocephalic Ears: hearing grossly normal bilaterally General nose exam: Normal external nose present Eyes General: appearance normal, both eyes and all related structures Conjunctivae: conjunctivae normal Neck Neck: Yes full ROM and Yes no lymphadenopathy Resp Effort & Inspection: normal respiratory effort Auscultation: clear to auscultation bilaterally, no crackles, no rales, no rhonchi and no wheezes Cardio Rate: regular rate Rhythm: regular rhythm GI Palpation (GI): Soft to palpation, not firm, Tenderness to palpation present (GI) in the epigastrum and suprapubicly, no guarding, not rigid and No Rebound tenderness present Skin General skin exam: no rashes or lesions noted Neuro General: patient oriented x3 Gait exam (Neuro): Normal gait present Extrem General: Yes normal to inspection, Yes full ROM and No edema Psych Affect: normal affect Attitude: cooperative Insight: Good insight present (Psych) Judgement: Good judgement present (Psych) Results AMB Urinalysis Dipstick UR Leukocytes Negative Last Edit by Ivelisse Bland MA on 06/24/25 11:23 UR Nitrite Negative Last Edit by Ivelisse Bland MA on 06/24/25 11:23 UR Urobilinogen 2 Last Edit by Ivelisse Bland MA on 06/24/25 11:23 UR Protein Negative Last Edit by Ivelisse Bland MA on 06/24/25 11:23 UR Ph 6.0 Last Edit by Ivelisse Bland MA on 06/24/25 11:23 UR Blood Trace Last Edit by Ivelisse Bland MA on 06/24/25 11:23 UR Specific [place] 1.015 Last Edit by Ivelisse Bland MA on 06/24/25 11:23 UR Ketone Negative Last Edit by Ivelisse Bland MA on 06/24/25 11:23 UR Bilirubin Negative Last Edit by Ivelisse Bland MA on 06/24/25 11:23 UR Glucose Negative Last Edit by Ivelisse Bland MA on 06/24/25 11:23 Results Reviewed Results Reviewed: Laboratory Last Values Urine pH (Clinic) 6.0 06/24/25 11:18 Specific [place] (Clinic) 1.015 06/24/25 11:18 Ur Protein (Clinic) Negative 06/24/25 11:18 Ur Ketones (Clinic) Negative 06/24/25 11:18 Urine Blood (Clinic) Trace 06/24/25 11:18 Urine Nitrite Negative 06/24/25 11:18 Urine Bilirubin (Clinic) Negative 06/24/25 11:18 Urobilinogen (Clinic) 2 06/24/25 11:18 Leukocyte Esterase (Clinic) Negative 06/24/25 11:18 Urine Glucose (Clinic) Negative 06/24/25 11:18 Coding Level of Care Code Est Pt Level 4 (41084) Diagnoses Liver lesion, right lobe K76.9 Brain aneurysm I67.1 Obesity (BMI 30.0-34.9) E66.9 Primary hypertension I10 Hypertension type: primary hypertension H. pylori infection A04.8 Abnormal uterine and vaginal bleeding, unspecified N93.9 Pelvic pain R10.2 Hematuria R31.9 Additional Codes MEAGAN-7 Assessment Billing - MEAGAN-7 Assessment Tool: MEAGAN-7 Assessment 44014 ([id number]) PHQ-9 - 04190 - PHQ-9 Billing: Yes ([id number]) Assessment & Plan Assessment & Plan (1) Liver lesion, right lobe: Code(s): K76.9 - Liver disease, unspecified Category: Medical Plan: Continue to follow GI currently undergoing workup. Most recent MRI liver lesion was stable indicating likely benign mouth continue to monitor. (2) Brain aneurysm: Comment: AugustT head demonstrates no acute intracranial hemorrhage or infarct. CTA head demonstrates a 5 mm saccular aneurysm arising from the distal left M1 and directed anteriorly and superiorly. No large vessel occlusion. CTA neck demonstrates no hemodynamically significant stenosis, dissection, or aneurysm. Code(s): I67.1 - Cerebral aneurysm, nonruptured Category: Medical Plan: No longer taking the Clopidogrel and she continues to follow with neurology through [facility]. (3) Obesity (BMI 30.0-34.9): Code(s): E66.9 - Obesity, unspecified Category: Medical Plan: Healthy diet and regular exercise is encouraged. (4) Hypertension: Code(s): I10 - Essential (primary) hypertension Category: Medical Qualifiers: Hypertension type: primary hypertension Qualified Code(s): I10 - Essential (primary) hypertension Plan: Continue on current blood pressure medication. Avoid salt intake and encourage healthy diet and regular exercise. Patient tells us today she has not yet taken her metoprolol this morning but otherwise does have good adherence. Recommend taking blood pressure at home daily and reach out to the office if blood pressure is elevated over 140/90 (5) H. pylori infection: Code(s): A04.8 - Other specified bacterial intestinal infections Category: Medical Plan: Patient was previously being treated for H pylori infection however she states she did not complete the antibiotic regimen due to side effects. I strongly encouraged her to reach out to the GI specialist as the H pylori infection may be contributing to her bloating and abdominal pain and is likely unresolved at this time. (6) Abnormal uterine and vaginal bleeding, unspecified: Code(s): N93.9 - Abnormal uterine and vaginal bleeding, unspecified Category: Medical Plan: Patient having abnormal uterine bleeding plan to obtain pelvic and transvaginal ultrasound for further evaluation. I did also placed an urgent referral to Gynecology as well for further evaluation and treatment. Plan to also obtain blood work to rule out and anemia has well. (7) Pelvic pain: Code(s): R10.2 - Pelvic and perineal pain Category: Medical Plan: See above (8) Hematuria: Comment: Cytology negative January 2020 Code(s): R31.9 - Hematuria, unspecified Category: Medical Plan: Patient having hematuria along with pelvic pain urinalysis negative for infection today but does show presence of red blood cells in the urine. Plan to obtain culture and cytology for further evaluation and consider additional imaging. Plan The plan involves conducting a pelvic and transvaginal ultrasound to explore the cause of hematuria and pelvic pain, alongside a gynecology referral for comprehensive assessment. The urine sample will undergo cytology and culture to identify the source of bleeding. For hypertension, the patient is instructed to monitor blood pressure consistently and adhere to metoprolol. A dermatology referral is arranged for facial skin issues. Cholestyramine is prescribed to address chronic diarrhea following cholecystectomy. Follow-up appointments are arranged to evaluate results and modify the treatment plan accordingly. Patient was informed and verbally consented to the use of an ambient scribe for clinic note documentation during this visit. Orders: Orders US pelvic and transvaginal Today N93.9 - Abnormal uterine and vaginal bleeding, unspecified, R10.2 - Pelvic and perineal pain, R31.9 - Hematuria, unspecified Complete Blood Count Auto Diff Today N93.9 - Abnormal uterine and vaginal bleeding, unspecified, Z00.00 - Encounter for general adult medical examination without abnormal findings HCG Quantitative Today N93.9 - Abnormal uterine and vaginal bleeding, unspecified AMB Urinalysis Dipstick Today Z13.9 - Encounter for screening, unspecified Urine Culture Today R31.9 - Hematuria, unspecified Urine Cytology Today R31.9 - Hematuria, unspecified Referrals Dermatology Referral R23.4 - Changes in skin texture [employer] Referral N93.9 - Abnormal uterine and vaginal bleeding, unspecified Medications: New cholestyramine (with sugar) 4 gram no meds 1 hr before/4-6 hr after dose 4 grams PO QIDACHS 368.76 grams 0RF Discontinued clopidogrel (Plavix) Discontinued Reason: Patient no longer taking 75 mg PO DAILY 90 tabs 0RF
[2025-06-24 10:22] VITALS: BP 130/92; PULSE 72; O2SAT 100; BMI 28.6
--- OUTSIDE RECORDS SUMMARY | 2025-06-24 10:52 | XMS_ITS | Clinical Summary ---
Author Organization [facility] Address [address] [place] [address] Care Team Providers Care Medical Laboratory Specialist Name Role Phone Monica Brice [facility] Primary Care Provider [phone]- [phone] Allergies Active Allergy Reactions Criticality Noted Date [...] 101 03/21/2022 7:00 AM EDT Temperature 37.4 C (99.3 F) 03/21/2022 7:00 AM EDT Respiratory Rate 19 03/21/2022 7:00 AM EDT [...] series) 2004 Pap Smear (Ages 21-65) 2006 HPV Vaccines (1 - 3-dose SCD M series) 2012 COVID-19 Vaccine ( - 2023-2 5 season) 2024 Influenza Vaccine 06/12/2025 Pneumococcal Vaccine: Pediat sofia (0-5 Years) and At-Risk Patients (6 to 49 Years) Aged Out No longer eligible b ased on patient's age to complete this topic Insurance Advance Directives * Full Code (Latest Code Status on File) Date Activated Date Inactivated Comments 03/20/2022 5:19 AM Care Teams Medical Laboratory Specialist Relationship Specialty Start Date End Date Monica Brice FNP [address] [place] [id number] PCP - General Family Medicine 03/20/22
--- OUTSIDE RECORDS SUMMARY | 2025-06-24 10:52 | XMS_ITS ---
Author Name [facility] Organization Unknown Encounters Encounter Type Encounter Reason Primary Diagnosis Location Date Inpatient Acute posthemorr hagic anemia [facility] 03/20/2022 Care Team Organization Name Specialty Phone Email Start Date End [facility] 03/20/2022 06/30/2024 [facility] Primary Care 03/20/2022 022
[2025-06-24 11:05] VITALS: BP 142/98
== END 2025-06-24 11:11 | disposition home or self-care (01) ==
LOC: HO.HMCH 10:12
PROVIDERS: PCP Internal Medicine
DX: K76.9 Liver disease, unspecified (principal); I67.1 Cerebral aneurysm, nonruptured; E66.9 Obesity, unspecified; Z68.28 Body mass index [BMI] 28.0-28.9, adult; I10 Essential (primary) hypertension; A04.8 Other specified bacterial intestinal infections; N93.9 Abnormal uterine and vaginal bleeding, unspecified; R10.2 Pelvic and perineal pain; R31.9 Hematuria, unspecified

== ENCOUNTER 2025-08-03 10:26 | Outpatient (AMB) | payer OTHER, SELFPAY ==
--- NOTE | 2025-08-03 10:33 | MHC.OFFVIS ---
Vital Signs 08/03/25 10:34 Height 5 ft 1 in Weight 147 lb 11.355 oz BMI 27.9 BP 150/107 H Blood Pressure Location Lt brachial Position Sitting Pulse 78 Intake Visit Reasons: f/u liver biopsy Intake Note: Angelica presents in the office as a follow uo liver biopsy. CC: states she is having same concerns with the pains in the stomach. 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, 3 cm she has issues with bloating for 8 months mostly on the left side she has occasional constipation, but most of the time it is soft no blood in the stool she goes daily for the stool she has never had colonoscopy she has reflux symptom, takes pepcid prn she has right arm weakness for long time EGD/colo 01/06 Endoscopy Findings: mild esophagitis gastritis Colonoscopy Findings: internal hemorrhoids PATH: H pylori pos 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 VITAL SIGNS:see workflow HEENT: Nonicteric sclerae, PERRLA, EOMI. Oropharynx clear. Moist mucous membranes. Conjunctivae appear well perfused. No thyroid mass. CHEST: Chest wall is nontender. HEART: Regular rate and rhythm without murmurs. LUNGS: Clear to auscultation bilaterally. ABDOMEN: Soft, positive bowel sounds, tender epigastrium and left side abdo, no organomegaly.no flank tenderness--scars noted on abdomen SKIN: No rash, no excessive bruising, petechiae, or purpura. NEUROLOGIC: Cranial nerves II-XII intact without motor/sensory deficit. 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 2/ Bloating and abdominal pain, possible due to SIBO and prior procedures or mesh, seeing DR Arana in bariatrics and waiting surgery to remove 3/ H pylori, unabkle to tolerate quadruple therapy PLAN; 1/ try to get voquenza treatment--repeat urea breath test in about 2 months after rx PFSH Medical History Brain aneurysm Surgery, elective Overweight (BMI 25.0-29.9) Foul smelling urine Anemia Sepsis Pre-operative clearance Dysuria Insomnia Annual physical exam Hematuria Complex ovarian cyst History of hydronephrosis Cervical high risk HPV (human papillomavirus) test positive Ectopic of left ovary GERD (gastroesophageal reflux disease) Obesity (BMI 30-39.9) Generalized anxiety disorder Constipation Hyperbilirubinemia Allergic rhinitis Vitamin D deficiency Hypertension FLORENCIO II (cervical intraepithelial neoplasia II) COVID-19 virus infection Surgical History S/P laparoscopic cholecystectomy Status post repair of ventral hernia Hx of brain surgery Hx of cholecystectomy Hx of abdominoplasty Ventral hernia (12/27/23) H/O section Skin tag, acquired History of appendectomy Family History Maternal Grandmother Colon cancer Maternal Grandfather Colon cancer Other Mental health disorder Social History Household Members: Children Housing: House Are you a primary respiratory care assistant to a significant other at home: No Do you presently have visiting nurse or other home services: No Alcohol intake: current Alcohol intake frequency: holidays/special occasions only Alcohol type: wine Comment: tolerable Patient Tobacco Use Status: Former Tobacco user Tobacco use type: Cigarette Years Smoked: 2 e-Cigarette/Vaping Use: Never Used Second Hand Smoke Exposure: Yes Substance Use Type: Marijuana service: No Current occupational status: employed Cognitive needs: No Hearing needs: No Vision needs: No Physical Exam Vital Signs: Last Vital Signs Pulse 78 08/03/25 10:34 BP 150/107 H 08/03/25 10:34 BMI result Body Mass Index 27.9 Assessment & Plan Assessment & Plan (1) Gastritis: Code(s): K29.70 - Gastritis, unspecified, without bleeding Category: Medical Plan: as above Medications: New vonoprazan-amoxicillin 20 mg (28)- 500 mg (84) (Voqueclint Dual Hima) PO PER PKG DIR 1 packet 0RF 14 days Coding Level of Care Code Est Pt Level 3 (22011) Diagnoses Gastritis K29.70
[2025-08-03 10:34] VITALS: BP 150/107; PULSE 78; BMI 27.9
--- OUTSIDE RECORDS SUMMARY | 2025-08-03 12:43 | XMS_ITS | Clinical Summary ---
Author Organization [facility] Address [address] [place] [address] Care Team Providers Care Farrowing Worker Name Role Phone Monica Brice [facility] Primary Care Provider +1- [phone] Allergies Active Allergy Reactions Criticality Noted Date [...] (1 - 3-dose SCD M series) 2012 Influenza Vaccine 06/12/2025 COVID-19 Vaccine (1 - 2023-2 5 season) 2025 Pneumococcal Vaccine: Pediat sofia (0-5 Years) and At-Risk Patients (6 to 49 Years) Aged Out No longer eligible b ased on patient's age to complete this topic Insurance Advance Directives * Full Code (Latest Code Status on File) Date Activated Date Inactivated Comments 03/20/2022 5:19 AM Care Teams Farrowing Worker Relationship Specialty Start Date End Date Monica Brice FNP [address] [place] [id number] PCP - General Family Medicine 03/20/22
== END 2025-08-03 11:08 | disposition home or self-care (01) ==
LOC: HO.HGI 10:27
PROVIDERS: PCP Internal Medicine; Visit Provider Internal Medicine Gastroenterology
DX: K29.70 Gastritis, unspecified, without bleeding (principal)
CPT/HCPCS: 99213

== ENCOUNTER → 2025-08-03 10:26 | Outpatient (BNVA) | payer OTHER, SELFPAY | PROVIDERS: PCP Internal Medicine; Visit Provider Internal Medicine Gastroenterology | DX: R10.13 Epigastric pain (principal); K29.70 Gastritis, unspecified, without bleeding | CPT/HCPCS: 99212 ==

== ENCOUNTER 2025-08-06 23:57 | Emergency (ER) | payer OTHER, SELFPAY ==
--- OUTSIDE RECORDS SUMMARY | 2015-01-01 08:45 | XMS_ITS | Continuity of Care Document ---
Author Organization [facility] [employer] 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 Name Role Phone Unavailable Unavailable Unavailable Allergies, Adverse Reactions, Alerts Substance Reaction Status Criticality No Known allergies Advance Directives Directive Yes / No Effective Date File Name No Information Encounters Encounter Description Practice Location Reason(s) For Visit Diagnoses Date Provider Providers Copied on Encounter [facility] [address], [place], [place], [id number], tel:[phone] [facility] Menaul abscess/cys t (chief complaint) No Information No Information Family History Family Member Type Diagnosis Age At Onset No Information Payers Payer name Insurance type Covered libertarian ID Authoriza tion(s) No Information Social History [...]
--- NOTE | ~2025-08-06 | XR_ITS ---
CLINICAL HISTORY: Cough 1 view chest x-ray. Comparison: CR/MD/SR - XR CHEST 1 VIEW - 03/16/25 12:36 EDT Findings: The lungs appear clear. There is no consolidation, effusion, or nodule identified. Cardiomediastinal silhouette is within normal limits. IMPRESSION: No acute cardiopulmonary abnormality. This document has been electronically signed by: Felice Suero MD on 08/07/2025 01:30:25
--- NOTE | 2025-08-06 23:59 | ECG_ITS ---
Test Reason : cp Blood Pressure : */* mmHG Vent. Rate : 87 BPM Atrial Rate : 87 BPM P-R Int : 130 ms QRS Dur : 70 ms QT Int : 372 ms P-R-T Axes : 55 20 -1 degrees QTcB Int : 447 ms Normal sinus rhythm Low voltage QRS Cannot rule out Anterior infarct , age undetermined Abnormal ECG When compared with ECG of 17-Jan-2025 16:01, Nonspecific T wave abnormality now evident in Anterior leads Referred By: Generic ED Physician Electronically Signed By: Tico Robbins
[2025-08-07 00:08] VITALS: BP 181/110; PULSE 80; RESP 16; TEMP 36.8; O2SAT 100; BMI 27.8
[2025-08-07 00:14] LABS: Hematocrit 39.4 % (37.0-47.0); Hemoglobin 13.6 g/dl (12.0-16.0); Imm Gran Abs Auto 0.02 X10*3/uL (0.00-0.03); Imm Gran Pct Auto 0.2 % (0.0-0.4); Lymphocytes Absolute Auto 2.7 X10*3/uL (1.2-4.9); MANUAL DIFF FLAG NO; Mean Corpuscular HGB Conc 34.5 g/dl (31.0-35.0); Mean Corpuscular Hemoglobin 28.4 pg (27.0-33.0); Mean Corpuscular Volume 82.3 fL (80.0-98.0); NRBC Abs Auto 0.000 X10*3/uL (0.0-0.012); NRBC Pct Auto 0.0 /100WBC (0.0-0.2); Platelet Count 212 X10*3/uL (160-400); Red Blood Count 4.79 X10*6/uL (4.20-5.50); White Blood Count 8.2 X10*3/uL (4.8-10.8)
[2025-08-07 00:27] LABS: Anion Gap 13 (12-20); Blood Urea Nitrogen 10 mg/dL (9-16); Calcium 8.7 mg/dL (8.4-10.2); Carbon Dioxide 23 mmol/L (22-29); Chloride 110 mmol/L (96-108); Creatinine Clr Calc Pharmacy 68.0; Estimated Glomerular Filt Rate > 60; Potassium 3.9 mmol/L (3.3-5.1); Sodium 142 mmol/L (135-145)
[2025-08-07 00:40] LABS: Troponin-I High Sensitivity < 2.7 ng/L (<3.5-17.0)
--- OUTSIDE RECORDS SUMMARY | 2025-08-07 00:40 | XMS_ITS | Clinical Summary ---
Author Organization [facility] Address [address] [place] [address] Care Team Providers Care Electric Dolly Operator Name Role Phone Monica Brice [facility] Primary Care Provider +1- [phone] Allergies Active Allergy Reactions Criticality Noted Date [...] Inactivated Comments 03/20/2022 5:19 AM Care Teams Electric Dolly Operator Relationship Specialty Start Date End Date Monica Brice FNP [address] [place] [id number] PCP - General Family Medicine 03/20/22
--- NOTE | 2025-08-07 01:33 | ED.GENADULT ---
HPI - General Adult General Chief complaint: Dyspnea Stated complaint: Chest Pain Time Seen by Provider: 08/07/25 01:04 Source: patient Mode of arrival: ambulatory Limitations: no limitations History of Present Illness ED Provider: Dr. Ursula Garcia HPI narrative: Patient comes to the emergency room complaining of 1 week of cold, dry cough. Patient complaining of bilateral chest pain and bilateral back pain with coughing. Patient complaining that her lungs feel that they are on fire. Patient denies abdominal pain, nausea vomiting or diarrhea, denies fever or chills Related Data Previous Rx's ?Medication ?Instructions ?Recorded blood pressure monitor (Blood #1 ea 11/23/22 Pressure Kit) metoprolol tartrate 75 mg tablet 75 mg PO BID #180 tabs 01/01/25 bismuth subsalicylate 262 mg 2 tab PO QID 14 days #112 tabs 01/19/25 chewable tablet pantoprazole 20 mg tablet,delayed 20 mg PO BID 2 weeks #28 tabs 01/19/25 release citalopram 10 mg tablet (Celexa) 10 mg PO DAILY #90 tabs 02/05/25 hydroxyzine HCl 25 mg tablet 25 mg PO BEDTIME for anxiety #90 03/10/25 tabs aspirin 81 mg tablet,delayed 81 mg PO DAILY #90 tabs 05/13/25 release (Adult Aspirin Regimen) cholestyramine (with sugar) 4 gram 4 g PO QID #1,134 grams 07/29/25 oral powder vonoprazan 20 mg (28)-amoxicillin See Rx Instructions PO PER PKG DIR 08/03/25 500 mg (84) oral combo pack 14 days #1 packet (Voquezna Dual Hima) codeine 7.5 mg-guaifenesin 225 5 ml PO Q4-6H PRN cough #473 mL 08/07/25 mg/5 mL oral liquid Allergies Allergy/AdvReac Type Severity Reaction Status Date / Time nifedipine (Procardia) Allergy Severe Abdominal Verified 08/07/25 00:09 Pain terbutaline Allergy Severe Abdominal Verified 08/07/25 00:09 Pain Review of Systems Review of Systems: Constitutional : No Weight loss, No Fever, No Chills, No Night Sweats, No Fatigue, No Malaise ENT/Mouth : No Hearing loss, No Ear Pain, No Nasal Congestion, No Sinus Pain, No Hoarseness, No sore throat, No Rhinorrhea, No Swallowing Difficulty Eyes: No Eye Pain, No Swelling, No Redness, No Foreign Body, No Discharge, No Vision Changes Cardiovascular : No Chest Pain, complaining of chest wall pain only with coughing bilaterally and in the back, No SOB, No Dyspnea on Exertion, No Orthopnea, No Edema, No Palpitations Respiratory : Complaining of cough, no wheezing, complaining of burning sensation in both lungs Gastrointestinal : No Nausea, No Vomiting, No Diarrhea, No Constipation, No abdominal Pain, No Hematochezia, No Melena Genitourinary : no irregular bleeding, No Dysuria, No Urinary Frequency, No Hematuria, No Urinary Incontinence, No Urgency, No Flank Pain, No Urinary Flow Changes, No Hesitancy Musculoskeletal : No joint pain, No Myalgias, No Joint Swelling Skin : No Skin Lesions, No rash Neuro : No Weakness, No Numbness, No Paresthesias, No Loss of Consciousness, No Dizziness, No Headache Psych : No Anxiety/Panic, No Depression, No SI/HI/AH/VH, No Social Issues, Heme/Lymph: No Bruising, No Bleeding,No Lymphadenopathy Endocrine : No Polyuria, No Polydipsia, No Temperature Intolerance PMFSH Past Medical History Medical History Brain aneurysm Surgery, elective Overweight (BMI 25.0-29.9) Foul smelling urine Anemia Sepsis Pre-operative clearance Dysuria Insomnia Annual physical exam Hematuria Complex ovarian cyst History of hydronephrosis Cervical high risk HPV (human papillomavirus) test positive Ectopic of left ovary GERD (gastroesophageal reflux disease) Obesity (BMI 30-39.9) Generalized anxiety disorder Constipation Hyperbilirubinemia Allergic rhinitis Vitamin D deficiency Hypertension FLORENCIO II (cervical intraepithelial neoplasia II) COVID-19 virus infection Surgical History S/P laparoscopic cholecystectomy Status post repair of ventral hernia Hx of brain surgery Hx of cholecystectomy Hx of abdominoplasty Ventral hernia (12/27/23) H/O section Skin tag, acquired History of appendectomy Family History Family History Maternal Grandmother Colon cancer Maternal Grandfather Colon cancer Other Mental health disorder Social History Social History Household Members: Children Housing: House Are you a primary healthcare corporate account director to a significant other at home: No Do you presently have visiting nurse or other home services: No Alcohol intake: current Alcohol intake frequency: holidays/special occasions only Alcohol type: wine Comment: tolerable Patient Tobacco Use Status: Former Tobacco user Tobacco use type: Cigarette Years Smoked: 2 e-Cigarette/Vaping Use: Never Used Second Hand Smoke Exposure: Yes Substance Use Type: Marijuana Advance Directives: No Advance Directives Information Provided: Yes Do you have a plan to hurt others: No Plan service: No Current occupational status: employed Cognitive needs: No Hearing needs: No Vision needs: No Physical Exam ED Exam Exam: Appearance: Alert. Oriented X3. No acute distress. Eyes: Pupils equal, round and reactive to light. ENT: Pharynx normal. Neck: Normal inspection. Neck supple. No lymph nodes noted. No crepitus CVS: Normal heart rate and rhythm. Pulses normal. Normal S1 and S2 Respiratory: No respiratory distress. Breath sounds normal. No Wheezing. No rales Abdomen: Soft and nontender. No rigidity. No distention. Skin: Skin warm and dry. Normal skin color. Normal skin turgor. Extremities: No lower extremity edema. No Lacerations. No Rash Neuro: Oriented X 3. No motor deficit. No sensory deficit. Moving all extremities. No slurred speech. CN 2 through 12 grossly intact Psych: calm, cooperative, normal affect Vital Signs: Vital Signs - 24 hr 08/07/25 00:08 08/07/25 03:12 Temperature 98.2 F 97.9 F Pulse Rate 80 77 Respiratory Rate 16 16 Blood Pressure 181/110 H 161/107 H Pulse Oximetry 100 100 Oxygen Delivery Method Room Air Room Air BMI result Body Mass Index 27.8 Course Course Course Narrative: Patient complaining of URI symptoms for about a week. Complaining of burning sensation in both lungs with deep inhalation. Medications Administered Discontinued Medications Generic Name Dose Route Start Last Admin Trade Name Freq PRN Reason Stop Dose Admin Acetaminophen 975 mg 08/07/25 01:32 08/07/25 02:11 Acetaminophen 325 Mg Tablet PO 08/07/25 01:33 975 mg ONCE ONE Administration Medical Decision Making Medical Decision Making [facility] Narrative: My interpretation of labs: No significant abnormality patient's hematology or chemistry, hCG negative, troponin negative Patient was given p.o. acetaminophen. Chest x-ray: No acute abnormality Serology negative for COVID and influenza I discussed the above-mentioned with the patient, patient agrees with plan, purulent medications at home. Differential Diagnosis Differential Diagnoses: The differential diagnosis associated with the presentation includes (Influenza, COVID, bronchitis my viral URI) Lab Data MDM Lab Attestation statement: I reviewed the patient's lab results. Labs: Lab Results 08/07/25 08/07/25 08/07/25 Range/Units 00:10 00:12 03:04 WBC 8.2 (4.8-10.8) X10*3/uL RBC 4.79 (4.20-5.50) X10*6/uL Hgb 13.6 (12.0-16.0) g/dl Hct 39.4 (37.0-47.0) % MCV 82.3 (80.0-98.0) fL MCH 28.4 (27.0-33.0) pg MCHC 34.5 (31.0-35.0) g/dl RDW 12.7 (11.0-16.0) % Plt Count 212 (160-400) X10*3/uL MPV 10.5 (9.4-12.3) fL Immature Gran % (Auto) 0.2 (0.0-0.4) % Neut % (Auto) 52.9 (45-73) % Lymph % (Auto) 33.5 (20-40) % [place] % (Auto) 7.7 (2-11) % Eos % (Auto) 4.4 H (0-4) % Baso % (Auto) 1.3 (0-2) % Lymph # (Auto) 2.7 (1.2-4.9) X10*3/uL [place] # (Auto) 0.6 (0.1-1.2) X10*3/uL Eos # (Auto) 0.4 (0.0-0.4) X10*3/uL Baso # (Auto) 0.1 (0.0-0.2) X10*3/uL Abs Immat Gran (auto) 0.02 (0.00-0.03) X10*3/uL Absolute Neuts (auto) 4.3 (2.0-8.3) x10*3/uL Absolute Nucleated RBC 0.000 (0.0-0.012) X10*3/uL Nucleated RBC % (auto) 0.0 (0.0-0.2) /100WBC Sodium 142 (135-145) mmol/L Potassium 3.9 D (3.3-5.1) mmol/L Chloride 110 H (96-108) mmol/L Carbon Dioxide 23 (22-29) mmol/L Anion Gap 13 (12-20) BUN 10 (9-16) mg/dL Creatinine 0.97 (0.5-1.4) mg/dL Estim Creat Clear Calc 68.0 Estimated GFR > 60 Random Glucose 92 (60-115) mg/dL Calcium 8.7 (8.4-10.2) mg/dL Troponin I High Sens < 2.7 (<3.5-17.0) ng/L COVID-19 (CASSANDRA) Negative (Negative) COVID-19 Clin Com See Note Influenza Type A (JONY) Negative (Negative) Influenza Type B (JONY) Negative (Negative) Influenza A & B Note See Note Independent Interpretation I performed an independent interpretation of an: Plain X-Ray Radiology Impression Discussion of test interpretation with radiology: I have reviewed the radiologist's reading. Radiologist Impression: The lungs appear clear. There is no consolidation, effusion, or nodule identified. Cardiomediastinal silhouette is within normal limits. IMPRESSION: No acute cardiopulmonary abnormality. Discharge Plan Discharge Clinical Impression: Viral URI with cough Patient Disposition: Home, Self-Care Instructions: Acute Bronchitis (ED) Additional Instructions: Please follow-up with your primary care physician tomorrow. If you have any worsening or new symptoms, please return to the emergency room or call 911 Prescriptions: New codeine-guaifenesin 7.5-225 mg/5 mL liquid 5 ml PO Q4-6H PRN (Reason: cough) Qty: 473 0RF No Action metoprolol tartrate 75 mg tablet 75 mg PO BID Qty: 180 0RF bismuth subsalicylate 262 mg tablet,chewable 2 tab PO QID 14 Days Qty: 112 0RF pantoprazole 20 mg tablet,delayed release (DR/EC) 20 mg PO BID 14 Days Qty: 28 0RF hydroxyzine HCl 25 mg tablet 25 mg PO BEDTIME Qty: 90 1RF aspirin [Adult Aspirin Regimen] 81 mg tablet,delayed release (DR/EC) 81 mg PO DAILY Qty: 90 0RF cholestyramine (with sugar) 4 gram powder 4 g PO QID Qty: 1134 1RF (DME) blood pressure monitor [Blood Pressure Kit] Kit See Rx Instructions .Route Qty: 1 0RF Rx Instructions: As directed Ramon Dual Hima 20 mg (28)- 500 mg (84) combo pack See Rx Instructions PO PER PKG DIR 14 Days Qty: 1 0RF Rx Instructions: PO PER PKG DIR citalopram [Celexa] 10 mg tablet 10 mg PO DAILY Qty: 90 1RF Stand Alone Forms: Work/School Release Print Language: Paraguayan
[2025-08-07 03:12] VITALS: BP 161/107; PULSE 77; RESP 16; TEMP 36.6; O2SAT 100
[2025-08-07 03:23] LABS: COVID-19 Test Negative (Negative); IDNOW Serial# 55D5AD1C; IDNOW Serial# 58CA691E; Influenza B2 Negative (Negative)
[2025-08-07 04:18] VITALS: BP 161/107; PULSE 77; RESP 16; TEMP 36.6; O2SAT 100
== END 2025-08-07 04:19 | disposition home or self-care (01) ==
PROVIDERS: Emergency Provider Emergency Medicine; PCP Internal Medicine
DX: J06.9 Acute upper respiratory infection, unspecified (principal); R07.9 Chest pain, unspecified; R05.9 Cough, unspecified; M54.89 Other dorsalgia
CPT/HCPCS: 36415; 71045; 80048; 84484; 85025; 87502; 87635; 93005; 99284; 99285

== ENCOUNTER → 2025-08-06 23:59 | Outpatient (BNV) | payer OTHER, SELFPAY | PROVIDERS: Emergency Provider Emergency Medicine; PCP Internal Medicine; Visit Provider Internal Medicine Cardiovascular Disease | DX: R94.31 Abnormal electrocardiogram [ECG] [EKG] (principal); R07.9 Chest pain, unspecified | CPT/HCPCS: 93010 ==

== ENCOUNTER → 2025-08-07 00:47 | Outpatient (BNV) | payer OTHER, SELFPAY | PROVIDERS: Emergency Provider Emergency Medicine; PCP Internal Medicine; Visit Provider Radiology Diagnostic Radiology | DX: R05.9 Cough, unspecified (principal) | CPT/HCPCS: 71045 ==

== ENCOUNTER 2025-09-10 09:37 | Outpatient (REF) | payer OTHER, SELFPAY ==
[2025-09-11 01:36] LABS: Bacterial Vaginosis PCR POSITIVE (Negative); Candida Group PCR NOT DETECTED (Not Detect); Candida glab krusei PCR NOT DETECTED (Not Detect); Trichomonas vaginalis PCR NOT DETECTED (Not Detect)
[2025-09-11 02:07] LABS: CT PCR NOT DETECTED (Not Detect.); NG PCR NOT DETECTED (Not Detect.)
== END 2025-09-10 09:38 | disposition home or self-care (01) ==
LOC: HO.LAB 09:37
PROVIDERS: Visit Provider Advanced Practice Midwife
DX: N39.0 Urinary tract infection, site not specified (principal); N92.1 Excessive and frequent menstruation with irregular cycle; R10.20 Pelvic and perineal pain unspecified side; Z97.5 Presence of (intrauterine) contraceptive device; Z20.2 Contact with and (suspected) exposure to infections with a predominantly sexual mode of transmission
CPT/HCPCS: 81003; 81025; 81515; 87086; 87088; 87186; 87491; 87591; 99212

== ENCOUNTER 2025-09-10 09:37 | Outpatient (AMB) | payer OTHER, SELFPAY ==
--- NOTE | 2025-09-10 09:42 | A.OFFVIS_ITS ---
Vital Signs 09/10/25 09:43 Height 5 ft 1 in Weight 147 lb BMI 27.8 BP 136/96 H Intake Visit Reasons: AUB Intake Note: Last pap yrs hx leep per pt pt c/o pelvic pain Binding Folder Machine: Binding Folder Machine Present (Jessica) Allergies nifedipine (Procardia) Allergy (Severe, Verified 09/10/25 09:48) Abdominal Pain terbutaline Allergy (Severe, Verified 09/10/25 09:48) Abdominal Pain HPI Comments Details: Patient is here today due to pelvic pressure, history of Liletta IUD user, had irregular spotting over the last few months. Positive nitrites in urine today, UTI for E coli in June was not treated, patient reports she was not notified of the infection. She did not attend her ultrasound appointment scheduled by her PCP. PFSH Medical History Brain aneurysm Surgery, elective Overweight (BMI 25.0-29.9) Foul smelling urine Anemia Sepsis Pre-operative clearance Dysuria Insomnia Annual physical exam Hematuria Complex ovarian cyst History of hydronephrosis Cervical high risk HPV (human papillomavirus) test positive Ectopic of left ovary GERD (gastroesophageal reflux disease) Obesity (BMI 30-39.9) Generalized anxiety disorder Constipation Hyperbilirubinemia Allergic rhinitis Vitamin D deficiency Hypertension FLORENCIO II (cervical intraepithelial neoplasia II) COVID-19 virus infection Surgical History S/P laparoscopic cholecystectomy Status post repair of ventral hernia Hx of brain surgery Hx of cholecystectomy Hx of abdominoplasty Ventral hernia (12/27/23) H/O section Skin tag, acquired History of appendectomy Family History Maternal Grandmother Colon cancer Maternal Grandfather Colon cancer Other Mental health disorder Social History Household Members: Children Housing: House Are you a primary assisted living care manager to a significant other at home: No Do you presently have visiting nurse or other home services: No Alcohol intake: current Alcohol intake frequency: holidays/special occasions only Alcohol type: wine Comment: tolerable Patient Tobacco Use Status: Former Tobacco user Tobacco use type: Cigarette Years Smoked: 2 e-Cigarette/Vaping Use: Never Used Second Hand Smoke Exposure: Yes Substance Use Type: Marijuana service: No Current occupational status: employed Cognitive needs: No Hearing needs: No Vision needs: No Female Reproductive History Menstrual control method: progestin IUCD (2022) Total pregnancies: 7 Full term: 5 Number of Living Children: 5 Ectopics: 2 Review of Systems Const All systems reviewed & are unremarkable except as noted in HPI and below Physical Exam Vital Signs: Last Vital Signs BP 136/96 H 09/10/25 09:43 BMI result Body Mass Index 27.8 Const General: cooperative, healthy appearing and no acute distress Orientation/consciousness: patient oriented x3 GI Inspection: Yes normal to inspection Palpation (GI): Soft to palpation and Other GI palpation findings present (Nontender) Rectal Exam - Female: visual inspection normal General: Yes bladder normal to palpation External Female Exam: normal appearance of the urethra Speculum Exam - Vagina: normal appearance of the vagina, normal palpation and normal vaginal discharge Speculum Exam - Cervix: normal appearance of the cervix and normal palpation Bimanual exam- vagina & uterus: normal bimanual exam, normal palpation, uterine size normal, bladder normal to palpation, normal palpation, uterine shape normal and non-tender Bimanual Exam- Adnexa, other: normal adnexae Neuro General: patient oriented x3 Results AMB Urinalysis, Automated UA Leukoctes 0 Adeel/uL Last Edit by RENETTA Almanzar on 09/10/25 09:57 UA Nitrite Positive Last Edit by RENETTA Almanzar on 09/10/25 09:57 UA Urobilinogen 0 mg/dL Last Edit by RENETTA Almanzar on 09/10/25 09:5 7 UA Protein 0 mg/dL Last Edit by RENETTA Almanzar on 09/10/25 09:57 UA pH 6.0 Last Edit by RENETTA Almanzar on 09/10/25 09:57 UA Blood 2 Perry/uL Last Edit by RENETTA Almanzar on 09/10/25 09:57 UA Specific [place] 1.020 Last Edit by RENETTA Almanzar on 09/10/25 09:57 UA Ketone Negative Last Edit by RENETTA Almanzar on 09/10/25 09:57 UA Bilirubin 0 mg/dL Last Edit by RENETTA Almanzar on 09/10/25 09:57 UA Glucose 0 mg/dL Last Edit by RENETTA Almanzar on 09/10/25 09:57 AMB Test Urine AMB Test Urine Negative Last Edit by RENETTA Almanzar on 09/10/25 09:57 Results Reviewed Results Reviewed: Laboratory Last Values Urine pH (Auto) 6.0 09/10/25 09:56 Specific [place] (Auto) 1.020 09/10/25 09:56 Urine Protein (Auto) 0 mg/dL 09/10/25 09:56 Glucose (UA)(Auto) 0 mg/dL 09/10/25 09:56 Urine Ketones (Auto) Negative 09/10/25 09:56 Urine Blood (Auto) 2 Perry/uL 09/10/25 09:56 Urine Nitrite (Auto) Positive 09/10/25 09:56 Urine Bilirubin (Auto) 0 mg/dL 09/10/25 09:56 Urine Urobilinogen (Auto) 0 mg/dL 09/10/25 09:56 Leukocyte Esterase (Auto) 0 Adeel/uL 09/10/25 09:56 Tst Clinic Negative 09/10/25 09:56 Assessment & Plan Assessment & Plan Plan Discussed: Treatment of the UTI, positive culture for E.Coli in June, Repeat culture today. RX to be sent in. Follow up pending ultrasound findings, EMB if indicate d. Orders: Orders AMB Urinalysis Automated Today R10.2 - Pelvic and perineal pain Urine Culture Today R10.2 - Pelvic and perineal pain AMB HCG Urine Test Today R10.2 - Pelvic and perineal pain, Z32.02 - Encounter for test, result negative Bacterial Vaginosis Panel Today R10.2 - Pelvic and perineal pain CT NG by PCR Vag/Cerv Today R10.2 - Pelvic and perineal pain Medications: New nitrofurantoin monohyd/m-cryst 100 mg (Macrobid) must administer with a meal/food 100 mg PO BID 10 caps 0RF UTI 5 days Coding
[2025-09-10 09:43] VITALS: BP 136/96; BMI 27.8
--- OUTSIDE RECORDS SUMMARY | 2025-09-10 11:09 | XMS_ITS | Clinical Summary ---
Author Organization [facility] Address [address] [place] [address] Care Team Providers Care Heel Seater Name Role Phone Monica Brice [facility] Primary Care Provider +1- [phone] Allergies Active Allergy Reactions Criticality Noted Date [...] Pap Smear (Ages 21-65) 2006 Influenza Vaccine 06/12/2025 COVID-19 Vaccine ( - 2023-2 5 season) 2025 Mammogram 2025 HPV Vaccines (No Doses Required) Completed Pneumococcal Vaccine: Pediat sofia (0-5 Years) and At-Risk Patients (6 to 49 Years) Aged Out No longer eligible b ased on patient's age to complete this topic Insurance [facility] MEDICARE OUT OF NETWORK Advance Directives * Full Code (Latest Code Status on File) Date Activated Date Inactivated Comments 03/20/2022 5:19 AM Care Teams Heel Seater Relationship Specialty Start Date End Date Monica Brice FNP [address] [place] [id number] PCP - General Family Medicine 03/20/22
== END 2025-09-10 10:22 | disposition home or self-care (01) ==
PROVIDERS: Visit Provider Advanced Practice Midwife
DX: Z32.02 Encounter for pregnancy test, result negative (principal); R10.2 Pelvic and perineal pain

== ENCOUNTER 2025-09-10 10:17 | Outpatient (REF) | payer OTHER, SELFPAY | END 2025-09-10 10:18 | disposition home or self-care (01) | LOC: HO.LNP 10:17 | PROVIDERS: Visit Provider Advanced Practice Midwife | DX: Z13.89 Encounter for screening for other disorder (principal) ==

== ENCOUNTER 2025-09-28 16:47 | Outpatient (AMB) | payer OTHER, SELFPAY ==
--- OUTSIDE RECORDS SUMMARY | 2015-01-01 07:45 | XMS_ITS | Continuity of Care Document ---
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 Name Role Phone Unavailable Unavailable Unavailable Allergies, Adverse Reactions, Alerts Substance Reaction Status Criticality No Known allergies Advance Directives Directive Yes / No Effective Date File Name No Information Encounters Encounter Description Practice Location Reason(s) For Visit Diagnoses Date Provider Providers Copied on Encounter [facility], [address], [place], [place], [id number], tel:[phone] [facility] Menaul abscess/cys t (chief complaint) No Information No Information Family History Family Member Type Diagnosis Age At Onset No Information Payers Payer name Insurance type Covered democrat ID Authoriza tion(s) No Information Social History Type Description Quantity Date Captured Comments Alcohol Use Details Caffeine Use Details Unknown Tobacco Use Status No Information Smoking Status No Information Non-Smoking Tobacco Use Details : No Details Available : No Details Available Sex Female Vital Signs Date / Time: Height Weight BMI Pulse Rate Blood Pressure Temperature Respiratory Rate Body Surface Area Head Circumference Head Circ. Percentile Wt./Jr. Percentile BMI percentile Pulse Ox Inhaled Ox 1:30 PM 63.00 in 58.967 kg (130.00 lbs) 23.0 3 kg/m eter (2) 74 /min 108/73 mm[Hg] 97.80 F 16 /min 1.62 meter(2) 98 % Chief Complaint And Reason For Visit From encounter dated '01/01/2015 12:45'. abscess/cyst (chief complaint) Reason For Referral Reason For Referral No Information History Of Present Illness Encounter Date Complaint History Of Prese nt Illness No Information Functional Status Date Functional Assessmen t No Information Instructions Date Instruction Additional Infor mation No Information Assessments Type Assessment Date No Information Patient Care Teams Name Effective Dates (start - stop) Status Members No Information
--- OUTSIDE RECORDS SUMMARY | 2015-01-01 07:45 | XMS_ITS | Continuity of Care Document ---
Author Organization [facility] [employer] Address [address] [place] [address] Phone Care Team Providers Care Applications Development Consultant Name Role Phone Unavailable Unavailable Unavailable Allergies, Adverse Reactions, Alerts Substance Reaction Status Criticality No Known allergies Advance Directives Directive Yes / No Effective Date File Name No Information Encounters Encounter Description Practice Location Reason(s) For Visit Diagnoses Date Provider Providers Copied on Encounter [facility], [address], [place], [place], [id number], tel:[phone] [facility] Menaul abscess/cys t (chief complaint) No Information No Information Family History Family Member Type Diagnosis Age At Onset No Information Payers Payer name Insurance type Covered green party ID Authoriza tion(s) No Information Social History [...]
[2025-09-28 16:53] VITALS: BP 132/92; PULSE 80; O2SAT 98; BMI 28.9
--- NOTE | 2025-09-28 16:53 | A.OFFPC_ITS ---
Vital Signs 09/28/25 16:53 Height 5 ft 1 in Weight 153 lb BMI 28.9 BP 132/92 H Blood Pressure Location Lt brachial Position Sitting Pulse 80 Pulse Source Pulse Oximeter Pulse Oximetry (%) 98 Oxygen Delivery Method Room Air Intake Visit Reasons: f/u pelvic pain w/ Dr. Po Allergies nifedipine (Procardia) Allergy (Severe, Verified 09/28/25 16:53) Abdominal Pain terbutaline Allergy (Severe, Verified 09/28/25 16:53) Abdominal Pain Medication List - Last Reconciled 09/28/25 by Samantha Toney MD aspirin (Adult Aspirin Regimen) 81 mg PO DAILY bismuth subsalicylate 2 tabs PO QID 14 days blood pressure monitor (Blood Pressure Kit) As directed cholestyramine (with sugar) 4 gram 4 grams PO QID citalopram (Celexa) 10 mg PO DAILY fluconazole 150 mg PO .QD 1 day hydroxyzine HCl 25 mg PO BEDTIME metoprolol tartrate 75 mg PO BID nitrofurantoin monohyd/m-cryst 100 mg (Macrobid) 100 mg PO BID 5 days pantoprazole 20 mg PO BID 2 weeks vonoprazan-amoxicillin 20 mg (28)- 500 mg (84) (Voquezna Dual Hima) PO PER PKG DIR 14 days Tobacco use date assessed: 06/24/25 Dental Screening Dental Screen Date: 06/24/25 HPI HPI Comments History of Present Illness Details History of Present Illness The patient is a 40-year-old overweight female presenting for a follow-up visit. Her past medical history is significant for gastroesophageal reflux disease (GERD), cervical intraepithelial neoplasia (FLORENCIO) 2, hematuria, generalized anxiety disorder, and a history of an umbilical hernia. 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 In August 2025, she was evaluated by gynecology for abnormal uterine bleeding. She has an IUD in place and has experienced irregular spotting, which she reports is now improved. On August 07, she had an ER visit for cough and shortness of breath and was diagnosed with an upper respiratory tract infection, which was treated symptomatically. The patient was seen by gastroenterology in July and diagnosed with gastritis, for which she was prescribed Voquezna. She was also diagnosed with an H. pylori infection and prescribed a 14-day course of medication, which she did not complete. She was recently diagnosed with a UTI and prescribed a 5-day course of Macrobid, but stopped after 3 days due to vaginal itching. Blood work from August 07, 2025, revealed a normal blood count with no anemia, normal electrolytes, good renal function, and normal glucose. Her last cholesterol check in January was normal. An MRI in January 2025 confirmed interval repair of the previously seen left MCA aneurysm. Her last mammogram was in January 2024, with the next one scheduled for November. Health Maintenance She has a mammogram scheduled for November. I advised her to get her influenza vaccine soon, as flu season is approaching. She will continue to follow up with gynecology as needed. Social History - Employment: Works two hours per day. - Exercise: Reports she does not do much physical activity. - Education: Reports having a learning d isability. Results - Labs (August 07, 2025): CBC was nor mal with no anemia, electrolytes were normal, renal function was good, and sugar was normal. - Labs (January 2025): Cholesterol was nor mal. - Imaging (January 2025): MRI showed inter prashanth repair of a previously seen left MCA aneurysm. [facility] Medical History (Updated 09/28/25 @ 17:09 by Samantha Toney MD) Encounter for well woman exam with routine gynecological exam Brain aneurysm Surgery, elective Overweight (BMI 25.0-29.9) Foul smelling urine Anemia Sepsis Pre-operative clearance Dysuria Insomnia Annual physical exam Hematuria Complex ovarian cyst History of hydronephrosis Cervical high risk HPV (human papillomavirus) test positive Ectopic of left ovary GERD (gastroesophageal reflux disease) Obesity (BMI 30-39.9) Generalized anxiety disorder Constipation Hyperbilirubinemia Allergic rhinitis Vitamin D deficiency Hypertension FLORENCIO II (cervical intraepithelial neoplasia II) COVID-19 virus infection Surgical History S/P laparoscopic cholecystectomy Status post repair of ventral hernia Hx of brain surgery Hx of cholecystectomy Hx of abdominoplasty Ventral hernia (12/27/23) H/O section Skin tag, acquired History of appendectomy Family History Maternal Grandmother Colon cancer Maternal Grandfather Colon cancer Other Mental health disorder Social History Household Members: Children Housing: House Are you a primary lawn care professional to a significant other at home: No Do you presently have visiting nurse or other home services: No Alcohol intake: current Alcohol intake frequency: holidays/special occasions only Alcohol type: wine Comment: tolerable Patient Tobacco Use Status: Former Tobacco user Tobacco use type: Cigarette Years Smoked: 2 e-Cigarette/Vaping Use: Never Used Second Hand Smoke Exposure: Yes Substance Use Type: Marijuana service: No Current occupational status: employed Cognitive needs: No Hearing needs: No Vision needs: No Questionnaire Thrive Questionnaire Date Thrive assessed: 02/04/25 I am a: Patient What is your living situation today?: I have a steady place to live Within the past 12 months, did the food you bought not last and you didn't have the money to get more?: I choose not to answer this question Within the past 12 months, did you worry whether your food would run out before you got money to buy more?: I choose not to answer this question Do you have trouble paying for medicines?: No Do you have trouble getting transportation to medical appointments?: No Do you have trouble paying your heating and electricity bill?: No Do you have trouble taking care of your child, family member or friend?: No Do you have trouble with day-to-day activities such as bathing, preparing meals, shopping, managing finances, etc.?: No Are you currently unemployed and looking for a job?: I choose not to answer this question Are you interested in more education?: I choose not to answer this question Please select the resources that you would like help with: None Currently or been in a relationship where the following occur: No concerns reported THRIVE Score: 0 MEAGAN-7 AMB Questionnaire MEAGAN-7 Date MEAGAN - 7 assessed: 06/24/25 Source: Developed by Drs. Thierry Murillo, Rocio Diallo, Masood Cooper and colleagues, with an educational deni from [employer]. Review of Systems Narrative Review of Systems - Genitourinary: Reports vaginal itching and a history of hematuria. Denies burning on urination and vaginal discharge. Reports abnormal uterine bleeding is better but still has irregular spotting with her IUD. - Musculoskeletal: Reports new onset pain in the knee, a toe, and bilateral shoulders and arms, with difficulty lifting her arms. - Neurological: Reports being forgetful since her brain aneurysm. - Psychiatric: Reports feeling stressed and upset. - Respiratory: Reports a recent resolved history of cough and shortness of breath. - Gastrointestinal: Reports a history of gastritis and reflux. Physical exam (Primary Care) Vital Signs: Last Vital Signs Pulse 80 09/28/25 16:53 BP 132/92 H 09/28/25 16:53 Pulse Ox 98 09/28/25 16:53 Oxygen Delivery Method Room Air 09/28/25 16:53 BMI result Body Mass Index 28.9 Tobacco/Smoking Status: Tobacco use Status Tobacco use date assessed 06/24/25 09/28/25 16:54 Patient Tobacco Use Status Former Tobacco user 09/28/25 16:54 Tobacco use type Cigarette 09/28/25 16:54 e-Cigarette/Vaping Use Never Used 09/28/25 16:54 Thrive Assessment: Date of Thrive Assessment Date Thrive assessed 02/04/25 09/28/25 16:54 Currently or been in a relationship where the following occur: No concerns reported Narrative Physical Exam - Vitals: Blood pressure is elevated at approximately 150/x mmHg. Const General: alert; No acute distress Eyes Conjunctivae: conjunctivae normal Resp Auscultation: clear to auscultation bilaterally Cardio Rate: regular rate Rhythm: regular rhythm GI Inspection: Yes normal to inspection Extrem General: Yes normal to inspection and No edema Coding Level of Care Code Complex EM visit Add On G2211 Diagnoses Primary hypertension I10 Hypertension type: primary hypertension GERD (gastroesophageal reflux disease) K21.9 Fatty liver K76.0 FLORENCIO II (cervical intraepithelial neoplasia II) N87.1 Brain aneurysm I67.1 Vaginal irritation N89.8 Assessment & Plan Assessment & Plan (1) Hypertension: Code(s): I10 - Essential (primary) hypertension Category: Medical Qualifiers: Hypertension type: primary hypertension Qualified Code(s): I10 - Ess ential (primary) hypertension Plan: Continue with blood pressure medication. Decrease salt intake and exercise patient is on metoprolol 75 mg twice a day (2) GERD (gastroesophageal reflux disease): Code(s): K21.9 - Gastro-esophageal reflux disease without esophagitis Category: Medical Plan: Avoid the foods that causes that usually spicy foods, tomato products, juices, coffee, soda and foods that your sensitive to. After eating do not lie down, allow 3-4 hours before in lie down. And keep the head of bed above 30 degrees to avoid the acid from going up. Patient was given a prescription for Brant Reilly from Gastroenterology (3) Fatty liver: Comment: September 2023 Code(s): K76.0 - Fatty (change of) liver, not elsewhere classified Category: Medical Plan: Low-fat diet and exercise (4) FLORENCIO II (cervical intraepithelial neoplasia II): Code(s): N87.1 - Moderate cervical dysplasia Category: Medical Plan: Continue to follow-up with gynecology (5) Brain aneurysm: Comment: AugustT head demonstrates no acute intracranial hemorrhage or infarct. CTA head demonstrates a 5 mm saccular aneurysm arising from the distal left M1 and directed anteriorly and superiorly. No large vessel occlusion. CTA neck demonstrates no hemodynamically significant stenosis, dissection, or aneurysm. January 2025No aneurysm, abrupt cutoffs or significant stenosis. Interval repair of the previously seen left MCA aneurysm. Code(s): I67.1 - Cerebral aneurysm, nonruptured Category: Medical Plan: MRI January 2025 interval repair of the previously seen left MCA aneurysm (6) Vaginal irritation: Code(s): N89.8 - Other specified noninflammatory disorders of vagina Category: Medical Plan Plan Patient was informed and verbally consented to the use of an ambient scribe for clinic note documentation during this visit. 1. Hypertension The patient's blood pressure was elevated today at approximately 150/x mmHg, which she attributes to acute stress. She will continue her current medication, metoprolol 75 mg twice daily. Instructed to monitor blood pressure at home three times a week and to report if readings are consistently above 140 systolic or 90 diastolic. A follow-up visit in three months is scheduled to reassess her blood pressure. 2. Candidal Vulvovaginitis The patient reports vaginal itching, likely secondary to recent antibiotic use. A one-time dose of fluconazole was prescribed. The patient was counseled that fluconazole has an interaction with Celexa and hydroxyzine and was advised to hold these medications for one day. 3. Urinary Tract Infection The patient was recently diagnosed with a UTI and prescribed a 5-day course of Macrobid but was non-adherent, stopping after 3 days due to itching. I advised her to finish the remaining two days of the antibiotic course and counseled her on the importance of completing antibiotics to prevent resistance. 4. Helicobacter Pylori Infection The patient has a history of an H. pylori diagnosis but did not complete the 14- day treatment regimen. I reiterated the importance of eradicating the bacteria to help with her stomach pains. 5. Gastroesophageal Reflux Disease And Gastritis For her reflux and gastritis, the patient will continue with the plan from her neighborhood planner, which includes a prescription for Voquezna. A low-fat diet is also recommended. 6. Arthralgia The patient reports new-onset bilateral arm/shoulder, knee, and toe pain, which may be related to inactivity. I advised her to perform regular exercises and stretching to help manage the pain. 7. Anxiety And Administrative Request The plan is to continue Celexa and hydroxyzine for anxiety. Regarding her request for a letter for jury duty, I have instructed her to provide the batch number and dates from her summons so a letter can be prepared. Discussion Notes I discussed the patient's elevated blood pressure reading today. I counseled her on the importance of controlling her blood pressure and instructed her on how to monitor it at home, with a plan to follow up in three months. We discussed her new vaginal itching, which is likely a yeast infection from her recent antibiotic use, and I prescribed a one-time oral dose of fluconazole, explaining the need to hold her hydroxyzine and Celexa for one day due to a medication interaction. I strongly emphasized the importance of completing her full course of Macrobid for her UTI to prevent antibiotic resistance, and she agreed to finish the remaining two days. We also reviewed her non-adherence to the H. pylori treatment and the benefit of completing it. Her new joint pains were discussed, and I explained that regular movement and stretching could be beneficial. Finally, I advised her on the necessary information required from her jury duty summons to provide a letter. Patient Instructions - Check your blood pressure at home three times a week and write down the numbers. Let us know if the top number is often over 140 or the bottom number is over 90. - Take the one-time pill (fluconazole) for your yeast infection. Do not take your Celexa or hydroxyzine for one day when you take the pill. - Finish the last two days of your antibiotic (Macrobid) for the urinary tract infection. - For your joint pain, try to do regular exercises and stretching. - Get your flu shot soon. - Follow the plan from your stomach doctor, including taking Voquezna and eating a low-fat diet. - Drop off your jury duty paperwork at the office so we can write a letter for you. - Come back for a follow-up appointment in three months to check on your blood pressure. Medications: New fluconazole 150 mg PO .QD 1 tab 0RF 1 day N89.8 - Other specified noninflammatory disorders of vagina
--- OUTSIDE RECORDS SUMMARY | 2025-09-29 07:26 | XMS_ITS | Clinical Summary ---
Author Organization [facility] Address [address] [place] [address] Care Team Providers Care Hygiene Teacher Name Role Phone Monica Brice [facility] Primary Care Provider [phone] Allergies Active Allergy Reactions Criticality Noted Date [...] patient's age to complete this topic Insurance [facility] [place] [facility] MEDICARE OUT OF NETWORK Advance Directives * Full Code (Latest Code Status on File) Date Activated Date Inactivated Comments 03/20/2022 5:19 AM Care Teams Hygiene Teacher Relationship Specialty Start Date End Date Monica Brice FNP [address] [place] [id number] PCP - General Family Medicine 03/20/22
== END 2025-09-28 17:21 | disposition home or self-care (01) ==
LOC: HO.HMCH 16:48
PROVIDERS: PCP Internal Medicine; Visit Provider Internal Medicine
DX: I10 Essential (primary) hypertension (principal); K21.9 Gastro-esophageal reflux disease without esophagitis; K76.0 Fatty (change of) liver, not elsewhere classified; N87.1 Moderate cervical dysplasia; I67.1 Cerebral aneurysm, nonruptured; N89.8 Other specified noninflammatory disorders of vagina

== ENCOUNTER → 2025-09-28 16:47 | Outpatient (BNVA) | payer OTHER, SELFPAY | PROVIDERS: PCP Internal Medicine; Visit Provider Internal Medicine | DX: K21.9 Gastro-esophageal reflux disease without esophagitis (principal); F41.1 Generalized anxiety disorder; N93.9 Abnormal uterine and vaginal bleeding, unspecified; I10 Essential (primary) hypertension; K76.0 Fatty (change of) liver, not elsewhere classified; N87.1 Moderate cervical dysplasia; N89.8 Other specified noninflammatory disorders of vagina; F41.9 Anxiety disorder, unspecified; M79.602 Pain in left arm; M79.601 Pain in right arm; M25.511 Pain in right shoulder; M25.512 Pain in left shoulder; M25.562 Pain in left knee; M25.561 Pain in right knee; Z87.440 Personal history of urinary (tract) infections | CPT/HCPCS: 99212 ==